=== PATIENT | female | born 1975 | race African-American/Black ===

== ENCOUNTER 2016-04-14 07:28 | Emergency (ER) | payer MEDICARE, MEDICAID ==
--- NOTE | 2016-04-14 08:04 | ER Document Report ---
ED General - General Time seen by provider: 07:58 Mode of Arrival: Ambulatory Information source: Patient TRAVEL OUTSIDE OF THE [place] IN LAST 30 DAYS: No - HPI Onset: Yesterday Onset/Duration: Gradual Quality of pain: Pressure - Left leg due to the lymphedema Severity: Severe Pain Level: 5 Associated symptoms: Leg swelling - Bilateral lower leg swelling left greater than right. Patient has a history of lymphedema side, Other - Right facial droop unable to completely close her right eye Exacerbated by: Denies Relieved by: Denies Similar symptoms previously: Yes - to the leg edema not to the facial droop Recently seen / treated by doctor: Yes - General Chief Complaint: Numbness of Face Stated Complaint: FACE SWELLING AND LEG PAIN Notes: 40-year-old female presents to ED for right sided facial droop and swelling left side was normal. 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 Bilateral lower extremity edema left greater than right patient states this is normal for her. Patient states that she was eating doughnuts yesterday when her face on the right side started to swell. Patient denies any difficulty swallowing. Asymmetrical smile and face unable to completely close her right eye. 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 Patient states the left lower leg has been swollen for 4 days and she does take Lasix for this. Patient states she has a history of left lymphedema to the left leg. (LAM HOYOS) - Related Data Allergies/Adverse Reactions: No Known Allergies Allergy (Verified 04/14/16 07:30) Past Medical History - Social History Smoking Status: Never Smoker Cigarette use (# per day): No Chew tobacco use (# tins/day): No Smoking Education Provided: No Frequency of alcohol use: None Drug Abuse: None Occupation: none Lives with: Spouse/Significant other Family History: Arthritis, CAD, CVA, DM, Hyperlipidemia, Hypertension, Malignancy, Thyroid Disfunction Patient has suicidal ideation: No Patient has homicidal ideation: No - Past Medical History Cardiac Medical History: Reports: Hx Hypertension Pulmonary Medical History: Reports: None EENT Medical History: Reports: None Neurological Medical History: Reports: None Endocrine Medical History: Reports: Hx Diabetes Mellitus Type 2 Renal/ Medical History: Reports: None Malignancy Medical History: Reports: None GI Medical History: Reports: None Musculoskeltal Medical History: Reports Hx Arthritis, Reports Hx Musculoskeletal Deformity, Reports Hx Musculoskeletal Trauma, Reports Other - Left lymphedema Skin Medical History: Reports None Psychiatric Medical History: Reports: None Traumatic Medical History: Reports: None Infectious Medical History: Reports: None Past Surgical History: Reports: Hx Section, Hx Tubal Ligation - Immunizations Immunizations up to date: Yes Hx Diphtheria, Pertussis, Tetanus Vaccination: Yes Review of Systems - Review of Systems Constitutional: No symptoms reported EENT: Other - Right facial droop Cardiovascular: No symptoms reported Respiratory: No symptoms reported Gastrointestinal: No symptoms reported Genitourinary: No symptoms reported Female Genitourinary: No symptoms reported Musculoskeletal: Leg swelling - Bilateral left greater than right Skin: No symptoms reported Hematologic/Lymphatic: No symptoms reported Neurological/Psychological: Numbness - Right side of face -: Yes All other systems reviewed and negative Physical Exam - Vital signs Interpretation: Normal, Hypertensive - 158/90 manual instructed to follow up with primary md - General General appearance: Appears well, Alert - HEENT Head: Normocephalic, Atraumatic, Other - Facial droop to the right side of her face unable to completely close her right eye Eyes: Normal Pupils: PERRL Ears: Normal External canal: Normal Tympanic membrane: Normal Sinus: Normal Nasal: Normal Mucous membranes: Normal Pharynx: Other - She'll to right side of mouth Neck: Normal - Respiratory Respiratory status: No respiratory distress Chest status: Nontender Breath sounds: Normal Chest palpation: Normal - Cardiovascular Rhythm: Regular Heart sounds: Normal auscultation Murmur: No - Abdominal Inspection: Normal Distension: No distension Bowel sounds: Normal Tenderness: Nontender Organomegaly: No organomegaly - Back Back: Normal, Nontender - Extremities General upper extremity: Normal inspection, Nontender, Normal color, Normal ROM , Normal temperature General lower extremity: Normal inspection, Nontender, Normal color, Normal ROM , Normal temperature, Normal weight bearing. No: Scott's sign Calf: Other - Greater on left Edema Ankle: Edema - Greater on left Foot: Edema - Greater on left - Neurological Neuro grossly intact: Yes Cognition: Normal Orientation: AAOx4 Rand[place] Coma Scale Eye Opening: Spontaneous Randlett Coma Scale Verbal: Oriented Antonia Coma Scale Motor: Obeys Commands Antonia Coma Scale Total: 15 Speech: Normal Motor strength normal: LUE, RUE, LLE, RLE Sensory: Normal - Psychological Associated symptoms: Normal affect, Normal mood - Skin Skin Temperature: Warm Skin Moisture: Dry Skin Color: Normal - Vital signs Vitals: Temp Pulse Resp BP Pulse Ox 98.0 F 95 14 159/117 H 97 04/14/16 07:31 04/14/16 07:31 04/14/16 07:31 04/14/16 07:31 04/14/16 07:31 (SAMEER BLAIR) (LAM HOYOS) Course - Diagnostic Test Radiology reviewed: Image reviewed, Reports reviewed - Re-evaluation Re-evalutation: 04/14/16 08:12 Patient was independently examined by myself. Patient has left-sided facial weakness asymmetrical smile unable to close her left eye unable to raise her left eyebrow with for head sparing. Patient has equal work strength able to move all 4 extremities equal strength off throughout examinations consistent with Florez's palsy Agreed plan of management of the mid-level provider (SAMEER BLAIR) 04/14/16 09:23 (LAM HOYOS) - Vital Signs Vital signs: Temp Pulse Resp BP Pulse Ox 98.0 F 95 14 159/117 H 97 04/14/16 07:31 04/14/16 07:31 04/14/16 07:31 04/14/16 07:31 04/14/16 07:31 (SAMEER BLAIR) (LAM HOYOS) Discharge - Discharge Clinical Impression: Florez's palsy Disposition: HOME, SELF-CARE Additional Instructions: [place]' Palsy You have been diagnosed as having Florez's Palsy -- a paralysis of certain muscles of the face. It's caused by a temporary paralysis of the nerve which controls the muscles. The cause is unknown, but it's thought to be caused by a virus in most cases. The physician's exam shows that this is NOT a stroke. Florez's Palsy usually gets better by itself. There is no cure. Sometimes cortisone-type medication is given to decrease nerve swelling. This problem is usually temporary, lasting about three weeks. During that time, you must protect the eye from injury (because the eyelid muscles often do not cover it). Ointment or a patch may be necessary. Be sure to follow up as instructed, and call the doctor at once if new symptoms arise. Report any eye pain, decreasing vision or double vision, or any numbness or weakness outside the face area. STEROID MEDICATION: You have been given a medicine of the cortisone/steroid class. This medication is used to control inflammation or allergy. It is usually only given for a short period of time, until the acute process subsides. There are usually no side effects from short-term use of cortisone-like medications. Some persons feel an increased sense of well-being and are not sleepy at bedtime. Long-term use of cortisone medications is best avoided, unless required for a severe condition. If your condition does not remit, or relapses after the course of corticosteroid medication, you should consult your physician. Acyclovir Acyclovir (Zovirax) is used to treat infections caused by the Herpes family of viruses. It's available as capsules or ointment. Zovirax is most effective if started at the first sign of the viral outbreak. It can decrease the severity and duration of symptoms. However, it doesn't eliminate the virus from the body completely. If you're prone to repeated outbreaks of herpes, you'll continue to have attacks. Apply ointment with a disposable glove or finger-cot to avoid spreading the virus with your finger. If pills have been prescribed, take them for the full recommended course. Occasionally, mild nausea or headaches may occur. Call the doctor if you develop wheezing, itching, rash, shortness of breath , or lightheadedness. FOLLOW-UP CARE: If you have been referred to a physician for follow-up care, call the physician s office for an appointment as you were instructed or within the next two days. If you experience worsening or a significant change in your symptoms, notify the physician immediately or return to the Emergency Department at any time for re-evaluation. Prescriptions: Acyclovir 800 mg PO TID #7 tablet Prednisone [Deltasone 20 mg Tablet] 3 tab PO DAILY 5 Days Forms: Elevated Blood Pressure, Parent Work Note
[2016-04-14] MEDS ORDERED: ACYCLOVIR 800 MG TABLET PO ONE (08:10)
[2016-04-14] MEDS ORDERED: PREDNISONE 20 MG TABLET PO ONE (08:11)
[2016-04-14 09:35] VITALS: BP 150/90
== END 2016-04-14 09:35 | disposition home or self-care (01) ==
LOC: ER 07:28
DX: G51.0 Bell's palsy (principal); I89.0 Lymphedema, not elsewhere classified; R60.0 Localized edema; I10 Essential (primary) hypertension; E11.9 Type 2 diabetes mellitus without complications; Z79.899 Other long term (current) drug therapy
CPT/HCPCS: 99284; 70450; A9270 ×2; J3490; J7512

== ENCOUNTER 2016-05-23 19:06 | Emergency (ER) | payer MEDICARE, MEDICAID ==
--- NOTE | 2016-05-23 19:16 | ER Document Report ---
ED Medical Screen (RME) - General Stated Complaint: LEG PAIN Mode of Arrival: Ambulatory Information source: Patient - Patient presents with left-sided facial droop history of Florez's palsy. No weakness Notes: Patient presents with left-sided facial droop slurred speech, history of Florez's palsy. No weakness, sister reports she had seizure type activity before facial droop. No hx of seizures. Pt was seen here march for same sx. Pt reports leg pain that has worsened. I have greeted and performed a rapid initial assessment of this patient. A comprehensive ED assessment and evaluation of the patient, analysis of test results and completion of the medical decision making process will be conducted by additional ED providers. TRAVEL OUTSIDE OF THE [place] IN LAST 30 DAYS: No - Related Data Allergies/Adverse Reactions: No Known Allergies Allergy (Verified 04/14/16 07:30) Past Medical History - Past Medical History Cardiac Medical History: Reports: Hx Hypertension Endocrine Medical History: Reports: Hx Diabetes Mellitus Type 2 Renal/ Medical History: Denies: Hx Peritoneal Dialysis Musculoskeltal Medical History: Reports Hx Arthritis, Reports Hx Musculoskeletal Deformity, Reports Hx Musculoskeletal Trauma Past Surgical History: Reports: Hx Section, Hx Tubal Ligation - Immunizations Immunizations up to date: Yes Hx Diphtheria, Pertussis, Tetanus Vaccination: Yes
[2016-05-23 20:10] LABS: ABSOLUTE BASOPHILS # (AUTO) 0.2 10^3/uL (0.0-0.2); ABSOLUTE EOSINOPHILS # (AUTO) 0.4 10^3/uL (0.0-0.6); ABSOLUTE LYMPHOCYTES (AUTO) 3.5 10^3/uL (0.5-4.7); BASOPHILS % (AUTO) 1.4 % (0-2); EOSINOPHILS % (AUTO) 3.1 % (0-6); HEMATOCRIT 30.2 % (36.0-47.0); HGB HCT DIFFERENCE -3.2; LYMPHOCYTES % (AUTO) 27.1 % (13-45); MEAN CORPUSCULAR HEMOGLOBIN 19.3 pg (27.0-33.4); MEAN CORPUSCULAR HGB CONC 29.7 g/dL (32.0-36.0); MEAN CORPUSCULAR VOLUME 65 fl (80-97); MONOCYTES % (AUTO) 7.5 % (3-13); RED BLOOD COUNT 4.64 10^6/uL (3.72-5.28); RED CELL DISTRIBUTION WIDTH 20.5 % (11.5-14.0); SEGMENTED NEUTROPHILS % (AUTO) 60.9 % (42-78); WHITE BLOOD COUNT 13.1 10^3/uL (4.0-10.5)
[2016-05-23 20:18] LABS: PROTHROMBIN TIME 13.3 SEC (11.4-15.4)
[2016-05-23 20:19] LABS: PARTIAL THROMBOPLASTIN TIME 33.4 SEC (23.5-35.8)
[2016-05-23] MEDS ORDERED: ACYCLOVIR 200 MG CAPSULE PO ONE (20:19)
[2016-05-23] MEDS ORDERED: PREDNISONE 20 MG TABLET PO ONE (20:19)
--- NOTE | 2016-05-23 20:19 | ER Document Report ---
ED General - General Chief Complaint: Facial Droop Stated Complaint: LEG PAIN Mode of Arrival: Ambulatory Information source: Patient Notes: 40-year-old female history of Florez's palsy one month ago that resolved with steroids presents again with exact same complaints. Patient notes sudden left facial droop and inability to move her left forehead answers speech. Patient denies any other neurological deficits. Patient denies any other concerns. Patient does note intermittent swelling of bilateral lower extremities which improved with rest TRAVEL OUTSIDE OF THE [place] IN LAST 30 DAYS: No - HPI Onset: Just prior to arrival Onset/Duration: Sudden Quality of pain: No pain Severity: Mild Pain Level: Denies Associated symptoms: Other Exacerbated by: Denies Relieved by: Denies Similar symptoms previously: Yes Recently seen / treated by doctor: Yes - Related Data Allergies/Adverse Reactions: No Known Allergies Allergy (Verified 04/14/16 07:30) Past Medical History - General Information source: Patient - Patient presents with left-sided facial droop history of Florez's palsy. No weakness - Social History Smoking Status: Never Smoker Cigarette use (# per day): No Chew tobacco use (# tins/day): No Smoking Education Provided: No Frequency of alcohol use: None Drug Abuse: None Family History: Arthritis, CAD, CVA, DM, Hyperlipidemia, Hypertension, Malignancy, Thyroid Disfunction Patient has suicidal ideation: No Patient has homicidal ideation: No - Past Medical History Cardiac Medical History: Reports: Hx Hypertension Endocrine Medical History: Reports: Hx Diabetes Mellitus Type 2 Renal/ Medical History: Denies: Hx Peritoneal Dialysis Musculoskeltal Medical History: Reports Hx Arthritis, Reports Hx Musculoskeletal Deformity, Reports Hx Musculoskeletal Trauma Past Surgical History: Reports: Hx Section, Hx Tubal Ligation - Immunizations Immunizations up to date: Yes Hx Diphtheria, Pertussis, Tetanus Vaccination: Yes Review of Systems - Review of Systems Notes: REVIEW OF SYSTEMS: CONSTITUTIONAL : Denies fever, chills, or sweats. Denies recent illness. EENT: Denies eye, ear, throat, or mouth pain or symptoms. Denies nasal or sinus congestion or discharge. Denies throat, tongue, or mouth swelling or difficulty swallowing. CARDIOVASCULAR: Denies chest pain. Denies palpitations or racing or irregular heart beat. Denies ankle edema. RESPIRATORY: Denies cough, cold, or chest congestion. Denies shortness of breath, difficulty breathing, or wheezing. GASTROINTESTINAL: Denies abdominal pain or distention. Denies nausea, vomiting , or diarrhea. Denies blood in vomitus, stools, or per rectum. Denies black, tarry stools. Denies constipation. GENITOURINARY: Denies difficulty urinating, painful urination, burning, frequency, blood in urine, or discharge. FEMALE GENITOURINARY: Denies vaginal bleeding, heavy or abnormal periods, irregular periods. Denies vaginal discharge or odor. MUSCULOSKELETAL: Bilateral lower extremity edema SKIN: Denies rash, lesions or sores. HEMATOLOGIC : Denies easy bruising or bleeding. LYMPHATIC: Denies swollen, enlarged glands. NEUROLOGICAL: Left facial droop with difficulty with speech PSYCHIATRIC: Denies anxiety or stress. Denies depression, suicidal ideation, or homicidal ideation. ALL OTHER SYSTEMS REVIEWED AND NEGATIVE. Dictation was performed using [employer] voice recognition software PHYSICAL EXAMINATION: GENERAL: Well-appearing, well-nourished and in no acute distress. HEAD: Left facial droop EYES: Patient unable to close her left eye completely ENT: Patient unable to move left forehead NECK: Normal range of motion, supple without lymphadenopathy LUNGS: Breath sounds clear to auscultation bilaterally and equal. No wheezes rales or rhonchi. HEART: Regular rate and rhythm without murmurs ABDOMEN: Soft, nontender, nondistended abdomen. No guarding, no rebound. No masses appreciated. Female : deferred Musculoskeletal: Normal range of motion, no pitting or edema. No cyanosis. NEUROLOGICAL: Slurred speech PSYCH: Normal mood, normal affect. SKIN: Herpetic blister of the right lower lip Physical Exam - Vital signs Vitals: Temp Pulse Resp BP Pulse Ox 97.9 F 99 22 H 155/98 H 95 05/23/16 19:15 05/23/16 19:15 05/23/16 19:15 05/23/16 19:15 05/23/16 19:15 Course - Re-evaluation Re-evalutation: 05/23/16 20:16 CT of the head was performed which was negative. Patient's presentation is consistent with Florez's palsy. Patient did not follow-up with neurologist first time and must follow-up since this is a second episode.. Patient will be treated with steroids and acyclovir Patient instructed to use saline drops for her eyes After performing a Medical Screening Examination, I estimate there is LOW risk for ACUTE GLAUCOMA, TEMPORAL ARTERITIS, MENINGITIS, INCRANIAL HEMORRHAGE, or ISCHEMIC STROKE thus I consider the discharge disposition reasonable. The patient and I have discussed the diagnosis and risks, and we agree with discharging home with close follow-up with the understanding that symptoms and presentations can change. We also discussed returning to the Emergency Department immediately if new or worsening symptoms occur. We have discussed the symptoms which are most concerning (e.g., changing or worsening symptoms, new numbness or weakness, vomiting, fever) that necessitate immediate return. - Vital Signs Vital signs: Temp Pulse Resp BP Pulse Ox 97.9 F 99 22 H 155/98 H 100 05/23/16 19:15 05/23/16 19:15 05/23/16 19:15 05/23/16 19:15 05/23/16 19:50 - Laboratory Result Diagrams: 05/23/16 19:55 05/23/16 19:55 Laboratory results interpreted by me: 05/23/16 19:55 WBC 13.1 H Hgb 9.0 L Hct 30.2 L MCV 65 L MCH 19.3 L MCHC 29.7 L RDW 20.5 H - Diagnostic Test Radiology reviewed: Image reviewed, Reports reviewed Discharge - Discharge Clinical Impression: Florez's palsy, left facial droop Condition: Stable Disposition: HOME, SELF-CARE Instructions: Florez's Palsy ([facility]) Prescriptions: Acyclovir [Acyclovir 400 mg Tablet] 400 mg PO 5XD #50 tablet Prednisone [Deltasone 20 mg Tablet] 3 tab PO DAILY 5 Days Referrals: DUY VINCENT MD [Primary Care Provider] - Follow up as needed DONNA KC MD [EMERITUS] - Follow up tomorrow NICKIE HUANG MD [ACTIVE STAFF] - Follow up tomorrow
[2016-05-23 20:25] LABS: ALANINE AMINOTRANSFERASE 19 U/L (9-52); ALBUMIN 3.8 g/dL (3.5-5.0); ALKALINE PHOSPHATASE 74 U/L (38-126); ANION GAP 8 (5-19); ASPARTATE AMINO TRANSFERASE 14 U/L (14-36); BILIRUBIN,TOTAL 0.8 mg/dL (0.2-1.3); BLOOD UREA NITROGEN 12 mg/dL (7-20); CALCIUM 9.5 mg/dL (8.4-10.2); CARBON DIOXIDE 30 mmol/L (22-30); CHLORIDE 98 mmol/L (98-107); CREATINE KINASE 87 U/L (30-135); CREATININE RESULT 0.69 mg/dL (0.52-1.25); POTASSIUM 4.6 mmol/L (3.6-5.0); TOTAL PROTEIN 8.2 g/dL (6.3-8.2)
[2016-05-23 20:36] LABS: CREATINE KINASE MB 0.64 ng/mL (<4.55)
[2016-05-23 20:37] LABS: GLUCOSE 432 mg/dL (75-110)
[2016-05-23 20:38] LABS: TROPONIN I < 0.012 ng/mL
[2016-05-23] MEDS ORDERED: NORMAL SALINE 1000 ML 1,000 ML IV ONE (20:41)
[2016-05-23] MEDS ORDERED: INSULIN REG, HUMAN 100 UNIT/ML 3 ML VIAL (PYX) SUBCUT ONE ×2 (20:41→21:54)
[2016-05-23] MEDS ORDERED: FLUCONAZOLE 100 MG TABLET PO ONE (21:54)
[2016-05-23 23:20] VITALS: BP 146/99
--- NOTE | 2016-05-24 20:08 | EKG REPORT ---
SEVERITY:- OTHERWISE NORMAL ECG - SINUS RHYTHM LEFT AXIS DEVIATION : Confirmed by: Yaw Sheppard 24-May-2016 20:07:25
== END 2016-05-23 23:24 | disposition home or self-care (01) ==
LOC: ER 19:06
DX: G51.0 Bell's palsy (principal); R29.810 Facial weakness; M79.606 Pain in leg, unspecified
CPT/HCPCS: 93005; 99291; 96360; 36415; 82553; 82962; 82550; 85025; 85610; 85730; 80053; 84484; 71010; 70450; 93010; A9270 ×4; J7030; J1815; J7512

== ENCOUNTER 2016-12-03 00:10 | Observation (INO) | payer MEDICARE, MEDICAID ==
[2016-12-03] MEDS ORDERED: ADENOSINE INJ/PF 6 MG/2 ML SDV IV ONE ×2 (00:30→00:45)
[2016-12-03 01:18] LABS: HEMATOCRIT 32.6 % (36.0-47.0); HEMOGLOBIN 9.7 g/dL (12.0-15.5); HGB HCT DIFFERENCE -3.5; MEAN CORPUSCULAR HEMOGLOBIN 19.3 pg (27.0-33.4); MEAN CORPUSCULAR HGB CONC 29.9 g/dL (32.0-36.0); RED BLOOD COUNT 5.05 10^6/uL (3.72-5.28); RED CELL DISTRIBUTION WIDTH 20.8 % (11.5-14.0); WHITE BLOOD COUNT 14.4 10^3/uL (4.0-10.5)
[2016-12-03 01:19] LABS: ALANINE AMINOTRANSFERASE 14 U/L (9-52); ALBUMIN 3.5 g/dL (3.5-5.0); ALKALINE PHOSPHATASE 81 U/L (38-126); ANION GAP 12 (5-19); ASPARTATE AMINO TRANSFERASE 11 U/L (14-36); BILIRUBIN,DIRECT 0.4 mg/dL (0.0-0.4); BILIRUBIN,TOTAL 0.7 mg/dL (0.2-1.3); BLOOD UREA NITROGEN 13 mg/dL (7-20); CALCIUM 9.1 mg/dL (8.4-10.2); CARBON DIOXIDE 24 mmol/L (22-30); CHLORIDE 100 mmol/L (98-107); CREATINE KINASE 66 U/L (30-135); CREATININE RESULT 0.95 mg/dL (0.52-1.25); MAGNESIUM 1.4 mg/dL (1.6-2.3); POTASSIUM 4.1 mmol/L (3.6-5.0); SODIUM 135.9 mmol/L (137-145); TOTAL PROTEIN 7.5 g/dL (6.3-8.2)
[2016-12-03 01:28] LABS: GLUCOSE 496 mg/dL (75-110)
[2016-12-03 01:31] LABS: CREATINE KINASE MB 0.63 ng/mL (<4.55); TROPONIN I < 0.012 ng/mL
[2016-12-03 01:39] LABS: MEAN CORPUSCULAR VOLUME 65 fl (80-97)
[2016-12-03 01:45] LABS: BAND NEUTROPHILS % (MANUAL) 1 % (3-5); BASOPHILS % (MANUAL) 0 % (0-2); EOSINOPHILS % (MANUAL) 2 % (0-6); LYMPHOCYTES % (MANUAL) 27 % (13-45); TOTAL CELLS COUNTED 100
--- NOTE | 2016-12-03 01:45 | ER Document Report ---
ED General - General Chief Complaint: Chest Pain Stated Complaint: CHEST PAIN Time Seen by Provider: 12/03/16 00:48 TRAVEL OUTSIDE OF THE [place] IN LAST 30 DAYS: No - Related Data Allergies/Adverse Reactions: No Known Allergies Allergy (Verified 04/14/16 07:30) Past Medical History - Social History Smoking Status: Unknown if Ever Smoked Frequency of alcohol use: None Drug Abuse: None Family History: Arthritis, CAD, CVA, DM, Hyperlipidemia, Hypertension, Malignancy, Thyroid Disfunction Patient has suicidal ideation: No Patient has homicidal ideation: No - Past Medical History Cardiac Medical History: Reports: Hx Hypertension Endocrine Medical History: Reports: Hx Diabetes Mellitus Type 2 Renal/ Medical History: Denies: Hx Peritoneal Dialysis Musculoskeltal Medical History: Reports Hx Arthritis, Reports Hx Musculoskeletal Deformity, Reports Hx Musculoskeletal Trauma Psychiatric Medical History: Reports: Hx Depression Past Surgical History: Reports: Hx Section, Hx Tubal Ligation - Immunizations Immunizations up to date: Yes Hx Diphtheria, Pertussis, Tetanus Vaccination: Yes Physical Exam - Vital signs Vitals: Pulse Resp BP Pulse Ox 170 H 26 H 100/41 L 94 12/03/16 00:31 12/03/16 00:31 12/03/16 00:31 12/03/16 00:31 Course - Re-evaluation Re-evalutation: 12/03/16 01:44 On initial evaluation patient was in SVT and was clammy and unwell appearing. Her initial blood pressure was 89 systolic. Fluids were started when I came in the room her blood pressure started to go into the low systolics. Initially was given a cardiovert patient but being that her repeat blood pressure was 104 systolically decided to try adenosine. We pushed adenosine 6 mg. He did not change her rhythm. We pushed 12 mg in the left arm. Still did not change her rhythm. We placed a new larger more proximal IV in the right arm. He then pushed 12 mg and this broke out of SVT. I have just reevaluate the patient again. She is continuing to feel much better and looks much improved. She has no chest pain at this time. 12/03/16 03:55 She continues to look well and continues to be chest pain-free. Still very concerned for the fact that the patient came in looking so unwell and hypotensive with her SVT. She also is having chest pain for the SVT started. It is very typical for someone in her 40s to have benign SVT with a previously having it in the past. It is hard for me to call this benign SVT at this time without further workup. I feel it is appropriate to admit her to further repeat cardiac enzymes and further workup of her episode tonight. I did speak with her primary care doctor, Dr. Camarena, who agrees to admit the patient. Dictation of this chart was performed using voice recognition software; therefore, there may be some unintended grammatical errors. - Vital Signs Vital signs: Temp Pulse Resp BP Pulse Ox 170 H 17 129/85 H 100 12/03/16 00:31 12/03/16 03:20 12/03/16 03:15 12/03/16 03:20 - Laboratory Result Diagrams: 12/03/16 00:55 12/03/16 00:55 Laboratory results interpreted by me: 12/03/16 12/03/16 00:55 00:55 WBC 14.4 H Hgb 9.7 L Hct 32.6 L MCV 65 L MCH 19.3 L MCHC 29.9 L RDW 20.8 H Band Neutrophils % 1 L Abs Neuts (Manual) 9.1 H Sodium 135.9 L Glucose 496 H* Magnesium 1.4 L AST 11 L Critical Care Note - Critical Care Note Total time excluding time spent on procedures (mins): 35 Comments: Critical care time for this patient not including time spent on procedures approximately 35 minutes due to treatment of acute SVT with hypotension, frequent re-evaluations, workup of chest pain with SVT. Discharge - Discharge Clinical Impression: SVT (supraventricular tachycardia) Chest pain Qualifiers: Chest pain type: unspecified Qualified Code(s): R07.9 - Chest pain, unspecified Condition: Stable Disposition: ADMITTED OBSERVATION Admitting Provider: [facility] Admitted: Telemetry
[2016-12-03 01:48] LABS: ANISOCYTOSIS 2+; BURR CELLS SLIGHT; MICROCYTOSIS 3+; OVALOCYTES SLIGHT; POIKILOCYTOSIS SLIGHT; POLYCHROMASIA SLIGHT; TARGET CELLS SLIGHT; TOXIC VACUOLATION PRESENT
--- NOTE | 2016-12-03 01:55 | RADIOLOGY REPORT (SQ) ---
EXAM DESCRIPTION: CHEST SINGLE VIEW COMPLETED DATE/TIME: 12/03/2016 1:02 am REASON FOR STUDY: SVT COMPARISON: 05/23/2016. EXAM PARAMETERS: NUMBER OF VIEWS: One view. TECHNIQUE: Single frontal radiographic view of the chest acquired. RADIATION DOSE: NA LIMITATIONS: None. FINDINGS: LUNGS AND PLEURA: Moderate lung volumes. Clear parenchyma. MEDIASTINUM AND HILAR STRUCTURES: No masses. Contour normal. HEART AND VASCULAR STRUCTURES: Heart normal in size. Normal vasculature. BONES: No acute findings. HARDWARE: None in the chest. OTHER: No other significant finding. IMPRESSION: No acute cardiopulmonary findings. TECHNICAL DOCUMENTATION: JOB ID: [id number]
[2016-12-03] MEDS ORDERED: INSULIN REG, HUMAN 100 UNIT/ML 3 ML VIAL (PYX) SUBCUT ONE (03:00)
[2016-12-03] MEDS: MAGNESIUM SULFATE/D5W 1 GM/100 ML RTUPB IV SCH ×2 (03:23→05:30)
[2016-12-03] MEDS ORDERED: DEXTROSE 40% GEL 15 GM TUBE X 2 PO PRN (06:47)
[2016-12-03] MEDS ORDERED: DEXTROSE 40% GEL 15 GM TUBE PO PRN (06:47)
[2016-12-03] MEDS ORDERED: DEXTROSE 50%-WATER SYRINGE 25 GM/50 ML DOSE IV PRN (06:47)
[2016-12-03] MEDS ORDERED: DEXTROSE 50%-WATER SYRINGE 12.5 GM/25 ML DOSE IV PRN (06:47)
[2016-12-03] MEDS ORDERED: GLUCAGON,HUMAN RECOMB 1 MG INJ IM PRN (06:47)
--- NOTE | 2016-12-03 07:24 | EKG REPORT ---
SEVERITY:- ABNORMAL ECG - SINUS RHYTHM LEFT AXIS DEVIATION CONSIDER ANTERIOR INFARCT NONSPECIFIC ST-T CHANGES LATERAL LEADS : Confirmed by: Preston Carmen MD 03-Dec-2016 07:23:01
--- NOTE | 2016-12-03 07:24 | EKG REPORT ---
SEVERITY:- ABNORMAL ECG - SINUS TACHYCARDIA CONSIDER ANTEROSEPTAL INFARCT ST DEPRESSION, CONSIDER ISCHEMIA, LAT LEADS BORDERLINE PROLONGED QT INTERVAL : Confirmed by: Preston Carmen MD 03-Dec-2016 07:23:40
[2016-12-03 09:30] LABS: CREATINE KINASE MB 0.54 ng/mL (<4.55)
[2016-12-03 09:32] LABS: TROPONIN I < 0.012 ng/mL
[2016-12-03] MEDS: INSULIN LISPRO 100 UNIT/ML 3 ML VIAL SUBCUT PRN ×3 (12:41→21:31)
[2016-12-03 16:36] LABS: CREATINE KINASE MB 0.44 ng/mL (<4.55)
[2016-12-03 16:39] LABS: TROPONIN I < 0.012 ng/mL
[2016-12-03] MEDS ORDERED: TRAMADOL HCL 50 MG TABLET PO PRN (18:12)
--- NOTE | 2016-12-03 18:34 | PDOC H&P ---
History of Present Illness Admission Date/PCP: 12/03/16 07:46 DUY WILSON MD History of Present Illness: LAURENT MOORE is a 41 year old female known to my practice who presented to the ED with chest pain and found to be in SVT with hypotension. She was initially treated with IV Adenosine 6,12,12 mg sequence with eventual success with resolution of her abnormal rhythm and hypotension. She reported improvement in her continence but due to her presenting symptoms and findings, she was advised hospitalization for further evaluation. Her initial cardiac enzymes were within normal range. She denied associated palpitation, diaphoresis, or shortness of breath. She did admit to significant personal stress due to her mother's recently. She admitted to noncompliance with her medications. She denied recreational drug usage, alcohol consumption cigarette smoking. Her morbidities include hypertension, hyperlipidemia, Diabetes mellitus type 2 and severe morbid obesity. Past Medical History Cardiac Medical History: Reports: Hypertension Denies: Congestive Heart Failure, Myocardial Infarction Pulmonary Medical History: Reports: Asthma, Bronchitis Denies: Chronic Obstructive Pulmonary Disease (COPD), Pneumonia, Tuberculosis Neurological Medical History: Denies: Seizures Endocrine Medical History: Reports: Diabetes Mellitus Type 2 Renal/ Medical History: Denies: End Stage Renal Disease GI Medical History: Reports: Gastroesophageal Reflux Disease Denies: Cirrhosis Musculoskeltal Medical History: Reports: Arthritis Psychiatric Medical History: Reports: Depression Denies: Bipolar Disorder Hematology: Reports: Anemia Denies: Bleeding Tendencies Past Surgical History Past Surgical History: Reports: Section, Tubal Ligation Social History Smoking Status: Never Smoker Drugs: None Family History Family History: Arthritis, CAD, CVA, DM, Hyperlipidemia, Hypertension, Malignancy, Thyroid Disfunction Parental Family History Reviewed: Yes Children Family History Reviewed: Yes Sibling(s) Family History Reviewed.: Yes Medication/Allergy Home Medications: Amlodipine Besylate [Norvasc 5 mg Tablet] 5 mg PO DAILY 12/03/16 Clotrimazole 1% Topical [Lotrimin 1% Topical Soln 10 ml] 1 applic TOP Q12 Dulaglutide [Trulicity] 0.75 mg SQ MERRILL@1000 12/03/16 Furosemide [Lasix 40 mg Tablet] 40 mg PO DAILY 12/03/16 Glipizide [Glocotrol 5 Mg Tablet] 5 mg PO DAILY 12/03/16 Pravastatin Sodium [Pravachol] 20 mg PO DAILY 12/03/16 Sitagliptin Phos/Metformin HCl [Janumet 50-1,000 mg Tablet] 1 tab PO Q12 Tramadol HCl [Ultram 50 mg Tablet] 50 mg PO Q6HP PRN 12/03/16 Valsartan [Diovan] 320 mg PO DAILY 12/03/16 Allergies/Adverse Reactions: No Known Allergies Allergy (Verified 12/03/16 05:13) Review of Systems Constitutional: ABSENT: chills, fever(s), headache(s), weight gain, weight loss Eyes: ABSENT: visual disturbances Ears: ABSENT: hearing changes Nose, Mouth, and Throat: ABSENT: headache(s), sore throat, vertigo Cardiovascular: PRESENT: chest pain. ABSENT: as per HPI, dyspnea on exertion, edema, orthropnea, palpitations, other Respiratory: ABSENT: cough, hemoptysis Gastrointestinal: ABSENT: abdominal pain, constipation, diarrhea, hematemesis, hematochezia, nausea, vomiting Genitourinary: ABSENT: dysuria, hematuria Musculoskeletal: ABSENT: joint swelling Integumentary: ABSENT: rash, wounds Neurological: ABSENT: abnormal gait, abnormal speech, confusion, dizziness, focal weakness, syncope Psychiatric: ABSENT: anxiety, depression, homidical ideation, suicidal ideation Endocrine: ABSENT: cold intolerance, heat intolerance, menstrual abnormalities, polydipsia, polyuria Hematologic/Lymphatic: ABSENT: easy bleeding, easy bruising, lymphadenopathy Allergic/Immunologic: ABSENT: seasonal rhinorrhea Physical Exam Vital Signs: Temp Pulse Resp BP Pulse Ox 98.2 F 88 17 129/82 H 97 12/03/16 15:05 12/03/16 15:05 12/03/16 15:05 12/03/16 15:05 12/03/16 15:05 Intake & Output 12/02/16 12/03/16 12/04/16 06:59 06:59 06:59 Intake Total 360 Balance 360 Weight 86.492 kg General appearance: PRESENT: no acute distress, cooperative, morbidly obese Head exam: PRESENT: atraumatic, normocephalic Eye exam: PRESENT: EOMI, PERRLA. ABSENT: conjunctiva pale, scleral icterus Ear exam: PRESENT: normal external ear exam Mouth exam: PRESENT: moist, tongue midline Throat exam: ABSENT: post pharyngeal erythema, tonsillar erythema, tonsillar exudate, tonsillogmegaly, other Neck exam: PRESENT: full ROM. ABSENT: carotid bruit, JVD, lymphadenopathy, thyromegaly Respiratory exam: PRESENT: clear to auscultation trina Cardiovascular exam: PRESENT: RRR. ABSENT: diastolic murmur, rubs, systolic murmur Pulses: PRESENT: normal dorsalis pedis pul, +2 pedal pulses bilateral Vascular exam: PRESENT: normal capillary refill. ABSENT: pallor GI/Abdominal exam: PRESENT: normal bowel sounds, soft. ABSENT: distended, guarding, mass, organolmegaly, rebound, tenderness Rectal exam: PRESENT: deferred Gentrourinary exam: ABSENT: indwelling catheter Extremities exam: ABSENT: calf tenderness, pedal edema Musculoskeletal exam: PRESENT: normal inspection Neurological exam: PRESENT: alert, awake, oriented to person, oriented to place , oriented to time, oriented to situation, CN II-XII grossly intact. ABSENT: motor sensory deficit Psychiatric exam: PRESENT: appropriate affect, normal mood. ABSENT: homicidal ideation, suicidal ideation Skin exam: PRESENT: dry, intact, warm. ABSENT: cyanosis, rash Results Laboratory Results: 12/03/16 12/03/16 12/03/16 08:40 08:40 16:00 Creatine Kinase 49 CK-MB (CK-2) 0.54 0.44 Troponin I < 0.012 < 0.012 12/03/16 16:05 Creatine Kinase 48 CK-MB (CK-2) Troponin I Impressions: Chest X-Ray 12/03/16 00:48 IMPRESSION: No acute cardiopulmonary findings. Assessment & Plan - Diagnosis (1) SVT (supraventricular tachycardia) Is this a current diagnosis for this admission?: Yes Plan: See admitting physician attending orders. (2) Chest pain Qualifiers: Chest pain type: unspecified Qualified Code(s): R07.9 - Chest pain, unspecified Is this a current diagnosis for this admission?: Yes Plan: See admitting physician attending orders. (3) Diabetes mellitus type 2 in obese Is this a current diagnosis for this admission?: Yes Plan: See admitting physician attending orders. (4) HTN (hypertension) Qualifiers: Hypertension type: essential hypertension Qualified Code(s): I10 - Essential (primary) hypertension Is this a current diagnosis for this admission?: Yes Plan: See admitting physician attending orders. (5) HLD (hyperlipidemia) Qualifiers: Hyperlipidemia type: pure hypercholesterolemia Qualified Code(s): E78.00 - Pure hypercholesterolemia, unspecified; E78.0 - Pure hypercholesterolemia Is this a current diagnosis for this admission?: Yes Plan: See admitting physician attending orders. (6) Morbid obesity Is this a current diagnosis for this admission?: Yes Plan: See admitting physician attending orders. - Time Time Spent: 50 to 70 Minutes Medications reviewed and adjusted accordingly: Yes Anticipated discharge: Home Within: within 24 hours - Plan Summary Plan Summary: See admitting physician attending orders.
[2016-12-03] MEDS ORDERED: GLIPIZIDE 5 MG TABLET PO ONE (20:00)
[2016-12-03] MEDS: SITAGLIPTIN PHOSPHATE 50 MG TABLET PO SCH (21:31)
[2016-12-03] MEDS: METFORMIN HCL 500 MG TABLET PO SCH (21:32)
[2016-12-03] MEDS: CLOTRIMAZOLE 1% TOPICAL SOLN 10 ML TOP SCH (21:33)
[2016-12-03] MEDS ORDERED: (PENDING PHARMACY ID) (Metformin Hcl [Metformin Hcl Er] 1,000 MG) PO SCH (22:00)
[2016-12-03] MEDS ORDERED: (PENDING PHARMACY ID) (Sitagliptin Phos/Metformin Hcl [Janumet 50-1,000 Mg Tablet] 1 TAB) PO SCH (22:00)
[2016-12-03 23:44] LABS: CREATINE KINASE MB 0.48 ng/mL (<4.55)
[2016-12-03 23:54] LABS: TROPONIN I < 0.012 ng/mL
[2016-12-04 06:37] LABS: ANION GAP 9 (5-19); BLOOD UREA NITROGEN 14 mg/dL (7-20); CALCIUM 9.1 mg/dL (8.4-10.2); CARBON DIOXIDE 27 mmol/L (22-30); CHLORIDE 102 mmol/L (98-107); CREATININE RESULT 0.75 mg/dL (0.52-1.25); GLUCOSE 183 mg/dL (75-110); MAGNESIUM 1.8 mg/dL (1.6-2.3); POTASSIUM 4.3 mmol/L (3.6-5.0); SODIUM 137.6 mmol/L (137-145)
[2016-12-04 07:03] LABS: ABSOLUTE BASOPHILS # (AUTO) 0.1 10^3/uL (0.0-0.2); ABSOLUTE EOSINOPHILS # (AUTO) 0.4 10^3/uL (0.0-0.6); ABSOLUTE MONOCYTES (AUTO) 0.9 10^3/uL (0.1-1.4); ABSOLUTE NEUT (AUTO) 6.2 10^3/uL (1.7-8.2); BASOPHILS % (AUTO) 0.6 % (0-2); EOSINOPHILS % (AUTO) 3.8 % (0-6); HEMATOCRIT 28.9 % (36.0-47.0); HEMOGLOBIN 9.1 g/dL (12.0-15.5); HGB HCT DIFFERENCE -1.6; LYMPHOCYTES % (AUTO) 28.5 % (13-45); MEAN CORPUSCULAR HGB CONC 31.5 g/dL (32.0-36.0); MEAN CORPUSCULAR VOLUME 64 fl (80-97); MONOCYTES % (AUTO) 8.1 % (3-13); RED BLOOD COUNT 4.54 10^6/uL (3.72-5.28); RED CELL DISTRIBUTION WIDTH 20.2 % (11.5-14.0); WHITE BLOOD COUNT 10.5 10^3/uL (4.0-10.5)
[2016-12-04 07:06] LABS: ANISOCYTOSIS 2+; HYPOCHROMASIA 2+; MICROCYTOSIS 3+; POIKILOCYTOSIS SLIGHT; TOXIC GRANULATION SLIGHT
[2016-12-04 07:07] LABS: BURR CELLS SLIGHT; OVALOCYTES SLIGHT; SCHISTOCYTES SLIGHT; TARGET CELLS SLIGHT
[2016-12-04] MEDS ORDERED: AMLODIPINE BESYLATE 5 MG TABLET PO SCH ×2 (10:00)
[2016-12-04] MEDS ORDERED: VALSARTAN 160 MG TABLET PO SCH (10:00)
[2016-12-04] MEDS ORDERED: PIOGLITAZONE HCL 30 MG TABLET PO SCH (10:00)
[2016-12-04] MEDS ORDERED: (PENDING PHARMACY ID) (Valsartan [Diovan] 320 MG) PO SCH ×2 (10:00)
[2016-12-04] MEDS ORDERED: GLIPIZIDE 5 MG TABLET PO SCH (10:00)
[2016-12-04] MEDS ORDERED: FUROSEMIDE 40 MG TABLET PO SCH ×2 (10:00)
[2016-12-04] MEDS: INSULIN LISPRO 100 UNIT/ML 3 ML VIAL SUBCUT PRN ×2 (10:05→12:43)
[2016-12-04] MEDS: METFORMIN HCL 500 MG TABLET PO SCH (10:06)
[2016-12-04] MEDS: SITAGLIPTIN PHOSPHATE 50 MG TABLET PO SCH (10:08)
[2016-12-04] MEDS: CLOTRIMAZOLE 1% TOPICAL SOLN 10 ML TOP SCH (10:08)
--- NOTE | 2016-12-04 11:49 | XCELERA REPORT ---
[address] [address] Transthoracic Echocardiogram Report Name: LAURENT MOORE Age: 41 yrs Gender: Female : 1975 Patient Status: Inpatient Patient Location: [address] [place] [address] Study Date: 12/04/2016 08:46 AM Height: 67 in Weight: 190 lb BSA: 2.0 m2 Procedure: A limited two-dimensional transthoracic echocardiogram was performed (2D). The study was technically adequate with some images being suboptimal in quality. Reason For Study: SVT with Hypotension; Diabetes mellitus type 2 Ordering Physician: DUY VINCENT Performed By: Susana Wills Interpretation Summary The left ventricular ejection fraction is normal. There is moderate concentric left ventricular hypertrophy. Doppler measurements suggest pseudonormalized left ventricular relaxation, which is associated with grade II/IV or mild to moderate diastolic dysfunction The left ventricle is grossly normal size. Wall motion cannot be accurately commented on, but no definite regional wall motion abnormalities noted. The right ventricle is mildly dilated. The right ventricular systolic function is normal. The left atrium is mildly dilated. The right atrium is mildly dilated. There is a trace amount of mitral regurgitation There is no mitral valve stenosis. No aortic regurgitation is present. There is no aortic valve stenosis There is a trace or physiologic amount of tricuspid regurgitation Tricuspid regurgitation jet envelope not well defined to measure RV systolic pressure accurately. The aortic root is not well visualized but is probably normal size. The inferior vena cava was not visualized MMode/2D Measurements & Calculations RVDd: 3.3 cm LVIDd: 4.4 cm FS: 36.4 % Ao root diam: 2.9 cm IVSd: 1.6 cm LVIDs: 2.8 cm EDV(Teich): 87.9 ml LVPWd: 1.5 cm ESV(Teich): 29.6 ml Ao root area: 6.5 cm2 EF(Teich): 66.3 % LA dimension: 4.0 cm Doppler Measurements & Calculations MV E max bob: MV P1/2t max bob: Ao V2 max: LV V1 max P.0 cm/sec 78.0 cm/sec 165.2 cm/sec 4.7 mmHg MV A max bob: MV P1/2t: 62.7 msec Ao max PG: LV V1 max: 91.8 cm/sec 10.9 mmHg 108.6 cm/sec MV E/A: 0.85 MVA(P1/2t): 3.5 cm2 MV dec slope: 364.5 cm/sec2 PA V2 max: 108.6 cm/sec PA max P.7 mmHg Left Ventricle The left ventricle is grossly normal size. There is moderate concentric left ventricular hypertrophy. The left ventricular ejection fraction is normal. Doppler measurements suggest pseudonormalized left ventricular relaxation, which is associated with grade II/IV or mild to moderate diastolic dysfunction. Wall motion cannot be accurately commented on, but no definite regional wall motion abnormalities noted. Right Ventricle The right ventricle is mildly dilated. The right ventricle appears to be hypertrophied. The right ventricular systolic function is normal. Atria The right atrium is mildly dilated. The left atrium is mildly dilated. Interarterial septum not well visualized and not well dopplered. Cannot comment on ASD/PFO presence. Mitral Valve The mitral valve is grossly normal. There is no mitral valve stenosis. There is a trace amount of mitral regurgitation. Aortic Valve The aortic valve is grossly normal. There is no aortic valve stenosis. No aortic regurgitation is present. Tricuspid Valve The tricuspid valve is not well visualized secondary to technical limitations. There is no tricuspid stenosis. There is a trace or physiologic amount of tricuspid regurgitation. Tricuspid regurgitation jet envelope not well defined to measure RV systolic pressure accurately. Pulmonic Valve The pulmonic valve is not well visualized. Great Vessels The aortic root is not well visualized but is probably normal size. The inferior vena cava was not visualized. Effusions There is no pericardial effusion. : DUY VINCENT > Yaw Sheppard
--- NOTE | 2016-12-04 16:25 | PDOC DISCHARGE SUMMARY ---
General - Admit/Disc Date/PCP Admission Date/Primary Care Provider: 12/03/16 07:46 DUY OSUNKOYA Discharge Date: 12/04/16 - Discharge Diagnosis (1) SVT (supraventricular tachycardia) Is this a current diagnosis for this admission?: Yes (2) Chest pain Is this a current diagnosis for this admission?: Yes (3) Diabetes mellitus type 2 in obese Is this a current diagnosis for this admission?: Yes (4) HTN (hypertension) Is this a current diagnosis for this admission?: Yes (5) HLD (hyperlipidemia) Is this a current diagnosis for this admission?: Yes (6) Morbid obesity Is this a current diagnosis for this admission?: Yes - Additional Information Home Medications: Tramadol HCl [Ultram 50 mg Tablet] 50 mg PO Q6HP PRN 12/03/16 Amlodipine Besylate [Norvasc 5 mg Tablet] 5 mg PO DAILY #30 tablet 12/04/16 Clotrimazole 1% Topical [Lotrimin 1% Topical Soln 10 ml] 1 applic TOP Q12 #1 bottle 12/04/16 Dulaglutide [Trulicity] 0.75 mg SQ MERRILL@1000 #4 pen.injctr 12/04/16 Furosemide [Lasix 40 mg Tablet] 40 mg PO DAILY #30 tablet 12/04/16 Glipizide [Glucotrol 5 mg Tablet] 5 mg PO DAILY #30 tablet 12/04/16 Pravastatin Sodium [Pravachol] 20 mg PO DAILY #30 tablet 12/04/16 Sitagliptin Phos/Metformin HCl [Janumet 50-1,000 mg Tablet] 1 tab PO Q12 #60 tablet 12/04/16 Valsartan [Diovan] 320 mg PO DAILY #30 tablet 12/04/16 History of Present Illness History of Present Illness: LAURENT MOORE is a 41 year old female known to my practice who presented to the ED with chest pain and found to be in SVT with hypotension. She was initially treated with IV Adenosine 6,12,12 mg sequence with eventual success with resolution of her abnormal rhythm and hypotension. She reported improvement in her continence but due to her presenting symptoms and findings, she was advised hospitalization for further evaluation. Her initial cardiac enzymes were within normal range. She denied associated palpitation, diaphoresis, or shortness of breath. She did admit to significant personal stress due to her mother's recently. She admitted to noncompliance with her medications. She denied recreational drug usage, alcohol consumption cigarette smoking. Her morbidities include hypertension, hyperlipidemia, Diabetes mellitus type 2 and severe morbid obesity. Hospital Course Hospital Course: Patient was admitted to observation bed due to presentation symptoms and concern for possible cardiac origin of her chest pain, SVT with hypotension. Her cardiac enzymes and complete echocardiogram were unrevealing. Her cardiac monitoring during this hospitalization did not reveal any significant sustained arrhythmia. Of note, patient demonstrated significant hyperglycemia that was managed with sliding scale insulin and restart of her preadmission medications. Her blood glucose did show some downward readings at bedside accuchek. She will be discharge home today. Follow up in the office as instructed upon discharge. Physical Exam Vital Signs: Temp Pulse Resp BP Pulse Ox 97.8 F 86 18 125/78 96 12/04/16 11:54 12/04/16 14:00 12/04/16 11:54 12/04/16 11:54 12/04/16 11:54 Intake & Output 12/03/16 12/04/16 12/05/16 06:59 06:59 06:59 Intake Total 360 Balance 360 Weight 86.492 kg Results Laboratory Results: 12/04/16 05:01 12/04/16 05:01 12/04/16 12/04/16 05:01 05:01 WBC 10.5 RBC 4.54 Hgb 9.1 L Hct 28.9 L MCV 64 L MCH 20.0 L MCHC 31.5 L RDW 20.2 H Plt Count 270 Seg Neutrophils % 59.0 Lymphocytes % 28.5 Monocytes % 8.1 Eosinophils % 3.8 Basophils % 0.6 Absolute Neutrophils 6.2 Absolute Lymphocytes 3.0 Absolute Monocytes 0.9 Absolute Eosinophils 0.4 Absolute Basophils 0.1 Sodium 137.6 Potassium 4.3 Chloride 102 Carbon Dioxide 27 Anion Gap 9 BUN 14 Creatinine 0.75 Est GFR ( Amer) > 60 Est GFR (Non-Af Amer) > 60 Glucose 183 H Calcium 9.1 Magnesium 1.8 12/03/16 12/03/16 12/03/16 08:40 08:40 16:00 Creatine Kinase 49 CK-MB (CK-2) 0.54 0.44 Troponin I < 0.012 < 0.012 12/03/16 12/03/16 12/03/16 16:05 23:08 23:08 Creatine Kinase 48 50 CK-MB (CK-2) 0.48 Troponin I < 0.012 Impressions: Chest X-Ray 12/03/16 00:48 IMPRESSION: No acute cardiopulmonary findings. Plan Discharge Plan: D/C home today. Follow up in the office as instructed upon discharge. I discussed with her at bedside regarding medication and care plan follow up.
[2016-12-04 16:26] VITALS: BP 133/79
[2016-12-04] MEDS ORDERED: FLUCONAZOLE 100 MG TABLET PO ONE (17:00)
[2016-12-06] MEDS ORDERED: (PENDING PHARMACY ID) (Dulaglutide [Trulicity] 0.75 MG) SQ SCH (10:00)
== END 2016-12-04 17:11 | disposition home or self-care (01) ==
LOC: ER 00:10 → EH 04:19 → UNDOADMOB 04:19 → EH 06:05 → 4S 06:05
PROVIDERS: ADMIT Internal Medicine Geriatric Medicine; ATTEND Internal Medicine Geriatric Medicine
DX: R07.89 Other chest pain (principal); I47.1 Supraventricular tachycardia; R07.9 Chest pain, unspecified; E11.65 Type 2 diabetes mellitus with hyperglycemia; I10 Essential (primary) hypertension; E78.00 Pure hypercholesterolemia, unspecified; E66.01 Morbid (severe) obesity due to excess calories; I95.9 Hypotension, unspecified; Z79.84 Long term (current) use of oral hypoglycemic drugs; Z63.4 Disappearance and death of family member; Z91.14 Patient's other noncompliance with medication regimen; Z82.49 Family history of ischemic heart disease and other diseases of the circulatory system; Z68.29 Body mass index [BMI] 29.0-29.9, adult
CPT/HCPCS: 36415; 71010; 80048; 80053; 82550; 82553; 82962; 83735; 84443; 84484; 85025; 93005; 93010; 93306; 96365; 99291; G0378; J1815; J3475; J3490

== ENCOUNTER 2017-02-11 18:38 | Emergency (ER) | payer MEDICARE, MEDICAID ==
[2017-02-11] MEDS ORDERED: IBUPROFEN 800 MG TABLET PO ONE (19:10)
--- NOTE | 2017-02-11 19:10 | ER Document Report ---
HPI - HPI Patient complains to provider of: Fall Pain Level: 5 Context: Patient is a 41-year-old female presents emergency department stating she lost her balance while walking up her stairs landing on her knees. States that she has pain over the medial aspect of both tibia. Patient able to ambulate. States it is sore to touch but otherwise denies any other pain. Has not taken anything prior to arrival. - REPRODUCTIVE Reproductive: DENIES: : Past Medical History - Social History Smoking Status: Smoker,Current Status Unk Family History: Arthritis, CAD, CVA, DM, Hyperlipidemia, Hypertension, Malignancy, Thyroid Disfunction - Past Medical History Cardiac Medical History: Reports: Hx Hypertension Denies: Hx Congestive Heart Failure, Hx Heart Attack Pulmonary Medical History: Reports: Hx Asthma, Hx Bronchitis Denies: Hx COPD, Hx Pneumonia, Hx Tuberculosis Neurological Medical History: Denies: Hx Seizures Endocrine Medical History: Reports: Hx Diabetes Mellitus Type 2 Renal/ Medical History: Denies: Hx End Stage Renal Disease, Hx Kidney Stones, Hx Peritoneal Dialysis GI Medical History: Reports: Hx Gastroesophageal Reflux Disease. Denies: Hx Cirrhosis, Hx Ulcer Musculoskeltal Medical History: Reports Hx Arthritis, Denies Hx Multiple Sclerosis, Reports Hx Musculoskeletal Deformity, Reports Hx Musculoskeletal Trauma Psychiatric Medical History: Reports: Hx Depression Denies: Hx Bipolar Disorder, Hx Schizophrenia Past Surgical History: Reports: Hx Section, Hx Tubal Ligation - Immunizations Immunizations up to date: Yes Hx Diphtheria, Pertussis, Tetanus Vaccination: Yes Vertical Provider Document - CONSTITUTIONAL Agree With Documented VS: Yes Notes: PHYSICAL EXAM GENERAL: Morbidly obese, Alert, interacts well. HEAD: Normocephalic, atraumatic. EXTREMITIES: Moves all 4 extremities spontaneously. Assistance patient able to ambulate without no evidence of deformity, edema, ecchymosis. Patient nontender to palpation. Negative anterior posterior drawer test bilaterally. No edema, radial and dorsalis pedis pulses 2/4 bilaterally. No cyanosis. Full range of motion and nontender ankle bilaterally. NEUROLOGICAL: Alert and oriented x4. Normal speech. PSYCH: Normal affect, normal mood. SKIN: Warm, dry, normal turgor. No rashes or lesions noted. - INFECTION CONTROL TRAVEL OUTSIDE OF THE [place] IN LAST 30 DAYS: No - RESPIRATORY O2 Sat by Pulse Oximetry: 98 Course - Re-evaluation Re-evalutation: 02/11/17 19:09 Patient is a 41-year-old female who is hemodynamically stable presents after a fall. Patient able to ambulate without any difficulty, physical exam benign. Low clinical suspicion for any underlying fractures given normal gait. Patient is declining an x-ray at this time. Discussed with her NSAIDs, ice, elevation and can follow-up with primary care. Patient agrees with plan - Vital Signs Vital signs: Temp Pulse Resp BP Pulse Ox 99.2 F 91 20 198/106 H 98 02/11/17 18:46 02/11/17 18:46 02/11/17 18:46 02/11/17 18:46 02/11/17 18:46 Discharge - Discharge Clinical Impression: Fall Qualifiers: Encounter type: initial encounter Qualified Code(s): W19.XXXA - Unspecified fall, initial encounter Condition: Good Disposition: HOME, SELF-CARE Instructions: Contusion ([facility]), Use of [id number]-Hxxllux Ibuprofen ([facility]), Ice & Elevation ([facility]) Forms: Elevated Blood Pressure Referrals: DUY VINCENT MD [Primary Care Provider] - Follow up as needed
[2017-02-11 19:51] VITALS: BP 155/99
== END 2017-02-11 19:51 | disposition home or self-care (01) ==
LOC: ER 18:38
DX: M79.604 Pain in right leg (principal); M79.605 Pain in left leg; W10.9XXA Fall (on) (from) unspecified stairs and steps, initial encounter
CPT/HCPCS: 99283; A9270

== ENCOUNTER 2017-08-06 21:37 | Emergency (ER) | payer MEDICARE, MEDICAID ==
[2017-08-06] MEDS ORDERED: CLONIDINE HCL 0.1 MG TABLET PO ONE (23:00)
[2017-08-06] MEDS ORDERED: HYDROCODONE/ACETAMINOPHEN 5-325 MG TABLET PO ONE (23:14)
[2017-08-07] MEDS ORDERED: ACYCLOVIR 200 MG CAPSULE PO ONE (00:14)
--- NOTE | 2017-08-07 00:21 | ER Document Report ---
ED Skin Rash/Insect Bite/Abscs - General Chief Complaint: Skin Problem Stated Complaint: NECK PAIN Time Seen by Provider: 08/06/17 22:55 Mode of Arrival: Ambulatory Information source: Patient TRAVEL OUTSIDE OF THE [place] IN LAST 30 DAYS: No - HPI Patient complains to provider of: Skin rash/lesion Onset: Last week Notes: Patient is here with complaints of rash to the left posterior head and face. States that the rash has been present for the last 2-3 days although she started having pain a few days prior to the rash developing. She denies fevers. She denies injury. She denies any nausea, vomiting, diarrhea. She denies any eye pain. She denies any blurred or loss vision. Patient has a history of hypertension, but did not take all of her blood pressure medications today. She denies any headache other than where her rashes. She denies blurred or loss vision, numbness, tingling, weakness. No chest pain or shortness of breath. Nothing makes her symptoms better or worse, she has no other complaints at this time. - Related Data Allergies/Adverse Reactions: No Known Allergies Allergy (Verified 06/22/17 08:52) Past Medical History - Social History Smoking Status: Never Smoker Chew tobacco use (# tins/day): No Frequency of alcohol use: None Drug Abuse: None Family History: Arthritis, CAD, CVA, DM, Hyperlipidemia, Hypertension, Malignancy, Thyroid Disfunction Patient has suicidal ideation: No Patient has homicidal ideation: No - Past Medical History Cardiac Medical History: Reports: Hx Hypertension Denies: Hx Congestive Heart Failure, Hx Heart Attack Pulmonary Medical History: Reports: Hx Asthma, Hx Bronchitis Denies: Hx COPD, Hx Pneumonia, Hx Tuberculosis Neurological Medical History: Denies: Hx Seizures Endocrine Medical History: Reports: Hx Diabetes Mellitus Type 2 Renal/ Medical History: Denies: Hx End Stage Renal Disease, Hx Kidney Stones, Hx Peritoneal Dialysis GI Medical History: Reports: Hx Gastroesophageal Reflux Disease. Denies: Hx Cirrhosis, Hx Ulcer Musculoskeltal Medical History: Reports Hx Arthritis, Denies Hx Multiple Sclerosis, Reports Hx Musculoskeletal Deformity, Reports Hx Musculoskeletal Trauma Psychiatric Medical History: Reports: Hx Depression Denies: Hx Bipolar Disorder, Hx Schizophrenia Past Surgical History: Reports: Hx Section, Hx Tubal Ligation - Immunizations Immunizations up to date: Yes Hx Diphtheria, Pertussis, Tetanus Vaccination: Yes Review of Systems - Review of Systems -: Yes All other systems reviewed and negative Physical Exam - Vital signs Vitals: Temp Pulse Resp BP Pulse Ox 98.3 F 90 18 216/106 H 96 08/06/17 21:59 08/06/17 21:59 08/06/17 21:59 08/06/17 21:59 08/06/17 21:59 - Notes Notes: GENERAL: alert, cooperative, nontoxic, no distress. HEAD: normocephalic, atraumatic EYES: conjunctiva pink without discharge, no external redness or swelling. Pupils are equal, round, reactive to light. Extraocular muscles are intact bilaterally. No redness. EARS: no external swelling, no external redness NOSE: atraumatic, no external swelling MOUTH/THROAT: mucous membranes moist and pink, posterior pharynx without erythema, swelling, exudate. No trismus or drooling. NECK: soft, supple, full range of motion, no meningismus. CHEST: no distress, lungs clear and equal throughout. No wheezing, rales, rhonchi. CARDIAC: regular rate and rhythm, no murmur, normal capillary refill, normal pulses. No peripheral edema noted. BACK: full range of motion, no CVA tenderness. EXTREMITIES: full range of motion of all extremities. No redness, no swelling. NEURO: alert and oriented x 3, cranial nerves II through XII are grossly intact. Upper and lower extremities are equal throughout. Normal sensation. No focal deficits, full range of motion of all extremities. PYSCH: appropriate mood, affect. Patient is cooperative. SKIN: pink, warm, dry, patches of red-based vesicular lesions to the left posterior scalp, below the ear and left mandibular area consistent with herpes zoster. No petechiae. No cellulitis or surrounding erythema. No drainage. No significant swelling. Course - Re-evaluation Re-evalutation: 08/07/17 00:19 Patient is nontoxic appearing with stable vitals. Patient is here with complaints of pain and rash to the left posterior head and face. Pain started prior to the rash. The rash is been present for the last approximate 3 days. Patient does have a history of diabetes. She does have a rash consistent with herpes zoster. She will be given a dose of acyclovir in the emergency department will be discharged home on acyclovir. Due to her history of diabetes , I will not prescribe prednisone. She will be given a prescription for [place] to take as needed for pain as well. Patient is also noted to have an elevated blood pressure in the emergency department. She has a history of hypertension, and did not take all of her blood pressure medication today. She was given a dose of clonidine in the emergency department and we will recheck her blood pressure to ensure that it is a reasonable level. Patient has no hypertensive symptoms at this time. She is a nonfocal neurological exam. No numbness, tingling, weakness. No chest pain or shortness of breath. The patient will be discharged home with the above-mentioned medications and instructions to take her antihypertensive medications as prescribed. She should follow-up if not improving in the next 7-10 days, sooner for worsening symptoms, high fever, severe headache, blurred or loss vision, numbness, tingling, weakness, left eye pain, or for any further concerns. She has no ocular complaints at this time. The patient's emergency department workup and current diagnosis were explained to the patient and or family. Follow-up instructions were provided. Medications if prescribed were discussed. Instructions for when to return to the emergency department including specific worrisome symptoms were discussed with the patient and/or family. - Vital Signs Vital signs: Temp Pulse Resp BP Pulse Ox 98.3 F 90 18 216/106 H 96 08/06/17 21:59 08/06/17 21:59 08/06/17 21:59 08/06/17 21:59 08/06/17 21:59 Discharge - Discharge Clinical Impression: Shingles Qualifiers: Herpes zoster complications: without complications Qualified Code(s): B02.9 - Zoster without complications Hypertension Qualifiers: Hypertension type: unspecified Qualified Code(s): I10 - Essential (primary) hypertension Condition: Stable Disposition: HOME, SELF-CARE Instructions: Shingles ([facility]), High Blood Pressure ([facility]) Additional Instructions: Take medications as prescribed. Patient to take your blood pressure medication every day. Follow-up if not improving in the next 7-10 days, sooner for worsening symptoms, high fever, severe pain, blurred or loss vision, pain in the left eye, numbness, tingling, weakness, chest pain or shortness of breath, or for any further concerns. Your blood pressure was elevated during today's visit. Have this rechecked with your doctor. The medication you were prescribed today may cause drowsiness. Do not drive or operate heavy machinery while taking this medication. Prescriptions: Acyclovir [Acyclovir 400 mg Tablet] 800 mg PO 5XD #90 tablet Hydrocodone/Acetaminophen [[place] 5-325 mg Tablet] 2 tab PO Q6H PRN #15 tab PRN Reason: Forms: Elevated Blood Pressure, Smoking Cessation Education Referrals: DUY VINCENT MD [Primary Care Provider] - Follow up as needed
[2017-08-07 00:53] VITALS: BP 190/99
== END 2017-08-07 00:51 | disposition home or self-care (01) ==
LOC: ER 21:37
DX: B02.9 Zoster without complications (principal); I10 Essential (primary) hypertension; E11.9 Type 2 diabetes mellitus without complications; K21.9 Gastro-esophageal reflux disease without esophagitis; Z98.51 Tubal ligation status
CPT/HCPCS: 99283; A9270 ×3

== ENCOUNTER 2017-08-23 12:23 | Emergency (ER) | payer MEDICARE, MEDICAID ==
--- NOTE | 2017-08-23 13:02 | ER Document Report ---
HPI - HPI Pain Level: 5 Notes: Patient is a 41-year-old female who presents to the ED complaining of continued skin sensitivity and pain to the area where she had her shingles 2 weeks ago. Patient was treated with an antiviral at that time. Patient states that all of her skin rash has since resolved. Patient continues to have sensitivity to the left side of her scalp into her neck especially with brushing her hair. Patient states that otherwise she needs a note to return back to school. She has otherwise been eating and drinking without any difficulties. She has been urinating normally and having normal bowel movements she has not had any changes in her vision or hearing. No other concerns or complaints at this time. Denies any headache, fever, head injury, neck pain, changes in vision/ speech/mentation/hearing, URI, sore throat, chest pain, palpitations, syncope, cough, shortness of breath, wheeze, dyspnea, abdominal pain, nausea/vomiting/ diarrhea, urinary retention, dysuria, hematuria, numbness/tingling, muscle paralysis/weakness, or rash. - ROS Systems Reviewed and Negative: Yes All other systems reviewed and negative - CONSTITUTIONAL Constitutional: DENIES: Fever, Chills - EENT EENT: DENIES: Sore Throat, Ear Pain, Eye problems - NEURO Neurology: DENIES: Headache, Weakness, Vision blurred, Dizzinesss / Vertigo - CARDIOVASCULAR Cardiovascular: DENIES: Chest pain - RESPIRATORY Respiratory: DENIES: Trouble Breathing, Coughing - GASTROINTESTINAL Gastrointestinal: DENIES: Abdominal Pain, Black / Bloody Stools - URINARY Urinary: DENIES: Dysuria, Urgency, Frequency - REPRODUCTIVE Reproductive: DENIES: : - MUSCULOSKELETAL Musculoskeletal: DENIES: Extremity pain Past Medical History - Social History Smoking Status: Never Smoker Chew tobacco use (# tins/day): No Frequency of alcohol use: None Drug Abuse: None Family History: Arthritis, CAD, CVA, DM, Hyperlipidemia, Hypertension, Malignancy, Thyroid Disfunction Patient has suicidal ideation: No Patient has homicidal ideation: No - Past Medical History Cardiac Medical History: Reports: Hx Hypertension Denies: Hx Congestive Heart Failure, Hx Heart Attack Pulmonary Medical History: Reports: Hx Asthma, Hx Bronchitis Denies: Hx COPD, Hx Pneumonia, Hx Tuberculosis Neurological Medical History: Denies: Hx Seizures Endocrine Medical History: Reports: Hx Diabetes Mellitus Type 2 Renal/ Medical History: Denies: Hx End Stage Renal Disease, Hx Kidney Stones, Hx Peritoneal Dialysis GI Medical History: Reports: Hx Gastroesophageal Reflux Disease. Denies: Hx Cirrhosis, Hx Ulcer Musculoskeltal Medical History: Reports Hx Arthritis, Denies Hx Multiple Sclerosis, Reports Hx Musculoskeletal Deformity, Reports Hx Musculoskeletal Trauma Psychiatric Medical History: Reports: Hx Depression Denies: Hx Bipolar Disorder, Hx Schizophrenia Past Surgical History: Reports: Hx Section, Hx Tubal Ligation - Immunizations Immunizations up to date: Yes Hx Diphtheria, Pertussis, Tetanus Vaccination: Yes Vertical Provider Document - CONSTITUTIONAL Agree With Documented VS: Yes Notes: PHYSICAL EXAMINATION: GENERAL: Well-appearing, well-nourished and in no acute distress. HEAD: Atraumatic, normocephalic. EYES: Pupils equal round and reactive to light, extraocular movements intact, sclera anicteric, conjunctiva are normal. ENT: EAC clear b/l. TM's intact b/l without erythema, fluid, or perforation. No lesions. Nares patent and without discharge. oropharynx clear without exudates. No tonsilar hypertrophy or erythema. Moist mucous membranes. No sinus tenderness. NECK: Normal range of motion, supple without lymphadenopathy. Spurling neg. + sensitivity to light touch in the area of her prev shingles. No rigidity/ meningismus. N/V intact distal and to upper ext b/l. LUNGS: Breath sounds clear to auscultation bilaterally and equal. No wheezes rales or rhonchi. HEART: Regular rate and rhythm without murmurs, rubs, gallops. Musculoskeletal: UE's b/l: FROM to passive/active. Strength 5+/5. Extremities: No cyanosis, clubbing, or edema b/l. Peripheral pulses 2+. Capillary refill less than 3 seconds. NEUROLOGICAL: Cranial nerves grossly intact. Normal speech, normal gait. Normal sensory, motor exams PSYCH: Normal mood, normal affect. SKIN: Warm, Dry, normal turgor, no rashes or lesions noted. - INFECTION CONTROL TRAVEL OUTSIDE OF THE [place] IN LAST 30 DAYS: No Course - Re-evaluation Re-evalutation: 08/23/17 13:00 Patient is an afebrile, well-hydrated, 41-year-old female who presents to the ED with a suspected post herpetic neuralgia. Vitals are acceptable. PE is otherwise unremarkable for any focal neurological deficits. There is no rash remaining. Patient has no significant tachycardia, tachypnea, or hypoxia. She is tolerating p.o. without difficulties and is nontoxic-appearing. No labs or imaging warranted at this time based on H&P. I will send her home with a prescription for gabapentin to start at a very low dose. Advised patient that it will need titrated by her primary care provider. Patient may also use over- the-counter lidocaine. Conservative measures otherwise for symptoms. Recheck with your PCM this week. Return to the ED with any worsening/concerning symptoms otherwise as reviewed discharge. Patient is in agreement. Discharge - Discharge Clinical Impression: Skin sensitivity, Postherpetic neuralgia Condition: Stable Disposition: HOME, SELF-CARE Instructions: Neuralgia ([facility]) Additional Instructions: Rest, Ice, Compression, Elevation Tylenol/ibuprofen as needed Light stretches daily Strength exercises as able Moist heat and massage may help F/u with your PCP in 3-5 days for a recheck Consider consult(s) with Orthopedics/physical therapy for ongoing/worsening symptoms Return to the ED with any worsening symptoms and/or development of fever, headache, chest pain, palpitations, syncope, shortness of breath, trouble breathing, abdominal pain, n/v/d, muscle weakness/paralysis, numbness/tingling, swelling, redness, or other worsening symptoms that are concerning to you. Prescriptions: Gabapentin 100 mg PO TID #30 capsule Forms: Elevated Blood Pressure, Return to Work Referrals: DUY VINCENT MD [Primary Care Provider] - Follow up in 3-5 days
== END 2017-08-23 13:12 | disposition home or self-care (01) ==
LOC: ER 12:23
DX: B02.29 Other postherpetic nervous system involvement (principal); R20.3 Hyperesthesia; I10 Essential (primary) hypertension; J45.909 Unspecified asthma, uncomplicated; E11.9 Type 2 diabetes mellitus without complications
CPT/HCPCS: 99283

== ENCOUNTER 2017-10-04 08:00 | Emergency (ER) | payer MEDICARE, MEDICAID ==
[2017-10-04] MEDS ORDERED: ASPIRIN 81 MG TABLET, CHEWABLE PO ONE (08:20)
[2017-10-04] MEDS ORDERED: NORMAL SALINE 1000 ML 1,000 ML IV ONE (08:22)
[2017-10-04] MEDS ORDERED: NORMAL SALINE 1000 ML 1,000 ML IV PRN (08:22)
[2017-10-04] MEDS ORDERED: ONDANSETRON HCL INJ/PF 4 MG/2 ML SDV IV ONE (08:23)
[2017-10-04] MEDS ORDERED: KETOROLAC TROMETHAMINE INJ/PF 30 MG/1 ML SDV IV ONE (08:23)
[2017-10-04] MEDS ORDERED: FENTANYL CITRATE INJ/PF 100 MCG/2 ML AMPUL IV ONE (08:23)
--- NOTE | 2017-10-04 08:31 | ER Document Report ---
ED General - General Chief Complaint: Chest Pain Stated Complaint: CHEST PAIN/SHORT OF BREATH Time Seen by Provider: 10/04/17 08:20 Mode of Arrival: Ambulatory Information source: Patient Notes: Chief complaint: Chest pain History of complain:( obtained from----patient) 41 years old female presents today with nearly 3 day history of left-sided chest wall pain was gradually increased in intensity. 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 The pain is persistent with on and off exacerbation. 8/10 in intensity now. Nonradiating not associated with any left arm numbness tingling sensation nausea vomiting palpitation or diaphoresis. Denies any fever chills cough or shortness of breath. Except on exertion she feels short of breath. Denies any recent travel or calf swelling or pain. Had similar incidents before about a month ago she was evaluated Onset: As above Duration: 3 days Severity: Severe Quality: Sharp Context: Unknown Exacerbating factor and relieving factors: Change of position and exertion. REVIEW OF SYSTEMS: CONSTITUTIONAL : Denies fever, chills, or sweats. Denies recent illness. EENT: Denies eye, ear, throat, or mouth pain or symptoms. Denies nasal or sinus congestion or discharge. Denies throat, tongue, or mouth swelling or difficulty swallowing. CARDIOVASCULAR: Denies chest pain. Denies palpitations or racing or irregular heart beat. Denies ankle edema. RESPIRATORY: Denies cough, cold, or chest congestion. Denies shortness of breath, difficulty breathing, or wheezing. GASTROINTESTINAL: Denies distention. Denies nausea, vomiting, or diarrhea. Denies blood in vomitus, stools, or per rectum. Denies black, tarry stools. Denies constipation. GENITOURINARY: Denies difficulty urinating, painful urination, burning, frequency, blood in urine, or discharge. FEMALE GENITOURINARY: Denies vaginal bleeding, heavy or abnormal periods, irregular periods. Denies vaginal discharge or odor. MUSCULOSKELETAL: Denies back or neck pain or stiffness. Denies joint pain or swelling. SKIN: Denies rash, lesions or sores. HEMATOLOGIC : Denies easy bruising or bleeding. LYMPHATIC: Denies swollen, enlarged glands. NEUROLOGICAL: Denies confusion or altered mental status. Denies passing out or loss of consciousness. Denies dizziness or lightheadedness. Denies headache. Denies weakness or paralysis or loss of use of either side. Denies problems with gait or speech. Denies sensory loss, numbness, or tingling. Denies seizures. PSYCHIATRIC: Denies anxiety or stress. Denies depression, suicidal ideation, or homicidal ideation. ALL OTHER SYSTEMS REVIEWED AND NEGATIVE. PHYSICAL EXAMINATION: GENERAL: Well-appearing, well-nourished and in acute distress. Morbid obesity, HEAD: Atraumatic, normocephalic. EYES: Pupils equal round and reactive to light, extraocular movements intact, conjunctiva are normal. ENT: Nares patent, oropharynx clear without exudates. Moist mucous membranes. NECK: Normal range of motion, supple without lymphadenopathy LUNGS: Breath sounds clear to auscultation bilaterally and equal. No wheezes rales or rhonchi. HEART: Regular rate and rhythm without murmurs Chest wall-sharp chest wall tenderness noted at the sternal costal region on the left side as well as on the paraspinal muscles of the upper left thoracic muscles particularly subscapular muscles. 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 No guarding, no rebound. No masses appreciated. Examination of genitals-deferred Musculoskeletal: Normal range of motion, no pitting or edema. No cyanosis. NEUROLOGICAL: Cranial nerves grossly intact. Normal speech, normal gait. Normal sensory, motor exams PSYCH: Normal mood, normal affect. SKIN: Warm, Dry, normal turgor, no rashes or lesions noted. Dictation was performed using [employer] voice recognition software TRAVEL OUTSIDE OF THE [place] IN LAST 30 DAYS: No - HPI Onset: Just prior to arrival Severity: Moderate - Related Data Allergies/Adverse Reactions: No Known Allergies Allergy (Verified 08/23/17 12:29) Past Medical History - General Information source: Patient - Social History Smoking Status: Unknown if Ever Smoked Cigarette use (# per day): No Chew tobacco use (# tins/day): No Smoking Education Provided: No Frequency of alcohol use: Rare Drug Abuse: None Lives with: Family Family History: Arthritis, CAD, CVA, DM, Hyperlipidemia, Hypertension, Malignancy, Thyroid Disfunction - Past Medical History Cardiac Medical History: Reports: Hx Hypertension Denies: Hx Congestive Heart Failure, Hx Heart Attack Pulmonary Medical History: Reports: Hx Asthma, Hx Bronchitis Denies: Hx COPD, Hx Pneumonia, Hx Tuberculosis Neurological Medical History: Denies: Hx Seizures Endocrine Medical History: Reports: Hx Diabetes Mellitus Type 2 Renal/ Medical History: Denies: Hx End Stage Renal Disease, Hx Kidney Stones, Hx Peritoneal Dialysis GI Medical History: Reports: Hx Gastroesophageal Reflux Disease. Denies: Hx Cirrhosis, Hx Ulcer Musculoskeletal Medical History: Reports Hx Arthritis, Denies Hx Multiple Sclerosis, Reports Hx Musculoskeletal Deformity, Reports Hx Musculoskeletal Trauma Psychiatric Medical History: Reports: Hx Depression Denies: Hx Bipolar Disorder, Hx Schizophrenia Past Surgical History: Reports: Hx Section, Hx Tubal Ligation - Immunizations Immunizations up to date: Yes Hx Diphtheria, Pertussis, Tetanus Vaccination: Yes Review of Systems - Review of Systems Notes: Dictated Physical Exam - Vital signs Vitals: Resp BP Pulse Ox 26 H 118/82 98 10/04/17 08:17 10/04/17 08:17 10/04/17 08:17 - Notes Notes: Dictated Course - Re-evaluation Re-evalutation: 10/04/17 13:54 She is pain-free after treatment 10/04/17 14:18 She was given IV fluid the sinus tachycardia came down to around sinus rhythm at around 90 bpm. During this time pain also is relieved - Vital Signs Vital signs: Temp Pulse Resp BP Pulse Ox 19 151/97 H 96 10/04/17 14:02 10/04/17 14:02 10/04/17 14:02 - Laboratory Result Diagrams: 10/04/17 08:16 10/04/17 08:16 Laboratory results interpreted by me: 10/04/17 10/04/17 08:16 08:16 WBC 16.8 H Hgb 8.2 L Hct 27.9 L MCV 61 L MCH 18.1 L MCHC 29.6 L RDW 22.7 H Monocytes % (Manual) 1 L Abs Neuts (Manual) 12.3 H Carbon Dioxide 21 L BUN 27 H Est GFR (Non-Af Amer) 50 L Glucose 364 H AST 84 H ALT 68 H - Diagnostic Test Radiology reviewed: Reports reviewed - As normal. - EKG Interpretation by Me Rate: Tachycardia - Sinus tachycardia at 160 bpm, normal axis no acute ST-T wave changes. Discharge - Discharge Clinical Impression: Sinus tachycardia, Dehydration, Chest wall pain Hypertension Qualifiers: Hypertension type: essential hypertension Qualified Code(s): I10 - Essential ( primary) hypertension Disposition: HOME, SELF-CARE Instructions: Chest Wall Pain ([facility]), Sinus Tachycardia ([facility]) Prescriptions: Baclofen [Baclofen 10 mg Tablet] 10 mg PO TID #90 tab Hydrocodone/Acetaminophen [[place] 5-325 Tablet] 1 each PO ASDIR PRN #14 tablet PRN Reason: Referrals: DUY VINCENT MD [Primary Care Provider] - Follow up as needed
[2017-10-04 08:38] LABS: HEMATOCRIT 27.9 % (36.0-47.0); HEMOGLOBIN 8.2 g/dL (12.0-15.5); MEAN CORPUSCULAR HEMOGLOBIN 18.1 pg (27.0-33.4); MEAN CORPUSCULAR HGB CONC 29.6 g/dL (32.0-36.0); MEAN CORPUSCULAR VOLUME 61 fl (80-97); PLATELET COUNT 296 10^3/uL (150-450); RED BLOOD COUNT 4.55 10^6/uL (3.72-5.28); RED CELL DISTRIBUTION WIDTH 22.7 % (11.5-14.0); WHITE BLOOD COUNT 16.8 10^3/uL (4.0-10.5)
--- NOTE | 2017-10-04 08:41 | RADIOLOGY REPORT (SQ) ---
EXAM DESCRIPTION: CHEST SINGLE VIEW COMPLETED DATE/TIME: 10/04/2017 8:32 am REASON FOR STUDY: Chest pain chest pain COMPARISON: None. EXAM PARAMETERS: NUMBER OF VIEWS: One view. TECHNIQUE: Single frontal radiographic view of the chest acquired. RADIATION DOSE: NA LIMITATIONS: None. FINDINGS: LUNGS AND PLEURA: No opacities, masses or pneumothorax. No pleural effusion. MEDIASTINUM AND HILAR STRUCTURES: No masses. Contour normal. HEART AND VASCULAR STRUCTURES: Heart normal in size. Normal vasculature. BONES: No acute findings. HARDWARE: None in the chest. OTHER: No other significant finding. IMPRESSION: NO ACUTE RADIOGRAPHIC FINDING IN THE CHEST. TECHNICAL DOCUMENTATION: JOB ID: [id number] [employer]- All Rights Reserved Reading location - IP/workstation name: [facility]-[email or web address]
[2017-10-04 08:47] LABS: ALANINE AMINOTRANSFERASE 68 U/L (9-52); ALBUMIN 3.7 g/dL (3.5-5.0); ALKALINE PHOSPHATASE 90 U/L (38-126); ANION GAP 14 (5-19); ASPARTATE AMINO TRANSFERASE 84 U/L (14-36); BILIRUBIN,DIRECT 0.4 mg/dL (0.0-0.4); BILIRUBIN,TOTAL 1.3 mg/dL (0.2-1.3); BLOOD UREA NITROGEN 27 mg/dL (7-20); CALCIUM 8.8 mg/dL (8.4-10.2); CARBON DIOXIDE 21 mmol/L (22-30); CHLORIDE 102 mmol/L (98-107); CREATINE KINASE 56 U/L (30-135); GLUCOSE 364 mg/dL (75-110); POTASSIUM 4.8 mmol/L (3.6-5.0); SODIUM 137.3 mmol/L (137-145); TOTAL PROTEIN 8.1 g/dL (6.3-8.2)
[2017-10-04 08:55] LABS: ABSOLUTE LYMPHOCYTES# (MANUAL) 4.4 10^3/uL (0.5-4.7); ABSOLUTE MONOCYTES # (MANUAL) 0.2 10^3/uL (0.1-1.4); ABSOLUTE NEUTROPHILS# (MANUAL) 12.3 10^3/uL (1.7-8.2); BASOPHILS % (MANUAL) 0 % (0-2); EOSINOPHILS % (MANUAL) 0 % (0-6); LYMPHOCYTES % (MANUAL) 26 % (13-45); MONOCYTES % (MANUAL) 1 % (3-13); SEGMENTED NEUTROPHILS % (MAN) 73 % (42-78); TOTAL CELLS COUNTED 100
[2017-10-04 08:57] LABS: ANISOCYTOSIS 2+; HYPOCHROMASIA 1+; OVALOCYTES 1+; PLATELET COMMENT ADEQUATE; POIKILOCYTOSIS 1+; POLYCHROMASIA SLIGHT; ROULEAUX SLIGHT; TOXIC GRANULATION 1+; TOXIC VACUOLATION PRESENT
[2017-10-04 08:59] LABS: CREATINE KINASE MB 0.8 ng/mL (<4.55); TROPONIN I 0.013 ng/mL
--- NOTE | 2017-10-04 10:54 | EKG REPORT ---
SEVERITY:- ABNORMAL ECG - SINUS TACHYCARDIA versus SVT /ATRIAL FLUTTER WITH RVR.CORELATE CLINICALLY LEFT AXIS DEVIATION REPOL ABNRM SUGGESTS ISCHEMIA, ANT-LAT LEADS PROLONGED QT INTERVAL : Confirmed by: Megan Antunez MD 04-Oct-2017 10:53:32
[2017-10-04] MEDS ORDERED: AMLODIPINE BESYLATE 10 MG TABLET PO ONE (12:25)
[2017-10-04 14:37] VITALS: BP 165/90
== END 2017-10-04 14:42 | disposition home or self-care (01) ==
LOC: ER 08:00
DX: R07.89 Other chest pain (principal); E86.0 Dehydration; I10 Essential (primary) hypertension; E11.9 Type 2 diabetes mellitus without complications; R00.0 Tachycardia, unspecified; J45.909 Unspecified asthma, uncomplicated; E66.01 Morbid (severe) obesity due to excess calories; Z82.49 Family history of ischemic heart disease and other diseases of the circulatory system
CPT/HCPCS: 93005; 99285; 96361; 96374; 96375; 36415; 82553; 82550; 85025; 80053; 84484; 71045; 93010; A9270 ×2; J3010; J1885; J2405; J7030

== ENCOUNTER 2017-10-08 15:35 | Emergency (ER) | payer MEDICARE, MEDICAID ==
[2017-10-08] MEDS ORDERED: ASPIRIN 81 MG TABLET, CHEWABLE PO ONE (15:58)
[2017-10-08] MEDS ORDERED: ONDANSETRON 4 MG TAB.RAPDIS PO ONE (15:58)
[2017-10-08] MEDS ORDERED: NORMAL SALINE 1000 ML 500 ML IV PRN (15:59)
[2017-10-08] MEDS ORDERED: FENTANYL CITRATE INJ/PF 100 MCG/2 ML AMPUL IV ONE (15:59)
--- NOTE | 2017-10-08 16:01 | ER Document Report ---
ED Medical Screen (RME) - General Chief Complaint: Shortness Of Breath Stated Complaint: DIFFICULTY BREATHING Time Seen by Provider: 10/08/17 15:51 Notes: 41 years old female presents today again with persistent left-sided chest pain. She was seen by me about 4 days ago, diagnosed as chest wall pain. The next 2 days she did not have any pain or discomfort the pain came back again on Wednesday. Now she feels the pain is more severe than before. Each time she moves around the pain is increased in intensity. Associated with nausea. Denies any left arm numbness tingling sensation. Denies any fever chills cough other constitutional symptoms. TRAVEL OUTSIDE OF THE [place] IN LAST 30 DAYS: No - Related Data Allergies/Adverse Reactions: No Known Allergies Allergy (Verified 08/23/17 12:29) Past Medical History - Past Medical History Cardiac Medical History: Reports: Hx Hypertension Denies: Hx Congestive Heart Failure, Hx Heart Attack Pulmonary Medical History: Reports: Hx Asthma, Hx Bronchitis Denies: Hx COPD, Hx Pneumonia, Hx Tuberculosis Neurological Medical History: Denies: Hx Seizures Endocrine Medical History: Reports: Hx Diabetes Mellitus Type 2 Renal/ Medical History: Denies: Hx End Stage Renal Disease, Hx Kidney Stones, Hx Peritoneal Dialysis GI Medical History: Reports: Hx Gastroesophageal Reflux Disease. Denies: Hx Cirrhosis, Hx Ulcer Musculoskeltal Medical History: Reports Hx Arthritis, Denies Hx Multiple Sclerosis, Reports Hx Musculoskeletal Deformity, Reports Hx Musculoskeletal Trauma Psychiatric Medical History: Reports: Hx Depression Denies: Hx Bipolar Disorder, Hx Schizophrenia Past Surgical History: Reports: Hx Section, Hx Tubal Ligation - Immunizations Immunizations up to date: Yes Hx Diphtheria, Pertussis, Tetanus Vaccination: Yes Physical Exam - Vital signs Vitals: Temp Pulse Resp BP Pulse Ox 97.9 F 82 30 H 166/117 H 100 10/08/17 15:39 10/08/17 15:39 10/08/17 15:39 10/08/17 15:39 10/08/17 15:39 Course - Vital Signs Vital signs: Temp Pulse Resp BP Pulse Ox 97.9 F 82 30 H 166/117 H 100 10/08/17 15:39 10/08/17 15:39 10/08/17 15:39 10/08/17 15:39 10/08/17 15:39 Doctor's Discharge - Discharge Referrals: DUY VINCENT MD [Primary Care Provider] - Follow up as needed
[2017-10-08] MEDS ORDERED: LIDOCAINE 5% (700 MG) TRANSDERMAL ADH..PATCH TP ONE (16:41)
[2017-10-08] MEDS ORDERED: FUROSEMIDE 40 MG TABLET PO ONE (16:43)
[2017-10-08] MEDS ORDERED: VALSARTAN 160 MG TABLET PO ONE (16:43)
--- NOTE | 2017-10-08 16:47 | ER Document Report ---
ED General - General TRAVEL OUTSIDE OF THE [place] IN LAST 30 DAYS: No <ERIK CABRERA - Last Filed: 10/08/17 18:49> <QUYNH AVALOS - Last Filed: 10/08/17 23:17> - General Chief Complaint: Shortness Of Breath Stated Complaint: DIFFICULTY BREATHING Time Seen by Provider: 10/08/17 15:51 - HPI Notes: Patient is a 41-year-old female with a history of hypertension, morbid obesity, hyperlipidemia, type 2 diabetes who presents to the ED complaining of chest wall pain, dry cough 2 days, and intermittent nausea with one episode of vomiting 1 day. Patient states that she was seen here about 4 days ago and was diagnosed with chest wall pain. Patient states that this is the exact same pain that was present at that time. Patient states that upon her initial discharge the pain went away for 2 days, but returned 2 days ago. Patient states that the pain does not radiate. She is still able to eat and drink without any difficulties. She is urinating normally and having normal bowel movements. She denies any vaginal discharge, odor, or bleeding. Denies any drug allergies. Denies any significant cardiopulmonary medical history otherwise. She has not had any recent travel, prolonged immobilization, recent surgery/trauma, smoking, IV drug use, cancer history, hormone use, or previous DVT/PE. Denies any headache, fever, URI, sore throat, palpitations, syncope, cough, shortness of breath, wheeze, dyspnea, abdominal pain, nausea/vomiting/ diarrhea, urinary retention, dysuria, hematuria, back pain, numbness/tingling, muscle paralysis/weakness, or rash. (ERIK CABRERA) - Related Data Allergies/Adverse Reactions: No Known Allergies Allergy (Verified 08/23/17 12:29) Past Medical History - Social History Smoking Status: Never Smoker Chew tobacco use (# tins/day): No Frequency of alcohol use: None Drug Abuse: None Family History: Arthritis, CAD, CVA, DM, Hyperlipidemia, Hypertension, Malignancy, Thyroid Disfunction Patient has suicidal ideation: No Patient has homicidal ideation: No - Past Medical History Cardiac Medical History: Reports: Hx Hypertension Denies: Hx Congestive Heart Failure, Hx Heart Attack Pulmonary Medical History: Reports: Hx Asthma, Hx Bronchitis Denies: Hx COPD, Hx Pneumonia, Hx Tuberculosis Neurological Medical History: Denies: Hx Seizures Endocrine Medical History: Reports: Hx Diabetes Mellitus Type 2 Renal/ Medical History: Denies: Hx End Stage Renal Disease, Hx Kidney Stones, Hx Peritoneal Dialysis GI Medical History: Reports: Hx Gastroesophageal Reflux Disease. Denies: Hx Cirrhosis, Hx Ulcer Musculoskeletal Medical History: Reports Hx Arthritis, Denies Hx Multiple Sclerosis, Reports Hx Musculoskeletal Deformity, Reports Hx Musculoskeletal Trauma Psychiatric Medical History: Reports: Hx Depression Denies: Hx Bipolar Disorder, Hx Schizophrenia Past Surgical History: Reports: Hx Section, Hx Tubal Ligation - Immunizations Immunizations up to date: Yes Hx Diphtheria, Pertussis, Tetanus Vaccination: Yes <ERIK CABRERA - Last Filed: 10/08/17 18:49> Review of Systems - Review of Systems -: Yes All other systems reviewed and negative <ERIK CABRERA - Last Filed: 10/08/17 18:49> Physical Exam <ERIK CABRERA - Last Filed: 10/08/17 18:49> <QUYNH AVALOS - Last Filed: 10/08/17 23:17> - Vital signs Vitals: Temp Pulse Resp BP Pulse Ox 97.9 F 82 30 H 166/117 H 100 10/08/17 15:39 10/08/17 15:39 10/08/17 15:39 10/08/17 15:39 10/08/17 15:39 - Notes Notes: PHYSICAL EXAMINATION: GENERAL: Well-appearing, well-nourished and in no acute distress. Morbid obesity. HEAD: Atraumatic, normocephalic. EYES: Pupils equal round and reactive to light, extraocular movements intact, sclera anicteric, conjunctiva are normal. ENT: Nares patent and without discharge. oropharynx clear without exudates. No tonsilar hypertrophy or erythema. Moist mucous membranes. NECK: Normal range of motion, supple without lymphadenopathy Chest: + tenderness to the left sternal area, correlates with the pain described (reproducible). No flail chest. LUNGS: Breath sounds clear to auscultation bilaterally and equal. No wheezes rales or rhonchi. HEART: Regular rate and rhythm without murmurs, rubs, gallops. ABDOMEN: Soft, nontender, nondistended abdomen. No guarding, no rebound. Normal bowel sounds present. No CVA tenderness bilaterally. Musculoskeletal: FROM to passive/active. Strength 5+/5. Scott neg b/l. No leg asymmetry. Extremities: No cyanosis, clubbing, or edema b/l. Peripheral pulses 2+. Capillary refill less than 3 seconds. NEUROLOGICAL: Normal speech, normal gait. PSYCH: Normal mood, normal affect. SKIN: Warm, Dry, normal turgor, no rashes or lesions noted. (ERIK CABRERA) Course - Laboratory Result Diagrams: 10/08/17 16:55 10/08/17 16:55 <ERIK CABRERA - Last Filed: 10/08/17 18:49> - Laboratory Result Diagrams: 10/08/17 16:55 10/08/17 16:55 <QUYNH AVALOS - Last Filed: 10/08/17 23:17> - Re-evaluation Re-evalutation: 10/08/17 18:59 Patient is currently an afebrile, well-hydrated, 41-year-old female who presents to the ED with chest wall pain that is reproducible on exam. Vitals are acceptable without any significant tachycardia, tachypnea, or hypoxia. Pt does have noted HTN which she was given valsartan and lasix for (which she did not take this morning). CBC, CMP, cardiac enzymes/EKG, hCG were unremarkable for acute pathology. D-dimer was ordered by PIT provider came back positive. CTA of the chest was then ordered. Patient is nontoxic-appearing and is tolerating p.o. without difficulties. Heart score of 2 and Wells 0. Transfer of care to Leroy Avalos SUPPORT TECHNICIAN. (ERIK CABRERA) 10/08/17 20:20 Patient still waiting to go to CT. Patient's blood pressure remains at 212/99. Ordered amlodipine 5 mg as per patient's usual home medications. Visited patient's bedside, patient is resting with no distress, patient understands plan of care. CTA shows no evidence of any pulmonary embolism. There are multifocal groundglass opacities noted. These are nonspecific. Given patient's recent elevated white blood count and persistent chest pain. Will place patient on Levaquin for pneumonia. Patients blood pressure is much improved at 169/98. Discussed plan of care with patient who is agreeable to same. Discussed ED return precautions with patient and family. (QUYNH AVALOS) - Vital Signs Vital signs: Temp Pulse Resp BP Pulse Ox 97.9 F 82 15 186/96 H 93 10/08/17 15:39 10/08/17 15:39 10/08/17 22:21 10/08/17 22:21 10/08/17 22:21 - Laboratory Laboratory results interpreted by me: 10/08/17 10/08/17 10/08/17 16:55 16:55 16:55 Hgb 8.2 L Hct 27.2 L MCV 61 L MCH 18.3 L MCHC 30.0 L RDW 22.2 H D-Dimer 1.30 H BUN 6 L Glucose 273 H AST 13 L Discharge <ERIK CABRERA - Last Filed: 10/08/17 18:49> <QUYNH AVALOS - Last Filed: 10/08/17 23:17> - Discharge Clinical Impression: Pneumonia Qualifiers: Pneumonia type: due to unspecified organism Laterality: unspecified laterality Lung location: unspecified part of lung Qualified Code(s): J18.9 - Pneumonia, unspecified organism Chest pain Qualifiers: Chest pain type: unspecified Qualified Code(s): R07.9 - Chest pain, unspecified Condition: Stable Disposition: HOME, SELF-CARE Additional Instructions: PNEUMONIA: Your examination indicates that you have pneumonia. This is an infection of the lung tissue, usually caused by bacteria or a virus. Symptoms include cough, fever, shaking chills, chest pain, shortness of breath, and coughing up bloody sputum. Treatment for bacterial pneumonia includes rest, antibiotics for 10 to 14 days, increasing your clear liquid intake, a cool mist humidifier at your bedside, and fever medication. Often, a repeat chest X-ray is performed in a few weeks--even if you feel better--to ascertain whether the infection has completely resolved and no underlying lung problem is present. You should call the physician if you develop persistent vomiting, high fever that does not respond to fever medication, increasing shortness of breath , confusion, or lethargy. Also, failure to improve within two to three days is an indication for re-examination. ANTIBIOTIC THERAPY: You have been given an antibiotic prescription. It's important that you take all the medication, unless instructed otherwise by your physician. Failure to complete the entire course can result in relapse of your condition. Common side effects of antibiotics include nausea, intestinal cramping, or diarrhea. Women may develop vaginal yeast infections, and babies can get yeast (thrush) in the mouth following the use of antibiotics. Contact your physician if you develop significant side effects from this medication. Allergy to this antibiotic can result in hives, wheezing, faintness, or itching. If symptoms of allergy occur, stop the medication and call the doctor. LEVOFLOXACIN: You have been given an antibacterial agent, levofloxacin (Levaquin). This medicine is not related to the penicillins, sulfas, cephalosporins, or tetracyclines. It is often given to patients who are allergic to these drugs. It has been chosen for you either because other drugs are not appropriate, or because of the nature of your problem. Levaquin should not be taken with antacids, as these can decrease its effectiveness. It can be taken without regard to meals. LEVAQUIN SHOULD NOT BE TAKEN BY CHILDREN, NURSING WOMEN, OR WOMEN. Although Levaquin is usually well-tolerated, common side effects can include nausea and diarrhea. Contact your doctor if you experience any unusual symptoms while on this medication, such as joint pain or swelling, shortness of breath, wheezing, faintness, or hives. AMOXICILLIN: Amoxicillin is a member of the penicillin family. It covers the germs likely to cause ear, bronchial, and urinary infections better than plain penicillin. Amoxicillin can be taken without regard to meals. Nausea after taking the medication is rare, but can occur. Diarrhea can occur, particularly in small children. Vaginal yeast infections and oral thrush in infants are also common. Contact your physician if these problems occur. Allergy to penicillins is common. If you have had an allergic reaction to any drug of the penicillin family, you should never take any other penicillin. Notify your doctor at once if you develop hives, itching, swelling, faintness, or shortness of breath. Less serious side effects can include nausea or diarrhea. USE OF ACETAMINOPHEN (Tylenol): Acetaminophen may be taken for pain relief or fever control. It's much safer than aspirin, offering a wider range of "safe" dosages. It is safe during . Some brand names are Tylenol, Panadol, Datril, Anacin 3, Tempra, and Liquiprin. Acetaminophen can be repeated every four hours. The following are maximum recommended dosages: WEIGHT Dose Drops Elixir Chewable( 80mg) (LBS.) [place]=droppers tsp=teaspoon >89 pounds or adults 650 mg to 900 mg Acetaminophen can be repeated every four hours. Maximum dose not to exceed 4000 mg a day. These maximum recommended dosages are slightly higher than the dosages written on the product container, but these dosages are very safe and below the toxic dosage for acetaminophen. FOLLOW-UP CARE: If you have been referred to a physician for follow-up care, call the physician s office for an appointment as you were instructed or within the next two days. If you experience worsening or a significant change in your symptoms, notify the physician immediately or return to the Emergency Department at any time for re-evaluation. Please take the antibiotics as prescribed. Please finish them all even if your symptoms improve. Please follow-up with your primary care provider in the next 2-3 days for a reevaluation. Return to the emergency department if you experience worsening symptoms such as worsening chest pain, shortness of breath , fever or any other symptoms that is concerning to you. Prescriptions: Levofloxacin [Levaquin 750 mg Tablet] 750 mg PO DAILY #5 tablet Forms: Treatment of Relative/Child Referrals: DUY VINCENT MD [Primary Care Provider] - Follow up as needed
--- NOTE | 2017-10-08 17:18 | RADIOLOGY REPORT (SQ) ---
EXAM DESCRIPTION: CHEST SINGLE VIEW COMPLETED DATE/TIME: 10/08/2017 5:06 pm REASON FOR STUDY: chest pain COMPARISON: None. EXAM PARAMETERS: NUMBER OF VIEWS: One view. TECHNIQUE: Single frontal radiographic view of the chest acquired. RADIATION DOSE: NA LIMITATIONS: Patient motion artifact. FINDINGS: LUNGS AND PLEURA: No opacities, masses or pneumothorax. No pleural effusion. MEDIASTINUM AND HILAR STRUCTURES: No masses. Contour normal. HEART AND VASCULAR STRUCTURES: Mild cardiomegaly. Normal central vasculature. BONES: No acute findings. HARDWARE: None in the chest. OTHER: No other significant finding. IMPRESSION: NO ACUTE RADIOGRAPHIC FINDING IN THE CHEST. TECHNICAL DOCUMENTATION: JOB ID: [id number] [employer]- All Rights Reserved Reading location - IP/workstation name: [email or web address]
[2017-10-08] MEDS ORDERED: NORMAL SALINE 1000 ML 1,000 ML IV ONE (17:19)
[2017-10-08 18:00] LABS: ABSOLUTE BASOPHILS # (AUTO) 0.1 10^3/uL (0.0-0.2); ABSOLUTE EOSINOPHILS # (AUTO) 0.4 10^3/uL (0.0-0.6); ABSOLUTE LYMPHOCYTES (AUTO) 2.7 10^3/uL (0.5-4.7); ABSOLUTE MONOCYTES (AUTO) 0.6 10^3/uL (0.1-1.4); ABSOLUTE NEUT (AUTO) 6.2 10^3/uL (1.7-8.2); BASOPHILS % (AUTO) 0.8 % (0-2); EOSINOPHILS % (AUTO) 3.5 % (0-6); HEMATOCRIT 27.2 % (36.0-47.0); HEMOGLOBIN 8.2 g/dL (12.0-15.5); LYMPHOCYTES % (AUTO) 26.8 % (13-45); MEAN CORPUSCULAR HEMOGLOBIN 18.3 pg (27.0-33.4); MEAN CORPUSCULAR VOLUME 61 fl (80-97); MONOCYTES % (AUTO) 6.3 % (3-13); PLATELET COUNT 383 10^3/uL (150-450); RED BLOOD COUNT 4.48 10^6/uL (3.72-5.28); RED CELL DISTRIBUTION WIDTH 22.2 % (11.5-14.0); SEGMENTED NEUTROPHILS % (AUTO) 62.6 % (42-78); TOTAL CELLS COUNTED % (AUTO) 100 %
[2017-10-08 18:18] LABS: ALANINE AMINOTRANSFERASE 35 U/L (9-52); ALBUMIN 3.7 g/dL (3.5-5.0); ALKALINE PHOSPHATASE 70 U/L (38-126); ANION GAP 13 (5-19); ASPARTATE AMINO TRANSFERASE 13 U/L (14-36); BILIRUBIN,DIRECT 0.2 mg/dL (0.0-0.4); BILIRUBIN,TOTAL 0.7 mg/dL (0.2-1.3); BLOOD UREA NITROGEN 6 mg/dL (7-20); CALCIUM 9.1 mg/dL (8.4-10.2); CARBON DIOXIDE 28 mmol/L (22-30); CHLORIDE 101 mmol/L (98-107); CREATINE KINASE 50 U/L (30-135); GLUCOSE 273 mg/dL (75-110); POTASSIUM 4.4 mmol/L (3.6-5.0); SODIUM 141.8 mmol/L (137-145); TOTAL PROTEIN 8.2 g/dL (6.3-8.2)
[2017-10-08 18:29] LABS: CREATINE KINASE MB 0.51 ng/mL (<4.55); TOXIC GRANULATION SLIGHT
[2017-10-08 18:30] LABS: ANISOCYTOSIS 2+; HYPOCHROMASIA 1+; OVALOCYTES SLIGHT; PLATELET COMMENT ADEQUATE; POIKILOCYTOSIS 1+; ROULEAUX SLIGHT
[2017-10-08 18:39] LABS: TROPONIN I < 0.012 ng/mL
[2017-10-08] MEDS ORDERED: AMLODIPINE BESYLATE 5 MG TABLET PO ONE (20:18)
--- NOTE | 2017-10-08 21:32 | RADIOLOGY REPORT (SQ) ---
EXAM DESCRIPTION: CTA CHEST COMPLETED DATE/TIME: 10/08/2017 9:14 pm REASON FOR STUDY: chest pain, elevated dimer COMPARISON: Chest radiograph 10/08/2017 TECHNIQUE: CT scan of the chest performed using helical scanning technique with dynamic intravenous contrast injection. Images reviewed with lung, soft tissue and bone windows. Reconstructed coronal and sagittal MPR images reviewed. Additional 3 dimensional post-processing performed to develop Maximal Intensity Projection images (IN P). All images stored on PACS. All CT scanners at this facility use dose modulation, iterative reconstruction, and/or weight based d osing when appropriate to reduce radiation dose to as low as reasonably achievable (ALARA). [facility]: Dose Right [facility]: CareDose [facility]: Dose Right [facility]: Teradose 4D [facility]: Datameer CONTRAST TYPE AND DOSE: contrast/concentration: Isovue 370.00 mg/ml; Total Contrast Delivered: 86.0 ml; Total Saline Delivered: 90.0 ml Contrast bolus optimized for the pulmonary arteries. Not diagnostic for the aorta. RENAL FUNCTION: BUN 6; creatinine 0.73; D-dimer 1.3 RADIATION DOSE: CT Rad equipment meets quality standard of care and radiation dose reduction techniq ues were employed. CTDIvol: 11.7 - 93.7 mGy. DLP: 1956 mGy-cm. . LIMITATIONS: None. FINDINGS: LUNGS AND PLEURA: Multifocal ground-glass opacities involving all lobes. Tiny right-sided pleural effusion. No pneumothorax. AORTA AND GREAT VESSELS: No aneurysm. Contrast bolus not optimized for the aorta. HEART: No pericardial effusion. No significant coronary artery calcifications. PULMONARY ARTERIES: No emboli visualized in the main pulmonary arteries or the segmental branches. HILAR AND MEDIASTINAL STRUCTURES: No identified masses or abnormal nodes. HARDWARE: None in the chest. UPPER ABDOMEN: No significant findings. Limited exam. THYROID AND OTHER SOFT TISSUES: No masses. No adenopathy. BONES: No acute or significant finding. 3D MIPS: Confirm above findings. OTHER: No other significant finding. IMPRESSION: 1. No Pulmonary emboli. 2. Multifocal ground-glass opacities are a nonspecific finding. Differential considerations include atypical pneumonia, chronic infiltrative pulmonary disease, pulmonary edema, diffuse alveolar hemorr brenda, hypersensitivity pneumonitis, or other. COMMENT: Quality ID # [id number]: Final reports with documentation of one or more dose reduction techniques (e.g., Automated exposure control, adjustment of the mA and/or kV according to patient size, use of iterative reconstruction technique) TECHNICAL DOCUMENTATION: JOB ID: [id number] [employer]- All Rights Reserved Reading location - IP/workstation name: [email or web address]
[2017-10-08] MEDS ORDERED: LEVOFLOXACIN 750 MG TABLET PO ONE (21:49)
--- NOTE | 2017-10-08 22:29 | EKG REPORT ---
SEVERITY:- BORDERLINE ECG - SINUS RHYTHM PROBABLE LEFT ATRIAL ABNORMALITY : Confirmed by: Megan Antunez MD 08-Oct-2017 22:29:03
[2017-10-08 22:40] VITALS: BP 186/96
== END 2017-10-08 22:55 | disposition home or self-care (01) ==
LOC: ER 15:35
DX: J18.9 Pneumonia, unspecified organism (principal); R07.89 Other chest pain; R79.1 Abnormal coagulation profile; R05 Cough; R11.2 Nausea with vomiting, unspecified; I10 Essential (primary) hypertension; E11.9 Type 2 diabetes mellitus without complications; E66.01 Morbid (severe) obesity due to excess calories; Z68.44 Body mass index [BMI] 60.0-69.9, adult; J45.909 Unspecified asthma, uncomplicated; Z87.19 Personal history of other diseases of the digestive system
CPT/HCPCS: 93005; 99285; 36415; 82553; 82550; 84703; 85025; 80053; 84484; 85379; 71045; 71275; 93010; A9270 ×6; J3010; J7030; S0119

== ENCOUNTER 2018-01-21 10:08 | Emergency (ER) | payer MEDICARE, MEDICAID ==
[2018-01-21] MEDS ORDERED: KETOROLAC TROMETHAMINE 10 MG TABLET PO ONE (10:58)
--- NOTE | 2018-01-21 11:07 | ER Document Report ---
HPI - HPI Patient complains to provider of: knee pain Pain Level: 3 Context: Patient is a 42-year-old female presenting to the emergency department complaining of right knee pain. Patient states yesterday she fell while getting out of her shower onto her right knee. Patient denies any injuries other parts of her body to include her head, neck, back. Patient states she was able to ambulate without difficulty into the emergency room. Patient is also complaining of tooth pain. Patient states tooth pain also started yesterday. Patient states last time she was to the dentist was a year ago. States that that time she was told that she should look into getting dentures. Patient denies any fever. Past medical history: Diabetes, hyperlipidemia Medications: Unknown to patient Allergies: None - REPRODUCTIVE Reproductive: DENIES: : - MUSCULOSKELETAL Musculoskeletal: REPORTS: Extremity pain - right knee Past Medical History - General Information source: Patient - Social History Smoking Status: Never Smoker Frequency of alcohol use: None Drug Abuse: None Family History: Arthritis, CAD, CVA, DM, Hyperlipidemia, Hypertension, Malignancy, Thyroid Disfunction Patient has suicidal ideation: No Patient has homicidal ideation: No - Past Medical History Cardiac Medical History: Reports: Hx Hypertension Denies: Hx Congestive Heart Failure, Hx Heart Attack Pulmonary Medical History: Reports: Hx Asthma, Hx Bronchitis Denies: Hx COPD, Hx Pneumonia, Hx Tuberculosis Neurological Medical History: Denies: Hx Seizures Endocrine Medical History: Reports: Hx Diabetes Mellitus Type 2 Renal/ Medical History: Denies: Hx End Stage Renal Disease, Hx Kidney Stones, Hx Peritoneal Dialysis GI Medical History: Reports: Hx Gastroesophageal Reflux Disease. Denies: Hx Cirrhosis, Hx Ulcer Musculoskeletal Medical History: Reports Hx Arthritis, Denies Hx Multiple Sclerosis, Reports Hx Musculoskeletal Deformity, Reports Hx Musculoskeletal Trauma Psychiatric Medical History: Reports: Hx Depression Denies: Hx Bipolar Disorder, Hx Schizophrenia Past Surgical History: Reports: Hx Section - X2, Hx Tubal Ligation - Immunizations Immunizations up to date: Yes Hx Diphtheria, Pertussis, Tetanus Vaccination: Yes Vertical Provider Document - CONSTITUTIONAL Agree With Documented VS: Yes Notes: GENERAL: Morbidly obese alert, interacts well. No acute distress. HEAD: Normocephalic, atraumatic. EYES: Extraocular movements intact. ENT: Oral mucosa moist, tongue midline. Patient has very poor dentition, multiple teeth missing, multiple dental caries tooth #14 is the one the patient complains about, obvious decay and loose upon palpation. No erythema or fluctuance noted to gum area. No ludwigs angina. NECK: Full range of motion. Supple. Trachea midline. LUNGS: Clear to auscultation bilaterally, no wheezes, rales, or rhonchi. No respiratory distress. HEART: Regular rate and rhythm. No murmur EXTREMITIES: Moves all 4 extremities spontaneously. No edema, normal radial and dorsalis pedis pulses bilaterally. No cyanosis. No bruising or erythema noted to right knee. Due to patient's obesity and her lack of wanting a physical exam anterior draw was the only test able to be performed. This elicited no pain. BACK: no cervical, thoracic, lumbar midline tenderness. No saddle anesthesia, normal distal neurovascular exam. NEUROLOGICAL: Alert and oriented x3. Normal speech. cranial nerves II through XII grossly intact PSYCH: Normal affect, normal mood. SKIN: Warm, dry, normal turgor. No rashes or lesions noted. - INFECTION CONTROL TRAVEL OUTSIDE OF THE [place] IN LAST 30 DAYS: No Course - Re-evaluation Re-evalutation: 01/21/18 12:07 Right knee x-ray negative in the emergency department patient has been walking on it without difficulty, no need for knee immobilizer or crutches at this time. Discussed oral antibiotics for tooth pain and follow-up with dentist. Return precautions discussed Discharge - Discharge Clinical Impression: Toothache, Dental caries, Morbid obesity Knee injury Qualifiers: Encounter type: initial encounter Laterality: right Qualified Code(s): S89.91XA - Unspecified injury of right lower leg, initial encounter Condition: Stable Disposition: HOME, SELF-CARE Instructions: [facility], Penicillin V K ([facility]), Sprained Knee ([facility] ), Toothache ([facility]) Additional Instructions: As we discussed your knee x-ray was negative. Rest it, ice it, and elevated to help with the pain. You should also take oral antibiotics as prescribed for toothache. There are phone numbers for a dental clinic within this paperwork. Please follow-up at your earliest convenience. Please return to the emergency room for any other concerning symptoms. Prescriptions: Ketorolac Tromethamine [Toradol 10 mg Tablet] 10 mg PO Q8HP PRN #24 tablet PRN Reason: Penicillin V Potassium [Penicillin Vk 500 mg Tablet] 500 mg PO BID #20 tablet Forms: Elevated Blood Pressure Referrals: DUY VINCENT MD [Primary Care Provider] - Follow up as needed
--- NOTE | 2018-01-21 12:05 | RADIOLOGY REPORT (SQ) ---
EXAM DESCRIPTION: KNEE RIGHT 4 VIEWS COMPLETED DATE/TIME: 01/21/2018 11:34 am REASON FOR STUDY: pain COMPARISON: None. NUMBER OF VIEWS: Four views. TECHNIQUE: AP, lateral, and both oblique radiographic images acquired of the right knee. LIMITATIONS: Body habitus. FINDINGS: Joint space narrowing and osteophyte formation medial and patellofemoral compartments. Os teophyte formation lateral compartment. No chondrocalcinosis or joint effusion. IMPRESSION: Osteoarthritis. TECHNICAL DOCUMENTATION: JOB ID: [id number] [employer]- All Rights Reserved Reading location - IP/workstation name: [email or web address]
[2018-01-21 12:23] VITALS: BP 157/122
== END 2018-01-21 12:28 | disposition home or self-care (01) ==
LOC: ER 10:08
DX: S89.91XA Unspecified injury of right lower leg, initial encounter (principal); M25.561 Pain in right knee; W01.0XXA Fall on same level from slipping, tripping and stumbling without subsequent striking against object, initial encounter; Y93.89 Activity, other specified; K02.9 Dental caries, unspecified; K08.89 Other specified disorders of teeth and supporting structures; E66.01 Morbid (severe) obesity due to excess calories; E11.9 Type 2 diabetes mellitus without complications; I10 Essential (primary) hypertension; J45.909 Unspecified asthma, uncomplicated
CPT/HCPCS: 99283; 73564; A9270; J3490

== ENCOUNTER 2018-05-04 19:31 | Emergency (ER) | payer MEDICARE, MEDICAID ==
--- NOTE | 2018-05-04 20:16 | RADIOLOGY REPORT (SQ) ---
EXAM DESCRIPTION: XR CHEST 1 VIEW COMPLETED DATE/TME: 05/04/2018 19:47 CLINICAL HISTORY: 42 years, Female, difficulty breathing COMPARISON: 10/08/2017 chest NUMBER OF VIEWS: 1 TECHNIQUE: Portable chest LIMITATIONS: None. FINDINGS: Cardiomegaly. Mild atheromatous change thoracic aorta. Mild elevation right hemidiaphragm. No pneumothorax. Lungs are clear IMPRESSION: Cardiomegaly. Lungs are clear copyright 2010 [employer]- All Rights Reserved
[2018-05-04] MEDS ORDERED: ALBUTEROL SULFATE 0.083% NEB 2.5 MG/3 ML AMPUL NEB ONE (20:26)
--- NOTE | 2018-05-04 20:30 | ER Document Report ---
ED Respiratory Problem - General Chief Complaint: Shortness Of Breath Stated Complaint: SHORTNESS OF BREATH/CHEST PAIN Time Seen by Provider: 05/04/18 20:29 Primary Care Provider: DUY VINCENT MD [Primary Care Provider] - Follow up as needed Mode of Arrival: Ambulatory Information source: Patient Notes: HISTORY OF PRESENT ILLNESS: Patient is a 42-year-old female with a past medical history of diabetes, hypertension, and "bronchitis" who presents with difficulty breathing that began 2 days ago but worsened today. Location: Chest Onset: Gradual Alleviation: None Provocation: None Quality: "My chest feels tight" Radiation: None Severity: Moderate to severe Timing: Constant History of CAD: No Associated symptoms: Intermittent fevers, nonproductive cough, had a "the same thing last week" REVIEW OF SYSTEMS: CONSTITUTIONAL : Denies fever or chills, no sweats. Denies recent illness. EENT: Denies eye, ear, throat, or mouth pain or symptoms. Denies nasal or sinus congestion. CARDIOVASCULAR: Denies chest pain. Denies swelling of the legs. RESPIRATORY: Positive for nonproductive cough and chest congestion. Positive for shortness of breath with chest tightness and wheezing. GASTROINTESTINAL: Denies abdominal pain. Denies nausea, vomiting, or diarrhea. Denies constipation. GENITOURINARY: Denies difficulty urinating, painful urination, burning, frequency, or blood in urine. FEMALE GENITOURINARY: Denies vaginal bleeding, abnormal or irregular periods. Last menstrual period was "I cannot remember." MUSCULOSKELETAL: Denies neck or back pain or joint pain or swelling. SKIN: Denies rash or skin lesions. HEMATOLOGIC : Denies easy bruising or bleeding. LYMPHATIC: Denies swollen, enlarged glands. NEUROLOGICAL: Denies altered mental status or loss of consciousness. Denies headache. Denies weakness or paralysis or loss of use of either side. Denies problems with gait or speech. Denies sensory or motor loss. PSYCHIATRIC: Denies anxiety or stress or depression. All other systems reviewed and negative. PHYSICAL EXAMINATION: GENERAL: Obese, tired-appearing, well-nourished and in mild distress acute distress. HEAD: Atraumatic, normocephalic. No scalp deformity, depression, or crepitance. EYES: Pupils are 3 mm and equal/round/reactive to light, extraocular movements intact, sclera anicteric, conjunctiva are normal. ENT: Nares patent bilaterally, oropharynx. Moist mucous membranes. No tonsil hypertrophy. NECK: Normal range of motion, supple without lymphadenopathy. LUNGS: Breath sounds are present but diminished bilaterally with moderate expiratory wheezes. No rales or rhonchi. HEART: Regular rate and rhythm without murmurs, rubs, or gallops. 2+ peripheral pulses. Normal capillary refill. ABDOMEN: Soft, nontender, nondistended. Normoactive bowel sounds. No guarding, no rebound. No masses appreciated. BACK: Normal contour, no midline tenderness. Rectal exam deferred. GENITAL/PELVIC: Deferred. EXTREMITIES: Normal range of motion, no pitting or edema. No cyanosis. NEUROLOGICAL: No focal neurological deficits. Moves all extremities spontaneously and on command. PSYCH: Normal mood, normal affect. No suicidal thoughts/ideations. No homicidal thoughts/ideations. No hallucinations. SKIN: Warm, dry, normal turgor, no rashes or lesions noted. ASSESSMENT AND PLAN: This patient is a 42-year-old female who presents with chest tightness in the setting of recent cough with congestion which could be viral in origin, however could also be acute bronchitis versus pneumonia versus influenza. 1. Will obtain labs, cardiac enzymes, chest x-ray, and influenza swab. 2. Will give Solu-Medrol with DuoNeb treatments and reassess. TRAVEL OUTSIDE OF THE [place] IN LAST 30 DAYS: No - Related Data Allergies/Adverse Reactions: No Known Allergies Allergy (Verified 01/21/18 10:13) Past Medical History - General Information source: Patient, Relative - Social History Smoking Status: Never Smoker Chew tobacco use (# tins/day): No Frequency of alcohol use: None Drug Abuse: None Lives with: Family Family History: Arthritis, CAD, CVA, DM, Hyperlipidemia, Hypertension, Malignancy, Thyroid Disfunction - Past Medical History Cardiac Medical History: Reports: Hx Hypertension Denies: Hx Congestive Heart Failure, Hx Heart Attack Pulmonary Medical History: Reports: Hx Asthma, Hx Bronchitis Denies: Hx COPD, Hx Pneumonia, Hx Tuberculosis EENT Medical History: Reports: None Neurological Medical History: Reports: None. Denies: Hx Seizures Endocrine Medical History: Reports: Hx Diabetes Mellitus Type 2 Renal/ Medical History: Reports: None. Denies: Hx End Stage Renal Disease, Hx Kidney Stones, Hx Peritoneal Dialysis Malignancy Medical History: Reports: None GI Medical History: Reports: Hx Gastroesophageal Reflux Disease. Denies: Hx Cirrhosis, Hx Ulcer Musculoskeletal Medical History: Reports Hx Arthritis, Denies Hx Multiple Sclerosis, Reports Hx Musculoskeletal Deformity, Reports Hx Musculoskeletal Trauma Skin Medical History: Reports None Psychiatric Medical History: Reports: Hx Depression Denies: Hx Bipolar Disorder, Hx Schizophrenia Traumatic Medical History: Reports: None Infectious Medical History: Reports: None Past Surgical History: Reports: Hx Section - X2, Hx Tubal Ligation - Immunizations Immunizations up to date: Yes Hx Diphtheria, Pertussis, Tetanus Vaccination: Yes Physical Exam - Vital signs Vitals: Temp Pulse Resp BP Pulse Ox 98.6 F 87 28 H 209/102 H 96 05/04/18 19:48 05/04/18 19:48 05/04/18 19:48 05/04/18 19:48 05/04/18 19:48 Course - Re-evaluation Re-evalutation: 05/05/18 00:37 Chest x-ray is negative. Blood work shows chronic anemia otherwise normal including cardiac enzymes. Patient feels much better. She will be discharged home with return precautions and follow-up. Both the patient and her at bedside voiced understanding and agreeing with the plan. - Vital Signs Vital signs: Temp Pulse Resp BP Pulse Ox 98.6 F 87 20 209/102 H 91 L 05/04/18 19:48 05/04/18 19:48 05/04/18 20:23 05/04/18 19:48 05/04/18 20:23 - Laboratory Result Diagrams: 05/04/18 20:22 05/04/18 20:22 Laboratory results interpreted by me: 05/04/18 05/04/18 05/04/18 20:22 20:22 20:22 Hgb 8.4 L Hct 27.7 L MCV 63 L MCH 18.9 L MCHC 30.3 L RDW 21.9 H Carbon Dioxide 31 H Glucose 318 H NT-Pro-B Natriuret Pep 540 H Total Protein 8.3 H Urine Protein Urine Glucose (UA) Urine Urobilinogen 05/04/18 21:19 Hgb Hct MCV MCH MCHC RDW Carbon Dioxide Glucose NT-Pro-B Natriuret Pep Total Protein Urine Protein 100 H Urine Glucose (UA) >=500 H Urine Urobilinogen 2.0 H - Diagnostic Test Radiology reviewed: Image reviewed, Reports reviewed - EKG Interpretation by Me EKG shows normal: Sinus rhythm Rate: Normal Rhythm: NSR [place]/QRS: No: Right axis deviation, Left axis deviation, RBBB, LBBB, IVCD, LAHB/LAFB, LPHB/LPFB, Bifasicular block Voltage: No: Increased voltage, Consistant with LVH, Decreased voltage, Throughout, Limb leads P Waves: No: NICOLLE, LAE, Absent, AV Dissociation, Other Heart block present: No: 1st Degree, Mobitz 1, Mobitz 2, CHB (3rd degree block) When compared to previous EKG there are: No significant change Discharge - Discharge Clinical Impression: Viral syndrome Acute bronchitis Qualifiers: Bronchitis organism: unspecified organism Qualified Code(s): J20.9 - Acute bronchitis, unspecified Condition: Good Disposition: HOME, SELF-CARE Instructions: Bronchitis ([facility]) Additional Instructions: You have been evaluated in the Emergency Department for coughing and difficulty breathing that is likely related to acute bronchitis. While here, you had blood work that was normal and a chest x-ray that did not show evidence of a pneumonia and it is now safe to be discharged home. Please follow-up with your primary physician as instructed in 1 week to be rechecked. Return to the Emergency Department if you experience difficulty breathing, chest pain, or any other concerning symptoms. 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
[2018-05-04 20:39] LABS: HEMATOCRIT 27.7 % (36.0-47.0); HEMOGLOBIN 8.4 g/dL (12.0-15.5); MEAN CORPUSCULAR HEMOGLOBIN 18.9 pg (27.0-33.4); MEAN CORPUSCULAR HGB CONC 30.3 g/dL (32.0-36.0); PLATELET COUNT 224 10^3/uL (150-450); RED BLOOD COUNT 4.43 10^6/uL (3.72-5.28); RED CELL DISTRIBUTION WIDTH 21.9 % (11.5-14.0)
[2018-05-04 20:43] LABS: MEAN CORPUSCULAR VOLUME 63 fl (80-97)
[2018-05-04 20:45] LABS: ALANINE AMINOTRANSFERASE 20 U/L (9-52); ALBUMIN 3.9 g/dL (3.5-5.0); ALKALINE PHOSPHATASE 63 U/L (38-126); ANION GAP 8 (5-19); ASPARTATE AMINO TRANSFERASE 21 U/L (14-36); BILIRUBIN,DIRECT 0.3 mg/dL (0.0-0.4); BILIRUBIN,TOTAL 0.7 mg/dL (0.2-1.3); BLOOD UREA NITROGEN 16 mg/dL (7-20); CALCIUM 8.6 mg/dL (8.4-10.2); CARBON DIOXIDE 31 mmol/L (22-30); CHLORIDE 100 mmol/L (98-107); CREATINE KINASE 77 U/L (30-135); GLUCOSE 318 mg/dL (75-110); POTASSIUM 4.8 mmol/L (3.6-5.0); SODIUM 138.7 mmol/L (137-145); TOTAL PROTEIN 8.3 g/dL (6.3-8.2)
[2018-05-04 20:57] LABS: ABSOLUTE LYMPHOCYTES# (MANUAL) 2.6 10^3/uL (0.5-4.7); ABSOLUTE MONOCYTES # (MANUAL) 0.4 10^3/uL (0.1-1.4); ABSOLUTE NEUTROPHILS# (MANUAL) 2.9 10^3/uL (1.7-8.2); BASOPHILS % (MANUAL) 0 % (0-2); CREATINE KINASE MB 0.71 ng/mL (<4.55); EOSINOPHILS % (MANUAL) 3 % (0-6); LYMPHOCYTES % (MANUAL) 43 % (13-45); MONOCYTES % (MANUAL) 6 % (3-13); NT PRO BNP 540 pg/mL (<125); SEGMENTED NEUTROPHILS % (MAN) 48 % (42-78); TOTAL CELLS COUNTED 100
[2018-05-04 21:00] LABS: ANISOCYTOSIS 3+; HYPOCHROMASIA 1+; POLYCHROMASIA SLIGHT
[2018-05-04 21:01] LABS: OVALOCYTES SLIGHT; PLATELET COMMENT ADEQUATE; POIKILOCYTOSIS SLIGHT
[2018-05-04 21:23] LABS: TROPONIN I < 0.012 ng/mL
[2018-05-04] MEDS ORDERED: METHYLPREDNISOLONE INJ 125 MG/2 ML SDV IV ONE (21:34)
[2018-05-04] MEDS ORDERED: IPRATROPIUM/ALBUTEROL 0.5-2.5 MG/3 ML AMPUL NEB ONE (21:35)
[2018-05-04 22:01] LABS: APPEARANCE,URINE CLOUDY; BILIRUBIN,URINE NEGATIVE (NEGATIVE); COLOR,URINE YELLOW; GLUCOSE, URINE >=500 mg/dL (NEGATIVE); KETONES,URINE NEGATIVE (NEGATIVE); LEUKOCYTE ESTERASE,URINE NEGATIVE (NEGATIVE); NITRITE,URINE NEGATIVE (NEGATIVE); PROTEIN,URINE 100 mg/dL (NEGATIVE); URINE SPECIFIC GRAVITY 1.026
[2018-05-05] MEDS ORDERED: ALBUTEROL SULFATE HFA (90 MCG/PUFF) 8 GM MDI (1 MDI/ER DISP) IH PRN (00:42)
[2018-05-05 02:10] VITALS: BP 195/94
--- NOTE | 2018-05-05 07:38 | EKG REPORT ---
SEVERITY:- OTHERWISE NORMAL ECG - SINUS RHYTHM LEFT AXIS DEVIATION : Confirmed by: Preston Carmen MD 05-May-2018 07:38:19
== END 2018-05-05 01:05 | disposition home or self-care (01) ==
LOC: ER 19:31
DX: J20.9 Acute bronchitis, unspecified (principal); B34.9 Viral infection, unspecified; J45.909 Unspecified asthma, uncomplicated; D64.9 Anemia, unspecified; R05 Cough; R09.89 Other specified symptoms and signs involving the circulatory and respiratory systems; R06.02 Shortness of breath; R07.89 Other chest pain; I10 Essential (primary) hypertension; E11.9 Type 2 diabetes mellitus without complications
CPT/HCPCS: 93005; 94640 ×2; 99285; 96374; 36415; 82553; 82550; 85025; 80053; 81001; 84484; 83880; 71045; 93010; J2930; A9270 ×2; J3490; J7620

== ENCOUNTER 2018-05-29 14:12 | Inpatient (IN) | payer MEDICARE, MEDICAID ==
[2018-05-29] MEDS ORDERED: PROMETHAZINE HCL 25 MG TABLET PO ONE (14:47)
[2018-05-29] MEDS ORDERED: OXYCODONE-ACETAMINOPHEN 5-325 MG TABLET PO ONE (14:47)
--- NOTE | 2018-05-29 14:51 | ER Document Report ---
ED Medical Screen (RME) - General Chief Complaint: Leg Pain Stated Complaint: LEFT LEG PAIN Time Seen by Provider: 05/29/18 14:45 Primary Care Provider: DUY VINCENT MD [Primary Care Provider] - Follow up as needed Notes: Patient is complaining of pain and swelling of her left lower leg. It began on Wednesday and worsened that night and then has been extremely painful and swollen since then. Says it is difficult for her to walk because it is so painful. She is also noticed the skin in the anterior aspect of the left lower leg is red in appearance. Patient says she had the similar problem once before about 10 years ago. Has not had a fever. No difficulty breathing or shortness of breath. Patient is a iml-maegxyb-mmryqnazc diabetic. Non-smoker. Patient also has a black round spot on the lower left sole of the left foot. She says she trims the skin on her feet and did so about 3 weeks ago and apparently left her with a raw lesion there. It looks like a black eschar at this time. TRAVEL OUTSIDE OF THE [place] IN LAST 30 DAYS: No - Related Data Allergies/Adverse Reactions: No Known Allergies Allergy (Verified 05/29/18 14:22) Past Medical History - Past Medical History Cardiac Medical History: Reports: Hx Hypercholesterolemia, Hx Hypertension Denies: Hx Congestive Heart Failure, Hx Heart Attack Pulmonary Medical History: Reports: Hx Asthma, Hx Bronchitis Denies: Hx COPD, Hx Pneumonia, Hx Tuberculosis Neurological Medical History: Denies: Hx Seizures Endocrine Medical History: Reports: Hx Diabetes Mellitus Type 2 Renal/ Medical History: Denies: Hx End Stage Renal Disease, Hx Kidney Stones, Hx Peritoneal Dialysis GI Medical History: Reports: Hx Gastroesophageal Reflux Disease. Denies: Hx Cirrhosis, Hx Ulcer Musculoskeltal Medical History: Reports Hx Arthritis, Denies Hx Multiple Sclerosis, Reports Hx Musculoskeletal Deformity, Reports Hx Musculoskeletal Trauma Psychiatric Medical History: Reports: Hx Depression Denies: Hx Bipolar Disorder, Hx Schizophrenia Past Surgical History: Reports: Hx Section - X2, Hx Tubal Ligation - Immunizations Immunizations up to date: Yes Hx Diphtheria, Pertussis, Tetanus Vaccination: Yes Physical Exam - Vital signs Vitals: Temp Pulse Resp BP Pulse Ox 98.3 F 105 H 18 157/95 H 98 05/29/18 14:14 05/29/18 14:14 05/29/18 14:14 05/29/18 14:14 05/29/18 14:14 Course - Vital Signs Vital signs: Temp Pulse Resp BP Pulse Ox 98.3 F 105 H 18 157/95 H 98 05/29/18 14:14 05/29/18 14:14 05/29/18 14:14 05/29/18 14:14 05/29/18 14:14 Doctor's Discharge - Discharge Referrals: DUY VINCENT MD [Primary Care Provider] - Follow up as needed
[2018-05-29 15:39] LABS: HEMATOCRIT 27.9 % (36.0-47.0); HEMOGLOBIN 8.4 g/dL (12.0-15.5); MEAN CORPUSCULAR HEMOGLOBIN 18.6 pg (27.0-33.4); MEAN CORPUSCULAR VOLUME 62 fl (80-97); PLATELET COUNT 186 10^3/uL (150-450); RED BLOOD COUNT 4.51 10^6/uL (3.72-5.28); RED CELL DISTRIBUTION WIDTH 21.8 % (11.5-14.0); WHITE BLOOD COUNT 15.2 10^3/uL (4.0-10.5)
[2018-05-29 15:46] LABS: ALANINE AMINOTRANSFERASE 16 U/L (9-52); ALKALINE PHOSPHATASE 85 U/L (38-126); ANION GAP 10 (5-19); ASPARTATE AMINO TRANSFERASE 27 U/L (14-36); BILIRUBIN,DIRECT 0.3 mg/dL (0.0-0.4); BILIRUBIN,TOTAL 1.2 mg/dL (0.2-1.3); BLOOD UREA NITROGEN 14 mg/dL (7-20); CARBON DIOXIDE 27 mmol/L (22-30); CHLORIDE 97 mmol/L (98-107); GLUCOSE 287 mg/dL (75-110); POTASSIUM 5.1 mmol/L (3.6-5.0); SODIUM 134.1 mmol/L (137-145); TOTAL PROTEIN 8.9 g/dL (6.3-8.2)
[2018-05-29 16:01] LABS: ABSOLUTE LYMPHOCYTES# (MANUAL) 1.8 10^3/uL (0.5-4.7); ABSOLUTE MONOCYTES # (MANUAL) 0.8 10^3/uL (0.1-1.4); ABSOLUTE NEUTROPHILS# (MANUAL) 12.6 10^3/uL (1.7-8.2); BASOPHILS % (MANUAL) 0 % (0-2); EOSINOPHILS % (MANUAL) 0 % (0-6); LYMPHOCYTES % (MANUAL) 12 % (13-45); MONOCYTES % (MANUAL) 5 % (3-13); SEGMENTED NEUTROPHILS % (MAN) 83 % (42-78); TOTAL CELLS COUNTED 100
[2018-05-29 16:03] LABS: ANISOCYTOSIS 3+; HYPOCHROMASIA 3+; OVALOCYTES 1+; PLATELET COMMENT ADEQUATE; PLATELET GIANT PRESENT; POIKILOCYTOSIS 1+; TARGET CELLS SLIGHT
[2018-05-29] MEDS ORDERED: NORMAL SALINE 1000 ML 1,000 ML IV ONE (16:08)
[2018-05-29 16:09] LABS: INTERNATIONAL RATION (INR) 0.85; PROTHROMBIN TIME 12.1 SEC (11.4-15.4)
[2018-05-29] MEDS ORDERED: VANCOMYCIN HCL INJ 1000 MG VIAL IV ONE (16:09)
[2018-05-29] MEDS ORDERED: NORMAL SALINE 1000 ML 1,000 ML IV PRN (16:20)
--- NOTE | 2018-05-29 16:22 | ER Document Report ---
ED Extremity Problem, Lower - General Chief Complaint: Leg Pain Stated Complaint: LEFT LEG PAIN Time Seen by Provider: 05/29/18 14:45 TRAVEL OUTSIDE OF THE [place] IN LAST 30 DAYS: No - HPI Notes: Patient is a 42-year-old female that presents to the emergency department for chief complaint of left lower extremity pain and swelling. Patient states her symptoms started 2 days ago. She reports a hot sensation in her left foot and increased swelling. She denies any fevers or chills. She denies any injury to the foot but states that 3 weeks ago she was a file on the bottom of her foot to get rid of skin and believes she may have caused a wound on the bottom of her foot. She did not know it was there until the triage physician asked her about it. She denies any pain on the bottom of her foot or bleeding. She denies any known history of DVT or PE. Past Medical History: Diabetes, hypertension Past Surgical History: Social History: Denies drugs alcohol and tobacco Family History: Reviewed and noncontributory for presenting illness Allergies: Reviewed, see documented allergy list. REVIEW OF SYSTEMS: CONSTITUTIONAL : No fever No chills No diaphoresis No recent illness EENT: No vision changes No congestion No sore throat CARDIOVASCULAR: No chest pain No palpitations RESPIRATORY: No shortness of breath No cough No difficulty breathing GASTROINTESTINAL: No abdominal pain No nausea No vomiting No diarrhea GENITOURINARY: No dysuria No hematuria No difficulty urinating MUSCULOSKELETAL: No back pain leg pain No arm pain SKIN: No rashes No lesions LYMPHATIC: No swollen, enlarged glands. NEUROLOGICAL: No lightheadedness No headache No weakness No paresthesias PSYCHIATRIC: No anxiety No depression PHYSICAL EXAMINATION: Vital signs reviewed, nursing noted reviewed. GENERAL: Well-appearing, obese and in no acute distress. HEAD: Atraumatic, normocephalic. EYES: Eyes appear normal, extraocular movements intact, sclera anicteric, conjunctiva are normal. ENT: nares patent, oropharynx clear without exudates. Moist mucous membranes. NECK: Normal range of motion, supple without lymphadenopathy LUNGS: Breath sounds clear to auscultation bilaterally and equal. No wheezes rales or rhonchi. HEART: Tachycardic rate and regular rhythm without murmurs ABDOMEN: Soft, nontender, normoactive bowel sounds. No rebound, guarding, or rigidity. No masses appreciated. EXTREMITIES: good range of motion, erythema with pitting edema to left lower extremity circumferentially from mid tibial through foot. 1.0 cm x 1.0 cm plantar left foot black eschar at the base of the fifth phalanx, no tenderness or drainage. NEUROLOGICAL: No focal neurological deficits. Moves all extremities spontaneously Motor and sensory grossly intact on exam. PSYCH: Normal mood, normal affect. SKIN: Warm, Dry, normal turgor, no rashes or lesions noted on exposed skin - Related Data Allergies/Adverse Reactions: No Known Allergies Allergy (Verified 05/29/18 14:22) Past Medical History - Social History Smoking Status: Never Smoker Family History: Arthritis, CAD, CVA, DM, Hyperlipidemia, Hypertension, Malignancy, Thyroid Disfunction Patient has suicidal ideation: No Patient has homicidal ideation: No - Past Medical History Cardiac Medical History: Reports: Hx Hypercholesterolemia, Hx Hypertension Denies: Hx Congestive Heart Failure, Hx Heart Attack Pulmonary Medical History: Reports: Hx Asthma, Hx Bronchitis Denies: Hx COPD, Hx Pneumonia, Hx Tuberculosis Neurological Medical History: Denies: Hx Seizures Endocrine Medical History: Reports: Hx Diabetes Mellitus Type 2 Renal/ Medical History: Denies: Hx End Stage Renal Disease, Hx Kidney Stones, Hx Peritoneal Dialysis GI Medical History: Reports: Hx Gastroesophageal Reflux Disease. Denies: Hx Cirrhosis, Hx Ulcer Musculoskeletal Medical History: Reports Hx Arthritis, Denies Hx Multiple Sc lerosis, Reports Hx Musculoskeletal Deformity, Reports Hx Musculoskeletal Trauma Psychiatric Medical History: Reports: Hx Depression Denies: Hx Bipolar Disorder, Hx Schizophrenia Past Surgical History: Reports: Hx Section - X2, Hx Tubal Ligation - Immunizations Immunizations up to date: Yes Hx Diphtheria, Pertussis, Tetanus Vaccination: Yes Physical Exam - Vital signs Vitals: Temp Pulse Resp BP Pulse Ox 98.3 F 105 H 18 157/95 H 98 05/29/18 14:14 05/29/18 14:14 05/29/18 14:14 05/29/18 14:14 05/29/18 14:14 Course - Re-evaluation Re-evalutation: 05/29/18 16:22 Vitals reviewed. Nursing notes reviewed. Patient has a leukocytosis of 15 and is tachycardic. She is meeting sepsis criteria. Patient started on IV fluids and vancomycin for her left lower extremity cellulitis. Venous Doppler is negative for acute DVT. Patient's lab work also shows hyperglycemia. Lactic acid was not obtained in triage and will be added on at this time. X-ray of the left foot shows no signs of osteomyelitis. Blood cultures have been ordered. Patient will be admitted to the hospital for further management. Care discussed with Dr. Simon who accepts admission. Laboratory 05/29/18 05/29/18 05/29/18 15:12 15:12 15:12 WBC 15.2 H RBC 4.51 Hgb 8.4 L Hct 27.9 L MCV 62 L MCH 18.6 L MCHC 30.0 L RDW 21.8 H Plt Count 186 Total Counted 100 Seg Neutrophils % Not Reportable Seg Neuts % (Manual) 83 H Lymphocytes % Not Reportable Lymphocytes % (Manual) 12 L Monocytes % Not Reportable Monocytes % (Manual) 5 Eosinophils % Not Reportable Eosinophils % (Manual) 0 Basophils % Not Reportable Basophils % (Manual) 0 Absolute Neutrophils Not Reportable Abs Neuts (Manual) 12.6 H Absolute Lymphocytes Not Reportable Abs Lymphs (Manual) 1.8 Absolute Monocytes Not Reportable Abs Monocytes (Manual) 0.8 Absolute Eosinophils Not Reportable Absolute Eos (Manual) 0.0 Absolute Basophils Not Reportable Abs Basophils (Manual) 0.0 Giant Platelets PRESENT Platelet Comment ADEQUATE Hypochromasia 3+ Poikilocytosis 1+ Anisocytosis 3+ Microcytosis 3+ Target Cells SLIGHT Ovalocytes 1+ PT Cancelled INR Cancelled Sodium 134.1 L Potassium 5.1 H Chloride 97 L Carbon Dioxide 27 Anion Gap 10 BUN 14 Creatinine 0.71 Est GFR ( Amer) > 60 Est GFR (Non-Af Amer) > 60 Glucose 287 H Calcium 9.0 Total Bilirubin 1.2 Direct Bilirubin 0.3 Neonat Total Bilirubin Not Reportable Neonat Direct Bilirubin Not Reportable Neonat Indirect Bili Not Reportable AST 27 ALT 16 Alkaline Phosphatase 85 Total Protein 8.9 H Albumin 4.0 05/29/18 15:51 WBC RBC Hgb Hct MCV MCH MCHC RDW Plt Count Total Counted Seg Neutrophils % Seg Neuts % (Manual) Lymphocytes % Lymphocytes % (Manual) Monocytes % Monocytes % (Manual) Eosinophils % Eosinophils % (Manual) Basophils % Basophils % (Manual) Absolute Neutrophils Abs Neuts (Manual) Absolute Lymphocytes Abs Lymphs (Manual) Absolute Monocytes Abs Monocytes (Manual) Absolute Eosinophils Absolute Eos (Manual) Absolute Basophils Abs Basophils (Manual) Giant Platelets Platelet Comment Hypochromasia Poikilocytosis Anisocytosis Microcytosis Target Cells Ovalocytes PT 12.1 INR 0.85 Sodium Potassium Chloride Carbon Dioxide Anion Gap BUN Creatinine Est GFR ( Amer) Est GFR (Non-Af Amer) Glucose Calcium Total Bilirubin Direct Bilirubin Neonat Total Bilirubin Neonat Direct Bilirubin Neonat Indirect Bili AST ALT Alkaline Phosphatase Total Protein Albumin 05/29/18 17:17 - Vital Signs Vital signs: Temp Pulse Resp BP Pulse Ox 98.3 F 105 H 18 157/95 H 98 05/29/18 14:14 05/29/18 14:14 05/29/18 14:14 05/29/18 14:14 05/29/18 14:14 - Laboratory Result Diagrams: 05/29/18 15:12 05/29/18 15:12 Laboratory results interpreted by me: 05/29/18 05/29/18 15:12 15:12 WBC 15.2 H Hgb 8.4 L Hct 27.9 L MCV 62 L MCH 18.6 L MCHC 30.0 L RDW 21.8 H Seg Neuts % (Manual) 83 H Lymphocytes % (Manual) 12 L Abs Neuts (Manual) 12.6 H Sodium 134.1 L Potassium 5.1 H Chloride 97 L Glucose 287 H Total Protein 8.9 H Discharge - Discharge Clinical Impression: Left leg cellulitis Sepsis Qualifiers: Sepsis type: sepsis due to unspecified organism Qualified Code(s): A41.9 - Sepsis, unspecified organism Condition: Stable Disposition: ADMITTED INPATIENT Admitting Provider: Simon Unit Admitted: Telemetry
[2018-05-29] MEDS ORDERED: DEXTROSE 50%-WATER 25 GM/50 ML DISP.SYRIN IV PRN ×4 (16:26→18:40)
[2018-05-29] MEDS ORDERED: GLUCAGON,HUMAN RECOMB 1 MG INJ IM PRN ×2 (16:26→18:40)
[2018-05-29] MEDS ORDERED: DEXTROSE 40% GEL 15 GM TUBE PO PRN ×4 (16:26→18:40)
--- NOTE | 2018-05-29 17:00 | RADIOLOGY REPORT (SQ) ---
EXAM DESCRIPTION: FOOT LEFT COMPLETE COMPLETED DATE/TIME: 05/29/2018 4:41 pm REASON FOR STUDY: plantar wound COMPARISON: None. NUMBER OF VIEWS: Three views. TECHNIQUE: AP, lateral and oblique radiographic images acquired of the left foot. LIMITATIONS: None. FINDINGS: MINERALIZATION: Normal. BONES: No acute fracture or dislocation. No worrisome bone lesions. No erosions. JOINTS: Scattered [id number]-[id number] degenerative changes. SOFT TISSUES: Mild soft tissue edema about the dorsum of the foot. The soft tissues along the planta r aspect of foot appear to be mildly thickened no retained radiopaque foreign bodies are identified. No subcutaneous gas is appreciated. OTHER: No other significant finding. IMPRESSION: Soft tissue swelling about foot which may represent cellulitis in the appropriate clinic al setting. No radiographic findings to suggest osteomyelitis at this time. TECHNICAL DOCUMENTATION: JOB ID: [id number] [employer]- All Rights Reserved Reading location - IP/workstation name: [email or web address]
--- NOTE | 2018-05-29 18:36 | PDOC H&P ---
History of Present Illness Admission Date/PCP: 05/29/18 16:39 DUY VINCENT Patient complains of: Left leg pain History of Present Illness: LAURENT MOORE is a 42 year old female This is a 42-year-old female with a patient of Dr. Migue godinez complaining of left lower extremity pain and swelling for the last several days Patient is denied any fever no chills Patient's denied any injury to the foot but stated that 3 weeks ago she was a file on the bottom of the foot to get rid of her get that skin and believe she may have caused the wound on the bottom of the foot Patient initial workup in the ER was all stable Patient is denied any chest pain to than any shortness of the breath Patient have a history of the SVT history of the type 2 diabetes mellitus h ypertension hyperlipidemia and morbid obesity When I saw the patient in the ER denied any symptoms Past Medical History Cardiac Medical History: Reports: Hyperlipidema, Hypertension Denies: Congestive Heart Failure, Myocardial Infarction Pulmonary Medical History: Reports: Asthma, Bronchitis Denies: Chronic Obstructive Pulmonary Disease (COPD), Pneumonia, Tuberculosis Neurological Medical History: Denies: Seizures Endocrine Medical History: Reports: Diabetes Mellitus Type 2 Renal/ Medical History: Denies: End Stage Renal Disease GI Medical History: Reports: Gastroesophageal Reflux Disease Denies: Cirrhosis Musculoskeltal Medical History: Reports: Arthritis Psychiatric Medical History: Reports: Depression Denies: Bipolar Disorder Hematology: Reports: Anemia Denies: Bleeding Tendencies Past Surgical History Past Surgical History: Reports: Section - X2, Tubal Ligation Social History Smoking Status: Never Smoker Frequency of Alcohol Use: None Drugs: None Hx Prescription Drug Abuse: No Family History Family History: Arthritis, CAD, CVA, DM, Hyperlipidemia, Hypertension, Malignancy, Thyroid Disfunction Parental Family History Reviewed: Yes Children Family History Reviewed: Yes Sibling(s) Family History Reviewed.: Yes Medication/Allergy Home Medications: Tramadol HCl [Ultram 50 mg Tablet] 50 mg PO Q6HP PRN 12/03/16 Dulaglutide [Trulicity] 0.75 mg SQ MERRILL@1000 #4 pen.injctr 12/04/16 Furosemide [Lasix 40 mg Tablet] 40 mg PO DAILY #30 tablet 12/04/16 Glipizide [Glucotrol 5 mg Tablet] 5 mg PO DAILY #30 tablet 12/04/16 Pravastatin Sodium [Pravachol] 20 mg PO DAILY #30 tablet 12/04/16 Sitagliptin Phos/Metformin HCl [Janumet 50-1,000 mg Tablet] 1 tab PO Q12 #60 tablet 12/04/16 Valsartan [Diovan] 320 mg PO DAILY #30 tablet 12/04/16 Tramadol HCl [Ultram 50 mg Tablet] 50 mg PO ASDIR PRN #15 tablet 06/22/17 Hydrocodone/Acetaminophen [Richford 5-325 mg Tablet] 2 tab PO Q6H PRN #15 tab 08/07/17 Gabapentin 100 mg PO TID #30 capsule 08/23/17 Hydrocodone/Acetaminophen [Richford 5-325 Tablet] 1 each PO ASDIR PRN #14 tablet 10/04/17 Ketorolac Tromethamine [Toradol 10 mg Tablet] 10 mg PO Q8HP PRN #24 tablet 01/21 Penicillin V Potassium [Penicillin Vk 500 mg Tablet] 500 mg PO BID #20 tablet 01/21/18 Azithromycin [Zithromax 250 mg Tablet] 250 mg PO ASDIR PRN #6 tablet 05/05/18 Hydrocodone/Chlorphen P-Stirex [Tussionex Pennkinetic Susp] 5 ml PO BID #120 bossman.er.[email or web address] 05/05/18 Methylprednisolone [Medrol Dosepack (4 mg/Tab) 21 Tab/Dosepak] 4 mg PO ASDIR PRN #21 tab.ds.pk 05/05/18 Allergies/Adverse Reactions: No Known Allergies Allergy (Verified 05/29/18 14:22) Review of Systems Constitutional: ABSENT: chills, fever(s), headache(s), weight gain, weight loss Eyes: ABSENT: visual disturbances Ears: ABSENT: hearing changes Cardiovascular: ABSENT: chest pain, dyspnea on exertion, edema, orthropnea, palpitations Respiratory: ABSENT: cough, hemoptysis Gastrointestinal: ABSENT: abdominal pain, constipation, diarrhea, hematemesis, hematochezia, nausea, vomiting Genitourinary: ABSENT: dysuria, hematuria Musculoskeletal: ABSENT: joint swelling Integumentary: ABSENT: rash, wounds Neurological: ABSENT: abnormal gait, abnormal speech, confusion, dizziness, focal weakness, syncope Psychiatric: ABSENT: anxiety, depression, homidical ideation, suicidal ideation Endocrine: ABSENT: cold intolerance, heat intolerance, menstrual abnormalities, polydipsia, polyuria Hematologic/Lymphatic: ABSENT: easy bleeding, easy bruising, lymphadenopathy Physical Exam Vital Signs: Temp Pulse Resp BP Pulse Ox 98.3 F 105 H 18 157/95 H 98 05/29/18 14:14 05/29/18 14:14 05/29/18 14:14 05/29/18 14:14 05/29/18 14:14 Intake & Output 05/28/18 05/29/18 05/30/18 06:59 06:59 06:59 Intake Total 1000 Balance 1000 Weight 192 kg General appearance: PRESENT: no acute distress, well-developed, well-nourished Head exam: PRESENT: atraumatic, normocephalic Eye exam: PRESENT: conjunctiva pink, EOMI, PERRLA. ABSENT: scleral icterus Ear exam: PRESENT: normal external ear exam Mouth exam: PRESENT: moist, tongue midline Neck exam: PRESENT: full ROM. ABSENT: carotid bruit, JVD, lymphadenopathy, th yromegaly Respiratory exam: PRESENT: clear to auscultation trina Cardiovascular exam: PRESENT: RRR. ABSENT: diastolic murmur, rubs, systolic murmur Vascular exam: PRESENT: normal capillary refill GI/Abdominal exam: PRESENT: normal bowel sounds, soft. ABSENT: distended, guarding, mass, organolmegaly, rebound, tenderness Rectal exam: PRESENT: deferred Extremities exam: PRESENT: pedal edema Additional comments: The left lower extremity redness is present 2+ pitting edema 1 x 1 cm plantar left foot black eschar at the base of the fifth phalanx no tenderness no drainage Neurological exam: PRESENT: alert, awake, oriented to person, oriented to place, oriented to time, oriented to situation, CN II-XII grossly intact. ABSENT: motor sensory deficit Psychiatric exam: PRESENT: appropriate affect, normal mood. ABSENT: homicidal ideation, suicidal ideation Skin exam: PRESENT: dry, intact, warm. ABSENT: cyanosis, rash Results Laboratory Results: 05/29/18 15:12 05/29/18 15:12 05/29/18 05/29/18 15:12 15:12 WBC 15.2 H RBC 4.51 Hgb 8.4 L Hct 27.9 L MCV 62 L MCH 18.6 L MCHC 30.0 L RDW 21.8 H Plt Count 186 Seg Neutrophils % Not Reportable Lymphocytes % Not Reportable Monocytes % Not Reportable Eosinophils % Not Reportable Basophils % Not Reportable Absolute Neutrophils Not Reportable Absolute Lymphocytes Not Reportable Absolute Monocytes Not Reportable Absolute Eosinophils Not Reportable Absolute Basophils Not Reportable Sodium 134.1 L Potassium 5.1 H Chloride 97 L Carbon Dioxide 27 Anion Gap 10 BUN 14 Creatinine 0.71 Est GFR ( Amer) > 60 Est GFR (Non-Af Amer) > 60 Glucose 287 H Calcium 9.0 Total Bilirubin 1.2 AST 27 ALT 16 Alkaline Phosphatase 85 Total Protein 8.9 H Albumin 4.0 Impressions: Foot X-Ray 05/29/18 16:09 IMPRESSION: Soft tissue swelling about foot which may represent cellulitis in the appropriate clinical setting. No radiographic findings to suggest osteomyelitis at this time. Assessment & Plan - Diagnosis (1) Left leg cellulitis Is this a current diagnosis for this admission?: Yes Plan: Patient's 1 dose of the vancomycin in the ER We will start the clindamycin 600 mg IV every 8 elevate the leg Ultrasound was done pending report (2) Diabetes mellitus type 2 in obese Is this a current diagnosis for this admission?: Yes Plan: Continues a sliding scale (3) HLD (hyperlipidemia) Qualifiers: Is this a current diagnosis for this admission?: Yes - Time Time Spent: 30 to 50 Minutes Medications reviewed and adjusted accordingly: Yes Anticipated discharge: Home Within: Other - Inpatient Certification Based on my medical assessment, after consideration of the patient's comorbidities, presenting symptoms, or acuity I expect that the services needed warrant INPATIENT care.: Yes I certify that my determination is in accordance with my understanding of Medicare's requirements for reasonable and necessary INPATIENT services [42 CFR 412.3e].: Yes Medical Necessity: Need Close Monitoring Due to Risk of Patient Decompensation, Need for IV Antibiotics Post Hospital Care: D/C Director Of Ancillary Services Documentation - Plan Summary Plan Summary: Admit the patient in a telemetry bed Start the IV antibiotic
[2018-05-29 20:18] LABS: APPEARANCE,URINE CLOUDY; BILIRUBIN,URINE NEGATIVE (NEGATIVE); GLUCOSE, URINE 50 mg/dL (NEGATIVE); KETONES,URINE NEGATIVE (NEGATIVE); LEUKOCYTE ESTERASE,URINE TRACE (NEGATIVE); NITRITE,URINE NEGATIVE (NEGATIVE); PROTEIN,URINE 100 mg/dL (NEGATIVE); URINE SPECIFIC GRAVITY 1.024
[2018-05-29 20:19] LABS: COLOR,URINE YELLOW
[2018-05-29] MEDS: CLINDAMYCIN 600 MG/D5W RTU 600 MG/50 ML RTUPB IV SCH (22:47)
[2018-05-29] MEDS: INSULIN LISPRO 100 UNIT/ML 3 ML VIAL SUBCUT SCH (22:48)
[2018-05-30 05:59] LABS: HEMATOCRIT 25.1 % (36.0-47.0); MEAN CORPUSCULAR HEMOGLOBIN 18.5 pg (27.0-33.4); MEAN CORPUSCULAR HGB CONC 30.2 g/dL (32.0-36.0); MEAN CORPUSCULAR VOLUME 61 fl (80-97); PLATELET COUNT 180 10^3/uL (150-450); RED BLOOD COUNT 4.11 10^6/uL (3.72-5.28); RED CELL DISTRIBUTION WIDTH 20.9 % (11.5-14.0); WHITE BLOOD COUNT 14.7 10^3/uL (4.0-10.5)
[2018-05-30] MEDS: CLINDAMYCIN 600 MG/D5W RTU 600 MG/50 ML RTUPB IV SCH ×3 (06:00→17:46)
[2018-05-30 06:16] LABS: ANION GAP 11 (5-19); BLOOD UREA NITROGEN 17 mg/dL (7-20); CALCIUM 8.4 mg/dL (8.4-10.2); CARBON DIOXIDE 26 mmol/L (22-30); CHLORIDE 98 mmol/L (98-107); GLUCOSE 222 mg/dL (75-110); POTASSIUM 4.4 mmol/L (3.6-5.0); SODIUM 134.8 mmol/L (137-145)
[2018-05-30 06:58] LABS: HEMOGLOBIN 7.6 g/dL (12.0-15.5)
[2018-05-30 07:05] LABS: ABSOLUTE LYMPHOCYTES# (MANUAL) 0.9 10^3/uL (0.5-4.7); ABSOLUTE MONOCYTES # (MANUAL) 0.7 10^3/uL (0.1-1.4); ABSOLUTE NEUTROPHILS# (MANUAL) 12.6 10^3/uL (1.7-8.2); BASOPHILS % (MANUAL) 0 % (0-2); EOSINOPHILS % (MANUAL) 3 % (0-6); LYMPHOCYTES % (MANUAL) 6 % (13-45); MONOCYTES % (MANUAL) 5 % (3-13); NUCLEATED RED BLOOD CELLS 1 /100 WBC (0); SEGMENTED NEUTROPHILS % (MAN) 86 % (42-78); TOTAL CELLS COUNTED 100
[2018-05-30 07:06] LABS: ANISOCYTOSIS 2+; HYPOCHROMASIA 2+; PLATELET COMMENT ADEQUATE; TOXIC GRANULATION 1+; TOXIC VACUOLATION PRESENT
[2018-05-30] MEDS: INSULIN LISPRO 100 UNIT/ML 3 ML VIAL SUBCUT SCH ×4 (09:01→21:33)
[2018-05-30] MEDS: ENOXAPARIN SODIUM INJ 40 MG/0.4 ML DISP.SYRIN SUBCUT SCH (09:13)
--- NOTE | 2018-05-30 09:33 | XCELERA REPORT ---
[address] [place] [facility] [place] [id number] Lower Extremity Venous Evaluation Procedure: Color flow and duplex imaging of the veins of the left lower extremity as well as the right Common Femoral vein. Right Sided Venous Evaluation The right common femoral vein is fully compressible. Spontaneous and phasic flow is present in the right common femoral vein. Left Sided Venous Evaluation Normal vessel filling wall to wall, compression and augmentation as well as Colour flow down to the infrageniculate veins. Interpretation Summary No duplex evidence of DVT or obstruction in the left lower extremity nor in the right Common Femoral vein. Name: LAURENT MOORE Age: 42 yrs Gender: Female : 1975 Patient Status: Inpatient Patient Location: [place] [id number]^A Study Date: 05/29/2018 03:58 PM Reason For Study: Painful swelling left leg. Ordering Physician: JANET GAYLE Performed By: Otto Shea : JANET GAYLE > Bert Mayen
--- NOTE | 2018-05-30 18:40 | PDOC PROGRESS REPORT ---
Subjective Progress Note for:: 05/30/18 Subjective:: Patient denied any fever or chills. There is persistence of left lef swelling, warmth and redness. No nausea, vomiting or abdominal pain. No chest pain or difficulty with breathing. Reason For Visit: CELLULITIS Physical Exam Vital Signs: Temp Pulse Resp BP Pulse Ox 99.1 F 93 16 145/87 H 97 05/30/18 18:03 05/30/18 18:03 05/30/18 18:03 05/30/18 18:03 05/30/18 18:03 Intake & Output 05/29/18 05/30/18 05/31/18 06:59 06:59 06:59 Intake Total 1272 2150 Balance 1272 2150 Weight 193.2 kg General appearance: PRESENT: no acute distress, morbidly obese Head exam: PRESENT: atraumatic, normocephalic Ear exam: PRESENT: normal external ear exam Mouth exam: PRESENT: moist Respiratory exam: PRESENT: clear to auscultation trina Cardiovascular exam: PRESENT: RRR. ABSENT: diastolic murmur, rubs, systolic murmur Vascular exam: PRESENT: pallor. ABSENT: normal capillary refill GI/Abdominal exam: PRESENT: normal bowel sounds, soft. ABSENT: distended, guarding, mass, organolmegaly, rebound, tenderness Extremities exam: PRESENT: pedal edema - left leg, tenderness - left leg, other - multiple fatty tissue loculation Musculoskeletal exam: PRESENT: tenderness - left leg Neurological exam: PRESENT: alert, awake, oriented to person, oriented to place, oriented to time, oriented to situation, CN II-XII grossly intact. ABSENT: motor sensory deficit Psychiatric exam: PRESENT: appropriate affect, normal mood. ABSENT: homicidal ideation, suicidal ideation Skin exam: PRESENT: dry, warm Results Laboratory Results: 05/30/18 05:02 05/30/18 05:02 05/29/18 05/29/18 05/30/18 18:06 20:03 05:02 WBC 14.7 H RBC 4.11 Hgb 7.6 L Hct 25.1 L MCV 61 L MCH 18.5 L MCHC 30.2 L RDW 20.9 H Plt Count 180 Seg Neutrophils % Not Reportable Lymphocytes % Not Reportable Monocytes % Not Reportable Eosinophils % Not Reportable Basophils % Not Reportable Absolute Neutrophils Not Reportable Absolute Lymphocytes Not Reportable Absolute Monocytes Not Reportable Absolute Eosinophils Not Reportable Absolute Basophils Not Reportable Sodium Potassium Chloride Carbon Dioxide Anion Gap BUN Creatinine Est GFR ( Amer) Est GFR (Non-Af Amer) Glucose Lactic Acid 0.7 Calcium Urine Color YELLOW Urine Appearance CLOUDY Urine pH 5.0 Ur Specific Era 1.024 Urine Protein 100 H Urine Glucose (UA) 50 H Urine Ketones NEGATIVE Urine Blood LARGE H Urine Nitrite NEGATIVE Ur Leukocyte Esterase TRACE H Urine WBC (Auto) 22 Urine RBC (Auto) >182 Blood Type Antibody Screen 05/30/18 05/30/18 05:02 07:55 WBC RBC Hgb Hct MCV MCH MCHC RDW Plt Count Seg Neutrophils % Lymphocytes % Monocytes % Eosinophils % Basophils % Absolute Neutrophils Absolute Lymphocytes Absolute Monocytes Absolute Eosinophils Absolute Basophils Sodium 134.8 L Potassium 4.4 Chloride 98 Carbon Dioxide 26 Anion Gap 11 BUN 17 Creatinine 0.98 Est GFR ( Amer) > 60 Est GFR (Non-Af Amer) > 60 Glucose 222 H Lactic Acid Calcium 8.4 Urine Color Urine Appearance Urine pH Ur Specific Era Urine Protein Urine Glucose (UA) Urine Ketones Urine Blood Urine Nitrite Ur Leukocyte Esterase Urine WBC (Auto) Urine RBC (Auto) Blood Type A POSITIVE Antibody Screen POSITIVE Impressions: Foot X-Ray 05/29/18 16:09 IMPRESSION: Soft tissue swelling about foot which may represent cellulitis in the appropriate clinical setting. No radiographic findings to suggest oste omyelitis at this time. Assessment & Plan - Diagnosis (1) Left leg cellulitis Is this a current diagnosis for this admission?: Yes Plan: Continue IV Clindamycin coverage. Follow up on blood culture findings. (2) Diabetes mellitus type 2 in obese Is this a current diagnosis for this admission?: Yes Plan: Continue Humalog insulin sliding scale coverage. Maintain on all anti diabetic medication and dietary restrictions. (3) HTN (hypertension) Qualifiers: Hypertension type: essential hypertension Qualified Code(s): I10 - Essential (primary) hypertension Is this a current diagnosis for this admission?: Yes Plan: Maintain on pre-admission medication management. (4) HLD (hyperlipidemia) Qualifiers: Is this a current diagnosis for this admission?: Yes Plan: Maintain on pre-admission medication management. (5) BMI 60.0-69.9, adult Is this a current diagnosis for this admission?: Yes Plan: Maintain on pre-admission medication management. (6) Iron deficiency anemia, unspecified Qualifiers: Iron deficiency anemia type: unspecified iron deficiency Qualified Code(s): D50.9 - Iron deficiency anemia, unspecified Is this a current diagnosis for this admission?: Yes Plan: Follow up on post transfusion CBC and anemia workup. - Time Time Spent with patient: 25-34 minutes Medications reviewed and adjusted accordingly: Yes Anticipated discharge: Home Within: Other - Inpatient Certification Based on my medical assessment, after consideration of the patient's comorbidities, presenting symptoms, or acuity I expect that the services needed warrant INPATIENT care.: Yes I certify that my determination is in accordance with my understanding of Medicare's requirements for reasonable and necessary INPATIENT services [42 CFR 412.3e].: Yes Medical Necessity: Significant Comorbidiites Make Outpatient Treatment Too Risk y, Need Close Monitoring Due to Risk of Patient Decompensation, Need For IV Fluids, Need For Continuous Telemetry Monitoring, Need for Nebulizer Therapy and Monitoring of Response, Need for IV Antibiotics, Risk of Complication if Not Cared For in Hospital, Risk of Diagnosis Which Will Require Inpatient Eval/Care/Monitoring Post Hospital Care: D/C Fiscal Technician Documentation - Plan Summary Plan Summary: Patient was transfused 2 units PRBC earlier today due to significant anemia. Follow up on post transfusion CBC.
[2018-05-30 18:55] LABS: ABSOLUTE RETICS # 0.074 10^6/uL (0.028-0.122); RETICULOCYTE COUNT (AUTO) 1.78 % (0.66-2.85)
[2018-05-30 19:46] LABS: HEMATOCRIT 27.6 % (36.0-47.0); HEMOGLOBIN 8.5 g/dL (12.0-15.5); MEAN CORPUSCULAR HEMOGLOBIN 19.4 pg (27.0-33.4); MEAN CORPUSCULAR HGB CONC 30.9 g/dL (32.0-36.0); MEAN CORPUSCULAR VOLUME 63 fl (80-97); PLATELET COUNT 176 10^3/uL (150-450); RED CELL DISTRIBUTION WIDTH 23.6 % (11.5-14.0); WHITE BLOOD COUNT 16.1 10^3/uL (4.0-10.5)
[2018-05-30 19:53] LABS: IRON(TIBC) 16.1 ug/dL (37-170)
[2018-05-30 20:03] LABS: ABSOLUTE LYMPHOCYTES# (MANUAL) 1.4 10^3/uL (0.5-4.7); ABSOLUTE MONOCYTES # (MANUAL) 0.3 10^3/uL (0.1-1.4); BAND NEUTROPHILS % (MANUAL) 1 % (3-5); BASOPHILS % (MANUAL) 0 % (0-2); EOSINOPHILS % (MANUAL) 2 % (0-6); LYMPHOCYTES % (MANUAL) 9 % (13-45); METAMYELOCYTES % (MANUAL) 1 % (0); MONOCYTES % (MANUAL) 2 % (3-13); SEGMENTED NEUTROPHILS % (MAN) 85 % (42-78); TOTAL CELLS COUNTED 100
[2018-05-30 20:05] LABS: ANISOCYTOSIS 3+; POIKILOCYTOSIS SLIGHT
[2018-05-30 20:06] LABS: OVALOCYTES SLIGHT; PLATELET COMMENT ADEQUATE; PLATELET LARGE PRESENT; TARGET CELLS SLIGHT; TEAR DROP CELLS SLIGHT
[2018-05-30 20:08] LABS: HYPOCHROMASIA 1+
[2018-05-30 20:10] LABS: POLYCHROMASIA SLIGHT
[2018-05-30 20:11] LABS: TOXIC VACUOLATION PRESENT
[2018-05-30] MEDS: ACETAMINOPHEN 325 MG TABLET PO PRN (21:34)
[2018-05-31] MEDS: CLINDAMYCIN 600 MG/D5W RTU 600 MG/50 ML RTUPB IV SCH ×3 (03:57→19:06)
[2018-05-31 06:59] LABS: HEMATOCRIT 27.5 % (36.0-47.0); HEMOGLOBIN 8.3 g/dL (12.0-15.5); MEAN CORPUSCULAR HEMOGLOBIN 19.1 pg (27.0-33.4); MEAN CORPUSCULAR HGB CONC 30.3 g/dL (32.0-36.0); MEAN CORPUSCULAR VOLUME 63 fl (80-97); PLATELET COUNT 180 10^3/uL (150-450); RED BLOOD COUNT 4.36 10^6/uL (3.72-5.28); RED CELL DISTRIBUTION WIDTH 22.9 % (11.5-14.0); WHITE BLOOD COUNT 14.9 10^3/uL (4.0-10.5)
[2018-05-31 07:18] LABS: ANION GAP 10 (5-19); BLOOD UREA NITROGEN 20 mg/dL (7-20); CALCIUM 8.3 mg/dL (8.4-10.2); CARBON DIOXIDE 25 mmol/L (22-30); CHLORIDE 100 mmol/L (98-107); GLUCOSE 234 mg/dL (75-110); POTASSIUM 4.2 mmol/L (3.6-5.0); SODIUM 135.1 mmol/L (137-145)
[2018-05-31 08:09] LABS: ABSOLUTE LYMPHOCYTES# (MANUAL) 2.2 10^3/uL (0.5-4.7); ABSOLUTE MONOCYTES # (MANUAL) 0.1 10^3/uL (0.1-1.4); ABSOLUTE NEUTROPHILS# (MANUAL) 11.8 10^3/uL (1.7-8.2); BASOPHILS % (MANUAL) 1 % (0-2); EOSINOPHILS % (MANUAL) 4 % (0-6); LYMPHOCYTES % (MANUAL) 15 % (13-45); MONOCYTES % (MANUAL) 1 % (3-13); SEGMENTED NEUTROPHILS % (MAN) 79 % (42-78); TOTAL CELLS COUNTED 100
[2018-05-31 08:12] LABS: ANISOCYTOSIS 3+; HYPOCHROMASIA 2+; OVALOCYTES SLIGHT; PLATELET LARGE PRESENT; POIKILOCYTOSIS 1+; POLYCHROMASIA SLIGHT; SCHISTOCYTES SLIGHT; TARGET CELLS SLIGHT; TEAR DROP CELLS SLIGHT; TOXIC GRANULATION 1+; TOXIC VACUOLATION PRESENT
[2018-05-31 08:13] LABS: PLATELET COMMENT ADEQUATE
--- NOTE | 2018-05-31 08:34 | PDOC PROGRESS REPORT ---
Subjective Progress Note for:: 05/31/18 Subjective:: Patient reported continue swelling to left leg but not compliant with leg elevation. No fever or chills. No chest pain or difficulty with breathing. Remain on IV Clindamycin coverage. Reason For Visit: CELLULITIS Physical Exam Vital Signs: Temp Pulse Resp BP Pulse Ox 98.0 F 89 18 150/87 H 91 L 05/31/18 07:50 05/31/18 07:50 05/31/18 07:50 05/31/18 07:50 05/31/18 07:50 Intake & Output 05/30/18 05/31/18 06/01/18 06:59 06:59 06:59 Intake Total 1272 2850 Balance 1272 2850 Weight 193.2 kg 193.8 kg Physical Exam: General appearance: PRESENT: no acute distress, morbidly obese Head exam: PRESENT: atraumatic, normocephalic Ear exam: PRESENT: normal external ear exam EYES: ABSENT: pallor. Mouth exam: PRESENT: moist Respiratory exam: PRESENT: clear to auscultation trina Cardiovascular exam: PRESENT: RRR. ABSENT: diastolic murmur, rubs, systolic murmur GI/Abdominal exam: PRESENT: normal bowel sounds, soft. ABSENT: distended, guarding, mass, organomegaly, rebound, tenderness Extremities exam: PRESENT: pedal edema - left leg, tenderness - left leg, other - multiple fatty tissue loculation Musculoskeletal exam: PRESENT: tenderness - left leg Neurological exam: PRESENT: alert, awake, oriented to person, oriented to place, oriented to time, oriented to situation, CN II-XII grossly intact. ABSENT: kristin r sensory deficit Psychiatric exam: PRESENT: appropriate affect, normal mood. ABSENT: homicidal ideation, suicidal ideation Skin exam: PRESENT: dry, warm Results Laboratory Results: 05/31/18 06:10 05/31/18 06:10 05/30/18 05/30/18 05/30/18 05:02 05:02 07:55 WBC RBC Hgb Hct MCV MCH MCHC RDW Plt Count Seg Neutrophils % Lymphocytes % Monocytes % Eosinophils % Basophils % Absolute Neutrophils Absolute Lymphocytes Absolute Monocytes Absolute Eosinophils Absolute Basophils Retic Count (auto) 1.78 Absolute Retic 0.074 Sodium Potassium Chloride Carbon Dioxide Anion Gap BUN Creatinine Est GFR ( Amer) Est GFR (Non-Af Amer) Glucose Calcium Iron 16.1 L TIBC 298 % Saturation 5 Ferritin 15.60 Vitamin B12 352.0 Folate 7.60 Blood Type A POSITIVE Antibody Screen POSITIVE 05/30/18 05/31/18 05/31/18 19:35 06:10 06:10 WBC 16.1 H 14.9 H RBC 4.40 4.36 Hgb 8.5 L 8.3 L Hct 27.6 L 27.5 L MCV 63 L 63 L MCH 19.4 L 19.1 L MCHC 30.9 L 30.3 L RDW 23.6 H 22.9 H Plt Count 176 180 Seg Neutrophils % Not Reportable Not Reportable Lymphocytes % Not Reportable Not Reportable Monocytes % Not Reportable Not Reportable Eosinophils % Not Reportable Not Reportable Basophils % Not Reportable Not Reportable Absolute Neutrophils Not Reportable Not Reportable Absolute Lymphocytes Not Reportable Not Reportable Absolute Monocytes Not Reportable Not Reportable Absolute Eosinophils Not Reportable Not Reportable Absolute Basophils Not Reportable Not Reportable Retic Count (auto) Absolute Retic Sodium 135.1 L Potassium 4.2 Chloride 100 Carbon Dioxide 25 Anion Gap 10 BUN 20 Creatinine 1.02 Est GFR ( Amer) > 60 Est GFR (Non-Af Amer) 59 L Glucose 234 H Calcium 8.3 L Iron TIBC % Saturation Ferritin Vitamin B12 Folate Blood Type Antibody Screen Impressions: Foot X-Ray 05/29/18 16:09 IMPRESSION: Soft tissue swelling about foot which may represent cellulitis in the appropriate clinical setting. No radiographic findings to suggest osteomyelitis at this time. Assessment & Plan - Diagnosis (1) Left leg cellulitis Is this a current diagnosis for this admission?: Yes (2) Diabetes mellitus type 2 in obese Is this a current diagnosis for this admission?: Yes (3) HTN (hypertension) Qualifiers: Hypertension type: essential hypertension Qualified Code(s): I10 - Essential (primary) hypertension Is this a current diagnosis for this admission?: Yes (4) HLD (hyperlipidemia) Qualifiers: Is this a current diagnosis for this admission?: Yes (5) BMI 60.0-69.9, adult Is this a current diagnosis for this admission?: Yes (6) Iron deficiency anemia, unspecified Qualifiers: Iron deficiency anemia type: unspecified iron deficiency Qualified Code(s): D50.9 - Iron deficiency anemia, unspecified Is this a current diagnosis for this admission?: Yes - Time Time Spent with patient: 25-34 minutes Medications reviewed and adjusted accordingly: Yes Anticipated discharge: Home Within: Other - Inpatient Certification Based on my medical assessment, after consideration of the patient's comorbidities, presenting symptoms, or acuity I expect that the services needed warrant INPATIENT care.: Yes I certify that my determination is in accordance with my understanding of Medicare's requirements for reasonable and necessary INPATIENT services [42 CFR 412.3e].: Yes Medical Necessity: Significant Comorbidiites Make Outpatient Treatment Too Risky, Need Close Monitoring Due to Risk of Patient Decompensation, Need For IV Fluids, Need For Continuous Telemetry Monitoring, Need for IV Antibiotics, Risk of Complication if Not Cared For in Hospital, Risk of Diagnosis Which Will Require Inpatient Eval/Care/Monitoring Post Hospital Care: D/C Rope Tow Operator Documentation - Plan Summary Plan Summary: Continue IV Clindamycin coverage. Follow up on blood culture findings. Emphasized leg elevation.
[2018-05-31] MEDS: INSULIN LISPRO 100 UNIT/ML 3 ML VIAL SUBCUT SCH ×4 (09:45→22:29)
[2018-05-31] MEDS: ENOXAPARIN SODIUM INJ 40 MG/0.4 ML DISP.SYRIN SUBCUT SCH (09:45)
[2018-05-31] MEDS: ACETAMINOPHEN 325 MG TABLET PO PRN (09:46)
[2018-05-31] MEDS: VALSARTAN 160 MG TABLET PO SCH (09:46)
[2018-05-31] MEDS: FUROSEMIDE 40 MG TABLET PO SCH (09:46)
[2018-05-31] MEDS: FERROUS SULFATE 325 MG TABLET PO SCH (09:47)
[2018-05-31] MEDS: AMLODIPINE BESYLATE 10 MG TABLET PO SCH (09:47)
[2018-05-31] MEDS: METFORMIN HCL 500 MG TABLET PO SCH ×2 (09:47→19:06)
[2018-05-31] MEDS ORDERED: (PENDING PHARMACY ID) (Valsartan [Diovan] 320 MG) PO SCH (10:00)
[2018-05-31] MEDS: GLIPIZIDE 5 MG TABLET PO SCH (10:06)
[2018-06-01] MEDS: CLINDAMYCIN 600 MG/D5W RTU 600 MG/50 ML RTUPB IV SCH ×4 (02:15→19:51)
[2018-06-01 04:47] LABS: HEMATOCRIT 25.6 % (36.0-47.0); MEAN CORPUSCULAR HEMOGLOBIN 19.1 pg (27.0-33.4); MEAN CORPUSCULAR HGB CONC 30.3 g/dL (32.0-36.0); MEAN CORPUSCULAR VOLUME 63 fl (80-97); PLATELET COUNT 186 10^3/uL (150-450); RED BLOOD COUNT 4.07 10^6/uL (3.72-5.28); RED CELL DISTRIBUTION WIDTH 22.8 % (11.5-14.0); WHITE BLOOD COUNT 16.1 10^3/uL (4.0-10.5)
[2018-06-01 05:02] LABS: ANION GAP 8 (5-19); BLOOD UREA NITROGEN 21 mg/dL (7-20); CALCIUM 8.1 mg/dL (8.4-10.2); CARBON DIOXIDE 27 mmol/L (22-30); CHLORIDE 102 mmol/L (98-107); GLUCOSE 100 mg/dL (75-110); POTASSIUM 4.3 mmol/L (3.6-5.0); SODIUM 137.2 mmol/L (137-145)
[2018-06-01 05:52] LABS: ABSOLUTE LYMPHOCYTES# (MANUAL) 2.6 10^3/uL (0.5-4.7); ABSOLUTE MONOCYTES # (MANUAL) 1.1 10^3/uL (0.1-1.4); ABSOLUTE NEUTROPHILS# (MANUAL) 12.1 10^3/uL (1.7-8.2); BASOPHILS % (MANUAL) 0 % (0-2); EOSINOPHILS % (MANUAL) 2 % (0-6); LYMPHOCYTES % (MANUAL) 16 % (13-45); MONOCYTES % (MANUAL) 7 % (3-13); SEGMENTED NEUTROPHILS % (MAN) 75 % (42-78); TOTAL CELLS COUNTED 100
[2018-06-01 05:53] LABS: HYPOCHROMASIA 2+; POLYCHROMASIA SLIGHT
[2018-06-01 05:54] LABS: ANISOCYTOSIS 3+; PLATELET COMMENT ADEQUATE; ROULEAUX 1+; STOMATOCYTES 1+
[2018-06-01 05:59] LABS: HEMOGLOBIN 7.8 g/dL (12.0-15.5)
[2018-06-01] MEDS ORDERED: NORMAL SALINE 250 ML IV PRN ×2 (08:37)
--- NOTE | 2018-06-01 08:44 | PDOC PROGRESS REPORT ---
Subjective Progress Note for:: 06/01/18 Subjective:: Patient denied fever or chills. No chest pain or difficulty with breathing. Remain on IV Clindamycin coverage. Not cooperative with supply of stool specimen for testing. She denied any tarry or blood stool. No nausea, vomiting or abdominal pain. No excessive menstrual bleeding. Reason For Visit: CELLULITIS Physical Exam Vital Signs: Temp Pulse Resp BP Pulse Ox 98.3 F 89 17 139/68 H 95 06/01/18 08:00 06/01/18 08:00 06/01/18 08:00 06/01/18 08:00 06/01/18 08:00 Intake & Output 05/31/18 06/01/18 06/02/18 06:59 06:59 06:59 Intake Total 2850 1442 Balance 2850 1442 Weight 193.8 kg 194.2 kg Physical Exam: General appearance: PRESENT: no acute distress, morbidly obese Head exam: PRESENT: atraumatic, normocephalic Ear exam: PRESENT: normal external ear exam EYES: ABSENT: pallor. Mouth exam: PRESENT: moist Respiratory exam: PRESENT: clear to auscultation trina Cardiovascular exam: PRESENT: RRR. ABSENT: diastolic murmur, rubs, systolic murmur GI/Abdominal exam: PRESENT: normal bowel sounds, soft. ABSENT: distended, guarding, mass, organomegaly, rebound, tenderness Extremities exam: PRESENT: pedal edema - left leg, tenderness - left leg, other - multiple fatty tissue loculation Musculoskeletal exam: PRESENT: tenderness - left leg Neurological exam: PRESENT: alert, awake, oriented to person, oriented to place, oriented to time, oriented to situation, CN II-XII grossly intact. ABSENT: motor sensory deficit Psychiatric exam: PRESENT: appropriate affect, normal mood. ABSENT: homicidal ideation, suicidal ideation Skin exam: PRESENT: dry, warm Results Laboratory Results: 06/01/18 04:09 06/01/18 04:09 06/01/18 06/01/18 04:09 04:09 WBC 16.1 H RBC 4.07 Hgb 7.8 L Hct 25.6 L MCV 63 L MCH 19.1 L MCHC 30.3 L RDW 22.8 H Plt Count 186 Seg Neutrophils % Not Reportable Lymphocytes % Not Reportable Monocytes % Not Reportable Eosinophils % Not Reportable Basophils % Not Reportable Absolute Neutrophils Not Reportable Absolute Lymphocytes Not Reportable Absolute Monocytes Not Reportable Absolute Eosinophils Not Reportable Absolute Basophils Not Reportable Sodium 137.2 Potassium 4.3 Chloride 102 Carbon Dioxide 27 Anion Gap 8 BUN 21 H Creatinine 0.95 Est GFR ( Amer) > 60 Est GFR (Non-Af Amer) > 60 Glucose 100 Calcium 8.1 L 05/29/18 20:03 Clean Catch Midstream Urine Culture - Final Mixed Urogenital Lizzy Impressions: Foot X-Ray 05/29/18 16:09 IMPRESSION: Soft tissue swelling about foot which may represent cellulitis in the appropriate clinical setting. No radiographic findings to suggest osteomyelitis at this time. Assessment & Plan - Diagnosis (1) Left leg cellulitis Is this a current diagnosis for this admission?: Yes (2) Diabetes mellitus type 2 in obese Is this a current diagnosis for this admission?: Yes (3) HTN (hypertension) Qualifiers: Hypertension type: essential hypertension Qualified Code(s): I10 - Essential (primary) hypertension Is this a current diagnosis for this admission?: Yes (4) HLD (hyperlipidemia) Qualifiers: Is this a current diagnosis for this admission?: Yes (5) BMI 60.0-69.9, adult Is this a current diagnosis for this admission?: Yes (6) Iron deficiency anemia, unspecified Qualifiers: Iron deficiency anemia type: unspecified iron deficiency Qualified Code(s): D50.9 - Iron deficiency anemia, unspecified Is this a current diagnosis for this admission?: Yes - Time Time Spent with patient: 25-34 minutes Medications reviewed and adjusted accordingly: Yes Anticipated discharge: Home Within: Other - Inpatient Certification Based on my medical assessment, after consideration of the patient's comorbidities, presenting symptoms, or acuity I expect that the services needed warrant INPATIENT care.: Yes I certify that my determination is in accordance with my understanding of Medicare's requirements for reasonable and necessary INPATIENT services [42 CFR 412.3e].: Yes Medical Necessity: Significant Comorbidiites Make Outpatient Treatment Too Risky, Need Close Monitoring Due to Risk of Patient Decompensation, Need For IV Fluids, Need For Continuous Telemetry Monitoring, Need for IV Antibiotics, Risk of Complication if Not Cared For in Hospital, Risk of Diagnosis Which Will Require Inpatient Eval/Care/Monitoring 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 Transfuse 2 units PRBC. Follow up on blood culture findings. emphasized need for stool occult blood testing. Consider starting on iron supplementation with Ascorbic acid intake.
[2018-06-01] MEDS: INSULIN LISPRO 100 UNIT/ML 3 ML VIAL SUBCUT SCH ×3 (11:35→18:45)
[2018-06-01] MEDS: ENOXAPARIN SODIUM INJ 40 MG/0.4 ML DISP.SYRIN SUBCUT SCH (11:39)
[2018-06-01] MEDS: METFORMIN HCL 500 MG TABLET PO SCH ×2 (11:49→19:15)
[2018-06-01] MEDS: FUROSEMIDE 40 MG TABLET PO SCH (11:49)
[2018-06-01] MEDS: AMLODIPINE BESYLATE 10 MG TABLET PO SCH (11:49)
[2018-06-01] MEDS: VALSARTAN 160 MG TABLET PO SCH (11:49)
[2018-06-01] MEDS: FERROUS SULFATE 325 MG TABLET PO SCH (11:50)
[2018-06-01] MEDS: GLIPIZIDE 5 MG TABLET PO SCH (11:56)
[2018-06-02] MEDS: INSULIN LISPRO 100 UNIT/ML 3 ML VIAL SUBCUT SCH ×5 (01:22→21:26)
[2018-06-02] MEDS: CLINDAMYCIN 600 MG/D5W RTU 600 MG/50 ML RTUPB IV SCH ×3 (01:29→17:16)
[2018-06-02 03:53] LABS: HEMATOCRIT 27.8 % (36.0-47.0); HEMOGLOBIN 8.6 g/dL (12.0-15.5); MEAN CORPUSCULAR HEMOGLOBIN 20.3 pg (27.0-33.4); MEAN CORPUSCULAR HGB CONC 31.1 g/dL (32.0-36.0); MEAN CORPUSCULAR VOLUME 65 fl (80-97); PLATELET COUNT 207 10^3/uL (150-450); RED BLOOD COUNT 4.26 10^6/uL (3.72-5.28); RED CELL DISTRIBUTION WIDTH 25.2 % (11.5-14.0); WHITE BLOOD COUNT 15.9 10^3/uL (4.0-10.5)
[2018-06-02 04:27] LABS: ABSOLUTE LYMPHOCYTES# (MANUAL) 3.3 10^3/uL (0.5-4.7); ABSOLUTE MONOCYTES # (MANUAL) 1.3 10^3/uL (0.1-1.4); ABSOLUTE NEUTROPHILS# (MANUAL) 11.1 10^3/uL (1.7-8.2); BASOPHILS % (MANUAL) 0 % (0-2); EOSINOPHILS % (MANUAL) 1 % (0-6); LYMPHOCYTES % (MANUAL) 21 % (13-45); MONOCYTES % (MANUAL) 8 % (3-13); SEGMENTED NEUTROPHILS % (MAN) 70 % (42-78); TOTAL CELLS COUNTED 100
[2018-06-02 04:28] LABS: ANISOCYTOSIS 3+; HYPOCHROMASIA 2+; PLATELET COMMENT ADEQUATE; POIKILOCYTOSIS 1+; TARGET CELLS 1+
--- NOTE | 2018-06-02 08:23 | PDOC PROGRESS REPORT ---
Subjective Progress Note for:: 06/02/18 Subjective:: Patient denied any fever or chills. Remain on IV Clindamycin coverage. s/p transfusion of 2 units PRBC with slight improvement in her hgb level. She denied any history of hemorrhoid or excessive menstrual bleeding. She admitted to history anemia and have been on iron therapy. No chest pain or difficulty with breathing. Reason For Visit: CELLULITIS Physical Exam Vital Signs: Temp Pulse Resp BP Pulse Ox 98.4 F 82 18 140/79 H 96 06/02/18 00:48 06/02/18 07:00 06/02/18 00:48 06/02/18 00:48 06/02/18 00:48 Intake & Output 06/01/18 06/02/18 06/03/18 06:59 06:59 06:59 Intake Total 1442 1175 Balance 1442 1175 Weight 194.2 kg 193.5 kg Physical Exam: General appearance: PRESENT: no acute distress, morbidly obese Head exam: PRESENT: atraumatic, normocephalic Ear exam: PRESENT: normal external ear exam EYES: ABSENT: pallor. Mouth exam: PRESENT: moist Respiratory exam: PRESENT: clear to auscultation trina Cardiovascular exam: PRESENT: RRR. ABSENT: diastolic murmur, rubs, systolic murmur GI/Abdominal exam: PRESENT: normal bowel sounds, soft. ABSENT: distended, guarding, mass, organomegaly, rebound, tenderness Extremities exam: PRESENT: pedal edema - left leg, decrease tenderness - left leg, other - multiple fatty tissue loculation Musculoskeletal exam: PRESENT: tenderness - left leg, improving localized edema at site of cellulitis Neurological exam: PRESENT: alert, awake, oriented to person, oriented to place, oriented to time, oriented to situation, CN II-XII grossly intact. ABSENT: motor sensory deficit Psychiatric exam: PRESENT: appropriate affect, normal mood. ABSENT: homicidal ideation, suicidal ideation Skin exam: PRESENT: dry, warm Results Laboratory Results: 06/02/18 03:27 06/01/18 04:09 05/30/18 06/01/18 06/02/18 07:55 17:30 03:27 WBC 15.9 H RBC 4.26 Hgb 8.6 L Hct 27.8 L MCV 65 L MCH 20.3 L MCHC 31.1 L RDW 25.2 H Plt Count 207 Seg Neutrophils % Not Reportable Lymphocytes % Not Reportable Monocytes % Not Reportable Eosinophils % Not Reportable Basophils % Not Reportable Absolute Neutrophils Not Reportable Absolute Lymphocytes Not Reportable Absolute Monocytes Not Reportable Absolute Eosinophils Not Reportable Absolute Basophils Not Reportable Stool Occult Blood NEGATIVE Blood Type A POSITIVE Antibody Screen POSITIVE Impressions: Foot X-Ray 05/29/18 16:09 IMPRESSION: Soft tissue swelling about foot which may represent cellulitis in the appropriate clinical setting. No radiographic findings to suggest osteomyelitis at this time. Assessment & Plan - Diagnosis (1) Left leg cellulitis Is this a current diagnosis for this admission?: Yes (2) Diabetes mellitus type 2 in obese Is this a current diagnosis for this admission?: Yes (3) HTN (hypertension) Qualifiers: Hypertension type: essential hypertension Qualified Code(s): I10 - Essential (primary) hypertension Is this a current diagnosis for this admission?: Yes (4) HLD (hyperlipidemia) Qualifiers: Is this a current diagnosis for this admission?: Yes (5) BMI 60.0-69.9, adult Is this a current diagnosis for this admission?: Yes (6) Iron deficiency anemia, unspecified Qualifiers: Iron deficiency anemia type: unspecified iron deficiency Qualified Code(s): D50.9 - Iron deficiency anemia, unspecified Is this a current diagnosis for this admission?: Yes - Time Time Spent with patient: 25-34 minutes Medications reviewed and adjusted accordingly: Yes Anticipated discharge: Home Within: Other - Inpatient Certification Based on my medical assessment, after consideration of the patient's comorbidities, presenting symptoms, or acuity I expect that the services needed warrant INPATIENT care.: Yes I certify that my determination is in accordance with my understanding of Medicare's requirements for reasonable and necessary INPATIENT services [42 CFR 412.3e].: Yes Medical Necessity: Significant Comorbidiites Make Outpatient Treatment Too Risky, Need Close Monitoring Due to Risk of Patient Decompensation, Need For Continuous Telemetry Monitoring, Need for IV Antibiotics, Risk of Complication if Not Cared For in Hospital, Risk of Diagnosis Which Will Require Inpatient Eval/Care/Monitoring 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 Follow up on blood culture findings. Increase Ferrous sulfate to bid and start on Vitamin C 500 mg po bid with iron administration to aide absorption.
[2018-06-02] MEDS: ENOXAPARIN SODIUM INJ 40 MG/0.4 ML DISP.SYRIN SUBCUT SCH (09:45)
[2018-06-02] MEDS: VALSARTAN 160 MG TABLET PO SCH (09:48)
[2018-06-02] MEDS: AMLODIPINE BESYLATE 10 MG TABLET PO SCH (09:48)
[2018-06-02] MEDS: FERROUS SULFATE 325 MG TABLET PO SCH ×2 (09:48→17:16)
[2018-06-02] MEDS: METFORMIN HCL 500 MG TABLET PO SCH ×2 (09:48→17:16)
[2018-06-02] MEDS: ASCORBIC ACID 500 MG TABLET PO SCH ×2 (09:48→17:16)
[2018-06-02] MEDS: FUROSEMIDE 40 MG TABLET PO SCH (09:48)
[2018-06-02] MEDS: GLIPIZIDE 5 MG TABLET PO SCH (09:53)
[2018-06-03] MEDS: CLINDAMYCIN 600 MG/D5W RTU 600 MG/50 ML RTUPB IV SCH ×2 (02:30→09:19)
[2018-06-03] MEDS: INSULIN LISPRO 100 UNIT/ML 3 ML VIAL SUBCUT SCH ×3 (09:01→17:31)
[2018-06-03] MEDS: FERROUS SULFATE 325 MG TABLET PO SCH (09:20)
[2018-06-03] MEDS: GLIPIZIDE 5 MG TABLET PO SCH (09:20)
[2018-06-03] MEDS: AMLODIPINE BESYLATE 10 MG TABLET PO SCH (09:20)
[2018-06-03] MEDS: VALSARTAN 160 MG TABLET PO SCH (09:20)
[2018-06-03] MEDS: ASCORBIC ACID 500 MG TABLET PO SCH (09:20)
[2018-06-03] MEDS: ENOXAPARIN SODIUM INJ 40 MG/0.4 ML DISP.SYRIN SUBCUT SCH (09:20)
[2018-06-03] MEDS: METFORMIN HCL 500 MG TABLET PO SCH (09:20)
[2018-06-03] MEDS: FUROSEMIDE 40 MG TABLET PO SCH (09:20)
--- NOTE | 2018-06-03 17:35 | PDOC DISCHARGE SUMMARY ---
General - Admit/Disc Date/PCP Admission Date/Primary Care Provider: 05/29/18 16:39 DUY VINCENT Discharge Date: 06/03/18 - Discharge Diagnosis (1) Left leg cellulitis Is this a current diagnosis for this admission?: Yes (2) Diabetes mellitus type 2 in obese Is this a current diagnosis for this admission?: Yes (3) HTN (hypertension) Is this a current diagnosis for this admission?: Yes (4) HLD (hyperlipidemia) Is this a current diagnosis for this admission?: Yes (5) BMI 60.0-69.9, adult Is this a current diagnosis for this admission?: Yes (6) Iron deficiency anemia, unspecified Is this a current diagnosis for this admission?: Yes - Additional Information Prescriptions: Ascorbic Acid [Vitamin C 500 mg Tablet] 500 mg PO BID #60 tablet Clindamycin HCl 300 mg PO Q6 #7 capsule Ferrous Sulfate [Feosol 325 mg Tablet] 325 mg PO BID #60 tablet Home Medications: Amlodipine Besylate [Norvasc 10 mg Tablet] 10 mg PO DAILY 05/30/18 Furosemide [Lasix 40 mg Tablet] 40 mg PO DAILY 05/30/18 Glipizide [Glucotrol 5 mg Tablet] 5 mg PO DAILY 05/30/18 Metformin HCl [Glucophage] 1,000 mg PO BID 05/30/18 Valsartan [Diovan] 320 mg PO DAILY 05/30/18 Ascorbic Acid [Vitamin C 500 mg Tablet] 500 mg PO BID #60 tablet 06/03/18 Clindamycin HCl 300 mg PO Q6 #7 capsule 06/03/18 Ferrous Sulfate [Feosol 325 mg Tablet] 325 mg PO BID #60 tablet 06/03/18 History of Present Illness Patient complains of: left lower extremity pain and swelling History of Present Illness: LAURENT MOORE is a 42 year old female This is a 42-year-old female with a patient of Dr. Migue godinez complaining of left lower extremity pain and swelling for the last several days Patient is denied any fever no chills Patient's denied any injury to the foot but stated that 3 weeks ago she was a fi le on the bottom of the foot to get rid of her get that skin and believe she may have caused the wound on the bottom of the foot Patient initial workup in the ER was all stable Patient is denied any chest pain to than any shortness of the breath Patient have a history of the SVT history of the type 2 diabetes mellitus hypertension hyperlipidemia and morbid obesity When I saw the patient in the ER denied any symptoms Hospital Course Hospital Course: She was managed with IV Vancomycin as initial empiric antibiotic that was eventually changed to IV Clindamycin. Her blood culture was no growth x 5 days. She will be transition to oral Clindamycin therapy for 7 days. She was transfused total 4 units of PRBC due to severe anemia. Patient has log standing history of anemia and she has been on oral ferrous sulfate therapy that was increased to 352 mg p.o bid and stated on Ascorbic Acid 500 mg po bid therapy to improve iron absorption during this hospitalization. She will be discharged home today and follow up in the office as instructed upon discharge. Physical Exam Vital Signs: Temp Pulse Resp BP Pulse Ox 98.5 F 94 18 143/79 H 96 06/02/18 23:41 06/02/18 23:41 06/02/18 23:41 06/02/18 23:41 06/02/18 23:41 Intake & Output 06/02/18 06/03/18 06/04/18 06:59 06:59 06:59 Intake Total 1175 707 Balance 1175 707 Weight 193.5 kg 194.5 kg Physical Exam: General appearance: PRESENT: no acute distress, morbidly obese Head exam: PRESENT: atraumatic, normocephalic Ear exam: PRESENT: normal external ear exam EYES: ABSENT: pallor. Mouth exam: PRESENT: moist Respiratory exam: PRESENT: clear to auscultation trina Cardiovascular exam: PRESENT: RRR. ABSENT: diastolic murmur, rubs, systolic murmur GI/Abdominal exam: PRESENT: normal bowel sounds, soft. ABSENT: distended, guarding, mass, organomegaly, rebound, tenderness Extremities exam: PRESENT: pedal edema - left leg, decrease tenderness - left leg, other - multiple fatty tissue loculation Musculoskeletal exam: PRESENT: resolved tenderness - left leg Neurological exam: PRESENT: alert, awake, oriented to person, oriented to place, oriented to time, oriented to situation, CN II-XII grossly intact. ABSENT: motor sensory deficit Psychiatric exam: PRESENT: appropriate affect, normal mood. ABSENT: homicidal ideation, suicidal ideation Skin exam: PRESENT: dry, warm, callus lesion lateral aspect of right foot and ulcerated lesion on lateral aspect of left foot. Results Laboratory Results: 06/02/18 03:27 06/01/18 04:09 05/29/18 15:51 Blood Blood Culture - Final NO GROWTH IN 5 DAYS 05/29/18 15:12 Blood Blood Culture - Final NO GROWTH IN 5 DAYS Impressions: Foot X-Ray 05/29/18 16:09 IMPRESSION: Soft tissue swelling about foot which may represent cellulitis in the appropriate clinical setting. No radiographic findings to suggest o steomyelitis at this time. Qualifiers - * PATIENT BEING DISCHARGED WITH ANY OF THE FOLLOWING DIAGNOSIS: No Plan Discharge Plan: Discharge home today. Follow up in the office as instructed upon discharge.
[2018-06-03 17:58] VITALS: BP 148/85
== END 2018-06-03 18:50 | disposition home or self-care (01) | DRG 603 ==
LOC: ER 14:12 → EH 16:39 → 5 21:30
PROVIDERS: ADMIT Family Medicine; ATTEND Internal Medicine Geriatric Medicine
PROC: 30233N1 Transfusion of Nonautologous Red Blood Cells into Peripheral Vein, Percutaneous Approach (ICD-10-PCS; principal; 2018-05-30)
DX: L03.116 Cellulitis of left lower limb (principal); Z68.44 Body mass index [BMI] 60.0-69.9, adult; E11.9 Type 2 diabetes mellitus without complications; I10 Essential (primary) hypertension; E78.5 Hyperlipidemia, unspecified; D50.9 Iron deficiency anemia, unspecified; E66.01 Morbid (severe) obesity due to excess calories; K21.9 Gastro-esophageal reflux disease without esophagitis; M19.90 Unspecified osteoarthritis, unspecified site; F32.9 Major depressive disorder, single episode, unspecified; Z79.899 Other long term (current) drug therapy; Z79.84 Long term (current) use of oral hypoglycemic drugs; Z82.61 Family history of arthritis; Z82.49 Family history of ischemic heart disease and other diseases of the circulatory system; Z82.3 Family history of stroke; Z83.3 Family history of diabetes mellitus; Z80.9 Family history of malignant neoplasm, unspecified; Z83.49 Family history of other endocrine, nutritional and metabolic diseases
CPT/HCPCS: 36415; 36430; 80048; 80053; 81001; 82272; 82607; 82728; 82746; 82962; 83540; 83550; 83605; 85025; 85045; 85610; 86850; 86870; 86900; 86901; 86902; 86920; 86922; 87040; 87086; 93971; 96365; 99285; J1650; J1815; J3370; J7030; P9016

== ENCOUNTER 2018-06-20 13:00 | Inpatient (IN) | payer MEDICARE, MEDICAID ==
[2018-06-20] MEDS ORDERED: DEXTROSE 50%-WATER SYRINGE 25 GM/50 ML DOSE IV PRN (14:30)
[2018-06-20] MEDS ORDERED: GLUCAGON,HUMAN RECOMB 1 MG INJ IM PRN (14:30)
[2018-06-20] MEDS ORDERED: DEXTROSE 50%-WATER SYRINGE 12.5 GM/25 ML DOSE IV PRN (14:30)
[2018-06-20] MEDS ORDERED: DEXTROSE 40% GEL 15 GM TUBE PO PRN (14:30)
[2018-06-20] MEDS ORDERED: DEXTROSE 40% GEL 15 GM TUBE X 2 PO PRN (14:30)
[2018-06-20 15:11] LABS: HEMATOCRIT 26.7 % (36.0-47.0); HEMOGLOBIN 8.3 g/dL (12.0-15.5); MEAN CORPUSCULAR HEMOGLOBIN 20.7 pg (27.0-33.4); MEAN CORPUSCULAR HGB CONC 31.1 g/dL (32.0-36.0); MEAN CORPUSCULAR VOLUME 67 fl (80-97); PLATELET COUNT 489 10^3/uL (150-450); RED BLOOD COUNT 4.02 10^6/uL (3.72-5.28); RED CELL DISTRIBUTION WIDTH 26.6 % (11.5-14.0); WHITE BLOOD COUNT 9.2 10^3/uL (4.0-10.5)
[2018-06-20 15:26] LABS: ALANINE AMINOTRANSFERASE 8 U/L (9-52); ALBUMIN 3.2 g/dL (3.5-5.0); ALKALINE PHOSPHATASE 119 U/L (38-126); ANION GAP 5 (5-19); ASPARTATE AMINO TRANSFERASE 13 U/L (14-36); BILIRUBIN,DIRECT 0.3 mg/dL (0.0-0.4); BILIRUBIN,TOTAL 0.5 mg/dL (0.2-1.3); BLOOD UREA NITROGEN 16 mg/dL (7-20); CARBON DIOXIDE 30 mmol/L (22-30); CHLORIDE 102 mmol/L (98-107); GLUCOSE 154 mg/dL (75-110); POTASSIUM 4.7 mmol/L (3.6-5.0); SODIUM 136.5 mmol/L (137-145)
[2018-06-20 15:29] LABS: ABSOLUTE LYMPHOCYTES# (MANUAL) 2.8 10^3/uL (0.5-4.7); ABSOLUTE MONOCYTES # (MANUAL) 1.2 10^3/uL (0.1-1.4); ABSOLUTE NEUTROPHILS# (MANUAL) 4.7 10^3/uL (1.7-8.2); BASOPHILS % (MANUAL) 0 % (0-2); EOSINOPHILS % (MANUAL) 6 % (0-6); LYMPHOCYTES % (MANUAL) 30 % (13-45); MONOCYTES % (MANUAL) 13 % (3-13); SEGMENTED NEUTROPHILS % (MAN) 51 % (42-78); TOTAL CELLS COUNTED 100
[2018-06-20 15:30] LABS: ANISOCYTOSIS 3+; HYPOCHROMASIA 2+; OVALOCYTES SLIGHT; PLATELET COMMENT INCREASED; POIKILOCYTOSIS SLIGHT; ROULEAUX 1+
--- NOTE | 2018-06-20 15:42 | PDOC CONSULTATION ---
Consultation Consult Date: 06/20/18 Attending physician:: TIA CRUZ Consult reason:: Diabetic foot infection left foot. History of Present Illness Admission Date/PCP: 06/20/18 13:00 DUY VINCENT Patient complains of: Pain order in left foot. History of Present Illness: LAURENT MOORE is a 42 year old female Patient presents with pain and increased smell from the left foot for about 1 week. She says it started out with a small toe drifted over to the others. No prior such episodes. Past Medical History Cardiac Medical History: Reports: Hyperlipidema, Hypertension Denies: Congestive Heart Failure, Myocardial Infarction Pulmonary Medical History: Reports: Asthma, Bronchitis Denies: Chronic Obstructive Pulmonary Disease (COPD), Pneumonia, Tuberculosis Neurological Medical History: Denies: Seizures Endocrine Medical History: Reports: Diabetes Mellitus Type 2 Renal/ Medical History: Denies: End Stage Renal Disease GI Medical History: Reports: Gastroesophageal Reflux Disease Denies: Cirrhosis Musculoskeltal Medical History: Reports: Arthritis Psychiatric Medical History: Reports: Depression Denies: Bipolar Disorder Hematology: Reports: Anemia Denies: Bleeding Tendencies Past Surgical History Past Surgical History: Reports: Section - X2, Tubal Ligation Social History Smoking Status: Never Smoker Frequency of Alcohol Use: None Hx Recreational Drug Use: No Drugs: None Hx Prescription Drug Abuse: No Family History Family History: Arthritis, CAD, CVA, DM, Hyperlipidemia, Hypertension, Malignancy, Thyroid Disfunction Parental Family History Reviewed: No Children Family History Reviewed: No Sibling(s) Family History Reviewed.: No Medication/Allergy Home Medications: Amlodipine Besylate [Norvasc 10 mg Tablet] 10 mg PO DAILY 06/20/18 Ascorbic Acid [Vitamin C 500 mg Tablet] 500 mg PO BID 06/20/18 Ferrous Sulfate [Feosol 325 mg Tablet] 325 mg PO BID 06/20/18 Furosemide [Lasix 40 mg Tablet] 40 mg PO DAILY 06/20/18 Glipizide [Glucotrol 5 mg Tablet] 5 mg PO DAILY 06/20/18 Metformin HCl [Glucophage] 1,000 mg PO BID 06/20/18 Valsartan [Diovan] 320 mg PO DAILY 06/20/18 Allergies/Adverse Reactions: No Known Allergies Allergy (Verified 05/29/18 14:22) Physical Exam Vital Signs: Temp Pulse Resp BP Pulse Ox 97.8 F 79 16 154/81 H 98 06/20/18 14:55 06/20/18 14:55 06/20/18 14:55 06/20/18 14:55 06/20/18 14:55 Intake & Output 06/19/18 06/20/18 06/21/18 06:59 06:59 06:59 Weight 200.1 kg Additional comments: Constitutional: Well-developed well-nourished -[place] lady, morbidly obese body habitus. Mild emotional acute distress. Eyes: Mucous membranes pink and moist, pupils equal and reactive to light. Conjunctiva normal. Cornea normal. Respiratory: Normal respiratory effort. Skin: Black discoloration, ulceration in the distal left foot including toes. Psychiatric: Judgment, memory, insight seem normal. Mood is pleasant and appropriate. Extremities: Upper extremities show normal range of movement. Pulses present noted to the radial arteries. Capillary refill normal. No cyanosis noted. No muscle wasting noted. Lower extremities show normal range of movement, on the right. Pulses present noted to the dorsalis pedis artery, bilaterally. Capillary refill normal. No cyanosis noted. No muscle wasting noted. Yosvany necrosis noted in toes 5-2 on the left. Exposure of fifth metatarsal head. Fall odor, no erythema, mild edema noted. Results Laboratory Results: 06/20/18 14:35 06/20/18 14:35 06/20/18 06/20/18 14:35 14:35 WBC 9.2 RBC 4.02 Hgb 8.3 L Hct 26.7 L MCV 67 L MCH 20.7 L MCHC 31.1 L RDW 26.6 H Plt Count 489 H Seg Neutrophils % Not Reportable Lymphocytes % Not Reportable Monocytes % Not Reportable Eosinophils % Not Reportable Basophils % Not Reportable Absolute Neutrophils Not Reportable Absolute Lymphocytes Not Reportable Absolute Monocytes Not Reportable Absolute Eosinophils Not Reportable Absolute Basophils Not Reportable Sodium 136.5 L Potassium 4.7 Chloride 102 Carbon Dioxide 30 Anion Gap 5 BUN 16 Creatinine 1.00 Est GFR ( Amer) > 60 Est GFR (Non-Af Amer) > 60 Glucose 154 H Calcium 9.0 Total Bilirubin 0.5 AST 13 L ALT 8 L Alkaline Phosphatase 119 Total Protein 9.0 H Albumin 3.2 L Assessment & Plan - Diagnosis (1) Diabetic infection of left foot Is this a current diagnosis for this admission?: Yes (2) Diabetes mellitus type 2 in obese Is this a current diagnosis for this admission?: Yes (3) Morbid obesity Is this a current diagnosis for this admission?: Yes (4) HTN (hypertension) Qualifiers: Is this a current diagnosis for this admission?: Yes - Plan Summary Plan Summary: In this patient with dry gangrene, necrosis and infection in the distal left foot, debridement is well indicated. Several toes will need to be removed possibly toes to through 5, the great toe seems relatively unaffected. The risks of the procedure include infection, bleeding, heart, lung comp lications, injury to other structures. The patient is aware that the reason for the procedure is reducing the risk of advancing she understands that major amputation is a possibility. The hope and expectation is getting rid of data infected materials and allowing for healing. Ideally the healing would be done as an patient possibly in the wound clinic. Critical to success will be general control of the comorbid problems particularly diabetic control.
--- NOTE | 2018-06-20 16:28 | XCELERA REPORT ---
[address] [address] Lower Extremity Arterial Evaluation Name: LAURENT MOORE Age: 42 yrs Gender: Female : 1975 Patient Status: Inpatient Patient Location: [address] [place], [place] [id number] Study Date: 06/20/2018 03:30 PM Procedure: A color flow and duplex scan of the lower extremity arteries was performed bilaterally with velocity and waveform anaylsis. Reason For Study: pressure ulcer on left foot. Ordering Physician: DUY VINCENT Performed By: Stewart Bella Measurements and Calculations Right Left [employer]ING PSV 137.1 cm/sec Prox PFA PSV -103.1cm/sec Prox SFA PSV 123.6 cm/sec Mid SFA PSV -151.9cm/sec Prox Pop A PSV 57.0 cm/sec Dist KADY PSV 152.8 cm/sec Dist BRANCH COORDINATOR PSV 78.6 cm/sec Raman Pedis PSV 117.3 132.7 cm/sec Right Side Arterial Evaluation Limited study showing normal waveform on the right. Left Side Arterial Evaluation Normal velocity and triphasic waveforms noted from the Common Femoral artery to the Posterior Tibial artery . Biphasic with normal velocity in the Anterior Tibial and Dorsalis Pedis arteries. Ankle Brachial index not obtained. Interpretation Summary Mild hemodynamically significant lesions in the left lower extremity only, on duplex imaging, at rest. : DUY VINCENT > Bert Mayen
[2018-06-20] MEDS: INSULIN LISPRO 100 UNIT/ML 3 ML VIAL SUBCUT SCH ×2 (17:16→21:58)
[2018-06-20] MEDS: FERROUS SULFATE 325 MG TABLET PO SCH (17:27)
[2018-06-20] MEDS: METFORMIN HCL 500 MG TABLET PO SCH (17:27)
[2018-06-20] MEDS: ASCORBIC ACID 500 MG TABLET PO SCH (17:27)
[2018-06-20] MEDS: ENOXAPARIN SODIUM INJ 40 MG/0.4 ML DISP.SYRIN SUBCUT SCH (17:27)
--- NOTE | 2018-06-20 19:13 | PDOC H&P ---
History of Present Illness Admission Date/PCP: 06/20/18 13:00 DUY CARLTON Patient complains of: Left foot wound with swelling and malodor; Hypertensive urgency History of Present Illness: LAURENT MOORE is a 42 year old female patient known to my practice who presented to office earlier today due to reported increase swelling, pain and malodor to left foot diabetic pressure ulcer. She was treated in the office couple of days ago with scissors sharp debridement of the left foot ulcer and started on oral antibiotic with referral to wound care center. Patient admitted to noncompliance with wound management and follow up on referral as instructed. She claimed compliance with prescribed antibiotic therapy. There is worsening malodor to wound with drainage. She has been walking bear footed on the wound at home. She denied associated fever or chills. She admitted to elevated home blood glucose level and dietary indiscretion. Her wound evaluation in the office revealed extensive deterioration with multiple toes involvement since her last office visit. She demonstrate severely elevated blood pressure while in the office necessitating treatment with oral Clonidine 0.2mg prior to transfer to the hospital for admission. She was advised hospitalization for further evaluation and management. Her morbidities include diabetes mellitus type 2, hypertension, hyperlipidemia, GERD, Asthmatic bronchitis, Anemia, Osteoarthritis, Depression, and morbid obesity. Past Medical History Cardiac Medical History: Reports: Hyperlipidema, Hypertension Denies: Congestive Heart Failure, Myocardial Infarction Pulmonary Medical History: Reports: Asthma, Bronchitis Denies: Chronic Obstructive Pulmonary Disease (COPD), Pneumonia, Tuberculosis Neurological Medical History: Denies: Seizures Endocrine Medical History: Reports: Diabetes Mellitus Type 2 Renal/ Medical History: Denies: End Stage Renal Disease GI Medical History: Reports: Gastroesophageal Reflux Disease Denies: Cirrhosis Musculoskeltal Medical History: Reports: Arthritis Psychiatric Medical History: Reports: Depression Denies: Bipolar Disorder Hematology: Reports: Anemia Denies: Bleeding Tendencies Past Surgical History Past Surgical History: Reports: Section - X2, Tubal Ligation Social History Smoking Status: Never Smoker Frequency of Alcohol Use: None Hx Recreational Drug Use: No Drugs: None Hx Prescription Drug Abuse: No Family History Family History: Arthritis, CAD, CVA, DM, Hyperlipidemia, Hypertension, Malign valetne, Thyroid Disfunction Parental Family History Reviewed: Yes Children Family History Reviewed: Yes Sibling(s) Family History Reviewed.: Yes Medication/Allergy Home Medications: Amlodipine Besylate [Norvasc 10 mg Tablet] 10 mg PO DAILY 06/20/18 Ascorbic Acid [Vitamin C 500 mg Tablet] 500 mg PO BID 06/20/18 Ferrous Sulfate [Feosol 325 mg Tablet] 325 mg PO BID 06/20/18 Furosemide [Lasix 40 mg Tablet] 40 mg PO DAILY 06/20/18 Glipizide [Glucotrol 5 mg Tablet] 5 mg PO DAILY 06/20/18 Metformin HCl [Glucophage] 1,000 mg PO BID 06/20/18 Valsartan [Diovan] 320 mg PO DAILY 06/20/18 Allergies/Adverse Reactions: No Known Allergies Allergy (Verified 05/29/18 14:22) Review of Systems Constitutional: ABSENT: chills, fever(s), headache(s), weight gain, weight loss Eyes: ABSENT: visual disturbances Ears: ABSENT: hearing changes Nose, Mouth, and Throat: ABSENT: as per HPI, headache(s), mouth pain, sore throat, vertigo, other Cardiovascular: PRESENT: edema - left lower extremity including left foot Respiratory: ABSENT: cough, hemoptysis Gastrointestinal: ABSENT: abdominal pain, constipation, diarrhea, hematemesis, hematochezia, nausea, vomiting Musculoskeletal: PRESENT: deformity, joint swelling Integumentary: PRESENT: erythema - left foot, lesions - extensive left foot infected diabetic pressure ulcer with malodor, wounds - left foot involving toes except the left hallus. Neurological: ABSENT: abnormal gait, abnormal speech, confusion, dizziness, focal weakness, syncope Psychiatric: ABSENT: anxiety, depression, homidical ideation, suicidal ideation Endocrine: ABSENT: cold intolerance, heat intolerance, polydipsia, polyuria Hematologic/Lymphatic: ABSENT: easy bleeding, easy bruising, lymphadenopathy Allergic/Immunologic: ABSENT: seasonal rhinorrhea Physical Exam Vital Signs: Temp Pulse Resp BP Pulse Ox 97.8 F 79 16 154/81 H 98 06/20/18 14:55 06/20/18 14:55 06/20/18 14:55 06/20/18 14:55 06/20/18 14:55 Intake & Output 06/19/18 06/20/18 06/21/18 06:59 06:59 06:59 Intake Total 458 Balance 458 Weight 200.1 kg General appearance: PRESENT: morbidly obese Head exam: PRESENT: atraumatic, normocephalic Eye exam: PRESENT: conjunctiva pink. ABSENT: scleral icterus Ear exam: PRESENT: normal external ear exam Mouth exam: PRESENT: moist Teeth exam: PRESENT: poor dentation Neck exam: PRESENT: full ROM. ABSENT: carotid bruit, JVD, lymphadenopathy, thyromegaly Respiratory exam: PRESENT: clear to auscultation trina Cardiovascular exam: PRESENT: RRR. ABSENT: diastolic murmur, rubs, systolic murmur Vascular exam: ABSENT: normal capillary refill - left 2nd to 5th toes with dry gangrene features and stage 4 infected pressure ulcer, pallor GI/Abdominal exam: PRESENT: normal bowel sounds, soft. ABSENT: distended, guarding, mass, organolmegaly, rebound, tenderness Rectal exam: PRESENT: deferred Extremities exam: PRESENT: pedal edema - left foot, tenderness - left foot wound region Musculoskeletal exam: PRESENT: deformity - involving left foot wound region Neurological exam: PRESENT: alert, awake, oriented to person, oriented to place, oriented to time, oriented to situation, CN II-XII grossly intact. ABSENT: motor sensory deficit Psychiatric exam: PRESENT: appropriate affect, normal mood. ABSENT: homicidal ideation, suicidal ideation Skin exam: PRESENT: dry, erythema - left foot, warm, other - stage 4 diabetic pressure ulcer involving left foot distal region with 2nd to 5th toes involvement Results Laboratory Results: 06/20/18 14:35 06/20/18 14:35 06/20/18 06/20/18 14:35 14:35 WBC 9.2 RBC 4.02 Hgb 8.3 L Hct 26.7 L MCV 67 L MCH 20.7 L MCHC 31.1 L RDW 26.6 H Plt Count 489 H Seg Neutrophils % Not Reportable Lymphocytes % Not Reportable Monocytes % Not Reportable Eosinophils % Not Reportable Basophils % Not Reportable Absolute Neutrophils Not Reportable Absolute Lymphocytes Not Reportable Absolute Monocytes Not Reportable Absolute Eosinophils Not Reportable Absolute Basophils Not Reportable Sodium 136.5 L Potassium 4.7 Chloride 102 Carbon Dioxide 30 Anion Gap 5 BUN 16 Creatinine 1.00 Est GFR ( Amer) > 60 Est GFR (Non-Af Amer) > 60 Glucose 154 H Calcium 9.0 Total Bilirubin 0.5 AST 13 L ALT 8 L Alkaline Phosphatase 119 Total Protein 9.0 H Albumin 3.2 L Assessment & Plan - Diagnosis (1) Diabetic infection of left foot Is this a current diagnosis for this admission?: Yes Plan: See admitting attending physician orders. I will request surgical consultation with Dr Bert Mayen. Obtain vascular status evaluation with arterial duplex and bone involvement with 3-phase NM bone scan. Obtain blood and wound culture. (2) Left leg cellulitis Is this a current diagnosis for this admission?: Yes Plan: Continue to monitor her infectious indices. Her WBC presently in normal range without shift. She completed outpatient antibiotic therapy since last hospitalization. (3) Hypertensive urgency Is this a current diagnosis for this admission?: Yes Plan: Maintain on IV Hydralazine 20 mg q 6 hours prn for sbp > 160mmHg (4) Diabetes mellitus type 2 in obese Is this a current diagnosis for this admission?: Yes (5) HTN (hypertension) Qualifiers: Hypertension type: essential hypertension Is this a current diagnosis for this admission?: Yes Plan: Continue current medication management. She was treated in the office with oral Clonidine and she will remain on IV Hydralazine 20 mg q 6hours on prn bases for sbp > 160mmHg. Maintain on pre-admission medication management. (6) HLD (hyperlipidemia) Qualifiers: Hyperlipidemia type: pure hypercholesterolemia Is this a current diagnosis for this admission?: Yes Plan: Maintain on pre-admission medication management. (7) Iron deficiency anemia, unspecified Qualifiers: Iron deficiency anemia type: unspecified iron deficiency Qualified Code(s): D50.9 - Iron deficiency anemia, unspecified Is this a current diagnosis for this admission?: Yes Plan: Maintain on pre-admission medication management. (8) BMI 60.0-69.9, adult Is this a current diagnosis for this admission?: Yes Plan: Maintain on diabetic diet level 3. - Time Time Spent: 50 to 70 Minutes Medications reviewed and adjusted accordingly: Yes Anticipated discharge: Home with Homehealth, SNF Within: Other - Inpatient Certification Based on my medical assessment, after consideration of the patient's comorbidities, presenting symptoms, or acuity I expect that the services needed warrant INPATIENT care.: Yes I certify that my determination is in accordance with my understanding of Medicare's requirements for reasonable and necessary INPATIENT services [42 CFR 412.3e].: Yes Medical Necessity: Significant Comorbidiites Make Outpatient Treatment Too Risky, Need Close Monitoring Due to Risk of Patient Decompensation, Need For Continuous Telemetry Monitoring, Need for Surgery, Risk of Complication if Not Cared For in Hospital, Risk of Diagnosis Which Will Require Inpatient Eval/Care/Monitoring Post Hospital Care: D/C Show Host/Hostess Documentation, D/C or Transfer Summary - Plan Summary Plan Summary: See admitting attending physician orders as per above care plan.
[2018-06-21] MEDS ORDERED: BUPIVACAINE HCL 0.25 % INJ/PF (2.5 MG/1 ML) 30 ML VIAL ONE (07:21)
[2018-06-21] MEDS ORDERED: LIDOCAINE 0.5% INJ-PF (5 MG/ML) 50 ML SDV ONE (07:21)
[2018-06-21] MEDS ORDERED: BACITRACIN INJ 50,000 UNIT VIAL ONE (07:21)
[2018-06-21] MEDS ORDERED: ALBUTEROL SULFATE 0.083% NEB 2.5 MG/3 ML AMPUL NEB ONE (07:41)
[2018-06-21] MEDS ORDERED: METOCLOPRAMIDE HCL INJ/PF 10 MG/2 ML SDV ONE (07:42)
[2018-06-21] MEDS ORDERED: FAMOTIDINE INJ/PF 20 MG/2 ML SDV IV ONE (07:42)
[2018-06-21] MEDS ORDERED: KETAMINE HCL INJ 500 MG/10 ML VIAL ONE (07:52)
[2018-06-21] MEDS ORDERED: FENTANYL CITRATE INJ/PF 100 MCG/2 ML AMPUL ONE (07:53)
[2018-06-21] MEDS ORDERED: PROPOFOL INJ 200 MG/20 ML VIAL IV ONE (07:53)
[2018-06-21] MEDS ORDERED: MIDAZOLAM 2 MG/2 ML INJ ONE (07:53)
--- NOTE | 2018-06-21 08:01 | PDOC PROGRESS REPORT ---
Subjective Progress Note for:: 06/21/18 Reason For Visit: FAILURE OUTPATIENT MANAGEMENT LEFT FOOT DIABETI Physical Exam Vital Signs: Temp Pulse Resp BP Pulse Ox 97.7 F 88 24 H 147/79 H 95 06/21/18 03:19 06/21/18 03:19 06/21/18 03:19 06/21/18 03:19 06/21/18 03:19 Intake & Output 06/20/18 06/21/18 06/22/18 06:59 06:59 06:59 Intake Total 458 Balance 458 Weight 203.3 kg General appearance: PRESENT: morbidly obese Head exam: PRESENT: atraumatic, normocephalic Eye exam: PRESENT: conjunctiva pink. ABSENT: scleral icterus Ear exam: PRESENT: normal external ear exam Mouth exam: PRESENT: moist Respiratory exam: PRESENT: clear to auscultation trina Cardiovascular exam: PRESENT: RRR. ABSENT: diastolic murmur, rubs, systolic murmur Vascular exam: ABSENT: pallor GI/Abdominal exam: PRESENT: normal bowel sounds, soft. ABSENT: distended, guarding, mass, organolmegaly, rebound, tenderness Extremities exam: PRESENT: pedal edema, other - left foot infected diabetic ulcer stage 4 with malodor and dry gangrene involvememnt of multiple toes (2nd to 5th) Musculoskeletal exam: PRESENT: other - left foot infected diabetic ulcer stage 4 with malodor and dry gangrene involvememnt of multiple toes (2nd to 5th) Neurological exam: PRESENT: alert, awake, oriented to person, oriented to place, oriented to time, oriented to situation, CN II-XII grossly intact. ABSENT: motor sensory deficit Skin exam: PRESENT: dry, warm, other - left foot infected diabetic ulcer stage 4 with malodor and dry gangrene involvememnt of multiple toes (2nd to 5th) Results Laboratory Results: 06/20/18 14:35 06/20/18 14:35 06/20/18 06/20/18 14:35 14:35 WBC 9.2 RBC 4.02 Hgb 8.3 L Hct 26.7 L MCV 67 L MCH 20.7 L MCHC 31.1 L RDW 26.6 H Plt Count 489 H Seg Neutrophils % Not Reportable Lymphocytes % Not Reportable Monocytes % Not Reportable Eosinophils % Not Reportable Basophils % Not Reportable Absolute Neutrophils Not Reportable Absolute Lymphocytes Not Reportable Absolute Monocytes Not Reportable Absolute Eosinophils Not Reportable Absolute Basophils Not Reportable Sodium 136.5 L Potassium 4.7 Chloride 102 Carbon Dioxide 30 Anion Gap 5 BUN 16 Creatinine 1.00 Est GFR ( Amer) > 60 Est GFR (Non-Af Amer) > 60 Glucose 154 H Calcium 9.0 Total Bilirubin 0.5 AST 13 L ALT 8 L Alkaline Phosphatase 119 Total Protein 9.0 H Albumin 3.2 L Assessment & Plan - Diagnosis (1) Diabetic infection of left foot Is this a current diagnosis for this admission?: Yes (2) Left leg cellulitis Is this a current diagnosis for this admission?: Yes (3) Hypertensive urgency Is this a current diagnosis for this admission?: Yes (4) Diabetes mellitus type 2 in obese Is this a current diagnosis for this admission?: Yes (5) HTN (hypertension) Qualifiers: Hypertension type: essential hypertension Is this a current diagnosis for this admission?: Yes (6) HLD (hyperlipidemia) Qualifiers: Hyperlipidemia type: pure hypercholesterolemia Is this a current diagnosis for this admission?: Yes (7) Iron deficiency anemia, unspecified Qualifiers: Iron deficiency anemia type: unspecified iron deficiency Qualified Code(s): D50.9 - Iron deficiency anemia, unspecified Is this a current diagnosis for this admission?: Yes (8) BMI 60.0-69.9, adult Is this a current diagnosis for this admission?: Yes - Time Time Spent with patient: 25-34 minutes Medications reviewed and adjusted accordingly: Yes Anticipated discharge: Home with Homehealth Within: Other - Inpatient Certification Based on my medical assessment, after consideration of the patient's comorbidities, presenting symptoms, or acuity I expect that the services needed warrant INPATIENT care.: Yes I certify that my determination is in accordance with my understanding of Medicare's requirements for reasonable and necessary INPATIENT services [42 CFR 412.3e].: Yes Medical Necessity: Significant Comorbidiites Make Outpatient Treatment Too Risky, Need Close Monitoring Due to Risk of Patient Decompensation, Need For IV Fluids, Need For Continuous Telemetry Monitoring, Need for IV Antibiotics, Need for Surgery, Risk of Complication if Not Cared For in Hospital, Risk of Diagnosis Which Will Require Inpatient Eval/Care/Monitoring 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 she is schedule for surgical wound debridement. Continue all other current medication management . Obtain repeat CBC with diff and BMP.
[2018-06-21] MEDS ORDERED: PROMETHAZINE HCL INJ 25 MG/1 ML VIAL IV PRN ×4 (08:43→10:45)
[2018-06-21] MEDS ORDERED: MEPERIDINE HCL/PF INJ 25 MG/1 ML DISP.SYRIN IV PRN ×2 (08:43→10:45)
[2018-06-21] MEDS ORDERED: FENTANYL CITRATE INJ/PF 100 MCG/2 ML AMPUL IV PRN ×6 (08:43→10:45)
[2018-06-21] MEDS ORDERED: DIPHENHYDRAMINE HCL 50 MG/ML VIAL IV PRN ×2 (08:43→10:45)
[2018-06-21] MEDS ORDERED: MORPHINE SULFATE 10 MG/ML INJ IV PRN ×3 (08:43→10:45)
--- NOTE | 2018-06-21 10:38 | Operative Report ---
Operative Report DATE OF SURGERY: 06/21/18 PREOPERATIVE DIAGNOSIS: 1. Necrosis and infection in several toes of the left foot and forefoot. 2. Diabetes mellitus type 2. 3. Morbid obesity. 5. Hypertensive urgency. 6. Anemia. 7. Multiple comorbidities. POSTOPERATIVE DIAGNOSIS: 1. Necrosis and infection in several toes of the left foot and forefoot. 2. Diabetes mellitus type 2. 3. Morbid obesity. 5. Hypertensive urgency. 6. Anemia. 7. Multiple comorbidities. OPERATION: Debridement of left foot and amputation of multiple toes of the left foot. Toes 2 through 5 inclusive. SURGEON: TIA LUONG LANDSCAPE ARTIST: None. ANESTHESIA: LMAC TISSUE REMOVED OR ALTERED: Removal of lateral 4 toes of the left foot as well as adjacent nonviable tissue. COMPLICATIONS: None. ESTIMATED BLOOD LOSS: 100 mL. INTRAOPERATIVE FINDINGS: Black, frankly nonviable toes 2 through 5, foul odor, exposed bone and tendon laterally. The great toe appears quite viable. The soft tissues appear viable at the level of amputation. PROCEDURE: PROCEDURE: Pre-and postoperative pictures were taken for documentation in the record. The [left foot ]was prepared with [Betadine] and draped out with sterile linen. After the"universal time-out", in which it was confirmed that the patient [did receive antibiotic], the procedure commenced. The patient was appropriately anesthetized. Digital block anesthesia was secured well back from the nonviable portion. A 15 blade scalpel was used to incise just within the viable border starting on the plantar surface and moving to the dorsal surface of the foot. The incision was now carried down through the tendons to the bone anteriorly. Bone cutters were now utilized to transect the bones of each toe. The remaining soft tissue was then severed. The removed, nonviable tissue including 4 digits were submitted for pathology. Hemostasis was approached using cautery. The periosteum of the bone was taken individually using elevators and elevating to the level of the metatarsal head. The metatarsals were, in sequence, transected just above the heads. Rongeurs assisted in this. All the nonviable tissue including tendon was put on tension and divided sharply. A mal perforans ulcer related to the fifth digit was opened and debrided and connected with the main wound. A further search for hemostasis was done and bleeding digital vessels were controlled with 3-0 PDS suture. The bone of the fourth digit tended to bleed and therefore this was controlled with bone wax. Wound was irrigated with peroxide, final check made for nonviable tissue. Once we were assured that the remaining tissues were viable in appearance, the wound was once again irrigated with peroxide and then saline and then dressed with Surgicel and Kerlix.
[2018-06-21] MEDS: METFORMIN HCL 500 MG TABLET PO SCH ×2 (11:06→17:28)
[2018-06-21] MEDS: MEROPENEM 1 GM in NORMAL SALINE 50 ML IV SCH ×2 (11:06→17:30)
[2018-06-21] MEDS: VALSARTAN 160 MG TABLET PO SCH (11:06)
[2018-06-21] MEDS: FUROSEMIDE 40 MG TABLET PO SCH (11:07)
[2018-06-21] MEDS: ASCORBIC ACID 500 MG TABLET PO SCH ×2 (11:07→17:28)
[2018-06-21] MEDS: GLIPIZIDE 5 MG TABLET PO SCH (11:07)
[2018-06-21] MEDS: PANTOPRAZOLE SODIUM 40 MG TABLET.DR PO SCH (11:07)
[2018-06-21] MEDS: AMLODIPINE BESYLATE 10 MG TABLET PO SCH (11:07)
[2018-06-21] MEDS: FERROUS SULFATE 325 MG TABLET PO SCH ×2 (11:07→17:30)
[2018-06-21] MEDS: ENOXAPARIN SODIUM INJ 40 MG/0.4 ML DISP.SYRIN SUBCUT SCH (11:08)
[2018-06-21] MEDS: INSULIN LISPRO 100 UNIT/ML 3 ML VIAL SUBCUT SCH ×3 (11:08→22:01)
[2018-06-21 13:47] LABS: ABSOLUTE BASOPHILS # (AUTO) 0.1 10^3/uL (0.0-0.2); ABSOLUTE EOSINOPHILS # (AUTO) 0.2 10^3/uL (0.0-0.6); ABSOLUTE LYMPHOCYTES (AUTO) 1.5 10^3/uL (0.5-4.7); ABSOLUTE MONOCYTES (AUTO) 0.7 10^3/uL (0.1-1.4); ABSOLUTE NEUT (AUTO) 5.6 10^3/uL (1.7-8.2); BASOPHILS % (AUTO) 1.4 % (0-2); EOSINOPHILS % (AUTO) 2.9 % (0-6); HEMATOCRIT 27.5 % (36.0-47.0); HEMOGLOBIN 8.4 g/dL (12.0-15.5); INTERNATIONAL RATION (INR) 1.09; LYMPHOCYTES % (AUTO) 18.7 % (13-45); MEAN CORPUSCULAR HEMOGLOBIN 20.1 pg (27.0-33.4); MEAN CORPUSCULAR HGB CONC 30.6 g/dL (32.0-36.0); MEAN CORPUSCULAR VOLUME 66 fl (80-97); MONOCYTES % (AUTO) 8.5 % (3-13); PLATELET COUNT 474 10^3/uL (150-450); PROTHROMBIN TIME 14.7 SEC (11.4-15.4); RED BLOOD COUNT 4.19 10^6/uL (3.72-5.28); RED CELL DISTRIBUTION WIDTH 26.9 % (11.5-14.0); SEGMENTED NEUTROPHILS % (AUTO) 68.5 % (42-78); TOTAL CELLS COUNTED % (AUTO) 100 %; WHITE BLOOD COUNT 8.1 10^3/uL (4.0-10.5)
[2018-06-21 13:48] LABS: PARTIAL THROMBOPLASTIN TIME 34.7 SEC (23.5-35.8)
[2018-06-21] MEDS ORDERED: GLYCOPYRROLATE 1 MG/5 ML SYRINGE ONE (13:50)
[2018-06-21 14:03] LABS: BLOOD UREA NITROGEN 17 mg/dL (7-20); CALCIUM 8.7 mg/dL (8.4-10.2); GLUCOSE 148 mg/dL (75-110); POTASSIUM 5.1 mmol/L (3.6-5.0)
[2018-06-21 14:09] LABS: CARBON DIOXIDE 30 mmol/L (22-30); CHLORIDE 103 mmol/L (98-107); SODIUM 136.1 mmol/L (137-145)
[2018-06-21 14:17] LABS: ANION GAP 3 (5-19)
[2018-06-21 14:19] LABS: ANISOCYTOSIS 3+; HYPOCHROMASIA 3+; OVALOCYTES SLIGHT; PLATELET COMMENT INCREASED; POIKILOCYTOSIS SLIGHT; ROULEAUX 1+; SCHISTOCYTES SLIGHT
[2018-06-22] MEDS: MEROPENEM 1 GM in NORMAL SALINE 50 ML IV SCH ×3 (01:12→17:09)
--- NOTE | 2018-06-22 08:01 | PDOC PROGRESS REPORT ---
Subjective Progress Note for:: 06/22/18 Subjective:: Patient denied any fever or chills. Her accu-chek remain fairly satisfactory. She denied any pain. No chest pain or difficulty with breathing. Reason For Visit: FAILURE OUTPATIENT MANAGEMENT LEFT FOOT DIABETI Physical Exam Vital Signs: Temp Pulse Resp BP Pulse Ox 98.1 F 89 18 143/80 H 96 06/22/18 03:02 06/22/18 07:00 06/22/18 03:02 06/22/18 03:02 06/22/18 03:02 Intake & Output 06/21/18 06/22/18 06/23/18 06:59 06:59 06:59 Intake Total 458 2715 Output Total 1100 Balance 458 1615 Weight 203.3 kg 194.5 kg Physical Exam: General appearance: PRESENT: morbidly obese Head exam: PRESENT: atraumatic, normocephalic Eye exam: PRESENT: conjunctiva pink. ABSENT: pallor, scleral icterus Ear exam: PRESENT: normal external ear exam Mouth exam: PRESENT: moist Respiratory exam: PRESENT: clear to auscultation trina Cardiovascular exam: PRESENT: RRR. ABSENT: diastolic murmur, rubs, systolic murmur GI/Abdominal exam: PRESENT: normal bowel sounds, soft. 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 Wound dressing soiled with drainage. 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 Wound dressing soiled with drainage. Neurological exam: PRESENT: alert, awake, oriented to person, oriented to place, oriented to time, oriented to situation, CN II-XII grossly intact. ABSENT: motor sensory deficit Skin exam: PRESENT: dry, warm Results Laboratory Results: 06/21/18 13:30 06/21/18 13:30 06/21/18 06/21/18 13:30 13:30 WBC 8.1 RBC 4.19 Hgb 8.4 L Hct 27.5 L MCV 66 L MCH 20.1 L MCHC 30.6 L RDW 26.9 H Plt Count 474 H Seg Neutrophils % 68.5 Lymphocytes % 18.7 Monocytes % 8.5 Eosinophils % 2.9 Basophils % 1.4 Absolute Neutrophils 5.6 Absolute Lymphocytes 1.5 Absolute Monocytes 0.7 Absolute Eosinophils 0.2 Absolute Basophils 0.1 Sodium 136.1 L Potassium 5.1 H Chloride 103 Carbon Dioxide 30 Anion Gap 3 L BUN 17 Creatinine 0.99 Est GFR ( Amer) > 60 Est GFR (Non-Af Amer) > 60 Glucose 148 H Calcium 8.7 Assessment & Plan - Diagnosis (1) Diabetic infection of left foot Is this a current diagnosis for this admission?: Yes (2) Left leg cellulitis Is this a current diagnosis for this admission?: Yes (3) Hypertensive urgency Is this a current diagnosis for this admission?: Yes (4) Diabetes mellitus type 2 in obese Is this a current diagnosis for this admission?: Yes (5) HTN (hypertension) Qualifiers: Hypertension type: essential hypertension Is this a current diagnosis for this admission?: Yes (6) HLD (hyperlipidemia) Qualifiers: Hyperlipidemia type: pure hypercholesterolemia Is this a current diagnosis for this admission?: Yes (7) Iron deficiency anemia, unspecified Qualifiers: Iron deficiency anemia type: unspecified iron deficiency Qualified Code(s): D50.9 - Iron deficiency anemia, unspecified Is this a current diagnosis for this admission?: Yes (8) BMI 60.0-69.9, adult Is this a current diagnosis for this admission?: Yes - Time Time Spent with patient: 25-34 minutes Medications reviewed and adjusted accordingly: Yes Anticipated discharge: Home with Homehealth Within: Other - Inpatient Certification Based on my medical assessment, after consideration of the patient's comorbidities, presenting symptoms, or acuity I expect that the services needed warrant INPATIENT care.: Yes I certify that my determination is in accordance with my understanding of Medicare's requirements for reasonable and necessary INPATIENT services [42 CFR 412.3e].: Yes Medical Necessity: Significant Comorbidiites Make Outpatient Treatment Too Risky, Need Close Monitoring Due to Risk of Patient Decompensation, Need For IV Fluids, Need For Continuous Telemetry Monitoring, Need for IV Antibiotics, Risk of Complication if Not Cared For in Hospital, Risk of Diagnosis Which Will Require Inpatient Eval/Care/Monitoring Post Hospital Care: D/C Gas Well Drilling Manager Documentation - Plan Summary Plan Summary: Follow up on culture findings. Maintain on IV Meropenem coverage. Continue all other current medication management. Disposition with wound vac and SWIMMING COACH OR INSTRUCTOR services 8upon discharge.
[2018-06-22] MEDS: METFORMIN HCL 500 MG TABLET PO SCH ×2 (08:32→15:10)
[2018-06-22] MEDS: INSULIN LISPRO 100 UNIT/ML 3 ML VIAL SUBCUT SCH ×4 (08:33→22:21)
[2018-06-22] MEDS: FERROUS SULFATE 325 MG TABLET PO SCH ×2 (10:38→17:09)
[2018-06-22] MEDS: PANTOPRAZOLE SODIUM 40 MG TABLET.DR PO SCH (10:38)
[2018-06-22] MEDS: AMLODIPINE BESYLATE 10 MG TABLET PO SCH (10:38)
[2018-06-22] MEDS: ENOXAPARIN SODIUM INJ 40 MG/0.4 ML DISP.SYRIN SUBCUT SCH (10:38)
[2018-06-22] MEDS: ASCORBIC ACID 500 MG TABLET PO SCH ×2 (10:38→17:09)
[2018-06-22] MEDS: VALSARTAN 160 MG TABLET PO SCH (10:38)
[2018-06-22] MEDS: GLIPIZIDE 5 MG TABLET PO SCH (10:39)
[2018-06-22] MEDS: FUROSEMIDE 40 MG TABLET PO SCH (10:39)
[2018-06-22] MEDS: HYDRALAZINE HCL INJ/PF 20 MG/1 ML SDV IV PRN (15:10)
[2018-06-23] MEDS: MEROPENEM 1 GM in NORMAL SALINE 50 ML IV SCH ×3 (02:51→17:27)
[2018-06-23 05:36] LABS: ABSOLUTE BASOPHILS # (AUTO) 0.1 10^3/uL (0.0-0.2); ABSOLUTE EOSINOPHILS # (AUTO) 0.3 10^3/uL (0.0-0.6); ABSOLUTE LYMPHOCYTES (AUTO) 1.9 10^3/uL (0.5-4.7); ABSOLUTE MONOCYTES (AUTO) 0.6 10^3/uL (0.1-1.4); ABSOLUTE NEUT (AUTO) 4.3 10^3/uL (1.7-8.2); ABSOLUTE RETICS # 0.067 10^6/uL (0.028-0.122); BASOPHILS % (AUTO) 0.8 % (0-2); EOSINOPHILS % (AUTO) 3.7 % (0-6); HEMATOCRIT 26.6 % (36.0-47.0); HEMOGLOBIN 8.4 g/dL (12.0-15.5); LYMPHOCYTES % (AUTO) 26.8 % (13-45); MEAN CORPUSCULAR HEMOGLOBIN 20.8 pg (27.0-33.4); MEAN CORPUSCULAR HGB CONC 31.5 g/dL (32.0-36.0); MEAN CORPUSCULAR VOLUME 66 fl (80-97); MONOCYTES % (AUTO) 8.5 % (3-13); PLATELET COUNT 429 10^3/uL (150-450); RED BLOOD COUNT 4.04 10^6/uL (3.72-5.28); RED CELL DISTRIBUTION WIDTH 26.8 % (11.5-14.0); RETICULOCYTE COUNT (AUTO) 1.67 % (0.66-2.85); SEGMENTED NEUTROPHILS % (AUTO) 60.2 % (42-78); TOTAL CELLS COUNTED % (AUTO) 100 %; WHITE BLOOD COUNT 7.1 10^3/uL (4.0-10.5)
[2018-06-23 05:54] LABS: ALANINE AMINOTRANSFERASE 9 U/L (9-52); ALBUMIN 3.1 g/dL (3.5-5.0); ALKALINE PHOSPHATASE 90 U/L (38-126); ANION GAP 6 (5-19); ASPARTATE AMINO TRANSFERASE 9 U/L (14-36); BILIRUBIN,DIRECT 0.3 mg/dL (0.0-0.4); BILIRUBIN,TOTAL 0.4 mg/dL (0.2-1.3); BLOOD UREA NITROGEN 15 mg/dL (7-20); CALCIUM 8.8 mg/dL (8.4-10.2); CARBON DIOXIDE 30 mmol/L (22-30); CHLORIDE 101 mmol/L (98-107); GLUCOSE 86 mg/dL (75-110); IRON(TIBC) 35.5 ug/dL (37-170); POTASSIUM 4.9 mmol/L (3.6-5.0); SODIUM 137.1 mmol/L (137-145); TOTAL PROTEIN 8.9 g/dL (6.3-8.2)
[2018-06-23 06:10] LABS: HYPOCHROMASIA 3+
[2018-06-23 06:11] LABS: ANISOCYTOSIS 3+; PLATELET COMMENT ADEQUATE; POIKILOCYTOSIS SLIGHT
[2018-06-23 07:00] LABS: FOLATE 6.54 ng/mL (>2.76)
[2018-06-23] MEDS: METFORMIN HCL 500 MG TABLET PO SCH ×2 (07:56→16:55)
[2018-06-23] MEDS: AMLODIPINE BESYLATE 10 MG TABLET PO SCH (09:24)
[2018-06-23] MEDS: GLIPIZIDE 5 MG TABLET PO SCH (09:24)
[2018-06-23] MEDS: FUROSEMIDE 40 MG TABLET PO SCH (09:24)
[2018-06-23] MEDS: PANTOPRAZOLE SODIUM 40 MG TABLET.DR PO SCH (09:24)
[2018-06-23] MEDS: VALSARTAN 160 MG TABLET PO SCH (09:24)
[2018-06-23] MEDS: ASCORBIC ACID 500 MG TABLET PO SCH ×2 (09:25→17:27)
[2018-06-23] MEDS: ENOXAPARIN SODIUM INJ 40 MG/0.4 ML DISP.SYRIN SUBCUT SCH (09:25)
[2018-06-23] MEDS: INSULIN LISPRO 100 UNIT/ML 3 ML VIAL SUBCUT SCH ×4 (09:25→21:13)
[2018-06-23] MEDS: FERROUS SULFATE 325 MG TABLET PO SCH ×2 (09:25→17:27)
--- NOTE | 2018-06-23 16:40 | PDOC PROGRESS REPORT ---
Subjective Progress Note for:: 06/23/18 Subjective:: No complaints offered, the patient seems comfortable. Reason For Visit: FAILURE OUTPATIENT MANAGEMENT LEFT FOOT DIABETI Follow-up for debridement in the left foot. Physical Exam Vital Signs: Temp Pulse Resp BP Pulse Ox 97.9 F 86 16 148/79 H 95 06/23/18 15:42 06/23/18 15:42 06/23/18 15:42 06/23/18 15:42 06/23/18 15:42 Intake & Output 06/22/18 06/23/18 06/24/18 06:59 06:59 06:59 Intake Total 2715 2364 50 Output Total 1100 Balance 1615 2364 50 Weight 194.5 kg 191.7 kg Additional comments: Constitutional: Well-developed well-nourished -[place] lady, morbidly obese. No apparent acute distress. Eyes: Mucous membranes pink and moist, pupils equal and reactive to light. Conjunctiva normal. Cornea normal. Respiratory: Normal respiratory effort. Psychiatric: Judgment, memory, insight seem normal. Mood is pleasant and appropriate. Lower extremities show normal vascularity, left forefoot amputation site fairly clean, no sign of gross infection or significant necrosis. There is some edema in the leg but it is soft, nontender. Results Laboratory Results: 06/23/18 04:27 06/23/18 04:27 06/23/18 06/23/18 04:27 04:27 WBC 7.1 RBC 4.04 Hgb 8.4 L Hct 26.6 L MCV 66 L MCH 20.8 L MCHC 31.5 L RDW 26.8 H Plt Count 429 Seg Neutrophils % 60.2 Lymphocytes % 26.8 Monocytes % 8.5 Eosinophils % 3.7 Basophils % 0.8 Absolute Neutrophils 4.3 Absolute Lymphocytes 1.9 Absolute Monocytes 0.6 Absolute Eosinophils 0.3 Absolute Basophils 0.1 Retic Count (auto) 1.67 Absolute Retic 0.067 Sodium 137.1 Potassium 4.9 Chloride 101 Carbon Dioxide 30 Anion Gap 6 BUN 15 Creatinine 1.01 Est GFR ( Amer) > 60 Est GFR (Non-Af Amer) > 60 Glucose 86 Calcium 8.8 Iron 35.5 L TIBC 235 L % Saturation 15 Ferritin 18.60 Total Bilirubin 0.4 AST 9 L ALT 9 Alkaline Phosphatase 90 Total Protein 8.9 H Albumin 3.1 L Vitamin B12 347.0 Folate 6.54 Assessment & Plan - Diagnosis (1) Diabetic infection of left foot Is this a current diagnosis for this admission?: Yes (2) Diabetes mellitus type 2 in obese Is this a current diagnosis for this admission?: Yes (3) Morbid obesity Is this a current diagnosis for this admission?: Yes (4) HTN (hypertension) Qualifiers: Hypertension type: essential hypertension Is this a current diagnosis for this admission?: Yes - Plan Summary Plan Summary: Continue IV antibiotic. This patient with a severe left foot infection is not quite out of the [place]all[place]. Daily dressings are to continue. Consideration for application of wound VAC in a day or 2. Anticipate discharge in about 3 or so days. The possibility of revisiting the wound in the operating room remains on the table. Discussed with the patient.
--- NOTE | 2018-06-23 18:19 | PDOC PROGRESS REPORT ---
Subjective Progress Note for:: 06/23/18 Subjective:: Patient denied any fever or chills. No chest pain or difficulty with breathing. No abdominal pain, nausea or vomiting. Reason For Visit: FAILURE OUTPATIENT MANAGEMENT LEFT FOOT DIABETI Physical Exam Vital Signs: Temp Pulse Resp BP Pulse Ox 98.0 F 86 20 156/91 H 97 06/23/18 03:05 06/23/18 07:00 06/23/18 03:05 06/23/18 03:05 06/23/18 03:05 Intake & Output 06/22/18 06/23/18 06/24/18 06:59 06:59 06:59 Intake Total 2715 2364 Output Total 1100 Balance 1615 2364 Weight 194.5 kg 191.7 kg Physical Exam: General appearance: PRESENT: morbidly obese Head exam: PRESENT: atraumatic, normocephalic Eye exam: PRESENT: conjunctiva pink. ABSENT: pallor, scleral icterus Ear exam: PRESENT: normal external ear exam Mouth exam: PRESENT: moist Respiratory exam: PRESENT: clear to auscultation trina Cardiovascular exam: PRESENT: RRR. ABSENT: diastolic murmur, rubs, systolic murmur GI/Abdominal exam: PRESENT: normal bowel sounds, soft. 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 Satisfactory wound dressing. 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 Neurological exam: PRESENT: alert, awake, oriented to person, oriented to place, oriented to time, oriented to situation, CN II-XII grossly intact. ABSENT: motor sensory deficit Skin exam: PRESENT: dry, warm Results Laboratory Results: 06/23/18 04:27 06/23/18 04:27 06/23/18 06/23/18 04:27 04:27 WBC 7.1 RBC 4.04 Hgb 8.4 L Hct 26.6 L MCV 66 L MCH 20.8 L MCHC 31.5 L RDW 26.8 H Plt Count 429 Seg Neutrophils % 60.2 Lymphocytes % 26.8 Monocytes % 8.5 Eosinophils % 3.7 Basophils % 0.8 Absolute Neutrophils 4.3 Absolute Lymphocytes 1.9 Absolute Monocytes 0.6 Absolute Eosinophils 0.3 Absolute Basophils 0.1 Retic Count (auto) 1.67 Absolute Retic 0.067 Sodium 137.1 Potassium 4.9 Chloride 101 Carbon Dioxide 30 Anion Gap 6 BUN 15 Creatinine 1.01 Est GFR ( Amer) > 60 Est GFR (Non-Af Amer) > 60 Glucose 86 Calcium 8.8 Iron 35.5 L TIBC 235 L % Saturation 15 Ferritin 18.60 Total Bilirubin 0.4 AST 9 L ALT 9 Alkaline Phosphatase 90 Total Protein 8.9 H Albumin 3.1 L Vitamin B12 347.0 Folate 6.54 Assessment & Plan - Diagnosis (1) Diabetic infection of left foot Is this a current diagnosis for this admission?: Yes (2) Left leg cellulitis Is this a current diagnosis for this admission?: Yes (3) Hypertensive urgency Is this a current diagnosis for this admission?: Yes (4) Diabetes mellitus type 2 in obese Is this a current diagnosis for this admission?: Yes (5) HTN (hypertension) Qualifiers: Hypertension type: essential hypertension Qualified Code(s): I10 - Essential (primary) hypertension Is this a current diagnosis for this admission?: Yes (6) HLD (hyperlipidemia) Qualifiers: Hyperlipidemia type: pure hypercholesterolemia Qualified Code(s): E78.00 - Pure hypercholesterolemia, unspecified; E78.0 - Pure hypercholesterolemia Is this a current diagnosis for this admission?: Yes (7) Iron deficiency anemia, unspecified Qualifiers: Iron deficiency anemia type: unspecified iron deficiency Qualified Code(s): D50.9 - Iron deficiency anemia, unspecified Is this a current diagnosis for this admission?: Yes (8) BMI 60.0-69.9, adult Is this a current diagnosis for this admission?: Yes - Time Time Spent with patient: 25-34 minutes Medications reviewed and adjusted accordingly: Yes Anticipated discharge: Home with Homehealth Within: Other - Inpatient Certification Based on my medical assessment, after consideration of the patient's comorbidities, presenting symptoms, or acuity I expect that the services needed warrant INPATIENT care.: Yes I certify that my determination is in accordance with my understanding of Medicare's requirements for reasonable and necessary INPATIENT services [42 CFR 412.3e].: Yes Medical Necessity: Significant Comorbidiites Make Outpatient Treatment Too Risky, Need Close Monitoring Due to Risk of Patient Decompensation, Need for IV Antibiotics, Risk of Complication if Not Cared For in Hospital, Risk of Diagnosis Which Will Require Inpatient Eval/Care/Monitoring Post Hospital Care: D/C Party Plan Salesperson Documentation - Plan Summary Plan Summary: Continue current medication management. Follow up on her blood culture findings. If sensitive across culture to Levofloxacin, I will consider transition to oral Levofloxacin and discharge patient home in the next couple of days.
[2018-06-24] MEDS: MEROPENEM 1 GM in NORMAL SALINE 50 ML IV SCH ×3 (01:25→17:13)
[2018-06-24] MEDS: INSULIN LISPRO 100 UNIT/ML 3 ML VIAL SUBCUT SCH ×4 (07:28→21:05)
[2018-06-24] MEDS: METFORMIN HCL 500 MG TABLET PO SCH ×2 (07:55→17:12)
[2018-06-24] MEDS: FUROSEMIDE 40 MG TABLET PO SCH (10:52)
[2018-06-24] MEDS: PANTOPRAZOLE SODIUM 40 MG TABLET.DR PO SCH (10:52)
[2018-06-24] MEDS: ASCORBIC ACID 500 MG TABLET PO SCH ×2 (10:52→17:13)
[2018-06-24] MEDS: AMLODIPINE BESYLATE 10 MG TABLET PO SCH (10:52)
[2018-06-24] MEDS: GLIPIZIDE 5 MG TABLET PO SCH (10:53)
[2018-06-24] MEDS: ENOXAPARIN SODIUM INJ 40 MG/0.4 ML DISP.SYRIN SUBCUT SCH (10:53)
[2018-06-24] MEDS: VALSARTAN 160 MG TABLET PO SCH (10:53)
[2018-06-24] MEDS: FERROUS SULFATE 325 MG TABLET PO SCH ×2 (10:53→17:12)
--- NOTE | 2018-06-24 14:37 | PDOC PROGRESS REPORT ---
Subjective Progress Note for:: 06/24/18 Subjective:: Patient denied any pain, fever or chills. No chest pain or difficulty with breathing. No abdominal pain, nausea or vomiting. Reason For Visit: FAILURE OUTPATIENT MANAGEMENT LEFT FOOT DIABETI Physical Exam Vital Signs: Temp Pulse Resp BP Pulse Ox 97.8 F 92 18 187/83 H 95 06/24/18 11:04 06/24/18 11:04 06/24/18 11:04 06/24/18 11:04 06/24/18 11:04 Intake & Output 06/23/18 06/24/18 06/25/18 06:59 06:59 06:59 Intake Total 2364 903 760 Balance 2364 903 760 Weight 191.7 kg 195.3 kg Physical Exam: General appearance: PRESENT: morbidly obese Head exam: PRESENT: atraumatic, normocephalic Eye exam: PRESENT: conjunctiva pink. ABSENT: pallor, scleral icterus Ear exam: PRESENT: normal external ear exam Mouth exam: PRESENT: moist Respiratory exam: PRESENT: clear to auscultation trina Cardiovascular exam: PRESENT: RRR. ABSENT: diastolic murmur, rubs, systolic murmur GI/Abdominal exam: PRESENT: normal bowel sounds, soft. 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 Satisfactory wound dressing. 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 Neurological exam: PRESENT: alert, awake, oriented to person, oriented to place, oriented to time, oriented to situation, CN II-XII grossly intact. ABSENT: motor sensory deficit Skin exam: PRESENT: dry, warm Results Laboratory Results: 06/23/18 04:27 06/23/18 04:27 06/20/18 14:42 Foot - Left Gram Stain - Final 06/20/18 14:42 Foot - Left Wound Culture - Final Group B Beta Streptococcus Staphylococcus Aureus Prevotella Species Assessment & Plan - Diagnosis (1) Diabetic infection of left foot Is this a current diagnosis for this admission?: Yes Plan: Continue current antibiotic therapy. Her pathology report revealed no acute osteomyelitis in submitted material. Her blood culture is no growth to date. (2) Left leg cellulitis Is this a current diagnosis for this admission?: Yes (3) Hypertensive urgency Is this a current diagnosis for this admission?: Yes (4) Diabetes mellitus type 2 in obese Is this a current diagnosis for this admission?: Yes (5) HTN (hypertension) Qualifiers: Hypertension type: essential hypertension Qualified Code(s): I10 - Essential (primary) hypertension Is this a current diagnosis for this admission?: Yes (6) HLD (hyperlipidemia) Qualifiers: Hyperlipidemia type: pure hypercholesterolemia Qualified Code(s): E78.00 - Pure hypercholesterolemia, unspecified; E78.0 - Pure hypercholesterolemia Is this a current diagnosis for this admission?: Yes (7) Iron deficiency anemia, unspecified Qualifiers: Iron deficiency anemia type: unspecified iron deficiency Qualified Code(s): D50.9 - Iron deficiency anemia, unspecified Is this a current diagnosis for this admission?: Yes (8) BMI 60.0-69.9, adult Is this a current diagnosis for this admission?: Yes - Time Time Spent with patient: 25-34 minutes Medications reviewed and adjusted accordingly: Yes Anticipated discharge: Home with Homehealth - with wound vac therapy. I discussd needs with estate planner today. Within: Other - Inpatient Certification Based on my medical assessment, after consideration of the patient's comorbidities, presenting symptoms, or acuity I expect that the services needed warrant INPATIENT care.: Yes I certify that my determination is in accordance with my understanding of Medicare's requirements for reasonable and necessary INPATIENT services [42 CFR 412.3e].: Yes Medical Necessity: Significant Comorbidiites Make Outpatient Treatment Too Risky, Need Close Monitoring Due to Risk of Patient Decompensation, Need For IV Fluids, Need For Continuous Telemetry Monitoring, Need for IV Antibiotics, Risk of Complication if Not Cared For in Hospital, Risk of Diagnosis Which Will Require Inpatient Eval/Care/Monitoring Post Hospital Care: D/C Ladle Builder Documentation - Plan Summary Plan Summary: Continue current medication management. Follow up on blood culture findings.
[2018-06-25] MEDS: MEROPENEM 1 GM in NORMAL SALINE 50 ML IV SCH ×3 (01:15→17:47)
[2018-06-25] MEDS: INSULIN LISPRO 100 UNIT/ML 3 ML VIAL SUBCUT SCH ×4 (07:44→22:44)
[2018-06-25] MEDS: GLIPIZIDE 5 MG TABLET PO SCH (09:15)
[2018-06-25] MEDS: VALSARTAN 160 MG TABLET PO SCH (09:15)
[2018-06-25] MEDS: AMLODIPINE BESYLATE 10 MG TABLET PO SCH (09:15)
[2018-06-25] MEDS: METFORMIN HCL 500 MG TABLET PO SCH ×2 (09:15→17:47)
[2018-06-25] MEDS: PANTOPRAZOLE SODIUM 40 MG TABLET.DR PO SCH (09:15)
[2018-06-25] MEDS: FERROUS SULFATE 325 MG TABLET PO SCH ×2 (09:15→17:47)
[2018-06-25] MEDS: FUROSEMIDE 40 MG TABLET PO SCH (09:15)
[2018-06-25] MEDS: ASCORBIC ACID 500 MG TABLET PO SCH ×2 (09:16→17:47)
[2018-06-25] MEDS: ENOXAPARIN SODIUM INJ 40 MG/0.4 ML DISP.SYRIN SUBCUT SCH (09:16)
--- NOTE | 2018-06-25 10:35 | PDOC PROGRESS REPORT ---
Subjective Progress Note for:: 06/25/18 Subjective:: Patient is currently doing well Denied any fever no chills No chest pain no short of breath No abdominal pain Reason For Visit: FAILURE OUTPATIENT MANAGEMENT LEFT FOOT DIABETI Physical Exam Vital Signs: Temp Pulse Resp BP Pulse Ox 97.9 F 83 22 H 169/80 H 94 06/25/18 06:59 06/25/18 07:00 06/25/18 06:59 06/25/18 06:59 06/25/18 06:59 Intake & Output 06/24/18 06/25/18 06/26/18 06:59 06:59 06:59 Intake Total 903 1318 Balance 903 1318 Weight 195.3 kg 193.6 kg General appearance: PRESENT: no acute distress, well-developed, well-nourished Head exam: PRESENT: atraumatic, normocephalic Eye exam: PRESENT: conjunctiva pink, EOMI, PERRLA. ABSENT: scleral icterus Ear exam: PRESENT: normal external ear exam Mouth exam: PRESENT: moist, tongue midline Neck exam: PRESENT: full ROM. ABSENT: carotid bruit, JVD, lymphadenopathy, thyromegaly Cardiovascular exam: PRESENT: RRR. ABSENT: diastolic murmur, rubs, systolic murmur Vascular exam: PRESENT: normal capillary refill GI/Abdominal exam: PRESENT: normal bowel sounds, soft. ABSENT: distended, guarding, mass, organolmegaly, rebound, tenderness Rectal exam: PRESENT: deferred Additional comments: Left lower extremities the dressing is intact Neurological exam: PRESENT: alert, awake, oriented to person, oriented to place, oriented to time, oriented to situation, CN II-XII grossly intact. ABSENT: motor sensory deficit Psychiatric exam: PRESENT: appropriate affect, normal mood. ABSENT: homicidal ideation, suicidal ideation Skin exam: PRESENT: dry, intact, warm. ABSENT: cyanosis, rash Results Laboratory Results: 06/23/18 04:27 06/23/18 04:27 06/20/18 14:42 Foot - Left Gram Stain - Final 06/20/18 14:42 Foot - Left Wound Culture - Final Group B Beta Streptococcus Staphylococcus Aureus Prevotella Species Assessment & Plan - Diagnosis (1) Diabetic infection of left foot Is this a current diagnosis for this admission?: Yes (2) Morbid obesity Is this a current diagnosis for this admission?: Yes (3) Diabetes mellitus type 2 in obese Is this a current diagnosis for this admission?: Yes (4) HTN (hypertension) Qualifiers: Hypertension type: essential hypertension Qualified Code(s): I10 - Essential (primary) hypertension Is this a current diagnosis for this admission?: Yes (5) Iron deficiency anemia, unspecified Qualifiers: Iron deficiency anemia type: unspecified iron deficiency Qualified Code(s): D50.9 - Iron deficiency anemia, unspecified Is this a current diagnosis for this admission?: Yes (6) Left leg cellulitis Is this a current diagnosis for this admission?: Yes - Time Time Spent with patient: 15-24 minutes Medications reviewed and adjusted accordingly: Yes Anticipated discharge: Other Within: Other - Plan Summary Plan Summary: Continues to IV antibiotic follow with the surgery
[2018-06-25] MEDS: HYDRALAZINE HCL INJ/PF 20 MG/1 ML SDV IV PRN (11:28)
[2018-06-26] MEDS: MEROPENEM 1 GM in NORMAL SALINE 50 ML IV SCH ×3 (03:12→17:08)
[2018-06-26] MEDS: INSULIN LISPRO 100 UNIT/ML 3 ML VIAL SUBCUT SCH ×4 (07:59→22:23)
[2018-06-26] MEDS: METFORMIN HCL 500 MG TABLET PO SCH ×2 (08:15→16:24)
[2018-06-26] MEDS: AMLODIPINE BESYLATE 10 MG TABLET PO SCH (09:21)
[2018-06-26] MEDS: GLIPIZIDE 5 MG TABLET PO SCH (09:21)
[2018-06-26] MEDS: ASCORBIC ACID 500 MG TABLET PO SCH ×2 (09:21→17:09)
[2018-06-26] MEDS: PANTOPRAZOLE SODIUM 40 MG TABLET.DR PO SCH (09:21)
[2018-06-26] MEDS: ENOXAPARIN SODIUM INJ 40 MG/0.4 ML DISP.SYRIN SUBCUT SCH (09:21)
[2018-06-26] MEDS: FERROUS SULFATE 325 MG TABLET PO SCH ×2 (09:21→17:09)
[2018-06-26] MEDS: VALSARTAN 160 MG TABLET PO SCH (09:21)
[2018-06-26] MEDS: FUROSEMIDE 40 MG TABLET PO SCH (09:21)
--- NOTE | 2018-06-26 10:16 | PDOC PROGRESS REPORT ---
Subjective Progress Note for:: 06/26/18 Subjective:: Patient is currently doing well Denied any fever no chills No chest pain no short of breath No abdominal pain Reason For Visit: FAILURE OUTPATIENT MANAGEMENT LEFT FOOT DIABETI Physical Exam Vital Signs: Temp Pulse Resp BP Pulse Ox 97.9 F 88 20 175/87 H 97 06/26/18 07:23 06/26/18 07:23 06/26/18 07:23 06/26/18 07:23 06/26/18 07:23 Intake & Output 06/25/18 06/26/18 06/27/18 06:59 06:59 06:59 Intake Total 1318 740 Balance 1318 740 Weight 193.6 kg 194.6 kg General appearance: PRESENT: no acute distress, well-developed, well-nourished Head exam: PRESENT: atraumatic, normocephalic Eye exam: PRESENT: conjunctiva pink, EOMI, PERRLA. ABSENT: scleral icterus Ear exam: PRESENT: normal external ear exam Mouth exam: PRESENT: moist, tongue midline Neck exam: PRESENT: full ROM. ABSENT: carotid bruit, JVD, lymphadenopathy, thyromegaly Respiratory exam: PRESENT: clear to auscultation trina Cardiovascular exam: PRESENT: RRR. ABSENT: diastolic murmur, rubs, systolic murmur Vascular exam: PRESENT: normal capillary refill GI/Abdominal exam: PRESENT: normal bowel sounds, soft. ABSENT: distended, guarding, mass, organolmegaly, rebound, tenderness Rectal exam: PRESENT: deferred Neurological exam: PRESENT: alert, awake, oriented to person, oriented to place, oriented to time, oriented to situation, CN II-XII grossly intact. ABSENT: motor sensory deficit Psychiatric exam: PRESENT: appropriate affect, normal mood. ABSENT: homicidal ideation, suicidal ideation Skin exam: PRESENT: dry, intact, warm. ABSENT: cyanosis, rash Results Laboratory Results: 06/23/18 04:27 06/23/18 04:27 06/20/18 14:35 Blood Blood Culture - Final NO GROWTH IN 5 DAYS 06/20/18 14:15 Blood Blood Culture - Final NO GROWTH IN 5 DAYS Assessment & Plan - Diagnosis (1) Diabetic infection of left foot Is this a current diagnosis for this admission?: Yes (2) Morbid obesity Is this a current diagnosis for this admission?: Yes (3) Diabetes mellitus type 2 in obese Is this a current diagnosis for this admission?: Yes (4) HTN (hypertension) Qualifiers: Hypertension type: essential hypertension Qualified Code(s): I10 - Essential (primary) hypertension Is this a current diagnosis for this admission?: Yes (5) Iron deficiency anemia, unspecified Qualifiers: Iron deficiency anemia type: unspecified iron deficiency Qualified Code(s): D50.9 - Iron deficiency anemia, unspecified Is this a current diagnosis for this admission?: Yes (6) Left leg cellulitis Is this a current diagnosis for this admission?: Yes - Time Time Spent with patient: 15-24 minutes Medications reviewed and adjusted accordingly: Yes Anticipated discharge: Other Within: Other - Plan Summary Plan Summary: Continues to IV antibiotic
[2018-06-26] MEDS: COLLAGENASE CLOSTRIDIUM HIST. OINT 30 GM TOP SCH (17:09)
[2018-06-27] MEDS: MEROPENEM 1 GM in NORMAL SALINE 50 ML IV SCH ×3 (01:56→17:45)
--- NOTE | 2018-06-27 08:21 | PDOC PROGRESS REPORT ---
Subjective Progress Note for:: 06/27/18 Subjective:: Patient denied any fever or chills. No chest pain or difficulty with breathing. No nausea, vomiting, or abdominal pain. Her accu-chek remain fair. Reason For Visit: FAILURE OUTPATIENT MANAGEMENT LEFT FOOT DIABETI Physical Exam Vital Signs: Temp Pulse Resp BP Pulse Ox 97.9 F 93 14 157/94 H 91 L 06/27/18 03:13 06/27/18 07:00 06/27/18 03:13 06/27/18 03:13 06/27/18 03:13 Intake & Output 06/26/18 06/27/18 06/28/18 06:59 06:59 06:59 Intake Total 740 722 Balance 740 722 Weight 194.6 kg 192.8 kg Physical Exam: General appearance: PRESENT: morbidly obese Head exam: PRESENT: atraumatic, normocephalic Eye exam: PRESENT: conjunctiva pink. ABSENT: pallor, scleral icterus Ear exam: PRESENT: normal external ear exam Mouth exam: PRESENT: moist Respiratory exam: PRESENT: clear to auscultation trina Cardiovascular exam: PRESENT: RRR. ABSENT: diastolic murmur, rubs, systolic murmur GI/Abdominal exam: PRESENT: normal bowel sounds, soft. 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 Satisfactory wound dressing with some areas of devitalized tissue on santyl dressing. 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 Neurological exam: PRESENT: alert, awake, oriented to person, oriented to place, oriented to time, oriented to situation, CN II-XII grossly intact. ABSENT: motor sensory deficit Skin exam: PRESENT: dry, warm Results Laboratory Results: 06/23/18 04:27 06/23/18 04:27 Assessment & Plan - Diagnosis (1) Diabetic infection of left foot Is this a current diagnosis for this admission?: Yes (2) Left leg cellulitis Is this a current diagnosis for this admission?: Yes (3) Hypertensive urgency Is this a current diagnosis for this admission?: Yes (4) Diabetes mellitus type 2 in obese Is this a current diagnosis for this admission?: Yes (5) HTN (hypertension) Qualifiers: Hypertension type: essential hypertension Qualified Code(s): I10 - Essential (primary) hypertension Is this a current diagnosis for this admission?: Yes (6) HLD (hyperlipidemia) Qualifiers: Hyperlipidemia type: pure hypercholesterolemia Qualified Code(s): E78.00 - Pure hypercholesterolemia, unspecified; E78.0 - Pure hypercholesterolemia Is this a current diagnosis for this admission?: Yes (7) Iron deficiency anemia, unspecified Qualifiers: Iron deficiency anemia type: unspecified iron deficiency Qualified Code(s): D50.9 - Iron deficiency anemia, unspecified Is this a current diagnosis for this admission?: Yes (8) BMI 60.0-69.9, adult Is this a current diagnosis for this admission?: Yes - Time Time Spent with patient: 25-34 minutes Medications reviewed and adjusted accordingly: Yes Anticipated discharge: Home with Homehealth Within: Other - Inpatient Certification Based on my medical assessment, after consideration of the patient's comorbidities, presenting symptoms, or acuity I expect that the services needed warrant INPATIENT care.: Yes I certify that my determination is in accordance with my understanding of Medicare's requirements for reasonable and necessary INPATIENT services [42 CFR 412.3e].: Yes Medical Necessity: Significant Comorbidiites Make Outpatient Treatment Too Risky, Need Close Monitoring Due to Risk of Patient Decompensation, Need For IV Fluids, Need For Continuous Telemetry Monitoring, Need for IV Antibiotics, Need for Surgery, Risk of Complication if Not Cared For in Hospital, Risk of Diagnosis Which Will Require Inpatient Eval/Care/Monitoring Post Hospital Care: D/C Cleaner And Dyer Documentation - Plan Summary Plan Summary: Continue current medication and wound dressing management. Review with surgical team need for any further sharp debridement versus application of wound vac device at this time. Obtain CBC with diff, BMP in am.
[2018-06-27] MEDS: INSULIN LISPRO 100 UNIT/ML 3 ML VIAL SUBCUT SCH ×4 (08:54→21:32)
[2018-06-27] MEDS: VALSARTAN 160 MG TABLET PO SCH (09:37)
[2018-06-27] MEDS: ENOXAPARIN SODIUM INJ 40 MG/0.4 ML DISP.SYRIN SUBCUT SCH (09:38)
[2018-06-27] MEDS: METFORMIN HCL 500 MG TABLET PO SCH ×2 (09:38→17:45)
[2018-06-27] MEDS: FUROSEMIDE 40 MG TABLET PO SCH (09:38)
[2018-06-27] MEDS: FERROUS SULFATE 325 MG TABLET PO SCH ×2 (09:38→17:45)
[2018-06-27] MEDS: AMLODIPINE BESYLATE 10 MG TABLET PO SCH (09:38)
[2018-06-27] MEDS: PANTOPRAZOLE SODIUM 40 MG TABLET.DR PO SCH (09:38)
[2018-06-27] MEDS: GLIPIZIDE 5 MG TABLET PO SCH (09:38)
[2018-06-27] MEDS: ASCORBIC ACID 500 MG TABLET PO SCH ×2 (09:38→17:45)
[2018-06-27] MEDS: COLLAGENASE CLOSTRIDIUM HIST. OINT 30 GM TOP SCH ×2 (11:00→17:47)
--- NOTE | 2018-06-27 15:10 | PDOC PROGRESS REPORT ---
Subjective Progress Note for:: 06/27/18 Subjective:: Follow-up after for foot debridement and multiple toe amputation. The patient offers no specific complaints. She wants to go home. Reason For Visit: FAILURE OUTPATIENT MANAGEMENT LEFT FOOT DIABETI Continue follow-up. Physical Exam Vital Signs: Temp Pulse Resp BP Pulse Ox 98.0 F 90 18 166/82 H 97 06/27/18 07:21 06/27/18 07:21 06/27/18 07:21 06/27/18 07:21 06/27/18 07:21 Intake & Output 06/26/18 06/27/18 06/28/18 06:59 06:59 06:59 Intake Total 740 722 50 Balance 740 722 50 Weight 194.6 kg 192.8 kg Additional comments: Constitutional: Well-developed well-nourished -[place] lady, morbidly o bese. No apparent acute distress. Respiratory: Normal respiratory effort. Skin: Open wound of the left foot and erythema edema in the left leg. Much better than previously. Psychiatric: Judgment, memory, insight seem normal. Mood is pleasant and appropriate. Extremities: Upper extremities show normal range of movement. Pulses present noted to the radial arteries. Capillary refill normal. No cyanosis noted. No muscle wasting noted. Lower extremities show normal range of movement, except related to the left forefoot amputation. Pulses present noted to the dorsalis pedis artery. Capillary refill normal. No cyanosis noted. No muscle wasting noted. There is swelling in the left leg as compared to the right also erythema. This is much improved to previously. Indicative of resolving cellulitis. The open wound of the left forefoot exhibits granulation. Minimal areas of necrosis which can probably be resolved by Santyl. Results Laboratory Results: 06/23/18 04:27 06/23/18 04:27 Assessment & Plan - Diagnosis (1) Diabetic infection of left foot Is this a current diagnosis for this admission?: Yes (2) Diabetes mellitus type 2 in obese Is this a current diagnosis for this admission?: Yes (3) Morbid obesity Is this a current diagnosis for this admission?: Yes (4) HTN (hypertension) Qualifiers: Hypertension type: essential hypertension Qualified Code(s): I10 - Essential (primary) hypertension Is this a current diagnosis for this admission?: Yes - Plan Summary Plan Summary: This patient is responding very nicely to radical debridement of the left forefoot as well as IV antibiotic. With her presentation and comorbidities I believe that aggressive antibiotic therapy is needed. I feel that she can probably do this, be discharged in about 2 days, aiming for Wednesday. I would like to continue twice daily Santyl applications to the wound and then switch over to a KCI type VAC for discharge. Close follow-up will be needed starting with the wound clinic on Wednesday at 9:30 AM. I would recommend keeping her on oral antibiotic for at least a week after discharge and possibly 2 weeks. The reason for this is a very troubling findings of cellulitis in the leg. Thankfully this is resolving so that I feel the risk of major infection is receding rapidly. Repeat operative debridement may be needed but given today's visit the progress is such that I do not think it will become necessary.
--- NOTE | 2018-06-27 15:29 | PDOC PROGRESS REPORT ---
Subjective Progress Note for:: 06/26/18 Reason For Visit: FAILURE OUTPATIENT MANAGEMENT LEFT FOOT DIABETI Physical Exam Vital Signs: Temp Pulse Resp BP Pulse Ox 97.9 F 90 20 148/83 H 96 06/26/18 15:04 06/26/18 15:04 06/26/18 15:04 06/26/18 15:04 06/26/18 15:04 Intake & Output 06/25/18 06/26/18 06/27/18 06:59 06:59 06:59 Intake Total 1318 740 286 Balance 1318 740 286 Weight 193.6 kg 194.6 kg Additional comments: Constitutional: Well-developed well-nourished -[place] lady, morbidly obese body habitus. No apparent acute distress. Eyes: Mucous membranes pink and moist, pupils equal and reactive to light. Conjunctiva normal. Cornea normal. Respiratory: Normal respiratory effort. Skin: Pertinent for erythema and edema in the left leg, open left foot amputation site. Psychiatric: Judgment, memory, insight seem normal. Mood is pleasant and appropriate. Extremities: Upper extremities show normal range of movement. Pulses present noted to the radial arteries. Capillary refill normal. No cyanosis noted. No muscle wasting noted. Lower extremities show normal range of movement. Pulses present noted to the dorsalis pedis artery. Capillary refill normal. No cyanosis noted. No muscle wasting noted. Pertinent for erythema and edema in the left leg, open left foot amputation site. Results Laboratory Results: 06/23/18 04:27 06/23/18 04:27 06/20/18 14:35 Blood Blood Culture - Final NO GROWTH IN 5 DAYS 06/20/18 14:15 Blood Blood Culture - Final NO GROWTH IN 5 DAYS Assessment & Plan - Diagnosis (1) Diabetic infection of left foot Is this a current diagnosis for this admission?: Yes (2) Diabetes mellitus type 2 in obese Is this a current diagnosis for this admission?: Yes (3) Morbid obesity Is this a current diagnosis for this admission?: Yes (4) HTN (hypertension) Qualifiers: Hypertension type: essential hypertension Qualified Code(s): I10 - Essential (primary) hypertension Is this a current diagnosis for this admission?: Yes - Plan Summary Plan Summary: Piecemeal debridement done at bedside using scissor and forceps. The patient's foot is insensate, consistent with neuropathy and the proximate cause of her foot injury and necrosis/infection. Dressings with Santyl continue. The patient encouraged to use EMILI hose over the dressings. The hope is to reduce edema and thus enhance the cure of cellulitis.
[2018-06-28] MEDS: MEROPENEM 1 GM in NORMAL SALINE 50 ML IV SCH (02:00)
[2018-06-28 07:35] LABS: ABSOLUTE BASOPHILS # (AUTO) 0.1 10^3/uL (0.0-0.2); ABSOLUTE EOSINOPHILS # (AUTO) 0.3 10^3/uL (0.0-0.6); ABSOLUTE LYMPHOCYTES (AUTO) 1.8 10^3/uL (0.5-4.7); ABSOLUTE MONOCYTES (AUTO) 0.6 10^3/uL (0.1-1.4); ABSOLUTE NEUT (AUTO) 3.2 10^3/uL (1.7-8.2); EOSINOPHILS % (AUTO) 4.8 % (0-6); HEMATOCRIT 28.4 % (36.0-47.0); HEMOGLOBIN 8.8 g/dL (12.0-15.5); LYMPHOCYTES % (AUTO) 31.2 % (13-45); MEAN CORPUSCULAR HEMOGLOBIN 20.9 pg (27.0-33.4); MEAN CORPUSCULAR HGB CONC 31.2 g/dL (32.0-36.0); MEAN CORPUSCULAR VOLUME 67 fl (80-97); MONOCYTES % (AUTO) 9.3 % (3-13); PLATELET COUNT 254 10^3/uL (150-450); RED BLOOD COUNT 4.24 10^6/uL (3.72-5.28); RED CELL DISTRIBUTION WIDTH 27.6 % (11.5-14.0); SEGMENTED NEUTROPHILS % (AUTO) 53.7 % (42-78); TOTAL CELLS COUNTED % (AUTO) 100 %; WHITE BLOOD COUNT 5.9 10^3/uL (4.0-10.5)
[2018-06-28] MEDS: INSULIN LISPRO 100 UNIT/ML 3 ML VIAL SUBCUT SCH ×4 (07:47→21:13)
--- NOTE | 2018-06-28 07:53 | PDOC PROGRESS REPORT ---
Subjective Progress Note for:: 06/28/18 Subjective:: No fever or chills. No chest pain or difficulty with breathing. No nausea, vomiting, or abdominal pain. Reason For Visit: FAILURE OUTPATIENT MANAGEMENT LEFT FOOT DIABETI Physical Exam Vital Signs: Temp Pulse Resp BP Pulse Ox 97.8 F 81 18 131/73 H 95 06/28/18 04:24 06/28/18 07:00 06/28/18 04:24 06/28/18 04:24 06/28/18 04:24 Intake & Output 06/27/18 06/28/18 06/29/18 06:59 06:59 06:59 Intake Total 722 1601 Balance 722 1601 Weight 192.8 kg 185.7 kg Physical Exam: General appearance: PRESENT: morbidly obese Head exam: PRESENT: atraumatic, normocephalic Eye exam: PRESENT: conjunctiva pink. ABSENT: pallor, scleral icterus Respiratory exam: PRESENT: clear to auscultation trina Cardiovascular exam: PRESENT: RRR. ABSENT: diastolic murmur, rubs, systolic murmur GI/Abdominal exam: PRESENT: normal bowel sounds, soft. ABSENT: distended, guarding, mass, organomegaly, rebound, tenderness Extremities exam: PRESENT: improving pedal edema, other - s/p left foot infected diabetic ulcer with 2nd to 5th toes amputation. Satisfactory wound dressing. Musculoskeletal exam: PRESENT: other - s/p left foot infected diabetic ulcer with 2nd to 5th toes amputation. Neurological exam: PRESENT: alert, awake, oriented to person, oriented to place, oriented to time, oriented to situation, CN II-XII grossly intact. ABSENT: motor sensory deficit Skin exam: PRESENT: dry, warm Results Laboratory Results: 06/28/18 06:52 06/28/18 06:52 WBC 5.9 RBC 4.24 Hgb 8.8 L Hct 28.4 L MCV 67 L MCH 20.9 L MCHC 31.2 L RDW 27.6 H Plt Count 254 Seg Neutrophils % 53.7 Lymphocytes % 31.2 Monocytes % 9.3 Eosinophils % 4.8 Basophils % 1.0 Absolute Neutrophils 3.2 Absolute Lymphocytes 1.8 Absolute Monocytes 0.6 Absolute Eosinophils 0.3 Absolute Basophils 0.1 Assessment & Plan - Diagnosis (1) Diabetic infection of left foot Is this a current diagnosis for this admission?: Yes (2) Left leg cellulitis Is this a current diagnosis for this admission?: Yes (3) Hypertensive urgency Is this a current diagnosis for this admission?: Yes (4) Diabetes mellitus type 2 in obese Is this a current diagnosis for this admission?: Yes (5) HTN (hypertension) Qualifiers: Hypertension type: essential hypertension Qualified Code(s): I10 - Essential (primary) hypertension Is this a current diagnosis for this admission?: Yes (6) HLD (hyperlipidemia) Qualifiers: Hyperlipidemia type: pure hypercholesterolemia Qualified Code(s): E78.00 - Pure hypercholesterolemia, unspecified; E78.0 - Pure hypercholesterolemia Is this a current diagnosis for this admission?: Yes (7) Iron deficiency anemia, unspecified Qualifiers: Iron deficiency anemia type: unspecified iron deficiency Qualified Code(s): D50.9 - Iron deficiency anemia, unspecified Is this a current diagnosis for this admission?: Yes (8) BMI 60.0-69.9, adult Is this a current diagnosis for this admission?: Yes - Time Time Spent with patient: 25-34 minutes Medications reviewed and adjusted accordingly: Yes Anticipated discharge: Home with Homehealth Within: Other - Inpatient Certification Based on my medical assessment, after consideration of the patient's comorbidities, presenting symptoms, or acuity I expect that the services needed warrant INPATIENT care.: Yes I certify that my determination is in accordance with my understanding of Medicare's requirements for reasonable and necessary INPATIENT services [42 CFR 412.3e].: Yes Medical Necessity: Significant Comorbidiites Make Outpatient Treatment Too Risky, Need Close Monitoring Due to Risk of Patient Decompensation, Need for IV Antibiotics, Risk of Complication if Not Cared For in Hospital, Risk of Diagnosis Which Will Require Inpatient Eval/Care/Monitoring Post 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 Upon completion of IV Meropenem, she will start 10 days course of oral Levofloxacin therapy. Awaiting wound vac device before discharge home.
[2018-06-28 08:03] LABS: ALANINE AMINOTRANSFERASE 14 U/L (9-52); ALBUMIN 3.1 g/dL (3.5-5.0); ALKALINE PHOSPHATASE 55 U/L (38-126); ASPARTATE AMINO TRANSFERASE 12 U/L (14-36); BILIRUBIN,DIRECT 0.3 mg/dL (0.0-0.4); BILIRUBIN,TOTAL 0.4 mg/dL (0.2-1.3); BLOOD UREA NITROGEN 14 mg/dL (7-20); CALCIUM 8.6 mg/dL (8.4-10.2); CHLORIDE 103 mmol/L (98-107); GLUCOSE 100 mg/dL (75-110); POTASSIUM 4.5 mmol/L (3.6-5.0); TOTAL PROTEIN 8.5 g/dL (6.3-8.2)
[2018-06-28] MEDS: METFORMIN HCL 500 MG TABLET PO SCH ×2 (08:07→17:05)
[2018-06-28 08:08] LABS: CARBON DIOXIDE 30 mmol/L (22-30); SODIUM 133.5 mmol/L (137-145)
[2018-06-28 08:23] LABS: ANION GAP 1 (5-19)
[2018-06-28 08:38] LABS: ANISOCYTOSIS 3+; HYPOCHROMASIA 2+; OVALOCYTES SLIGHT; PLATELET COMMENT ADEQUATE; POIKILOCYTOSIS SLIGHT; TEAR DROP CELLS SLIGHT
[2018-06-28] MEDS: FUROSEMIDE 40 MG TABLET PO SCH (10:20)
[2018-06-28] MEDS: AMLODIPINE BESYLATE 10 MG TABLET PO SCH (10:20)
[2018-06-28] MEDS: GLIPIZIDE 5 MG TABLET PO SCH (10:20)
[2018-06-28] MEDS: VALSARTAN 160 MG TABLET PO SCH (10:20)
[2018-06-28] MEDS: PANTOPRAZOLE SODIUM 40 MG TABLET.DR PO SCH (10:20)
[2018-06-28] MEDS: ASCORBIC ACID 500 MG TABLET PO SCH ×2 (10:22→17:05)
[2018-06-28] MEDS: FERROUS SULFATE 325 MG TABLET PO SCH ×2 (10:22→17:06)
[2018-06-28] MEDS: ENOXAPARIN SODIUM INJ 40 MG/0.4 ML DISP.SYRIN SUBCUT SCH (10:22)
[2018-06-28] MEDS: COLLAGENASE CLOSTRIDIUM HIST. OINT 30 GM TOP SCH ×2 (10:23→17:06)
[2018-06-29] MEDS: INSULIN LISPRO 100 UNIT/ML 3 ML VIAL SUBCUT SCH (07:52)
[2018-06-29 08:32] VITALS: BP 156/97
--- NOTE | 2018-06-30 20:05 | PDOC DISCHARGE SUMMARY ---
General - Admit/Disc Date/PCP Admission Date/Primary Care Provider: 06/20/18 13:00 DUY VINCENT Discharge Date: 06/29/18 - Discharge Diagnosis (1) Diabetic infection of left foot Is this a current diagnosis for this admission?: Yes (2) Left leg cellulitis Is this a current diagnosis for this admission?: Yes (3) Hypertensive urgency Is this a current diagnosis for this admission?: Yes (4) Diabetes mellitus type 2 in obese Is this a current diagnosis for this admission?: Yes (5) HTN (hypertension) Is this a current diagnosis for this admission?: Yes (6) HLD (hyperlipidemia) Is this a current diagnosis for this admission?: Yes (7) Iron deficiency anemia, unspecified Is this a current diagnosis for this admission?: Yes (8) BMI 60.0-69.9, adult Is this a current diagnosis for this admission?: Yes - Additional Information Resuscitation Status: Full Code Prescriptions: Collagenase Clostridium Hist. [Santyl Ointment 30 gm] 1 applic TOP BID #2 tube Levofloxacin [Levaquin 500 mg Tablet] 500 mg PO DAILY #10 tablet Home Medications: Amlodipine Besylate [Norvasc 10 mg Tablet] 10 mg PO DAILY 06/20/18 Ascorbic Acid [Vitamin C 500 mg Tablet] 500 mg PO BID 06/20/18 Ferrous Sulfate [Feosol 325 mg Tablet] 325 mg PO BID 06/20/18 Furosemide [Lasix 40 mg Tablet] 40 mg PO DAILY 06/20/18 Glipizide [Glucotrol 5 mg Tablet] 5 mg PO DAILY 06/20/18 Metformin HCl [Glucophage] 1,000 mg PO BID 06/20/18 Valsartan [Diovan] 320 mg PO DAILY 06/20/18 Collagenase Clostridium Hist. [Santyl Ointment 30 gm] 1 applic TOP BID #2 tube 06/29/18 Levofloxacin [Levaquin 500 mg Tablet] 500 mg PO DAILY #10 tablet 06/29/18 History of Present Illness Patient complains of: Infected left foot diabetic pressure ulcer History of Present Illness: LAURENT MOORE is a 42 year old female patient known to my practice who presented to office earlier today due to reported increase swelling, pain and malodor to left foot diabetic pressure ulcer. She was treated in the office couple of days ago with scissors sharp debridement of the left foot ulcer and started on oral antibiotic with referral to wound care center. Patient admitted to noncompliance with wound management and follow up on referral as instructed. She claimed compliance with prescribed antibiotic therapy. There is worsening malodor to wound with drainage. She has been walking bear footed on the wound at home. She denied associated fever or chills. She admitted to elevated home blood glucose level and dietary indiscretion. Her wound evaluation in the office revealed extensive deterioration with multiple toes involvement since her last office visit. She demonstrate severely elevated blood pressure while in the office necessitating treatment with oral Clonidine 0.2mg prior to transfer to the hospital for admission. She was advised hospitalization for further evaluation and management. Her morbidities include diabetes mellitus type 2, Hypertension, Hyperlipidemia, Gastroesophageal Reflux Disease, Asthmatic bronchitis, Anemia, Osteoarthritis, Depression, and morbid obesity. Hospital Course Hospital Course: Patient was admitted for failure outpatient management of diabetic foot ulcer on her left foot with worsening malodor and drainage. She was seen in consultation by Dr Bert Mayen, general surgeon, and taken to surgery on 06/21/2018 with resultant left 2nd to 5th toes amputation. Her wound culture grew MSSA which was adequately covered with IV Meropenem. She had a total 7 days coverage and she will transition to oral Levofloxacin therapy for 10 days while on further treatment for the post amputation wound on home wound vac. She will be discharged home today with home health agency services. She will follow up with Dr. Bert Mayen and myself as instructed upon discharge. Physical Exam Vital Signs: Temp Pulse Resp BP Pulse Ox 98.0 F 79 18 151/95 H 96 06/29/18 03:02 06/29/18 07:00 06/29/18 03:02 06/29/18 03:02 06/29/18 03:02 Intake & Output 06/28/18 06/29/18 06/30/18 06:59 06:59 06:59 Intake Total 1601 950 Balance 1601 950 Weight 185.7 kg 191.2 kg Physical Exam: General appearance: PRESENT: morbidly obese Head exam: PRESENT: atraumatic, normocephalic Eye exam: PRESENT: conjunctiva pink. ABSENT: pallor, scleral icterus Ear exam: PRESENT: normal external ear exam Mouth exam: PRESENT: moist Respiratory exam: PRESENT: clear to auscultation trina Cardiovascular exam: PRESENT: RRR. ABSENT: diastolic murmur, rubs, systolic murmur GI/Abdominal exam: PRESENT: normal bowel sounds, soft. ABSENT: distended, guarding, mass, organomegaly, rebound, tenderness Extremities exam: PRESENT: improving pedal edema, other - s/p left foot infected diabetic ulcer with 2nd to 5th toes amputation. Satisfactory wound dressing. Musculoskeletal exam: PRESENT: Resolving left leg 1 + edema with cellulitis, other - s/p left foot infected diabetic ulcer with 2nd to 5th toes amputation. Neurological exam: PRESENT: alert, awake, oriented to person, oriented to place, oriented to time, oriented to situation, CN II-XII grossly intact. ABSENT: motor sensory deficit Skin exam: PRESENT: dry, warm Results Laboratory Results: 06/28/18 06:52 06/28/18 06:52 06/28/18 06/28/18 06:52 06:52 WBC 5.9 RBC 4.24 Hgb 8.8 L Hct 28.4 L MCV 67 L MCH 20.9 L MCHC 31.2 L RDW 27.6 H Plt Count 254 Seg Neutrophils % 53.7 Lymphocytes % 31.2 Monocytes % 9.3 Eosinophils % 4.8 Basophils % 1.0 Absolute Neutrophils 3.2 Absolute Lymphocytes 1.8 Absolute Monocytes 0.6 Absolute Eosinophils 0.3 Absolute Basophils 0.1 Sodium 133.5 L Potassium 4.5 Chloride 103 Carbon Dioxide 30 Anion Gap 1 L BUN 14 Creatinine 0.78 Est GFR ( Amer) > 60 Est GFR (Non-Af Amer) > 60 Glucose 100 Calcium 8.6 Total Bilirubin 0.4 AST 12 L ALT 14 Alkaline Phosphatase 55 Total Protein 8.5 H Albumin 3.1 L Qualifiers - * PATIENT BEING DISCHARGED WITH ANY OF THE FOLLOWING DIAGNOSIS: No Plan Discharge Plan: D/C home on wound vac with [facility] service and follow up with Dr. Bert Mayen and myself as instructed upon discharge.
== END 2018-06-29 09:38 | disposition home health service (06) | DRG 255 ==
LOC: 3W 13:00
PROVIDERS: ADMIT Internal Medicine Geriatric Medicine; ATTEND Internal Medicine Geriatric Medicine
PROC: 0Y6Y0Z1 Detachment at Left 5th Toe, High, Open Approach (ICD-10-PCS; 2018-06-21)
PROC: 0Y6W0Z1 Detachment at Left 4th Toe, High, Open Approach (ICD-10-PCS; 2018-06-21)
PROC: 0Y6U0Z1 Detachment at Left 3rd Toe, High, Open Approach (ICD-10-PCS; 2018-06-21)
PROC: 0JBR0ZZ Excision of Left Foot Subcutaneous Tissue and Fascia, Open Approach (ICD-10-PCS; 2018-06-21)
PROC: 0Y6S0Z1 Detachment at Left 2nd Toe, High, Open Approach (ICD-10-PCS; principal; 2018-06-21 09:00)
DX: E11.52 Type 2 diabetes mellitus with diabetic peripheral angiopathy with gangrene (principal); L89.894 Pressure ulcer of other site, stage 4; I96 Gangrene, not elsewhere classified; L97.528 Non-pressure chronic ulcer of other part of left foot with other specified severity; Z68.44 Body mass index [BMI] 60.0-69.9, adult; E11.621 Type 2 diabetes mellitus with foot ulcer; I16.0 Hypertensive urgency; D50.9 Iron deficiency anemia, unspecified; I10 Essential (primary) hypertension; E78.5 Hyperlipidemia, unspecified; K21.9 Gastro-esophageal reflux disease without esophagitis; B95.61 Methicillin susceptible Staphylococcus aureus infection as the cause of diseases classified elsewhere; B95.1 Streptococcus, group B, as the cause of diseases classified elsewhere; B96.89 Other specified bacterial agents as the cause of diseases classified elsewhere; M19.90 Unspecified osteoarthritis, unspecified site; F32.9 Major depressive disorder, single episode, unspecified; E66.01 Morbid (severe) obesity due to excess calories; Z91.19 Patient's noncompliance with other medical treatment and regimen
CPT/HCPCS: 1480; 36415; 80048; 80053; 82607; 82728; 82746; 82962; 83540; 83550; 85025; 85045; 85610; 85730; 87040; 87070; 87077; 87186; 87205; 88305; 88311; 93926; J0360; J1650; J1815; J2185; J2250; J2704; J2765; J3010; J3490; S0028

== ENCOUNTER → 2018-07-28 | Outpatient (CLI) | payer MEDICARE, MEDICAID ==
--- NOTE | 2018-07-28 14:01 | RADIOLOGY REPORT (SQ) ---
EXAM DESCRIPTION: FOOT LEFT COMPLETE COMPLETED DATE/TIME: 07/28/2018 1:16 pm REASON FOR STUDY: NON-PRS CHRONIC ULCER OTH PRT LEFT FOOT W FAT LAYER EXPOSED L97.522 NON-PRS CHRON IC ULCER OTH PRT LEFT FOOT W FAT LAYER E11.621 TYPE 2 DIABETES MELLITUS WITH FOOT ULCER COMPARISON: None. NUMBER OF VIEWS: Three views. TECHNIQUE: AP, lateral and oblique radiographic images acquired of the left foot. LIMITATIONS: None. FINDINGS: MINERALIZATION: Normal. BONES: Are amputations of the 2nd through 5th digits. No evidence of osteomyelitis. JOINTS: No effusions. SOFT TISSUES: Soft tissue swelling. OTHER: No other significant finding. IMPRESSION: No evidence of osteomyelitis. TECHNICAL DOCUMENTATION: JOB ID: [id number] [employer]- All Rights Reserved Reading location - IP/workstation name: [email or web address]
[2018-07-28 14:20] LABS: ABSOLUTE BASOPHILS # (AUTO) 0.1 10^3/uL (0.0-0.2); ABSOLUTE EOSINOPHILS # (AUTO) 0.3 10^3/uL (0.0-0.6); ABSOLUTE LYMPHOCYTES (AUTO) 2.1 10^3/uL (0.5-4.7); ABSOLUTE MONOCYTES (AUTO) 0.7 10^3/uL (0.1-1.4); ABSOLUTE NEUT (AUTO) 4.7 10^3/uL (1.7-8.2); BASOPHILS % (AUTO) 0.8 % (0-2); EOSINOPHILS % (AUTO) 4.2 % (0-6); HEMATOCRIT 29.3 % (36.0-47.0); HEMOGLOBIN 9.1 g/dL (12.0-15.5); LYMPHOCYTES % (AUTO) 26.7 % (13-45); MEAN CORPUSCULAR HEMOGLOBIN 22.4 pg (27.0-33.4); MEAN CORPUSCULAR HGB CONC 31.3 g/dL (32.0-36.0); MEAN CORPUSCULAR VOLUME 72 fl (80-97); MONOCYTES % (AUTO) 8.5 % (3-13); RED BLOOD COUNT 4.09 10^6/uL (3.72-5.28); SEGMENTED NEUTROPHILS % (AUTO) 59.8 % (42-78); TOTAL CELLS COUNTED % (AUTO) 100 %; WHITE BLOOD COUNT 7.8 10^3/uL (4.0-10.5)
[2018-07-28 14:39] LABS: ALANINE AMINOTRANSFERASE 14 U/L (9-52); ALBUMIN 3.8 g/dL (3.5-5.0); ALKALINE PHOSPHATASE 61 U/L (38-126); ANION GAP 10 (5-19); ASPARTATE AMINO TRANSFERASE 13 U/L (14-36); BILIRUBIN,DIRECT 0.3 mg/dL (0.0-0.4); BILIRUBIN,TOTAL 0.6 mg/dL (0.2-1.3); BLOOD UREA NITROGEN 16 mg/dL (7-20); C-REACTIVE PROTEIN 15.3 mg/L (<10.0); CALCIUM 9.2 mg/dL (8.4-10.2); CARBON DIOXIDE 32 mmol/L (22-30); CHLORIDE 99 mmol/L (98-107); GLUCOSE 80 mg/dL (75-110); POTASSIUM 4.6 mmol/L (3.6-5.0); SODIUM 141.3 mmol/L (137-145); TOTAL PROTEIN 8.9 g/dL (6.3-8.2)
[2018-07-28 14:57] LABS: ERYTHROCYTE SEDIMENTATION RATE 56 mm/hr (0-20)
[2018-07-28 15:00] LABS: HYPOCHROMASIA 1+; OVALOCYTES SLIGHT; PLATELET CLUMPS PRESENT; PLATELET COMMENT ADEQUATE; PLATELET COUNT 274 10^3/uL (150-450); PLATELET LARGE PRESENT; POIKILOCYTOSIS SLIGHT; POLYCHROMASIA SLIGHT; TARGET CELLS SLIGHT; TEAR DROP CELLS SLIGHT
== END ==
LOC: WC 12:52
PROVIDERS: ATTEND Surgery
DX: E11.621 Type 2 diabetes mellitus with foot ulcer (principal); L97.522 Non-pressure chronic ulcer of other part of left foot with fat layer exposed
CPT/HCPCS: 36415; 80053; 83036; 85025; 85652; 86140

== ENCOUNTER 2018-11-23 08:11 | Inpatient (IN) | payer MEDICARE, MEDICAID ==
[2018-11-23 09:03] LABS: ABSOLUTE BASOPHILS # (AUTO) 0.1 10^3/uL (0.0-0.2); ABSOLUTE EOSINOPHILS # (AUTO) 0.3 10^3/uL (0.0-0.6); ABSOLUTE LYMPHOCYTES (AUTO) 1.1 10^3/uL (0.5-4.7); ABSOLUTE MONOCYTES (AUTO) 0.7 10^3/uL (0.1-1.4); ABSOLUTE NEUT (AUTO) 4.5 10^3/uL (1.7-8.2); BASOPHILS % (AUTO) 0.8 % (0-2); EOSINOPHILS % (AUTO) 3.8 % (0-6); HEMATOCRIT 32.7 % (36.0-47.0); HEMOGLOBIN 10.1 g/dL (12.0-15.5); LYMPHOCYTES % (AUTO) 16.7 % (13-45); MEAN CORPUSCULAR HEMOGLOBIN 23.2 pg (27.0-33.4); MEAN CORPUSCULAR HGB CONC 30.9 g/dL (32.0-36.0); MEAN CORPUSCULAR VOLUME 75 fl (80-97); PLATELET COUNT 193 10^3/uL (150-450); RED BLOOD COUNT 4.35 10^6/uL (3.72-5.28); RED CELL DISTRIBUTION WIDTH 19.3 % (11.5-14.0); SEGMENTED NEUTROPHILS % (AUTO) 67.7 % (42-78); TOTAL CELLS COUNTED % (AUTO) 100 %; WHITE BLOOD COUNT 6.6 10^3/uL (4.0-10.5)
[2018-11-23 09:09] LABS: ALBUMIN 3.6 g/dL (3.5-5.0); ALKALINE PHOSPHATASE 80 U/L (38-126); ANION GAP 5 (5-19); ASPARTATE AMINO TRANSFERASE 35 U/L (14-36); BILIRUBIN,DIRECT 0.2 mg/dL (0.0-0.4); BILIRUBIN,TOTAL 0.9 mg/dL (0.2-1.3); BLOOD UREA NITROGEN 24 mg/dL (7-20); CALCIUM 8.5 mg/dL (8.4-10.2); CARBON DIOXIDE 34 mmol/L (22-30); CHLORIDE 98 mmol/L (98-107); CREATINE KINASE 65 U/L (30-135); GLUCOSE 282 mg/dL (75-110); POTASSIUM 5.4 mmol/L (3.6-5.0); TOTAL PROTEIN 8.5 g/dL (6.3-8.2)
[2018-11-23 09:22] LABS: CREATINE KINASE MB 1.08 ng/mL (<4.55); NT PRO BNP 2620 pg/mL (<125)
--- NOTE | 2018-11-23 09:25 | EKG REPORT ---
SEVERITY:- ABNORMAL ECG - SINUS RHYTHM PROBABLE LEFT ATRIAL ABNORMALITY LEFT ANTERIOR FASCICULAR BLOCK CONSIDER ANTERIOR INFARCT : Confirmed by: Megan Antunez MD 23-Nov-2018 09:24:41
[2018-11-23 09:30] LABS: TROPONIN I < 0.012 ng/mL
--- NOTE | 2018-11-23 09:52 | RADIOLOGY REPORT (SQ) ---
EXAM DESCRIPTION: CHEST SINGLE VIEW COMPLETED DATE/TIME: 11/23/2018 9:41 am REASON FOR STUDY: bed 16 db COMPARISON: 05/04/2018. FINDINGS: Single-view chest AP portable upright. Relatively low lung volumes. Cardiomegaly. No congestive failure or pneumonia evident. No acute fi ndings suggested otherwise. TECHNICAL DOCUMENTATION: JOB ID: [id number] Reading location - IP/workstation name: [email or web address]
[2018-11-23] MEDS ORDERED: FUROSEMIDE INJ/PF 40 MG/4 ML SDV IV ONE (12:23)
[2018-11-23 15:01] LABS: APPEARANCE,URINE CLEAR; BILIRUBIN,URINE NEGATIVE (NEGATIVE); COLOR,URINE YELLOW; GLUCOSE, URINE 50 mg/dL (NEGATIVE); KETONES,URINE NEGATIVE (NEGATIVE); LEUKOCYTE ESTERASE,URINE NEGATIVE (NEGATIVE); NITRITE,URINE NEGATIVE (NEGATIVE); PROTEIN,URINE 100 mg/dL (NEGATIVE); URINE SPECIFIC GRAVITY 1.014; UROBILINOGEN,URINE NEGATIVE mg/dL (<2.0)
--- NOTE | 2018-11-23 15:30 | ER Document Report ---
Entered by TETO HUGHES SCRIBE 11/23/18 0933 Acting as scribe for:GEORGIA ESCOBAR DO ED Respiratory Problem - General Chief Complaint: Edema Stated Complaint: SWELLING Time Seen by Provider: 11/23/18 08:44 Primary Care Provider: TIA CRUZ MD [ACTIVE STAFF] - Follow up as needed Mode of Arrival: Ambulatory Information source: Patient Notes: Patient is a 43-year-old female who presents to the emergency department today with complaints of "Lasix not working". Patient states she is supposed to take 2 Lasix in the morning and two Lasix at night but she stopped taking it because her swelling is worse, she has developed shortness of breath, wheezing, and a cough. Patient is not on any home oxygen. Patient has not taken her morning medications. TRAVEL OUTSIDE OF THE [place] IN LAST 30 DAYS: No - Related Data Allergies/Adverse Reactions: No Known Allergies Allergy (Verified 11/23/18 08:12) Past Medical History - General Information source: Patient, [facility] Records - Social History Smoking Status: Never Smoker Cigarette use (# per day): No Frequency of alcohol use: None Drug Abuse: None Lives with: Family Family History: Arthritis, CAD, CVA, DM, Hyperlipidemia, Hypertension, Malignancy, Thyroid Disfunction - Past Medical History Cardiac Medical History: Reports: Hx Hypercholesterolemia, Hx Hypertension Pulmonary Medical History: Reports: Hx Asthma, Hx Bronchitis Endocrine Medical History: Reports: Hx Diabetes Mellitus Type 2 GI Medical History: Reports: Hx Gastroesophageal Reflux Disease Musculoskeletal Medical History: Reports Hx Arthritis, Reports Hx Musculoskeletal Deformity, Reports Hx Musculoskeletal Trauma Psychiatric Medical History: Reports: Hx Depression Past Surgical History: Reports: Hx Section - X2, Hx Tubal Ligation - Immunizations Immunizations up to date: Yes Hx Diphtheria, Pertussis, Tetanus Vaccination: Yes Review of Systems - Review of Systems Constitutional: No symptoms reported EENT: No symptoms reported Cardiovascular: No symptoms reported Respiratory: See HPI, Cough, Short of breath, Wheezing Gastrointestinal: No symptoms reported Genitourinary: No symptoms reported Female Genitourinary: No symptoms reported Musculoskeletal: See HPI, Leg swelling Skin: No symptoms reported Hematologic/Lymphatic: No symptoms reported Neurological/Psychological: No symptoms reported -: Yes All other systems reviewed and negative Physical Exam - Vital signs Vitals: Resp BP Pulse Ox 18 191/106 H 97 11/23/18 08:56 11/23/18 08:56 11/23/18 08:56 Interpretation: Hypertensive, Hypoxic, Tachypneic - General General appearance: Appears well, Alert - HEENT Head: Normocephalic, Atraumatic Eyes: Normal Pupils: PERRL - Respiratory Respiratory status: Respiratory distress, Tachypnea Chest status: Nontender Breath sounds: Rhonchi Chest palpation: Normal - Cardiovascular Rhythm: Regular Heart sounds: Normal auscultation Murmur: No - Abdominal Inspection: Normal, Morbidly Obese Distension: No distension Bowel sounds: Normal Tenderness: Nontender Organomegaly: No organomegaly - Back Back: Normal, Nontender - Extremities General upper extremity: Normal inspection, Nontender, Normal color, Normal ROM, Normal temperature General lower extremity: Nontender, Edema, Normal color, Normal ROM, Normal temperature, Normal weight bearing. No: Scott's sign - Neurological Neuro grossly intact: Yes Cognition: Normal Orientation: AAOx4 Antonia Coma Scale Eye Opening: Spontaneous [place] Coma Scale Verbal: Oriented [place] Coma Scale Motor: Obeys Commands Antonia Coma Scale Total: 15 Speech: Normal Motor strength normal: LUE, RUE, LLE, RLE Sensory: Normal - Psychological Associated symptoms: Normal affect, Normal mood - Skin Skin Temperature: Warm Skin Moisture: Dry Skin Color: Normal Course - Re-evaluation Re-evalutation: 11/23/18 15:28 Patient is a 43-year-old female who is morbidly obese and comes in with increasing dyspnea on exertion. BNP is elevated. Chest x-ray not particularly helpful. Attempted CTA of chest for patient was not able to be scanned due to her weight. Symptoms are more consistent with fluid overload given orthopnea a nd dyspnea on exertion. She has may be not been taking her Lasix lately and appears fluid overloaded on exam. No echocardiogram and records were for patient. Discussed with Dr. Camarena and patient will be admitted for further evaluation of dyspnea including evaluation for possible new onset heart failure. - Vital Signs Vital signs: Temp Pulse Resp BP Pulse Ox 12 151/85 H 96 11/23/18 13:31 11/23/18 13:31 11/23/18 13:31 - Laboratory Result Diagrams: 11/23/18 08:43 11/23/18 08:43 Laboratory results interpreted by me: 11/23/18 11/23/18 11/23/18 08:43 08:43 08:43 Hgb 10.1 L Hct 32.7 L MCV 75 L MCH 23.2 L MCHC 30.9 L RDW 19.3 H Sodium 136.7 L Potassium 5.4 H Carbon Dioxide 34 H BUN 24 H Glucose 282 H NT-Pro-B Natriuret Pep 2620 H Total Protein 8.5 H Urine Protein Urine Glucose (UA) 11/23/18 14:30 Hgb Hct MCV MCH MCHC RDW Sodium Potassium Carbon Dioxide BUN Glucose NT-Pro-B Natriuret Pep Total Protein Urine Protein 100 H Urine Glucose (UA) 50 H - Diagnostic Test Radiology reviewed: Reports reviewed Discharge - Discharge Clinical Impression: Morbid obesity CHF exacerbation Qualifiers: Heart failure type: unspecified Qualified Code(s): I50.9 - Heart failure, unspecified Condition: Stable Disposition: ADMITTED INPATIENT Admitting Provider: [facility] Admitted: Telemetry Referrals: TIA CRUZ MD [ACTIVE STAFF] - Follow up as needed I personally performed the services described in the documentation, reviewed and edited the documentation which was dictated to the scribe in my presence, and it accurately records my words and actions.
[2018-11-23] MEDS ORDERED: DEXTROSE 40% GEL 15 GM TUBE PO PRN ×2 (19:22)
[2018-11-23] MEDS ORDERED: GLUCAGON,HUMAN RECOMB 1 MG INJ IM PRN (19:22)
[2018-11-23] MEDS ORDERED: DEXTROSE 50%-WATER 25 GM/50 ML DISP.SYRIN IV PRN ×2 (19:22)
[2018-11-23] MEDS: ENOXAPARIN SODIUM INJ 40 MG/0.4 ML DISP.SYRIN SUBCUT SCH (20:28)
[2018-11-23] MEDS: FUROSEMIDE INJ/PF 40 MG/4 ML SDV IV SCH (20:28)
[2018-11-23] MEDS: INSULIN LISPRO 100 UNIT/ML 3 ML VIAL SUBCUT SCH (23:46)
[2018-11-24] MEDS: FUROSEMIDE INJ/PF 40 MG/4 ML SDV IV SCH ×2 (05:38→17:37)
[2018-11-24] MEDS: PANTOPRAZOLE SODIUM 40 MG TABLET.DR PO SCH (05:39)
[2018-11-24 06:35] LABS: ABSOLUTE BASOPHILS # (AUTO) 0.1 10^3/uL (0.0-0.2); ABSOLUTE EOSINOPHILS # (AUTO) 0.3 10^3/uL (0.0-0.6); ABSOLUTE LYMPHOCYTES (AUTO) 1.2 10^3/uL (0.5-4.7); ABSOLUTE MONOCYTES (AUTO) 0.8 10^3/uL (0.1-1.4); ABSOLUTE NEUT (AUTO) 3.9 10^3/uL (1.7-8.2); HEMATOCRIT 33.2 % (36.0-47.0); HEMOGLOBIN 10.1 g/dL (12.0-15.5); LYMPHOCYTES % (AUTO) 19.7 % (13-45); MEAN CORPUSCULAR HEMOGLOBIN 22.9 pg (27.0-33.4); MEAN CORPUSCULAR HGB CONC 30.3 g/dL (32.0-36.0); MEAN CORPUSCULAR VOLUME 76 fl (80-97); MONOCYTES % (AUTO) 12.7 % (3-13); PLATELET COUNT 185 10^3/uL (150-450); RED BLOOD COUNT 4.39 10^6/uL (3.72-5.28); RED CELL DISTRIBUTION WIDTH 19.1 % (11.5-14.0); SEGMENTED NEUTROPHILS % (AUTO) 62.6 % (42-78); TOTAL CELLS COUNTED % (AUTO) 100 %; WHITE BLOOD COUNT 6.3 10^3/uL (4.0-10.5)
[2018-11-24 07:03] LABS: ALBUMIN 3.6 g/dL (3.5-5.0); ALKALINE PHOSPHATASE 82 U/L (38-126); ANION GAP 6 (5-19); ASPARTATE AMINO TRANSFERASE 17 U/L (14-36); BILIRUBIN,DIRECT 0.2 mg/dL (0.0-0.4); BILIRUBIN,TOTAL 0.9 mg/dL (0.2-1.3); BLOOD UREA NITROGEN 24 mg/dL (7-20); CALCIUM 8.5 mg/dL (8.4-10.2); CARBON DIOXIDE 35 mmol/L (22-30); CHLORIDE 96 mmol/L (98-107); CHOLESTEROL 99.68 mg/dL (0-200); GLUCOSE 178 mg/dL (75-110); POTASSIUM 5.1 mmol/L (3.6-5.0); TOTAL PROTEIN 8.5 g/dL (6.3-8.2); TRIGLYCERIDES 43 mg/dL (<150)
[2018-11-24 07:15] LABS: DIRECT LDL 41 mg/dL (<100)
[2018-11-24] MEDS ORDERED: ACETAMINOPHEN 325 MG TABLET PO PRN (09:08)
[2018-11-24] MEDS: GLIPIZIDE 5 MG TABLET PO SCH (09:29)
[2018-11-24] MEDS: ENOXAPARIN SODIUM INJ 40 MG/0.4 ML DISP.SYRIN SUBCUT SCH (09:30)
[2018-11-24] MEDS: METFORMIN HCL 500 MG TABLET PO SCH ×2 (09:30→17:06)
[2018-11-24] MEDS: AMLODIPINE BESYLATE 10 MG TABLET PO SCH (09:30)
[2018-11-24] MEDS: NEBIVOLOL HCL 10 MG TABLET PO SCH (09:30)
[2018-11-24] MEDS: FERROUS SULFATE 325 MG TABLET PO SCH (09:30)
[2018-11-24] MEDS: VALSARTAN 160 MG TABLET PO SCH (09:30)
[2018-11-24] MEDS: COLLAGENASE CLOSTRIDIUM HIST. OINT 30 GM TOP SCH ×2 (09:31→17:37)
[2018-11-24] MEDS: INSULIN LISPRO 100 UNIT/ML 3 ML VIAL SUBCUT SCH ×4 (09:31→21:56)
[2018-11-24] MEDS ORDERED: (PENDING PHARMACY ID) (Valsartan [Diovan] 320 MG) PO SCH (10:00)
--- NOTE | 2018-11-24 23:19 | PDOC H&P ---
History of Present Illness Admission Date/PCP: 11/23/18 15:46 DUY CARLTON History of Present Illness: LAURENT MOORE is a 43 year old female patient known to my practice, noncompliant with follow up care, who presented to the ED earlier today with complain of worsening leg swelling, shortness of breath, wheezing and nonproductive coughing. Patient admitted to not taking her prescribed oral Lasix due to her perception of not working effectively. She admitted to consuming ice chips all day. She reported worsening bilateral lower extremities swelling. Her initial evaluation in the ED was remarkable dyspnea, lower extremities swelling, and elevated NT-Pro BNP level. Her morbidities include Diabetes Mellitus type 2, Hypertension, Hyperlipidemia, GERD, Depression and osteoarthritis as well as morbid obesity. She was advised hospitalization for further evaluation and management. Past Medical History Cardiac Medical History: Reports: Hyperlipidema, Hypertension Denies: Congestive Heart Failure, Myocardial Infarction Pulmonary Medical History: Reports: Asthma, Bronchitis Denies: Chronic Obstructive Pulmonary Disease (COPD), Pneumonia, Tuberculosis Neurological Medical History: Denies: Seizures Endocrine Medical History: Reports: Diabetes Mellitus Type 2 Renal/ Medical History: Denies: End Stage Renal Disease GI Medical History: Reports: Gastroesophageal Reflux Disease Denies: Cirrhosis Musculoskeltal Medical History: Reports: Arthritis Psychiatric Medical History: Reports: Depression Denies: Bipolar Disorder Hematology: Reports: Anemia Denies: Bleeding Tendencies Past Surgical History Past Surgical History: Reports: Section - X2, Tubal Ligation Social History Lives with: Family Smoking Status: Never Smoker Frequency of Alcohol Use: None Hx Recreational Drug Use: No Drugs: None Hx Prescription Drug Abuse: No - Advance Directive Resuscitation Status: Full Code Family History Family History: Arthritis, CAD, CVA, DM, Hyperlipidemia, Hypertension, Malignancy, Thyroid Disfunction Parental Family History Reviewed: Yes Children Family History Reviewed: Yes Sibling(s) Family History Reviewed.: Yes Medication/Allergy Home Medications: Amlodipine Besylate [Norvasc 10 mg Tablet] 10 mg PO DAILY 11/23/18 Collagenase Clostridium Hist. [Santyl Ointment 30 gm] 1 applic TOP BID 11/23/18 Ferrous Sulfate [Feosol 325 mg Tablet] 325 mg PO DAILY 11/23/18 Furosemide [Lasix 40 mg Tablet] 40 mg PO DAILY 11/23/18 Glipizide [Glucotrol 5 mg Tablet] 5 mg PO DAILY 11/23/18 Metformin HCl [Glucophage] 1,000 mg PO BID 11/23/18 Nebivolol HCl [Bystolic 10 mg Tablet] 10 mg PO DAILY 11/23/18 Valsartan [Diovan] 320 mg PO DAILY 11/23/18 Allergies/Adverse Reactions: No Known Allergies Allergy (Verified 11/23/18 08:12) Review of Systems Constitutional: ABSENT: chills, fever(s), headache(s), weight gain, weight loss Eyes: ABSENT: visual disturbances Ears: ABSENT: hearing changes Nose, Mouth, and Throat: ABSENT: as per HPI, headache(s), mouth pain, sore throat, vertigo, other Cardiovascular: PRESENT: dyspnea on exertion, edema Respiratory: PRESENT: dyspnea Gastrointestinal: ABSENT: abdominal pain, constipation, diarrhea, hematemesis, hematochezia, nausea, vomiting Genitourinary: ABSENT: dysuria, hematuria Musculoskeletal: ABSENT: joint swelling Integumentary: ABSENT: rash, wounds Neurological: ABSENT: abnormal gait, abnormal speech, confusion, dizziness, focal weakness, syncope Psychiatric: ABSENT: anxiety, depression, homidical ideation, suicidal ideation Endocrine: ABSENT: cold intolerance, heat intolerance, menstrual abnormalities, polydipsia, polyuria Hematologic/Lymphatic: ABSENT: easy bleeding, easy bruising, lymphadenopathy Allergic/Immunologic: ABSENT: seasonal rhinorrhea Physical Exam Vital Signs: Temp Pulse Resp BP Pulse Ox 97.6 F 11 L 174/97 H 94 11/23/18 17:45 11/23/18 17:45 11/23/18 17:45 11/23/18 17:45 Intake & Output 11/22/18 11/23/18 11/24/18 06:59 06:59 06:59 Weight 225.6 kg General appearance: PRESENT: no acute distress, morbidly obese Head exam: PRESENT: atraumatic, normocephalic Eye exam: PRESENT: conjunctiva pink, EOMI, PERRLA. ABSENT: scleral icterus Ear exam: PRESENT: normal external ear exam Mouth exam: PRESENT: moist Neck exam: PRESENT: full ROM. ABSENT: carotid bruit, JVD, lymphadenopathy, thyromegaly Respiratory exam: PRESENT: clear to auscultation trina, decreased breath sounds - at lung bases Cardiovascular exam: PRESENT: RRR. ABSENT: diastolic murmur, rubs, systolic murmur Vascular exam: ABSENT: pallor GI/Abdominal exam: PRESENT: normal bowel sounds, soft. ABSENT: distended, guarding, mass, organolmegaly, rebound, tenderness Rectal exam: PRESENT: deferred Extremities exam: PRESENT: pedal edema Musculoskeletal exam: ABSENT: ambulatory, deformity, dislocation, full ROM, normal inspection, tenderness, other Neurological exam: PRESENT: alert, awake, oriented to person, oriented to place, oriented to time, oriented to situation, CN II-XII grossly intact. ABSENT: motor sensory deficit Psychiatric exam: PRESENT: appropriate affect, normal mood. ABSENT: homicidal ideation, suicidal ideation Skin exam: PRESENT: dry, warm Results Laboratory Results: 11/23/18 08:43 11/23/18 08:43 11/23/18 11/23/18 11/23/18 08:43 08:43 14:30 WBC 6.6 RBC 4.35 Hgb 10.1 L Hct 32.7 L MCV 75 L MCH 23.2 L MCHC 30.9 L RDW 19.3 H Plt Count 193 Seg Neutrophils % 67.7 Sodium 136.7 L Potassium 5.4 H Chloride 98 Carbon Dioxide 34 H Anion Gap 5 BUN 24 H Creatinine 0.65 Est GFR ( Amer) > 60 Glucose 282 H Calcium 8.5 Total Bilirubin 0.9 AST 35 Alkaline Phosphatase 80 Total Protein 8.5 H Albumin 3.6 Urine Color YELLOW Urine Appearance CLEAR Urine pH 5.0 Ur Specific [place] 1.014 Urine Protein 100 H Urine Glucose (UA) 50 H Urine Ketones NEGATIVE Urine Blood NEGATIVE Urine Nitrite NEGATIVE Ur Leukocyte Esterase NEGATIVE Urine WBC (Auto) 1 Urine RBC (Auto) 2 11/23/18 11/23/18 08:43 08:43 Creatine Kinase 65 CK-MB (CK-2) 1.08 Troponin I < 0.012 NT-Pro-B Natriuret Pep 2620 H Assessment & Plan - Diagnosis (1) Acute on chronic diastolic (congestive) heart failure Is this a current diagnosis for this admission?: Yes Plan: See admitting physician orders for details about care plan. (2) HTN (hypertension) Qualifiers: Hypertension type: essential hypertension Qualified Code(s): I10 - Essential (primary) hypertension Is this a current diagnosis for this admission?: Yes Plan: See admitting physician orders for details about care plan. (3) Diabetes mellitus type 2 in obese Is this a current diagnosis for this admission?: Yes Plan: See admitting physician orders for details about care plan. (4) HLD (hyperlipidemia) Qualifiers: Hyperlipidemia type: unspecified Qualified Code(s): E78.5 - Hyperlipidemia, unspecified Is this a current diagnosis for this admission?: Yes Plan: See admitting physician orders for details about care plan. (5) BMI 60.0-69.9, adult Is this a current diagnosis for this admission?: Yes Plan: See admitting physician orders for details about care plan. - Time Time Spent: 50 to 70 Minutes Anticipated discharge: Home with Homehealth Within: Other - Inpatient Certification Based on my medical assessment, after consideration of the patient's comorbidities, presenting symptoms, or acuity I expect that the services needed warrant INPATIENT care.: Yes I certify that my determination is in accordance with my understanding of Medicare's requirements for reasonable and necessary INPATIENT services [42 CFR 412.3e].: Yes Medical Necessity: Significant Comorbidiites Make Outpatient Treatment Too Risky, Need Close Monitoring Due to Risk of Patient Decompensation, Need For Continuous Telemetry Monitoring, Risk of Complication if Not Cared For in Hospital, Risk of Diagnosis Which Will Require Inpatient Eval/Care/Monitoring Post Hospital Care: D/C Crm Business Analyst Documentation - Plan Summary Plan Summary: See admitting physician orders for details about care plan.
--- NOTE | 2018-11-24 23:26 | PDOC PROGRESS REPORT ---
Subjective Progress Note for:: 11/24/18 Subjective:: Patient reported some improvement in her breathing. No chest pain. Refused prescribed Metformin dose at 1000 mg p.o bid. Her HgbA1c was reported elevated at 9.9%. No fever or chills. She remain non-adherent with fluid restrictions so far today. Reason For Visit: ACUTE ON CHRONIC DIASTOLIC CHF Physical Exam Vital Signs: Temp Pulse Resp BP Pulse Ox 98.4 F 74 16 150/84 H 90 L 11/24/18 19:29 11/24/18 19:29 11/24/18 19:29 11/24/18 19:29 11/24/18 19:29 Intake & Output 11/23/18 11/24/18 11/25/18 06:59 06:59 06:59 Intake Total 1930 840 Balance 1930 840 Weight 225.6 kg General appearance: PRESENT: no acute distress, morbidly obese Head exam: PRESENT: atraumatic, normocephalic Eye exam: PRESENT: conjunctiva pink. ABSENT: scleral icterus Ear exam: PRESENT: normal external ear exam Mouth exam: PRESENT: moist Respiratory exam: PRESENT: clear to auscultation trina, decreased breath sounds - at lung bases Cardiovascular exam: PRESENT: RRR. ABSENT: diastolic murmur, rubs, systolic murmur Vascular exam: ABSENT: pallor GI/Abdominal exam: PRESENT: normal bowel sounds, soft. ABSENT: distended, guarding, mass, organolmegaly, rebound, tenderness Rectal exam: PRESENT: deferred Extremities exam: PRESENT: pedal edema - bilateral 2+ Neurological exam: PRESENT: alert, awake, oriented to person, oriented to place, oriented to time, oriented to situation, CN II-XII grossly intact. ABSENT: motor sensory deficit Psychiatric exam: PRESENT: appropriate affect, normal mood. ABSENT: homicidal ideation, suicidal ideation Skin exam: PRESENT: dry, warm Results Laboratory Results: 11/24/18 05:53 11/24/18 05:53 11/24/18 11/24/18 05:53 05:53 WBC 6.3 RBC 4.39 Hgb 10.1 L Hct 33.2 L MCV 76 L MCH 22.9 L MCHC 30.3 L RDW 19.1 H Plt Count 185 Seg Neutrophils % 62.6 Sodium 136.8 L Potassium 5.1 H Chloride 96 L Carbon Dioxide 35 H Anion Gap 6 BUN 24 H Creatinine 0.89 Est GFR ( Amer) > 60 Glucose 178 H Calcium 8.5 Total Bilirubin 0.9 AST 17 Alkaline Phosphatase 82 Total Protein 8.5 H Albumin 3.6 Triglycerides 43 Cholesterol 99.68 LDL Cholesterol Direct 41 VLDL Cholesterol 9.0 L HDL Cholesterol 40 11/23/18 11/23/18 08:43 08:43 Creatine Kinase 65 CK-MB (CK-2) 1.08 Troponin I < 0.012 NT-Pro-B Natriuret Pep 2620 H Assessment & Plan - Diagnosis (1) Acute on chronic diastolic (congestive) heart failure Is this a current diagnosis for this admission?: Yes (2) HTN (hypertension) Qualifiers: Hypertension type: essential hypertension Qualified Code(s): I10 - Essential (primary) hypertension Is this a current diagnosis for this admission?: Yes (3) Diabetes mellitus type 2 in obese Is this a current diagnosis for this admission?: Yes (4) HLD (hyperlipidemia) Qualifiers: Hyperlipidemia type: unspecified Qualified Code(s): E78.5 - Hyperlipidemia, unspecified Is this a current diagnosis for this admission?: Yes (5) BMI 60.0-69.9, adult Is this a current diagnosis for this admission?: Yes - Time Time Spent with patient: 25-34 minutes Medications reviewed and adjusted accordingly: Yes Anticipated discharge: Home with Homehealth Within: Other - Inpatient Certification Based on my medical assessment, after consideration of the patient's comorbidities, presenting symptoms, or acuity I expect that the services needed warrant INPATIENT care.: Yes I certify that my determination is in accordance with my understanding of Medicare's requirements for reasonable and necessary INPATIENT services [42 CFR 412.3e].: Yes Medical Necessity: Significant Comorbidiites Make Outpatient Treatment Too Risky, Need Close Monitoring Due to Risk of Patient Decompensation, Need For Continuous Telemetry Monitoring, Risk of Complication if Not Cared For in Hospital, Risk of Diagnosis Which Will Require Inpatient Eval/Care/Monitoring Post Hospital Care: D/C Professor Of Communication Arts Documentation - Plan Summary Plan Summary: Emphasized need for medication and fluid restriction compliance with patient during my bedside visit today. Continue current medication management. Obtain CBC with diff and BMP in am.
[2018-11-25] MEDS: PANTOPRAZOLE SODIUM 40 MG TABLET.DR PO SCH (06:31)
[2018-11-25] MEDS: FUROSEMIDE INJ/PF 40 MG/4 ML SDV IV SCH ×2 (06:33→17:18)
[2018-11-25 07:47] LABS: ABSOLUTE EOSINOPHILS # (AUTO) 0.1 10^3/uL (0.0-0.6); ABSOLUTE LYMPHOCYTES (AUTO) 1.1 10^3/uL (0.5-4.7); ABSOLUTE MONOCYTES (AUTO) 0.8 10^3/uL (0.1-1.4); ABSOLUTE NEUT (AUTO) 4.5 10^3/uL (1.7-8.2); BASOPHILS % (AUTO) 0.6 % (0-2); HEMATOCRIT 31.7 % (36.0-47.0); HEMOGLOBIN 9.8 g/dL (12.0-15.5); LYMPHOCYTES % (AUTO) 17.4 % (13-45); MEAN CORPUSCULAR HGB CONC 30.8 g/dL (32.0-36.0); MEAN CORPUSCULAR VOLUME 75 fl (80-97); MONOCYTES % (AUTO) 11.7 % (3-13); PLATELET COUNT 187 10^3/uL (150-450); RED BLOOD COUNT 4.25 10^6/uL (3.72-5.28); RED CELL DISTRIBUTION WIDTH 18.7 % (11.5-14.0); SEGMENTED NEUTROPHILS % (AUTO) 68.3 % (42-78); TOTAL CELLS COUNTED % (AUTO) 100 %; WHITE BLOOD COUNT 6.5 10^3/uL (4.0-10.5)
[2018-11-25 08:09] LABS: ANION GAP 6 (5-19); BLOOD UREA NITROGEN 30 mg/dL (7-20); CALCIUM 8.2 mg/dL (8.4-10.2); CARBON DIOXIDE 34 mmol/L (22-30); CHLORIDE 95 mmol/L (98-107); GLUCOSE 106 mg/dL (75-110); POTASSIUM 5.4 mmol/L (3.6-5.0)
[2018-11-25] MEDS: INSULIN LISPRO 100 UNIT/ML 3 ML VIAL SUBCUT SCH ×4 (09:19→22:23)
[2018-11-25] MEDS: VALSARTAN 160 MG TABLET PO SCH (09:43)
[2018-11-25] MEDS: NEBIVOLOL HCL 10 MG TABLET PO SCH (09:44)
[2018-11-25] MEDS: METFORMIN HCL 500 MG TABLET PO SCH ×2 (09:44→17:18)
[2018-11-25] MEDS: AMLODIPINE BESYLATE 10 MG TABLET PO SCH (09:44)
[2018-11-25] MEDS: ENOXAPARIN SODIUM INJ 40 MG/0.4 ML DISP.SYRIN SUBCUT SCH (09:44)
[2018-11-25] MEDS: FERROUS SULFATE 325 MG TABLET PO SCH (09:44)
[2018-11-25] MEDS: GLIPIZIDE 5 MG TABLET PO SCH (09:49)
[2018-11-25] MEDS: COLLAGENASE CLOSTRIDIUM HIST. OINT 30 GM TOP SCH ×2 (09:53→17:18)
--- NOTE | 2018-11-25 16:19 | PDOC PROGRESS REPORT ---
Subjective Progress Note for:: 11/25/18 Subjective:: Patient denied chest pain or difficulty with breathing. No fever or chills. No nausea, vomiting, or abdominal pain. Urine output reported as excellent. Reason For Visit: ACUTE ON CHRONIC DIASTOLIC CHF Physical Exam Vital Signs: Temp Pulse Resp BP Pulse Ox 98.3 F 71 21 H 145/79 H 97 11/25/18 11:54 11/25/18 14:00 11/25/18 11:54 11/25/18 11:54 11/25/18 11:54 Intake & Output 11/24/18 11/25/18 11/26/18 06:59 06:59 06:59 Intake Total 1930 1040 120 Balance 1930 1040 120 Weight 225.6 kg 224.9 kg Physical Exam: General appearance: PRESENT: no acute distress, morbidly obese Head exam: PRESENT: atraumatic, normocephalic Eye exam: PRESENT: conjunctiva pink. ABSENT: pallor, scleral icterus Ear exam: PRESENT: normal external ear exam Mouth exam: PRESENT: moist Respiratory exam: PRESENT: clear to auscultation trina, decreased breath sounds - at lung bases Cardiovascular exam: PRESENT: RRR. ABSENT: diastolic murmur, rubs, systolic murmur GI/Abdominal exam: PRESENT: normal bowel sounds, soft. ABSENT: distended, guarding, mass, organomegaly, rebound, tenderness Extremities exam: PRESENT: pedal edema - bilateral 2+ Neurological exam: PRESENT: alert, awake, oriented to person, oriented to place, oriented to time, oriented to situation, CN II-XII grossly intact. ABSENT: motor sensory deficit Psychiatric exam: PRESENT: appropriate affect, normal mood. ABSENT: homicidal ideation, suicidal ideation Skin exam: PRESENT: dry, warm Results Laboratory Results: 11/25/18 06:50 11/25/18 06:50 11/25/18 11/25/18 06:50 06:50 WBC 6.5 RBC 4.25 Hgb 9.8 L Hct 31.7 L MCV 75 L MCH 23.0 L MCHC 30.8 L RDW 18.7 H Plt Count 187 Seg Neutrophils % 68.3 Sodium 135.4 L Potassium 5.4 H Chloride 95 L Carbon Dioxide 34 H Anion Gap 6 BUN 30 H Creatinine 1.13 Est GFR ( Amer) > 60 Glucose 106 Calcium 8.2 L 11/23/18 11/23/18 08:43 08:43 Creatine Kinase 65 CK-MB (CK-2) 1.08 Troponin I < 0.012 NT-Pro-B Natriuret Pep 2620 H Assessment & Plan - Diagnosis (1) Acute on chronic diastolic (congestive) heart failure Is this a current diagnosis for this admission?: Yes (2) HTN (hypertension) Qualifiers: Hypertension type: essential hypertension Qualified Code(s): I10 - Essential (primary) hypertension Is this a current diagnosis for this admission?: Yes (3) Diabetes mellitus type 2 in obese Is this a current diagnosis for this admission?: Yes (4) HLD (hyperlipidemia) Qualifiers: Hyperlipidemia type: unspecified Qualified Code(s): E78.5 - Hyperlipidemia, unspecified Is this a current diagnosis for this admission?: Yes (5) BMI 60.0-69.9, adult Is this a current diagnosis for this admission?: Yes - Time Time Spent with patient: 25-34 minutes Medications reviewed and adjusted accordingly: Yes Anticipated discharge: Home with Homehealth Within: Other - Inpatient Certification Based on my medical assessment, after consideration of the patient's comorbiditi es, presenting symptoms, or acuity I expect that the services needed warrant INPATIENT care.: Yes I certify that my determination is in accordance with my understanding of [facility]'s requirements for reasonable and necessary INPATIENT services [42 CFR 412.3e].: Yes Medical Necessity: Significant Comorbidiites Make Outpatient Treatment Too Risky, Need Close Monitoring Due to Risk of Patient Decompensation, Need For Continuous Telemetry Monitoring, Risk of Complication if Not Cared For in Hospital, Risk of Diagnosis Which Will Require Inpatient Eval/Care/Monitoring Post Hospital Care: D/C Cross Roller Documentation - Plan Summary Plan Summary: Continue current medication management. Maintain on strict fluid restrictions and urine output measurement. Encourage ambulation on the floor.
[2018-11-26] MEDS: FUROSEMIDE INJ/PF 40 MG/4 ML SDV IV SCH ×2 (06:04→17:11)
[2018-11-26] MEDS: PANTOPRAZOLE SODIUM 40 MG TABLET.DR PO SCH (06:04)
[2018-11-26] MEDS: INSULIN LISPRO 100 UNIT/ML 3 ML VIAL SUBCUT SCH ×4 (07:43→21:42)
[2018-11-26] MEDS: METFORMIN HCL 500 MG TABLET PO SCH ×2 (09:17→17:11)
[2018-11-26] MEDS: NEBIVOLOL HCL 10 MG TABLET PO SCH (09:17)
[2018-11-26] MEDS: AMLODIPINE BESYLATE 10 MG TABLET PO SCH (09:18)
[2018-11-26] MEDS: GLIPIZIDE 5 MG TABLET PO SCH (09:18)
[2018-11-26] MEDS: VALSARTAN 160 MG TABLET PO SCH (09:18)
[2018-11-26] MEDS: FERROUS SULFATE 325 MG TABLET PO SCH (09:18)
[2018-11-26] MEDS: ENOXAPARIN SODIUM INJ 40 MG/0.4 ML DISP.SYRIN SUBCUT SCH (09:23)
[2018-11-26] MEDS: COLLAGENASE CLOSTRIDIUM HIST. OINT 30 GM TOP SCH ×2 (09:24→17:14)
--- NOTE | 2018-11-26 18:23 | PDOC PROGRESS REPORT ---
Subjective Progress Note for:: 11/26/18 Subjective:: Patient seen by the bedside admitted for acute diastolic heart failure Reason For Visit: ACUTE ON CHRONIC DIASTOLIC CHF Physical Exam Vital Signs: Temp Pulse Resp BP Pulse Ox 98.0 F 68 17 134/77 H 94 11/26/18 16:34 11/26/18 16:34 11/26/18 16:34 11/26/18 16:34 11/26/18 16:34 Intake & Output 11/25/18 11/26/18 11/27/18 06:59 06:59 06:59 Intake Total 1040 1020 Balance 1040 1020 Weight 224.9 kg 225.1 kg General appearance: PRESENT: no acute distress Eye exam: PRESENT: PERRLA Respiratory exam: PRESENT: clear to auscultation trina Cardiovascular exam: PRESENT: +S1, +S2 GI/Abdominal exam: PRESENT: soft Neurological exam: PRESENT: alert Results Laboratory Results: 11/25/18 06:50 11/25/18 06:50 11/23/18 11/23/18 08:43 08:43 Creatine Kinase 65 CK-MB (CK-2) 1.08 Troponin I < 0.012 NT-Pro-B Natriuret Pep 2620 H Assessment & Plan - Diagnosis (1) Acute on chronic diastolic (congestive) heart failure Is this a current diagnosis for this admission?: Yes Plan: Continue treatment (2) HTN (hypertension) Qualifiers: Hypertension type: essential hypertension Qualified Code(s): I10 - Essential (primary) hypertension Is this a current diagnosis for this admission?: Yes (3) Morbid obesity Is this a current diagnosis for this admission?: Yes
[2018-11-27] MEDS: PANTOPRAZOLE SODIUM 40 MG TABLET.DR PO SCH (06:15)
[2018-11-27] MEDS: FUROSEMIDE INJ/PF 40 MG/4 ML SDV IV SCH (06:15)
[2018-11-27] MEDS: INSULIN LISPRO 100 UNIT/ML 3 ML VIAL SUBCUT SCH ×4 (08:35→22:17)
[2018-11-27] MEDS: GLIPIZIDE 5 MG TABLET PO SCH (09:06)
[2018-11-27] MEDS: VALSARTAN 160 MG TABLET PO SCH (09:06)
[2018-11-27] MEDS: METFORMIN HCL 500 MG TABLET PO SCH ×2 (09:07→18:04)
[2018-11-27] MEDS: AMLODIPINE BESYLATE 10 MG TABLET PO SCH (09:07)
[2018-11-27] MEDS: FERROUS SULFATE 325 MG TABLET PO SCH (09:07)
[2018-11-27] MEDS: NEBIVOLOL HCL 10 MG TABLET PO SCH (09:07)
[2018-11-27] MEDS: ENOXAPARIN SODIUM INJ 40 MG/0.4 ML DISP.SYRIN SUBCUT SCH (09:07)
[2018-11-27] MEDS: COLLAGENASE CLOSTRIDIUM HIST. OINT 30 GM TOP SCH ×2 (09:08→18:05)
--- NOTE | 2018-11-27 17:46 | PDOC PROGRESS REPORT ---
Subjective Progress Note for:: 11/27/18 Subjective:: Patient seen by the bedside, she is extremely obese, body mass index 71 she is frustrated because she is not mobilizing fluid from the lower extremities, she is presently on intravenous furosemide she wants the medication transitioned to p.o. because she said the p.o. furosemide is more effective she loses more fluids. I had a long discussion with her today I explained to her that she would need to get bariatric surgery she would not be able to mobilize enough fluid from the lower extremities as long as she is this obese, she does not seem to have any interest in weight loss surgical technique Reason For Visit: ACUTE ON CHRONIC DIASTOLIC CHF Physical Exam Vital Signs: Temp Pulse Resp BP Pulse Ox 97.7 F 69 18 153/78 H 89 L 11/26/18 23:22 11/27/18 07:00 11/26/18 23:22 11/26/18 23:22 11/26/18 23:22 Intake & Output 11/26/18 11/27/18 11/28/18 06:59 06:59 06:59 Intake Total 1020 300 Balance 1020 300 Weight 225.1 kg 214.1 kg General appearance: PRESENT: no acute distress Eye exam: PRESENT: PERRLA Respiratory exam: PRESENT: clear to auscultation trina Cardiovascular exam: PRESENT: +S1, +S2 GI/Abdominal exam: PRESENT: soft Neurological exam: PRESENT: alert Results Laboratory Results: 11/25/18 06:50 11/25/18 06:50 11/23/18 11/23/18 08:43 08:43 Creatine Kinase 65 CK-MB (CK-2) 1.08 Troponin I < 0.012 NT-Pro-B Natriuret Pep 2620 H Assessment & Plan - Diagnosis (1) Acute on chronic diastolic (congestive) heart failure Is this a current diagnosis for this admission?: Yes Plan: Change to p.o. furosemide (2) HTN (hypertension) Qualifiers: Hypertension type: essential hypertension Qualified Code(s): I10 - Essential (primary) hypertension Is this a current diagnosis for this admission?: Yes (3) Morbid obesity Is this a current diagnosis for this admission?: Yes
[2018-11-27] MEDS: FUROSEMIDE 40 MG TABLET PO SCH (22:17)
[2018-11-28] MEDS: PANTOPRAZOLE SODIUM 40 MG TABLET.DR PO SCH (06:15)
[2018-11-28] MEDS: INSULIN LISPRO 100 UNIT/ML 3 ML VIAL SUBCUT SCH ×4 (08:10→21:38)
[2018-11-28] MEDS: FERROUS SULFATE 325 MG TABLET PO SCH (10:31)
[2018-11-28] MEDS: METFORMIN HCL 500 MG TABLET PO SCH ×2 (10:31→17:39)
[2018-11-28] MEDS: AMLODIPINE BESYLATE 10 MG TABLET PO SCH (10:31)
[2018-11-28] MEDS: NEBIVOLOL HCL 10 MG TABLET PO SCH (10:31)
[2018-11-28] MEDS: FUROSEMIDE 40 MG TABLET PO SCH ×2 (10:32→21:41)
[2018-11-28] MEDS: VALSARTAN 160 MG TABLET PO SCH (10:32)
[2018-11-28] MEDS: ENOXAPARIN SODIUM INJ 40 MG/0.4 ML DISP.SYRIN SUBCUT SCH (10:33)
[2018-11-28] MEDS: GLIPIZIDE 5 MG TABLET PO SCH (10:33)
[2018-11-28] MEDS: COLLAGENASE CLOSTRIDIUM HIST. OINT 30 GM TOP SCH ×2 (10:34→17:41)
[2018-11-28 18:06] LABS: ABSOLUTE BASOPHILS # (AUTO) 0.1 10^3/uL (0.0-0.2); ABSOLUTE EOSINOPHILS # (AUTO) 0.3 10^3/uL (0.0-0.6); ABSOLUTE LYMPHOCYTES (AUTO) 1.9 10^3/uL (0.5-4.7); ABSOLUTE MONOCYTES (AUTO) 0.7 10^3/uL (0.1-1.4); ABSOLUTE NEUT (AUTO) 3.5 10^3/uL (1.7-8.2); BASOPHILS % (AUTO) 1.3 % (0-2); EOSINOPHILS % (AUTO) 5.2 % (0-6); HEMATOCRIT 34.3 % (36.0-47.0); HEMOGLOBIN 10.7 g/dL (12.0-15.5); LYMPHOCYTES % (AUTO) 29.3 % (13-45); MEAN CORPUSCULAR VOLUME 74 fl (80-97); MONOCYTES % (AUTO) 10.4 % (3-13); PLATELET COUNT 209 10^3/uL (150-450); RED BLOOD COUNT 4.63 10^6/uL (3.72-5.28); RED CELL DISTRIBUTION WIDTH 19.5 % (11.5-14.0); SEGMENTED NEUTROPHILS % (AUTO) 53.8 % (42-78); TOTAL CELLS COUNTED % (AUTO) 100 %; WHITE BLOOD COUNT 6.5 10^3/uL (4.0-10.5)
[2018-11-28 18:28] LABS: ANION GAP 6 (5-19); BLOOD UREA NITROGEN 22 mg/dL (7-20); CALCIUM 8.9 mg/dL (8.4-10.2); CARBON DIOXIDE 37 mmol/L (22-30); CHLORIDE 95 mmol/L (98-107); GLUCOSE 85 mg/dL (75-110); POTASSIUM 4.5 mmol/L (3.6-5.0)
--- NOTE | 2018-11-28 18:39 | PDOC PROGRESS REPORT ---
Subjective Progress Note for:: 11/28/18 Subjective:: Patient denied chest pain or difficulty with breathing. No fever or chills. No nausea, vomiting, or abdominal pain. Reason For Visit: ACUTE ON CHRONIC DIASTOLIC CHF Physical Exam Vital Signs: Temp Pulse Resp BP Pulse Ox 98.6 F 71 20 129/60 H 92 11/28/18 16:30 11/28/18 16:30 11/28/18 16:30 11/28/18 16:30 11/28/18 16:30 Intake & Output 11/27/18 11/28/18 11/29/18 06:59 06:59 06:59 Intake Total 900 120 Balance 900 120 Weight 214.1 kg 217.3 kg Physical Exam: General appearance: PRESENT: no acute distress, morbidly obese Head exam: PRESENT: atraumatic, normocephalic Eye exam: PRESENT: conjunctiva pink. ABSENT: pallor, scleral icterus Ear exam: PRESENT: normal external ear exam Mouth exam: PRESENT: moist Respiratory exam: PRESENT: clear to auscultation trina, decreased breath sounds - at lung bases Cardiovascular exam: PRESENT: RRR. ABSENT: diastolic murmur, rubs, systolic murmur GI/Abdominal exam: PRESENT: normal bowel sounds, soft. ABSENT: distended, guarding, mass, organomegaly, rebound, tenderness Extremities exam: PRESENT: improving pedal edema - bilateral 2+ Neurological exam: PRESENT: alert, awake, oriented to person, oriented to place, oriented to time, oriented to situation, CN II-XII grossly intact. ABSENT: motor sensory deficit Psychiatric exam: PRESENT: appropriate affect, normal mood. ABSENT: homicidal ideation, suicidal ideation Skin exam: PRESENT: dry, warm Results Laboratory Results: 11/28/18 17:36 11/28/18 17:36 11/28/18 11/28/18 17:36 17:36 WBC 6.5 RBC 4.63 Hgb 10.7 L Hct 34.3 L MCV 74 L MCH 23.0 L MCHC 31.0 L RDW 19.5 H Plt Count 209 Seg Neutrophils % 53.8 Sodium 137.7 Potassium 4.5 Chloride 95 L Carbon Dioxide 37 H Anion Gap 6 BUN 22 H Creatinine 1.07 Est GFR ( Amer) > 60 Glucose 85 Calcium 8.9 11/23/18 11/23/18 08:43 08:43 Creatine Kinase 65 CK-MB (CK-2) 1.08 Troponin I < 0.012 NT-Pro-B Natriuret Pep 2620 H Assessment & Plan - Diagnosis (1) Acute on chronic diastolic (congestive) heart failure Is this a current diagnosis for this admission?: Yes (2) HTN (hypertension) Qualifiers: Hypertension type: essential hypertension Qualified Code(s): I10 - Essential (primary) hypertension Is this a current diagnosis for this admission?: Yes (3) Diabetes mellitus type 2 in obese Is this a current diagnosis for this admission?: Yes (4) HLD (hyperlipidemia) Qualifiers: Hyperlipidemia type: unspecified Qualified Code(s): E78.5 - Hyperlipidemia, unspecified Is this a current diagnosis for this admission?: Yes (5) BMI 60.0-69.9, adult Is this a current diagnosis for this admission?: Yes - Time Time Spent with patient: 25-34 minutes Medications reviewed and adjusted accordingly: Yes Anticipated discharge: Home with Homehealth Within: Other - Inpatient Certification Based on my medical assessment, after consideration of the patient's comorbidities, presenting symptoms, or acuity I expect that the services needed warrant INPATIENT care.: Yes I certify that my determination is in accordance with my understanding of Medicare's requirements for reasonable and necessary INPATIENT services [42 CFR 412.3e].: Yes Medical Necessity: Significant Comorbidiites Make Outpatient Treatment Too Risky, Need Close Monitoring Due to Risk of Patient Decompensation, Need For Continuous Telemetry Monitoring, Risk of Complication if Not Cared For in Hospital, Risk of Diagnosis Which Will Require Inpatient Eval/Care/Monitoring Post Hospital Care: D/C Biofuels Research Scientist Documentation - Plan Summary Plan Summary: Obtain CBC with diff, BMP. Continue on current medication management.
[2018-11-29] MEDS: PANTOPRAZOLE SODIUM 40 MG TABLET.DR PO SCH (05:59)
[2018-11-29] MEDS: INSULIN LISPRO 100 UNIT/ML 3 ML VIAL SUBCUT SCH (08:29)
[2018-11-29 08:36] VITALS: BP 154/80
--- NOTE | 2018-11-29 09:00 | PDOC DISCHARGE SUMMARY ---
General - Admit/Disc Date/PCP Admission Date/Primary Care Provider: 11/23/18 15:46 DUY CARLTON Discharge Date: 11/29/18 - Discharge Diagnosis (1) Acute on chronic diastolic (congestive) heart failure Is this a current diagnosis for this admission?: Yes (2) HTN (hypertension) Is this a current diagnosis for this admission?: Yes (3) Diabetes mellitus type 2 in obese Is this a current diagnosis for this admission?: Yes (4) HLD (hyperlipidemia) Is this a current diagnosis for this admission?: Yes (5) BMI 60.0-69.9, adult Is this a current diagnosis for this admission?: Yes - Additional Information Resuscitation Status: Full Code Discharge Diet: Cardiac, Diabetic Discharge Activity: Activity As Tolerated, Balance Activity w/Rest, Weigh Daily Prescriptions: Furosemide [Lasix 40 mg Tablet] 40 mg PO Q12 #60 tablet Home Medications: Amlodipine Besylate [Norvasc 10 mg Tablet] 10 mg PO DAILY 11/23/18 Collagenase Clostridium Hist. [Santyl Ointment 30 gm] 1 applic TOP BID 11/23/18 Ferrous Sulfate [Feosol 325 mg Tablet] 325 mg PO DAILY 11/23/18 Glipizide [Glucotrol 5 mg Tablet] 5 mg PO DAILY 11/23/18 Metformin HCl [Glucophage] 1,000 mg PO BID 11/23/18 Nebivolol HCl [Bystolic 10 mg Tablet] 10 mg PO DAILY 11/23/18 Valsartan [Diovan] 320 mg PO DAILY 11/23/18 Furosemide [Lasix 40 mg Tablet] 40 mg PO Q12 #60 tablet 11/29/18 History of Present Illness Patient complains of: Worsening leg swelling and shortness of breath History of Present Illness: LAURENT MOORE is a 43 year old female patient known to my practice, noncompliant with follow up care, who presented to the ED earlier today with complain of worsening leg swelling, shortness of breath, wheezing and nonproductive coughing. Patient admitted to not taking her prescribed oral Lasix due to her perception of not working effectively. She admitted to consuming ice chips all day. She reported worsening bilateral lower extremities swelling. Her initial evaluation in the ED was remarkable dyspnea, lower extremities swelling, and elevated NT-Pro BNP level. Her morbidities include Type 2 Diabetes Mellitus, Hypertension, Hyperlipidemia, GERD, Depression and osteoarthritis as well as morbid obesity. She was advised hospitalization for further evaluation and management. Hospital Course Hospital Course: Patient was admitted as case of acute on chronic diastolic congestive heart failure. She responded well to diuretic therapy along with other anti failure medication and fluid restriction management with weight difference of about 10 lbs at the time of her discharge. Her Furosemide will be maintained at 40 mg p.o bid until her office follow up visit and re-evaluation of her hydration status. I emphasized medication, dietary, and fluid restrictions compliance with patient at bedside visit during her discharge process today. She will follow up in the office as instructed upon discharge. Physical Exam Vital Signs: Temp Pulse Resp BP Pulse Ox 97.6 F 76 17 162/89 H 90 L 11/28/18 23:39 11/29/18 02:00 11/28/18 23:39 11/28/18 23:39 11/28/18 23:39 Intake & Output 11/28/18 11/29/18 11/30/18 06:59 06:59 06:59 Intake Total 900 900 Balance 900 900 Weight 217.3 kg 215.4 kg Physical Exam: General appearance: PRESENT: no acute distress, morbidly obese Head exam: PRESENT: atraumatic, normocephalic Eye exam: PRESENT: conjunctiva pink. ABSENT: pallor, scleral icterus Ear exam: PRESENT: normal external ear exam Mouth exam: PRESENT: moist Respiratory exam: PRESENT: clear to auscultation trina, decreased breath sounds - at lung bases Cardiovascular exam: PRESENT: RRR. ABSENT: diastolic murmur, rubs, systolic murmur GI/Abdominal exam: PRESENT: normal bowel sounds, soft. ABSENT: distended, guarding, mass, organomegaly, rebound, tenderness Extremities exam: PRESENT: improving pedal edema - bilateral 2+ Neurological exam: PRESENT: alert, awake, oriented to person, oriented to place, oriented to time, oriented to situation, CN II-XII grossly intact. ABSENT: motor sensory deficit Psychiatric exam: PRESENT: appropriate affect, normal mood. ABSENT: homicidal ideation, suicidal ideation Skin exam: PRESENT: dry, warm Results Laboratory Results: 11/28/18 17:36 11/28/18 17:36 11/28/18 11/28/18 17:36 17:36 WBC 6.5 RBC 4.63 Hgb 10.7 L Hct 34.3 L MCV 74 L MCH 23.0 L MCHC 31.0 L RDW 19.5 H Plt Count 209 Seg Neutrophils % 53.8 Sodium 137.7 Potassium 4.5 Chloride 95 L Carbon Dioxide 37 H Anion Gap 6 BUN 22 H Creatinine 1.07 Est GFR ( Amer) > 60 Glucose 85 Calcium 8.9 11/23/18 11/23/18 08:43 08:43 Creatine Kinase 65 CK-MB (CK-2) 1.08 Troponin I < 0.012 NT-Pro-B Natriuret Pep 2620 H Qualifiers - * PATIENT BEING DISCHARGED WITH ANY OF THE FOLLOWING DIAGNOSIS: No Acute Heart Failure - Is this a Heart Failure Patient?: Yes Documentation of LVEF assessment?: Planned for after discharge LVEF < 40%?: No- if no continue to question #3 3. Anticoagulant therapy for permanect/persistent/paraoxysmal Afib or Aflutter: N/A Follow-up Appointment scheduled within 7 days?: Yes Plan Discharge Plan: D/C home today with office follow up visit as instructed upon discharge.
[2018-11-29] MEDS: NEBIVOLOL HCL 10 MG TABLET PO SCH (09:51)
[2018-11-29] MEDS: ENOXAPARIN SODIUM INJ 40 MG/0.4 ML DISP.SYRIN SUBCUT SCH (09:51)
[2018-11-29] MEDS: VALSARTAN 160 MG TABLET PO SCH (09:51)
[2018-11-29] MEDS: METFORMIN HCL 500 MG TABLET PO SCH (09:52)
[2018-11-29] MEDS: FERROUS SULFATE 325 MG TABLET PO SCH (09:52)
[2018-11-29] MEDS: FUROSEMIDE 40 MG TABLET PO SCH (09:52)
[2018-11-29] MEDS: AMLODIPINE BESYLATE 10 MG TABLET PO SCH (09:52)
[2018-11-29] MEDS: GLIPIZIDE 5 MG TABLET PO SCH (09:55)
[2018-11-29] MEDS: COLLAGENASE CLOSTRIDIUM HIST. OINT 30 GM TOP SCH (09:58)
== END 2018-11-29 10:17 | disposition home or self-care (01) | DRG 292 ==
LOC: ER 08:11 → EH 15:46 → 5 19:12
PROVIDERS: ADMIT Internal Medicine Geriatric Medicine; ATTEND Internal Medicine Geriatric Medicine
DX: I11.0 Hypertensive heart disease with heart failure (principal); Z68.45 Body mass index [BMI] 70 or greater, adult; I50.43 Acute on chronic combined systolic (congestive) and diastolic (congestive) heart failure; E78.5 Hyperlipidemia, unspecified; K21.9 Gastro-esophageal reflux disease without esophagitis; F32.9 Major depressive disorder, single episode, unspecified; E11.9 Type 2 diabetes mellitus without complications; M19.90 Unspecified osteoarthritis, unspecified site; E66.01 Morbid (severe) obesity due to excess calories; Z79.84 Long term (current) use of oral hypoglycemic drugs; Z91.19 Patient's noncompliance with other medical treatment and regimen; Z82.3 Family history of stroke; Z83.3 Family history of diabetes mellitus; Z82.49 Family history of ischemic heart disease and other diseases of the circulatory system; Z71.3 Dietary counseling and surveillance
CPT/HCPCS: 36415; 71045; 80048; 80053; 80061; 81001; 82550; 82553; 82962; 83036; 83880; 84484; 85025; 93005; 93010; 96374; 99285; J1650; J1815; J1940; J3490

== ENCOUNTER 2019-03-23 08:05 | Inpatient (IN) | payer MEDICARE, MEDICAID ==
--- NOTE | 2019-03-23 09:08 | RADIOLOGY REPORT (SQ) ---
EXAM DESCRIPTION: CHEST SINGLE VIEW COMPLETED DATE/TIME: 03/23/2019 8:47 am REASON FOR STUDY: SOB COMPARISON: 11/23/2018 NUMBER OF VIEWS: One view. TECHNIQUE: Single frontal radiographic view of the chest acquired. LIMITATIONS: Body habitus. Low lung volumes. FINDINGS: LUNGS AND PLEURA: No opacities, masses or pneumothorax. No pleural effusion. MEDIASTINUM AND HILAR STRUCTURES: No masses or contour abnormality. HEART AND VASCULATURE: Cardiac enlargement. Vascular congestion. BONES: No acute findings. HARDWARE: None in the chest. OTHER: No other significant finding. IMPRESSION: CARDIAC ENLARGEMENT. VASCULAR CONGESTION. TECHNICAL DOCUMENTATION: JOB ID: [id number] [employer]- All Rights Reserved Reading location - IP/workstation name: [email or web address]
--- NOTE | 2019-03-23 09:31 | EKG REPORT ---
SEVERITY:- BORDERLINE ECG - SINUS RHYTHM RIGHT AXIS DEVIATION BORDERLINE R WAVE PROGRESSION, ANTERIOR LEADS : Confirmed by: Yaw Sheppard 23-Mar-2019 09:30:27
[2019-03-23 09:49] LABS: ABSOLUTE BASOPHILS # (AUTO) 0.1 10^3/uL (0.0-0.2); ABSOLUTE EOSINOPHILS # (AUTO) 0.2 10^3/uL (0.0-0.6); ABSOLUTE LYMPHOCYTES (AUTO) 1.2 10^3/uL (0.5-4.7); ABSOLUTE MONOCYTES (AUTO) 0.7 10^3/uL (0.1-1.4); ABSOLUTE NEUT (AUTO) 5.5 10^3/uL (1.7-8.2); BASOPHILS % (AUTO) 0.8 % (0-2); EOSINOPHILS % (AUTO) 2.1 % (0-6); HEMATOCRIT 38.7 % (36.0-47.0); LYMPHOCYTES % (AUTO) 15.8 % (13-45); MEAN CORPUSCULAR HEMOGLOBIN 24.4 pg (27.0-33.4); MEAN CORPUSCULAR VOLUME 79 fl (80-97); MONOCYTES % (AUTO) 9.3 % (3-13); PLATELET COUNT 218 10^3/uL (150-450); RED BLOOD COUNT 4.92 10^6/uL (3.72-5.28); RED CELL DISTRIBUTION WIDTH 20.5 % (11.5-14.0); TOTAL CELLS COUNTED % (AUTO) 100 %; WHITE BLOOD COUNT 7.6 10^3/uL (4.0-10.5)
--- NOTE | 2019-03-23 09:51 | ER Document Report ---
ED Respiratory Problem - General TRAVEL OUTSIDE OF THE [place] IN LAST 30 DAYS: No <ERICKA FERRIS Rivas - Last Filed: 03/23/19 12:12> <DEVON CRUZ - Last Filed: 03/23/19 16:08> - General Chief Complaint: Shortness Of Breath Stated Complaint: DIFFICULTY BREATHING Time Seen by Provider: 03/23/19 09:50 Notes: CHIEF COMPLAINT: Respiratory distress HPI: 43-year-old female who is morbidly obese with history of CHF presenting to the emergency department in respiratory distress. Patient states that she was supposed to have a cardiac Doppler today ordered by her PCP because of continued significant edema in the extremities and shortness of breath. Patient felt like her breathing became more difficult this morning so came to the emergency department. No chest pain. No fever. ROS: See HPI - all other systems were reviewed and are otherwise negative Constitutional: no fever Eyes: no drainage, no blurred vision ENT: no runny nose, no sore throat Cardiovascular: no chest pain Resp: + SOB, no cough GI: no vomiting, no diarrhea, no abdominal pain : no dysuria Integumentary: no rash Allergy: no hives Musculoskeletal: + extremity swelling Neurological: no numbness/tingling MEDICATIONS: I agree with the patient medications as charted by the RN. ALLERGIES: I agree with the allergies as charted by the RN. PAST MEDICAL HISTORY/PAST SURGICAL HISTORY: Reviewed and agree as charted by RN. SOCIAL HISTORY: Reviewed and agree as charted by RN. FAMILY HISTORY: No significant familial comorbid conditions directly related to patient complaint EXAM: Reviewed vital signs as charted by RN. CONSTITUTIONAL: Alert and oriented and responds appropriately to questions. Well -appearing; well-nourished, moderate distress secondary to respiratory distress. Patient very tired. HEAD: Normocephalic; atraumatic EYES: PERRL; Conjunctivae clear, sclerae non-icteric ENT: normal nose; no rhinorrhea; moist mucous membranes; pharynx without lesions noted NECK: Supple without meningismus; non-tender; no cervical lymphadenopathy, no masses CARD: RRR; no murmurs, no clicks, no rubs, no gallops RESP: Patient in moderate respiratory distress. Decreased breath sounds in all lung [place]ano. Limited air movement. Patient with O2 saturation in the mid 70s as she is falling asleep likely from hypoxia. On oxygen nasal cannula 4 L pulse oximetry increased to 91%. ABD/GI: Morbidly obese, normal bowel sounds; non-distended; soft, non-tender, no rebound, no guarding; no palpable organomegaly or masses. BACK: The back appears normal and is non-tender to palpation, there is no CVA tenderness EXT: Normal ROM in all joints; non-tender to palpation; no cyanosis, anasarca noted, 3+ pitting edema bilateral lower extremities to mid thigh SKIN: Normal color for age and race; warm; dry; good turgor; no acute lesions noted NEURO: Moves all extremities equally; Motor and sensory function intact PSYCH: The patient's mood and manner are drowsy. Grooming and personal hygiene are appropriate. MDM: 43-year-old female with CHF history likely in pulmonary edema or acute CHF. Hypoxic in the room with significant edema to the extremities. Discussed with attending Dr. Cruz who evaluated patient. Patient will be started on nitroglycerin drip to decrease her significant hypertension and also dilate capillary bed. Patient will be placed on BiPAP given the respiratory distress. Intubation was discussed as an option with the patient. Will place Oreilly catheter given the patient's limited mobility of respiratory distress on BiPAP. Patient will be given Lasix 80 mg, she did not take any of her blood pressure medications this morning. Will need admission. Cardiac labs have been added (ERICKA FERRIS) - Related Data Allergies/Adverse Reactions: No Known Allergies Allergy (Verified 11/23/18 08:12) Past Medical History - Social History Smoking Status: Unknown if Ever Smoked Family History: Arthritis, CAD, CVA, DM, Hyperlipidemia, Hypertension, Malignancy, Thyroid Disfunction Patient has suicidal ideation: No Patient has homicidal ideation: No - Past Medical History Cardiac Medical History: Reports: Hx Hypercholesterolemia, Hx Hypertension Denies: Hx Congestive Heart Failure, Hx Heart Attack Pulmonary Medical History: Reports: Hx Asthma, Hx Bronchitis Denies: Hx COPD, Hx Pneumonia, Hx Tuberculosis Neurological Medical History: Denies: Hx Seizures, Hx Parkinson's Disease Endocrine Medical History: Reports: Hx Diabetes Mellitus Type 2 Renal/ Medical History: Denies: Hx End Stage Renal Disease, Hx Kidney Stones, Hx Peritoneal Dialysis GI Medical History: Reports: Hx Gastroesophageal Reflux Disease. Denies: Hx Cirrhosis, Hx Ulcer Musculoskeletal Medical History: Reports Hx Arthritis, Denies Hx Multiple Sclerosis, Reports Hx Musculoskeletal Deformity, Reports Hx Musculoskeletal Trauma Psychiatric Medical History: Reports: Hx Depression Denies: Hx Bipolar Disorder, Hx Schizophrenia Past Surgical History: Reports: Hx Section - X2, Hx Tubal Ligation - Immunizations Immunizations up to date: Yes Hx Diphtheria, Pertussis, Tetanus Vaccination: Yes <ERICKA FERRIS - Last Filed: 03/23/19 12:12> Physical Exam - Vital signs Vitals: Temp Pulse Resp BP Pulse Ox 97.6 F 90 26 H 181/95 H 85 L 03/23/19 08:11 03/23/19 08:11 03/23/19 08:11 03/23/19 08:11 03/23/19 08:11 Course - Laboratory Result Diagrams: 03/23/19 09:33 03/23/19 09:33 <ERICKA FERRIS - Last Filed: 03/23/19 12:12> - Laboratory Result Diagrams: 03/23/19 13:44 03/23/19 09:33 <DEVON CRUZ - Last Filed: 03/23/19 16:08> - Re-evaluation Re-evalutation: 03/23/19 11:[address] Simon, Medicine. Case discussed, labs reviewed. Requests I speak with Dr. Guillermo, Cardiology about patient to determine if they can keep/manage the patient here at [facility]. If so he will admit. 03/23/19 11:[address] Guillermo, Cardiology. We can admit patient here, treat for CHF, start on Lovenox 03/23/19 12:[address] Simon, patient on NTG drip at 160mcg/min. Blood pressure 138 at this time, requests that I speak with operational intelligence officer regarding ICU admission given the nitroglycerin drip level I spoke with Dr. Patino, operational intelligence officer. Case was br iefly discussed, he is coming down to the emergency department will evaluate the patient (ERICKA FERRIS) 03/23/19 16:05 I did personally see and examine this patient in conjunction with nurse practitioner Ericka Ferris. Patient complains of increasing swelling in her le gs, steadily worsening shortness of breath and orthopnea. Complains of significant shortness of breath right now. States she does not feel like her Lasix is working and admits a history of CHF. On examination patient appears quite short of breath, is somewhat sleepy but awakens easily, improves rapidly on nitroglycerin drip and BiPAP. Inspiratory crackles, no wheezes. Is not using any accessory muscles of respiration. Patient is hypoxic until I readjust her nasal cannula and then her oxygen saturation normalizes. With the nasal cannula out of her nose and sitting in her mouth she was at 77%, and her nose she is at 92% on 2 L. Patient was started on BiPAP, started on nitroglycerin drip to aid with diuresis, given Lasix,. Please see nurse practitioner's note for further details. (DEVON CRUZ) - Vital Signs Vital signs: Temp Pulse Resp BP Pulse Ox 98.4 F 90 9 L 120/76 96 03/23/19 10:01 03/23/19 08:11 03/23/19 15:45 03/23/19 15:45 03/23/19 15:45 - Laboratory Laboratory results interpreted by me: 03/23/19 03/23/19 03/23/19 09:33 09:33 09:33 MCV 79 L MCH 24.4 L MCHC 31.0 L RDW 20.5 H Potassium 5.1 H Chloride 95 L Carbon Dioxide 40 H* Anion Gap 4 L BUN 48 H Creatinine 1.52 H Est GFR ( Amer) 45 L Est GFR (MDRD) Non-Af 37 L Glucose 201 H Total Bilirubin 1.6 H NT-Pro-B Natriuret Pep 41571 H Total Protein 9.4 H Urine Protein Urine Urobilinogen 03/23/19 11:03 MCV MCH MCHC RDW Potassium Chloride Carbon Dioxide Anion Gap BUN Creatinine Est GFR ( Amer) Est GFR (MDRD) Non-Af Glucose Total Bilirubin NT-Pro-B Natriuret Pep Total Protein Urine Protein 30 H Urine Urobilinogen 4.0 H - Diagnostic Test Radiology results interpreted by me: 03/23/19 11:08 Chest X-Ray 03/23/19 08:15 IMPRESSION: CARDIAC ENLARGEMENT. VASCULAR CONGESTION. (ERICKA FERRIS) Critical Care Note - Critical Care Note Total time excluding time spent on procedures (mins): 45 <DEVON CRUZ - Last Filed: 03/23/19 16:08> Discharge - Discharge Admitting Provider: Geovany (Manager Distribution) <ERICKA FERRIS - Last Filed: 03/23/19 12:12> <DEVON CRUZ - Last Filed: 03/23/19 16:08> - Discharge Clinical Impression: Acute cardiac pulmonary edema, Acute on chronic diastolic (congestive) heart failure, Acute respiratory failure with hypoxia Condition: Critical Disposition: ADMITTED INPATIENT
[2019-03-23] MEDS ORDERED: FUROSEMIDE INJ/PF 20 MG/2 ML SDV IV ONE (09:58)
[2019-03-23 10:13] LABS: ALBUMIN 3.7 g/dL (3.5-5.0); ALKALINE PHOSPHATASE 87 U/L (38-126); ASPARTATE AMINO TRANSFERASE 31 U/L (14-36); BILIRUBIN,DIRECT 0.4 mg/dL (0.0-0.4); BILIRUBIN,TOTAL 1.6 mg/dL (0.2-1.3); BLOOD UREA NITROGEN 48 mg/dL (7-20); CALCIUM 8.6 mg/dL (8.4-10.2); CHLORIDE 95 mmol/L (98-107); GLUCOSE 201 mg/dL (75-110); POTASSIUM 5.1 mmol/L (3.6-5.0); TOTAL PROTEIN 9.4 g/dL (6.3-8.2)
[2019-03-23] MEDS: NITROGLYCERIN/D5W 50 MG/250 ML RTUINJ IV PRN ×2 (10:25→10:34)
[2019-03-23 10:51] LABS: TROPONIN I 2.02 ng/mL
[2019-03-23] MEDS ORDERED: ASPIRIN 81 MG TABLET, CHEWABLE PO ONE (11:01)
[2019-03-23 11:12] LABS: ANION GAP 4 (5-19)
[2019-03-23 11:13] LABS: CARBON DIOXIDE 40 mmol/L (22-30)
[2019-03-23 11:16] LABS: APPEARANCE,URINE SLIGHTLY-CLOUDY; BILIRUBIN,URINE NEGATIVE (NEGATIVE); GLUCOSE, URINE NEGATIVE (NEGATIVE); KETONES,URINE NEGATIVE (NEGATIVE); LEUKOCYTE ESTERASE,URINE NEGATIVE (NEGATIVE); NITRITE,URINE NEGATIVE (NEGATIVE); PROTEIN,URINE 30 mg/dL (NEGATIVE); URINE SPECIFIC GRAVITY 1.017
[2019-03-23 11:18] LABS: COLOR,URINE DARK YELLOW
[2019-03-23] MEDS ORDERED: HEPARIN SODIUM,PORCINE/D5W 25,000 UNIT/250 ML RTUINJ IV PRN (11:54)
[2019-03-23] MEDS ORDERED: HEPARIN SOD (PORCINE) 1,000 UNIT/ML 10 ML VIAL IV ONE (11:54)
[2019-03-23] MEDS ORDERED: AMLODIPINE BESYLATE 10 MG TABLET PO ONE (12:20)
[2019-03-23] MEDS ORDERED: VALSARTAN 160 MG TABLET PO ONE (12:21)
[2019-03-23] MEDS ORDERED: NEBIVOLOL HCL 10 MG TABLET PO ONE (12:30)
[2019-03-23 14:06] LABS: ABSOLUTE BASOPHILS # (AUTO) 0.1 10^3/uL (0.0-0.2); ABSOLUTE EOSINOPHILS # (AUTO) 0.2 10^3/uL (0.0-0.6); ABSOLUTE LYMPHOCYTES (AUTO) 1.2 10^3/uL (0.5-4.7); ABSOLUTE NEUT (AUTO) 5.4 10^3/uL (1.7-8.2); BASOPHILS % (AUTO) 1.1 % (0-2); EOSINOPHILS % (AUTO) 2.5 % (0-6); HEMATOCRIT 35.6 % (36.0-47.0); LYMPHOCYTES % (AUTO) 15.3 % (13-45); MEAN CORPUSCULAR HEMOGLOBIN 24.5 pg (27.0-33.4); MEAN CORPUSCULAR HGB CONC 30.9 g/dL (32.0-36.0); MEAN CORPUSCULAR VOLUME 79 fl (80-97); MONOCYTES % (AUTO) 12.7 % (3-13); PLATELET COUNT 214 10^3/uL (150-450); RED BLOOD COUNT 4.48 10^6/uL (3.72-5.28); RED CELL DISTRIBUTION WIDTH 19.8 % (11.5-14.0); SEGMENTED NEUTROPHILS % (AUTO) 68.4 % (42-78); TOTAL CELLS COUNTED % (AUTO) 100 %; WHITE BLOOD COUNT 7.9 10^3/uL (4.0-10.5)
[2019-03-23 14:15] LABS: INTERNATIONAL RATION (INR) 1.31; PARTIAL THROMBOPLASTIN TIME 40.3 SEC (23.5-35.8); PROTHROMBIN TIME 16.4 SEC (11.4-15.4)
[2019-03-23 18:16] LABS: ARTERIAL BLOOD H2CO3 2.88 mmol/L (1.05-1.35); ARTERIAL BLOOD HCO3 33.2 mmol/L (20-24); ARTERIAL BLOOD O2 SATURATION 69.4 % (94-98); ARTERIAL BLOOD PO2 47.6 mmHg (80-100); ARTERIAL BLOOD TOTAL CO2 36.2 mmol/L (21-25)
[2019-03-23 18:17] LABS: ARTERIAL BLOOD FIO2 40%; ARTERIAL BLOOD PCO2 95.6 mmHg (35-45); ARTERIAL BLOOD PH 7.16 (7.35-7.45)
[2019-03-23 18:25] LABS: INTERNATIONAL RATION (INR) 1.33; PROTHROMBIN TIME 16.6 SEC (11.4-15.4)
[2019-03-23] MEDS ORDERED: NORMAL SALINE 250 ML with FUROSEMIDE 250 MG IV PRN ×2 (19:00)
--- NOTE | 2019-03-23 19:05 | PDOC CONSULTATION ---
Consultation Consult Date: 03/23/19 Attending physician:: SAULO BREWER Provider Consulted: CURTIS RAWLS Consult reason:: Elevated troponin History of Present Illness Admission Date/PCP: 03/23/19 13:09 SAULO BREWER MD Patient complains of: Unable to obtain history. Admitted with respiratory failure History of Present Illness: LAURENT MOORE is a 43 year old female With the following active problems 1. Morbid obesity 2. Systemic hypertension 3. Diastolic congestive heart failure 4. Diabetes mellitus History is difficult to obtain at this time. Patient is presently on noninvasive ventilation. Patient presented with worsening respiratory status and worsening mental status in the setting of impending respiratory failure. She appeared to be volume overloaded and had significant edema. History is per chart and per notes. At the time of my evaluation patient has been placed on BiPAP and appears to be more comfortable than reported. She had elevated troponins. However at presentation she was profoundly hypoxic. There is no prior mention of coronary artery disease. Past Medical History Cardiac Medical History: Reports: Hyperlipidema, Hypertension, Other - Diastolic heart failure Denies: Congestive Heart Failure, Myocardial Infarction Pulmonary Medical History: Reports: Asthma, Bronchitis Denies: Chronic Obstructive Pulmonary Disease (COPD), Pneumonia, Tuberculosis Neurological Medical History: Denies: Seizures Endocrine Medical History: Reports: Diabetes Mellitus Type 2 Renal/ Medical History: Denies: End Stage Renal Disease GI Medical History: Reports: Gastroesophageal Reflux Disease Denies: Cirrhosis Musculoskeltal Medical History: Reports: Arthritis Psychiatric Medical History: Reports: Depression Denies: Bipolar Disorder Hematology: Reports: Anemia Denies: Bleeding Tendencies Past Surgical History Past Surgical History: Reports: Amputation - right toes, Section - X2, Tubal Ligation Social History Lives with: Spouse/Significant other Smoking Status: Never Smoker Frequency of Alcohol Use: None Hx Recreational Drug Use: No Drugs: None Hx Prescription Drug Abuse: No Family History Family History: CVA, DM Parental Family History Reviewed: No - Unable to obtain due to respiratory status Children Family History Reviewed: No Sibling(s) Family History Reviewed.: No Medication/Allergy Home Medications: Amlodipine Besylate [Norvasc 10 mg Tablet] 10 mg PO DAILY 03/23/19 Bumetanide [Bumex 2 mg Tablet] 2 mg PO DAILY 03/23/19 Furosemide [Lasix 40 mg Tablet] 40 mg PO BID 03/23/19 Glipizide [Glucotrol 5 mg Tablet] 5 mg PO DAILY 03/23/19 Valsartan [Diovan] 320 mg PO DAILY 03/23/19 Allergies/Adverse Reactions: No Known Allergies Allergy (Verified 11/23/18 08:12) Review of Systems ROS unobtainable: Due to mental status Physical Exam Vital Signs: Temp Pulse Resp BP Pulse Ox 98.2 F 90 11 L 118/77 95 03/23/19 17:10 03/23/19 08:11 03/23/19 17:10 03/23/19 17:10 03/23/19 17:10 Intake & Output 03/22/19 03/23/19 03/24/19 06:59 06:59 06:59 Intake Total 173 Balance 173 Weight 202 kg General appearance: PRESENT: morbidly obese Head exam: PRESENT: atraumatic, normocephalic Eye exam: PRESENT: EOMI Respiratory exam: PRESENT: accessory muscle use, decreased breath sounds, prolonged expiratory phas Cardiovascular exam: PRESENT: +S1, +S2 GI/Abdominal exam: PRESENT: distended, soft Rectal exam: PRESENT: deferred Neurological exam: PRESENT: altered Results Laboratory Results: 03/23/19 13:44 03/23/19 09:33 03/23/19 03/23/19 03/23/19 09:33 09:33 11:03 WBC 7.6 RBC 4.92 Hgb 12.0 Hct 38.7 MCV 79 L MCH 24.4 L MCHC 31.0 L RDW 20.5 H Plt Count 218 Seg Neutrophils % 72.0 Carbonic Acid HCO3/H2CO3 Ratio ABG pH ABG pCO2 ABG pO2 ABG HCO3 ABG O2 Saturation ABG Base Excess FiO2 Sodium 139.1 Potassium 5.1 H Chloride 95 L Carbon Dioxide 40 H* Anion Gap 4 L BUN 48 H Creatinine 1.52 H Est GFR ( Amer) 45 L Glucose 201 H Calcium 8.6 Total Bilirubin 1.6 H AST 31 Alkaline Phosphatase 87 Total Protein 9.4 H Albumin 3.7 Urine Color DARK YELLOW Urine Appearance SLIGHTLY-CLOUDY Urine pH 5.0 Ur Specific Golden 1.017 Urine Protein 30 H Urine Glucose (UA) NEGATIVE Urine Ketones NEGATIVE Urine Blood NEGATIVE Urine Nitrite NEGATIVE Ur Leukocyte Esterase NEGATIVE Urine WBC (Auto) 1 Urine RBC (Auto) 1 03/23/19 03/23/19 13:44 18:00 WBC 7.9 RBC 4.48 Hgb 11.0 L Hct 35.6 L MCV 79 L MCH 24.5 L MCHC 30.9 L RDW 19.8 H Plt Count 214 Seg Neutrophils % 68.4 Carbonic Acid 2.88 H HCO3/H2CO3 Ratio 11:1 ABG pH 7.16 L* ABG pCO2 95.6 H* ABG pO2 47.6 L ABG HCO3 33.2 H ABG O2 Saturation 69.4 L ABG Base Excess 2.0 FiO2 40% Sodium Potassium Chloride Carbon Dioxide Anion Gap BUN Creatinine Est GFR ( Amer) Glucose Calcium Total Bilirubin AST Alkaline Phosphatase Total Protein Albumin Urine Color Urine Appearance Urine pH Ur Specific Golden Urine Protein Urine Glucose (UA) Urine Ketones Urine Blood Urine Nitrite Ur Leukocyte Esterase Urine WBC (Auto) Urine RBC (Auto) 03/23/19 03/23/19 09:33 13:44 Troponin I 2.020 0.021 NT-Pro-B Natriuret Pep 07519 H EKG Comments: Twelve-lead EKG shows sinus rhythm at 87 bpm. Normal AV conduction. Right axis deviation. No ST-T changes to suggest myocardial ischemia. QTC is within normal limits. Impressions: Chest X-Ray 03/23/19 08:15 IMPRESSION: CARDIAC ENLARGEMENT. VASCULAR CONGESTION. Status: Image reviewed by me - Pulmonary vascular congestion is evident. Assessment & Plan - Diagnosis (1) Acute on chronic diastolic (congestive) heart failure Is this a current diagnosis for this admission?: Yes Plan: Volume status is difficult to assess in this extremely obese patient. However there is significant peripheral edema and there is mention of diastolic dysfunction on a prior echocardiogram from 2017. Given the above presentation would recommend intravenous diuretic therapy. Noninvasive respiratory support has already been established with improvement in patient's mental status. Control of hypertension and avoidance of salt load is essential. (2) Elevated troponin Plan: Mild elevation of troponin. However the second troponin level is significantly lower than the first 1. Valvular is a possibility. In either case elevated troponins in the setting of likely a reflection of severe hypoxia unlikely to be acute coronary syndrome. Would not recommend treatment for acute coronary syndrome. Supportive care to stabilize respiratory status and aggressive diuresis.
--- NOTE | 2019-03-23 20:34 | CRITICAL CARE ADMISSION REPORT ---
[facility] Date:: 03/23/19 Time:: 17:55 Reason for ICU Reason:: Acute hypercarbic and Hypoxic respiratory failure, Diastolic heart failure with NSTEMI HPI: 43-year-old black female with severe morbid obesity with history of questionable diastolic CHF presenting to the emergency department in respiratory distress. Her respiratory status quickly worsened and she required NIVV on Bipap. Also severe hypertension requiring Nitroglycerine drip. She was able to tell ED staff that she was supposed to have a cardiac Doppler today ordered by her PCP ( Alfred)because of continued edema in the extremities and shortness of breath. states she has been noticeably dyspneic for more than 3 weeks. Her status worsened and breathing became more difficult this morning so she came to the emergency department instead of going to her appointments. She is now off nitroglycerine drip. She is obtunded and barely arousable. I am unable to obtain history from her. I quickly made changes to Bipap settings (20/6) while awaiting blood gas. History obtained from and ED staff. He does not disclose any history or chest pain, fever, chills, rigors, flu like symptoms. History obtained from:: , ED staff - Diagnosis/Plan (1) Acute respiratory failure with hypoxia and hypercarbia Is this a current diagnosis for this admission?: Yes (2) Obesity with alveolar hypoventilation and body mass index (BMI) of 40 or greater Is this a current diagnosis for this admission?: Yes (3) Acute metabolic encephalopathy Is this a current diagnosis for this admission?: Yes (4) Acute renal failure Qualifiers: Acute renal failure type: with other specified pathological lesion Qualified Code(s): N17.8 - Other acute kidney failure Is this a current diagnosis for this admission?: Yes (5) ROMEO (obstructive sleep apnea) Is this a current diagnosis for this admission?: Yes (6) Acute cardiac pulmonary edema Is this a current diagnosis for this admission?: Yes (7) Acute on chronic diastolic (congestive) heart failure Is this a current diagnosis for this admission?: Yes (8) BMI 60.0-69.9, adult Is this a current diagnosis for this admission?: Yes (9) Diabetes mellitus type 2 in obese Is this a current diagnosis for this admission?: Yes (10) Chronic respiratory failure with hypercapnia Is this a current diagnosis for this admission?: Yes Plan: Not using her bipap (11) Metabolic alkalosis with respiratory acidosis Is this a current diagnosis for this admission?: Yes Plan: Chronic - . Plan Summary: Patient to be admitted to ICU. I am concerned for worsening hypercarbia and have ordered ABG. Anticipate she will need Mechanical Ventilation. Seen by Cardiology and placed on Heparin drip. Will continue for now. At risk for pulmonary hypertension and/or VTE/PE Will need BiPap as outpatient. Screen for Check thyroid and HbA1c Start lasix drip NPO in anticipation for intubation Trend troponin Stop nitroglycerine Addendum: Repeat ABG shows expected hypercarbia however repeat examination shows an improvement in her neurological status. She is also able to speak and communicate which is distinctly improved from first evaluation. We will continue noninvasive ventilation. Prompted the for concerned that intubation may still be required. Follow-up labs and repeat ABG. Past Medical History Cardiac Medical History: Reports: Hyperlipidema, Hypertension, Other - Diastolic heart failure Denies: Congestive Heart Failure, Myocardial Infarction Pulmonary Medical History: Reports: Asthma, Bronchitis Denies: Chronic Obstructive Pulmonary Disease (COPD), Pneumonia, Tuberculosis Neurological Medical History: Denies: Seizures Endocrine Medical History: Reports: Diabetes Mellitus Type 2 Renal/ Medical History: Denies: End Stage Renal Disease GI Medical History: Reports: Gastroesophageal Reflux Disease Denies: Cirrhosis Musculoskeltal Medical History: Reports: Arthritis Psychiatric Medical History: Reports: Depression Denies: Bipolar Disorder Hematology: Reports: Anemia Denies: Bleeding Tendencies Past Surgical History Past Surgical History: Reports: Amputation - right toes, Section - X2, Tubal Ligation Social/Family History - Social History Lives with: Spouse/Significant other Smoking Status: Never Smoker Frequency of Alcohol Use: None Hx Recreational Drug Use: No Drugs: None Hx Prescription Drug Abuse: No - Family History Family History: CVA, DM - Medication/Allergies Home Medications: Amlodipine Besylate [Norvasc 10 mg Tablet] 10 mg PO DAILY 03/23/19 Bumetanide [Bumex 2 mg Tablet] 2 mg PO DAILY 03/23/19 Furosemide [Lasix 40 mg Tablet] 40 mg PO BID 03/23/19 Glipizide [Glucotrol 5 mg Tablet] 5 mg PO DAILY 03/23/19 Valsartan [Diovan] 320 mg PO DAILY 03/23/19 Allergies/Adverse Reactions: No Known Allergies Allergy (Verified 11/23/18 08:12) Review of Systems ROS unobtainable: Due to mental status Physical Exam Vital Signs: Temp Pulse Resp BP Pulse Ox 98.2 F 90 11 L 118/77 95 03/23/19 17:10 03/23/19 08:11 03/23/19 17:10 03/23/19 17:10 03/23/19 17:10 Intake & Output 03/22/19 03/23/19 03/24/19 06:59 06:59 06:59 Intake Total 173 Balance 173 Weight 202 kg Weight/Height Weight 202 kg Height 5 ft 8 in General appearance: PRESENT: no acute distress, morbidly obese Exam: Older appearing, obtunded, 43 yo black female, minimal response to stimulus. O btunded, NAD Head exam: PRESENT: atraumatic, normocephalic Eye exam: PRESENT: conjunctival injection, PERRLA. ABSENT: nystagmus, scleral icterus Ear exam: PRESENT: normal external ear exam Mouth exam: PRESENT: moist Neck exam: ABSENT: carotid bruit, full ROM, JVD, lymphadenopathy, thyromegaly Respiratory exam: PRESENT: decreased breath sounds, unlabored, other - Poor MVE. ABSENT: accessory muscle use, rales, rhonchi, tachypnea, wheezes Cardiovascular exam: PRESENT: RRR - Distant and difficult to hear breath sounds GI/Abdominal exam: PRESENT: normal bowel sounds, soft, other - rotund. ABSENT: distended, guarding, mass, organolmegaly, rebound, tenderness Rectal exam: PRESENT: deferred Gentrourinary exam: PRESENT: indwelling catheter Extremities exam: PRESENT: pedal edema, +2 edema - severe bilateral edema Musculoskeletal exam: ABSENT: deformity, dislocation Neurological exam: PRESENT: altered - GCS: 2-1-5 Psychiatric exam: PRESENT: unusual affect Focused psych exam: PRESENT: catatonic Skin exam: PRESENT: dry, intact, warm. ABSENT: cyanosis, petechiae, rash Tubes/Lines: PRESENT: Other - [place] Laboratory/Radiographs Laboratory Results: 03/23/19 13:44 03/23/19 09:33 03/23/19 03/23/19 03/23/19 09:33 09:33 11:03 WBC 7.6 RBC 4.92 Hgb 12.0 Hct 38.7 MCV 79 L MCH 24.4 L MCHC 31.0 L RDW 20.5 H Plt Count 218 Seg Neutrophils % 72.0 Sodium 139.1 Potassium 5.1 H Chloride 95 L Carbon Dioxide 40 H* Anion Gap 4 L BUN 48 H Creatinine 1.52 H Est GFR ( Amer) 45 L Glucose 201 H Calcium 8.6 Total Bilirubin 1.6 H AST 31 Alkaline Phosphatase 87 Total Protein 9.4 H Albumin 3.7 Urine Color DARK YELLOW Urine Appearance SLIGHTLY-CLOUDY Urine pH 5.0 Ur Specific [place] 1.017 Urine Protein 30 H Urine Glucose (UA) NEGATIVE Urine Ketones NEGATIVE Urine Blood NEGATIVE Urine Nitrite NEGATIVE Ur Leukocyte Esterase NEGATIVE Urine WBC (Auto) 1 Urine RBC (Auto) 1 03/23/19 13:44 WBC 7.9 RBC 4.48 Hgb 11.0 L Hct 35.6 L MCV 79 L MCH 24.5 L MCHC 30.9 L RDW 19.8 H Plt Count 214 Seg Neutrophils % 68.4 Sodium Potassium Chloride Carbon Dioxide Anion Gap BUN Creatinine Est GFR ( Amer) Glucose Calcium Total Bilirubin AST Alkaline Phosphatase Total Protein Albumin Urine Color Urine Appearance Urine pH Ur Specific [place] Urine Protein Urine Glucose (UA) Urine Ketones Urine Blood Urine Nitrite Ur Leukocyte Esterase Urine WBC (Auto) Urine RBC (Auto) 03/23/19 03/23/19 09:33 13:44 Troponin I 2.020 0.021 NT-Pro-B Natriuret Pep [id number] H Impressions: Chest X-Ray 03/23/19 08:15 IMPRESSION: CARDIAC ENLARGEMENT. VASCULAR CONGESTION. All labs, radiographs, diagnostic studies and EKGs were personally reviewed: Yes In addition, reports of radiographic and diagnostic studies were read: Yes Critical Time Critical Time (minutes): 70 -: The care of a critically ill patient is dynamic. This note represents a static moment in the admission process. Orders and treatments may be given simultaneously and urgently, and time is not patient intake representative of the treatment process. This patient requires Critical Care secondary to life threatening organ or limb dysfunction. Without Critical Care services, the patient is at risk for incre ased mortality and morbidity.
[2019-03-23 22:11] LABS: ARTERIAL BLOOD BASE EXCESS 9.5 mmol/L; ARTERIAL BLOOD FIO2 40%; ARTERIAL BLOOD H2CO3 3.18 mmol/L (1.05-1.35); ARTERIAL BLOOD HCO3 41.1 mmol/L (20-24); ARTERIAL BLOOD O2 SATURATION 90.3 % (94-98); ARTERIAL BLOOD PH 7.21 (7.35-7.45); ARTERIAL BLOOD PO2 74.1 mmHg (80-100); ARTERIAL BLOOD TOTAL CO2 44.3 mmol/L (21-25)
[2019-03-23 22:12] LABS: ARTERIAL BLOOD PCO2 105.5 mmHg (35-45)
[2019-03-23 22:42] LABS: URINE AMPHETAMINES SCREEN NEGATIVE; URINE BARBITURATES SCREEN NEGATIVE; URINE BENZODIAZEPINES SCREEN NEGATIVE; URINE COCAINE SCREEN NEGATIVE; URINE MARIJUANA (THC) SCREEN NEGATIVE; URINE METHADONE SCREEN NEGATIVE; URINE PHENCYCLIDINE SCREEN NEGATIVE
[2019-03-23 23:30] LABS: PHOSPHORUS 4.9 mg/dL (2.5-4.5)
[2019-03-23 23:44] LABS: FREE T3 1.79 pg/mL (2.77-5.27); FREE T4 (FREE THYROXINE) 1.71 ng/dL (0.78-2.19)
[2019-03-23 23:58] LABS: THYROID STIMULATING HORMONE 2.79 uIU/mL (0.47-4.68)
[2019-03-24 00:05] LABS: ARTERIAL BLOOD BASE EXCESS 9.1 mmol/L; ARTERIAL BLOOD H2CO3 3.02 mmol/L (1.05-1.35); ARTERIAL BLOOD HCO3 40.4 mmol/L (20-24); ARTERIAL BLOOD PH 7.22 (7.35-7.45); ARTERIAL BLOOD PO2 72.2 mmHg (80-100); ARTERIAL BLOOD TOTAL CO2 43.4 mmol/L (21-25)
[2019-03-24 00:10] LABS: ARTERIAL BLOOD FIO2 40%
[2019-03-24 00:13] LABS: ARTERIAL BLOOD PCO2 100.4 mmHg (35-45)
[2019-03-24] MEDS ORDERED: NORMAL SALINE 250 ML with FUROSEMIDE 250 MG IV PRN ×2 (00:49)
[2019-03-24] MEDS: HEPARIN SODIUM,PORCINE/D5W 25,000 UNIT/250 ML RTUINJ IV PRN ×2 (01:41→07:00)
[2019-03-24] MEDS ORDERED: HEPARIN SOD (PORCINE) 1,000 UNIT/ML 10 ML VIAL IV PRN (02:00)
[2019-03-24 03:27] LABS: ARTERIAL BLOOD BASE EXCESS 7.2 mmol/L; ARTERIAL BLOOD H2CO3 2.96 mmol/L (1.05-1.35); ARTERIAL BLOOD HCO3 38.3 mmol/L (20-24); ARTERIAL BLOOD O2 SATURATION 73.2 % (94-98); ARTERIAL BLOOD PH 7.21 (7.35-7.45); ARTERIAL BLOOD PO2 48.9 mmHg (80-100); ARTERIAL BLOOD TOTAL CO2 41.3 mmol/L (21-25)
[2019-03-24 03:31] LABS: ARTERIAL BLOOD FIO2 40%; ARTERIAL BLOOD PCO2 98.4 mmHg (35-45)
[2019-03-24] MEDS ORDERED: INFLUENZA QUAD (6MOS+) 2019-20 VAC 0.5 ML SYR IM ONE (04:37)
[2019-03-24 06:32] LABS: HEMATOCRIT 37.8 % (36.0-47.0); HEMOGLOBIN 11.5 g/dL (12.0-15.5); MEAN CORPUSCULAR HEMOGLOBIN 24.3 pg (27.0-33.4); MEAN CORPUSCULAR HGB CONC 30.5 g/dL (32.0-36.0); MEAN CORPUSCULAR VOLUME 79 fl (80-97); PLATELET COUNT 197 10^3/uL (150-450); RED BLOOD COUNT 4.75 10^6/uL (3.72-5.28); RED CELL DISTRIBUTION WIDTH 20.3 % (11.5-14.0); WHITE BLOOD COUNT 8.8 10^3/uL (4.0-10.5)
[2019-03-24] MEDS ORDERED: HALOPERIDOL LACTATE INJ 5 MG/1 ML VIAL IV ONE (06:44)
[2019-03-24 06:53] LABS: ARTERIAL BLOOD BASE EXCESS 7.6 mmol/L; ARTERIAL BLOOD H2CO3 2.86 mmol/L (1.05-1.35); ARTERIAL BLOOD HCO3 38.6 mmol/L (20-24); ARTERIAL BLOOD O2 SATURATION 93.6 % (94-98); ARTERIAL BLOOD PH 7.23 (7.35-7.45); ARTERIAL BLOOD TOTAL CO2 41.5 mmol/L (21-25)
[2019-03-24 06:57] LABS: APPEARANCE,URINE SLIGHTLY-CLOUDY; ARTERIAL BLOOD FIO2 40%; BILIRUBIN,URINE NEGATIVE (NEGATIVE); COLOR,URINE YELLOW; GLUCOSE, URINE NEGATIVE (NEGATIVE); KETONES,URINE NEGATIVE (NEGATIVE); LEUKOCYTE ESTERASE,URINE NEGATIVE (NEGATIVE); NITRITE,URINE NEGATIVE (NEGATIVE); PROTEIN,URINE NEGATIVE (NEGATIVE); URINE SPECIFIC GRAVITY 1.009
[2019-03-24 06:58] LABS: ARTERIAL BLOOD PCO2 95.1 mmHg (35-45)
[2019-03-24 07:13] LABS: ABSOLUTE LYMPHOCYTES# (MANUAL) 1.9 10^3/uL (0.5-4.7); ABSOLUTE MONOCYTES # (MANUAL) 1.1 10^3/uL (0.1-1.4); BASOPHILS % (MANUAL) 0 % (0-2); EOSINOPHILS % (MANUAL) 1 % (0-6); LYMPHOCYTES % (MANUAL) 22 % (13-45); MONOCYTES % (MANUAL) 13 % (3-13); SEGMENTED NEUTROPHILS % (MAN) 64 % (42-78); TOTAL CELLS COUNTED 100
[2019-03-24 07:15] LABS: ANISOCYTOSIS 2+; PLATELET COMMENT ADEQUATE; TARGET CELLS SLIGHT; TOXIC VACUOLATION PRESENT
--- NOTE | 2019-03-24 07:40 | Progress Note ---
Provider Note Provider Note: Spoke with pts overnight while he came to drop off pts belongings regarding pts respiratory status and the possibility of intubation if there is no improvement. Updated him on plan to continue to closely monitor vital signs, mental status and trend blood gasses to guide decision making. He stated that he understands and all questions were answered. He states that if he is not available to answer his phone that pts sister is listed as secondary contact.
--- NOTE | 2019-03-24 08:34 | RADIOLOGY REPORT (SQ) ---
EXAM DESCRIPTION: CHEST SINGLE VIEW COMPLETED DATE/TIME: 03/24/2019 7:13 am REASON FOR STUDY: heart failure COMPARISON: AP view of the chest from 03/23/2019. EXAM PARAMETERS: NUMBER OF VIEWS: One view. TECHNIQUE: An AP view of the chest was obtained. RADIATION DOSE: NA LIMITATIONS: None. FINDINGS: LUNGS AND PLEURA: Low inspiratory lung volumes. No consolidation, sizeable pleural effusi on, or pneumothorax. MEDIASTINUM AND HILAR STRUCTURES: Stable mediastinal and hilar contours. HEART AND VASCULAR STRUCTURES: Stable cardiomegaly. The pulmonary vasculature is indistinct. BONES: No acute findings. HARDWARE: None in the chest. OTHER: No other finding. IMPRESSION: Cardiomegaly and low inspiratory lung volumes without definite pulmonary edema. TECHNICAL DOCUMENTATION: JOB ID: [id number] [employer]- All Rights Reserved Reading location - IP/workstation name: [email or web address]
[2019-03-24 08:57] LABS: ALBUMIN 3.3 g/dL (3.5-5.0); ALKALINE PHOSPHATASE 77 U/L (38-126); ASPARTATE AMINO TRANSFERASE 24 U/L (14-36); BILIRUBIN,DIRECT 0.4 mg/dL (0.0-0.4); BILIRUBIN,TOTAL 1.4 mg/dL (0.2-1.3); BLOOD UREA NITROGEN 46 mg/dL (7-20); CALCIUM 8.7 mg/dL (8.4-10.2); GLUCOSE 163 mg/dL (75-110); PHOSPHORUS 4.7 mg/dL (2.5-4.5); TOTAL PROTEIN 8.7 g/dL (6.3-8.2)
[2019-03-24 09:39] LABS: ANION GAP 6 (5-19); CARBON DIOXIDE 35 mmol/L (22-30); CHLORIDE 98 mmol/L (98-107)
[2019-03-24] MEDS ORDERED: METHYLPREDNISOLONE INJ 125 MG/2 ML SDV IV ONE (10:16)
--- NOTE | 2019-03-24 12:28 | PDOC CRITICAL CARE PROG REPORT ---
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 When taken off BiPAP she quickly becomes more somnolent. She has had some darkening of her stools which appears to be somewhat bloody no active melena or hematochezia. Heparin has been discontinued. She has been on a Lasix drip. There has not been significant urine output. No hemodynamic stability nor hypotension has occurred. Review of systems relevant to events:: 03.24.2019: Patient denies chest pain this morning. Her only concern is that she has not eaten and wishes to eat. She does not have any shortness of breath. She feels improved. Reason for ICU Addmission:: Acute hypercarbic and Hypoxic respiratory failure, Diastolic heart failure with NSTEMI - Medications: Medications reviewed and adjusted accordingly: Yes Vasopressors:: None Sedation:: None Physical Exam Vital Signs: Temp Pulse Resp BP Pulse Ox 97.9 F 70 0 L 141/84 H 100 03/24/19 10:00 03/24/19 10:00 03/24/19 11:00 03/24/19 10:23 03/24/19 11:00 Intake & Output 03/23/19 03/24/19 03/25/19 06:59 06:59 06:59 Intake Total 174 121 Output Total 775 550 Balance -601 -429 Weight 258.5 kg Weight/Height Weight 258.5 kg Height 5 ft 8 in General appearance: PRESENT: no acute distress, morbidly obese Exam: Severely morbidly obese black female appears older than stated age no active distress not intubated appears ill. She is responsive and can verbalize. BMI 86.7 total weight 258.5 kg Head exam: PRESENT: atraumatic, normocephalic Eye exam: PRESENT: conjunctiva pink, EOMI, PERRLA. ABSENT: nystagmus, scleral icterus Mouth exam: PRESENT: moist Neck exam: ABSENT: carotid bruit, full ROM, JVD, lymphadenopathy, thyromegaly, tracheal deviation Respiratory exam: PRESENT: decreased breath sounds, rhonchi, unlabored. ABSENT: accessory muscle use, rales, tachypnea Cardiovascular exam: PRESENT: RRR. ABSENT: diastolic murmur, rubs, systolic murmur Pulses: PRESENT: +1 pedal pulses bilateral Vascular exam: PRESENT: normal capillary refill. ABSENT: pallor GI/Abdominal exam: PRESENT: normal bowel sounds, soft. ABSENT: distended, guard ing, mass, organolmegaly, rebound, tenderness Rectal exam: PRESENT: deferred Gentrourinary exam: PRESENT: indwelling catheter Extremities exam: PRESENT: pedal edema Musculoskeletal exam: ABSENT: deformity, dislocation Neurological exam: PRESENT: awake, oriented to person, oriented to place, oriented to time, oriented to situation, CN II-XII grossly intact. ABSENT: motor sensory deficit Psychiatric exam: PRESENT: flat affect Skin exam: PRESENT: dry, intact, warm. ABSENT: cyanosis, rash Tubes/Lines: PRESENT: Other - [place] Laboratory/Radiographs Laboratory Results: 03/24/19 06:08 03/24/19 07:58 03/23/19 03/23/19 03/23/19 13:44 18:00 21:10 WBC 7.9 RBC 4.48 Hgb 11.0 L Hct 35.6 L MCV 79 L MCH 24.5 L MCHC 30.9 L RDW 19.8 H Plt Count 214 Seg Neutrophils % 68.4 Carbonic Acid 2.88 H 3.18 H HCO3/H2CO3 Ratio 11:1 12:1 ABG pH 7.16 L* 7.21 L ABG pCO2 95.6 H* 105.5 H* ABG pO2 47.6 L 74.1 L ABG HCO3 33.2 H 41.1 H ABG O2 Saturation 69.4 L 90.3 L ABG Base Excess 2.0 9.5 FiO2 40% 40% Sodium Potassium Chloride Carbon Dioxide Anion Gap BUN Creatinine Est GFR ( Amer) Est GFR (Non-Af Amer) Glucose Calcium Phosphorus Magnesium Total Bilirubin AST Alkaline Phosphatase Ammonia Total Protein Albumin TSH Free T4 Free T3 pg/mL Serum HCG, Qual Urine Color Urine Appearance Urine pH Ur Specific [place] Urine Protein Urine Glucose (UA) Urine Ketones Urine Blood Urine Nitrite Ur Leukocyte Esterase Urine WBC (Auto) Urine RBC (Auto) 03/23/19 03/23/19 03/23/19 22:50 22:50 22:50 WBC RBC Hgb Hct MCV MCH MCHC RDW Plt Count Seg Neutrophils % Carbonic Acid HCO3/H2CO3 Ratio ABG pH ABG pCO2 ABG pO2 ABG HCO3 ABG O2 Saturation ABG Base Excess FiO2 Sodium Potassium Chloride Carbon Dioxide Anion Gap BUN Creatinine Est GFR ( Amer) Est GFR (Non-Af Amer) Glucose Calcium Phosphorus 4.9 H Magnesium 2.1 Total Bilirubin AST Alkaline Phosphatase Ammonia Total Protein Albumin TSH 2.79 Free T4 1.71 Free T3 pg/mL 1.79 L Serum HCG, Qual NEGATIVE Urine Color Urine Appearance Urine pH Ur Specific [place] Urine Protein Urine Glucose (UA) Urine Ketones Urine Blood Urine Nitrite Ur Leukocyte Esterase Urine WBC (Auto) Urine RBC (Auto) 03/23/19 03/23/19 03/24/19 22:50 23:45 03:15 WBC RBC Hgb Hct MCV MCH MCHC RDW Plt Count Seg Neutrophils % Carbonic Acid 3.02 H 2.96 H HCO3/H2CO3 Ratio 13:1 12:1 ABG pH 7.22 L 7.21 L ABG pCO2 100.4 H* 98.4 H* ABG pO2 72.2 L 48.9 L ABG HCO3 40.4 H 38.3 H ABG O2 Saturation 90.0 L 73.2 L ABG Base Excess 9.1 7.2 FiO2 40% 40% Sodium Potassium Chloride Carbon Dioxide Anion Gap BUN Creatinine Est GFR ( Amer) Est GFR (Non-Af Amer) Glucose Calcium Phosphorus Magnesium Total Bilirubin AST Alkaline Phosphatase Ammonia 75.6 H Total Protein Albumin TSH Free T4 Free T3 pg/mL Serum HCG, Qual Urine Color Urine Appearance Urine pH Ur Specific [place] Urine Protein Urine Glucose (UA) Urine Ketones Urine Blood Urine Nitrite Ur Leukocyte Esterase Urine WBC (Auto) Urine RBC (Auto) 03/24/19 03/24/19 03/24/19 06:00 06:00 06:00 WBC RBC Hgb Hct MCV MCH MCHC RDW Plt Count Seg Neutrophils % Carbonic Acid 2.86 H HCO3/H2CO3 Ratio 13:1 ABG pH 7.23 L ABG pCO2 95.1 H* ABG pO2 84.0 ABG HCO3 38.6 H ABG O2 Saturation 93.6 L ABG Base Excess 7.6 FiO2 40% Sodium Cancelled Potassium Cancelled Chloride Cancelled Carbon Dioxide Cancelled Anion Gap Cancelled BUN Cancelled Creatinine Cancelled Est GFR ( Amer) Cancelled Est GFR (Non-Af Amer) Cancelled Glucose Cancelled Calcium Cancelled Phosphorus Cancelled Magnesium Cancelled Total Bilirubin Cancelled AST Cancelled Alkaline Phosphatase Cancelled Ammonia Total Protein Cancelled Albumin Cancelled TSH Free T4 Free T3 pg/mL Serum HCG, Qual Urine Color YELLOW Urine Appearance SLIGHTLY-CLOUDY Urine pH 5.0 Ur Specific [place] 1.009 Urine Protein NEGATIVE Urine Glucose (UA) NEGATIVE Urine Ketones NEGATIVE Urine Blood MODERATE H Urine Nitrite NEGATIVE Ur Leukocyte Esterase NEGATIVE Urine WBC (Auto) 1 Urine RBC (Auto) 15 03/24/19 03/24/19 03/24/19 06:08 06:08 07:58 WBC 8.8 RBC 4.75 Hgb 11.5 L Hct 37.8 MCV 79 L MCH 24.3 L MCHC 30.5 L RDW 20.3 H Plt Count 197 Seg Neutrophils % Not Reportable Carbonic Acid HCO3/H2CO3 Ratio ABG pH ABG pCO2 ABG pO2 ABG HCO3 ABG O2 Saturation ABG Base Excess FiO2 Sodium Cancelled 139.2 Potassium Cancelled 5.0 Chloride Cancelled 98 Carbon Dioxide Cancelled 35 H Anion Gap Cancelled 6 BUN Cancelled 46 H Creatinine Cancelled 1.50 H Est GFR ( Amer) Cancelled 45 L Est GFR (Non-Af Amer) Cancelled Glucose Cancelled 163 H Calcium Cancelled 8.7 Phosphorus Cancelled 4.7 H Magnesium Cancelled 2.0 Total Bilirubin Cancelled 1.4 H AST Cancelled 24 Alkaline Phosphatase Cancelled 77 Ammonia Total Protein Cancelled 8.7 H Albumin Cancelled 3.3 L TSH Free T4 Free T3 pg/mL Serum HCG, Qual Urine Color Urine Appearance Urine pH Ur Specific [place] Urine Protein Urine Glucose (UA) Urine Ketones Urine Blood Urine Nitrite Ur Leukocyte Esterase Urine WBC (Auto) Urine RBC (Auto) 03/23/19 03/23/19 03/23/19 09:33 13:44 22:50 Creatine Kinase 60 CK-MB (CK-2) Troponin I 2.020 0.021 NT-Pro-B Natriuret Pep [id number] H 03/23/19 03/23/19 03/24/19 22:50 22:50 06:08 Creatine Kinase CK-MB (CK-2) 1.59 Troponin I 0.020 Cancelled NT-Pro-B Natriuret Pep 03/24/19 07:58 Creatine Kinase CK-MB (CK-2) Troponin I 0.025 NT-Pro-B Natriuret Pep Impressions: Chest X-Ray 03/24/19 06:00 IMPRESSION: Cardiomegaly and low inspiratory lung volumes without definite pulm onary edema. All labs, radiographs, diagnostic studies and EKGs were personally reviewed: Yes In addition, reports of radiographic and diagnostic studies were read: Yes Assessment and Plan - Diagnosis (1) Acute respiratory failure with hypoxia and hypercarbia Is this a current diagnosis for this admission?: Yes (2) Obesity with alveolar hypoventilation and body mass index (BMI) of 40 or greater Is this a current diagnosis for this admission?: Yes (3) Acute metabolic encephalopathy Is this a current diagnosis for this admission?: Yes (4) Acute renal failure Qualifiers: Acute renal failure type: with other specified pathological lesion Qualified Code(s): N17.8 - Other acute kidney failure Is this a current diagnosis for this admission?: Yes (5) ROMEO (obstructive sleep apnea) Is this a current diagnosis for this admission?: Yes (6) Acute cardiac pulmonary edema Is this a current diagnosis for this admission?: Yes (7) Acute on chronic diastolic (congestive) heart failure Is this a current diagnosis for this admission?: Yes (8) BMI 60.0-69.9, adult Is this a current diagnosis for this admission?: Yes (9) Diabetes mellitus type 2 in obese Is this a current diagnosis for this admission?: Yes (10) Chronic respiratory failure with hypercapnia Is this a current diagnosis for this admission?: Yes (11) Metabolic alkalosis with respiratory acidosis Is this a current diagnosis for this admission?: Yes Plan Summary: 03.24.2019: Patient has significant hypercarbia and most likely has obesity related obstructive airway disease. Also, she has a history of reactive airway disease and have added steroids in hopes to improve airway compliance. She is of course severely and morbidly obese which is contributing to her worsening respiratory failure. Strictly speaking the restrictive nature of her obesity can cause significant pulmonary disease. I am also suspicious that she is developing pulmonary hypertension because of these above processes. Overall the patient needs to lose weight. She will need referral for gastric bypass surgery because the prognosis for her is poor if her respiratory status does not improve. She may be a candidate for tracheostomy precluded by intubation if she does not improve. We have stopped the heparin for now. She will receive a PICC line today to assist with medications. She was on a diuretic drip however bicarbonate levels have increased and we will discontinue this. Peripheral edema is most likely lymph and pulmonary hypertension related and we do not want to have left ventricular underfilling complicating her process. She does have acute kidney dysfunction and will hold any ANDREA or ARB medications until improved. We will continue to provide supportive care. I have ordered echo for pulmonary hypertension evaluation. Appreciate the consult by Dr. Guillermo Critical Time Critical Time (minutes): 45 Level of Care: ICU -: 1. The care of a critical patient is a dynamic process. This note is a technical support representative synopsis but static in nature. The timeframe for treatments given in order is not necessarily the actual time these treatments may have been done. 2. This patient requires critical care secondary to ongoing requirements for therapy not offered or safe outside the critical care environment. Transfer to a lower level of care will result in altered life or limb morbidity and mortality. 3. Multidisciplinary rounds completed. 4. ABCDE bundle addressed.
[2019-03-24] MEDS ORDERED: VALSARTAN 160 MG TABLET PO SCH (12:45)
--- NOTE | 2019-03-24 13:10 | RADIOLOGY REPORT (SQ) ---
EXAM DESCRIPTION: PICC INSERTION; CHEST SINGLE VIEW; GUIDANCE ULTRASOUND; ADDITIONAL CHARGE COMPLETED DATE/TIME: 03/24/2019 12:42 pm; 03/24/2019 12:39 pm; 03/24/2019 12:37 pm REASON FOR STUDY: NEED FOR VASCULAR ACCESS; PICC PLACEMENT; SUPPLIES FOR PICC COMPARISON: None. FLUOROSCOPY TIME: None. TECHNIQUE: Refer to the Procedure. LIMITATIONS: None. PROCEDURE: The procedure, risks, benefits, and alternatives were discussed with the patient in the p reprocedural area, and all questions were answered. Informed consent was obtained verbally and in wri ting. The patient was then positioned supine on the ICU bed with the right upper extremity abducted and a t guido-out was performed. At first the right upper extremity was evaluated with ultrasound and the brachial vein was found to b e patent and compressible. The right upper extremity was then prepped and draped with 2% chlorhexidin e utilizing standard sterile technique. After the skin over the brachial vein was anesthetized with 1 % lidocaine, ultrasound guidance was used to access the vessel with a 21-gauge needle - a sonographic image was stored for documentation. A 0.018 inch guidewire was then inserted through the needle and advanced under fluoroscopic guidance into the SVC. After that, the needle was exchanged over the guid ewire for a peel-away sheath. A 5 Uzbek double -lumen PICC was then cut to the appropriate length of 37 cm, inserted through the sheath and advanced under fluoroscopic guidance into the right brachioce phalic vein. After that, the peel-away sheath was removed and AP radiographs of the chest were obtain ed to confirm position of the catheter tip within right brachiocephalic vein. The lumens of the PICC were then aspirated, flushed with sterile saline and heparinized. At the end of the procedure the PICC was secured in place and a sterile dressing applied over it. The patient tolerated the procedure well without immediate complication. At the end of the procedure the patient's condition was unchanged from the preprocedural baseline. No IV conscious sedation was administered. Physiologic monitoring was provided before, during, and after the procedure. Documentation of [id number] time performing proceduralist spent monitoring the patient: 15 minutes. IMPRESSION: Successful placement of a 5 Uzbek double lumen PICC via the right brachial vein utilizi ng fluoroscopic and sonographic guidance. COMMENT: Patient medication list reviewed: Yes- Quality ID# [id number]:Eligible professional attests to doc umenting in the medical record they obtained, updated, or reviewed the patient's current medications. Quality ID 145: Final reports for procedures using fluoroscopy that document radiation exposure rico hannah, or exposure time and number of fluorographic images (if radiation exposure indices are not avail able) Quality ID #[id number]: The patient was prepped and draped using maximum sterile barrier technique including cap, mask, sterile gown, sterile gloves, a large sterile sheet, hand hygiene, and 2% Chlorhexidine fo r cutaneous antisepsis. When ultrasound is used, sterile ultrasound techniques are followed requiring sterile gel and sterile probes. TECHNICAL DOCUMENTATION: JOB ID: [id number] [employer]- All Rights Reserved rev-07/30 Reading location - IP/workstation name: [email or web address]
[2019-03-24] MEDS ORDERED: METHYLPREDNISOLONE INJ 125 MG/2 ML SDV ONE (14:42)
[2019-03-24 15:22] LABS: ARTERIAL BLOOD BASE EXCESS -0.1 mmol/L; ARTERIAL BLOOD H2CO3 2.16 mmol/L (1.05-1.35); ARTERIAL BLOOD HCO3 28.6 mmol/L (20-24); ARTERIAL BLOOD O2 SATURATION 59.9 % (94-98); ARTERIAL BLOOD PH 7.22 (7.35-7.45); ARTERIAL BLOOD TOTAL CO2 30.8 mmol/L (21-25)
[2019-03-24 15:23] LABS: ARTERIAL BLOOD FIO2 35%
[2019-03-24 15:24] LABS: ARTERIAL BLOOD PCO2 71.9 mmHg (35-45); ARTERIAL BLOOD PO2 38.2 mmHg (80-100)
[2019-03-24] MEDS: AMLODIPINE BESYLATE 10 MG TABLET PO SCH (17:03)
[2019-03-24] MEDS: BUMETANIDE 1 MG TABLET PO SCH (17:03)
[2019-03-24 18:38] LABS: ARTERIAL BLOOD BASE EXCESS 6.9 mmol/L; ARTERIAL BLOOD HCO3 35.6 mmol/L (20-24); ARTERIAL BLOOD PH 7.31 (7.35-7.45); ARTERIAL BLOOD PO2 63.1 mmHg (80-100); ARTERIAL BLOOD TOTAL CO2 37.9 mmol/L (21-25)
[2019-03-24 19:09] LABS: ARTERIAL BLOOD FIO2 30%
[2019-03-24 19:10] LABS: ARTERIAL BLOOD PCO2 73.2 mmHg (35-45)
[2019-03-24] MEDS ORDERED: DEXTROSE 40% GEL 15 GM TUBE PO PRN ×2 (21:12)
[2019-03-24] MEDS ORDERED: GLUCAGON,HUMAN RECOMB 1 MG INJ IM PRN (21:12)
[2019-03-24] MEDS ORDERED: DEXTROSE 50%-WATER 25 GM/50 ML DISP.SYRIN IV PRN ×2 (21:12)
[2019-03-24] MEDS: METHYLPREDNISOLONE INJ 40 MG/1 ML SDV IV SCH (21:22)
[2019-03-25] MEDS: INSULIN REG, HUMAN 100 UNIT/ML 3 ML VIAL (PYX) SUBCUT SCH ×4 (02:36→18:08)
[2019-03-25] MEDS ORDERED: NORMAL SALINE INJ/PF 0.9% 10 ML SDV IV PRN (04:49)
[2019-03-25 06:41] LABS: ABSOLUTE LYMPHOCYTES (AUTO) 0.5 10^3/uL (0.5-4.7); ABSOLUTE MONOCYTES (AUTO) 0.2 10^3/uL (0.1-1.4); ABSOLUTE NEUT (AUTO) 6.7 10^3/uL (1.7-8.2); BASOPHILS % (AUTO) 0.2 % (0-2); HEMATOCRIT 34.9 % (36.0-47.0); HEMOGLOBIN 10.9 g/dL (12.0-15.5); LYMPHOCYTES % (AUTO) 6.6 % (13-45); MEAN CORPUSCULAR HEMOGLOBIN 24.6 pg (27.0-33.4); MEAN CORPUSCULAR HGB CONC 31.4 g/dL (32.0-36.0); MEAN CORPUSCULAR VOLUME 78 fl (80-97); MONOCYTES % (AUTO) 3.1 % (3-13); PLATELET COUNT 195 10^3/uL (150-450); RED BLOOD COUNT 4.45 10^6/uL (3.72-5.28); SEGMENTED NEUTROPHILS % (AUTO) 90.1 % (42-78); TOTAL CELLS COUNTED % (AUTO) 100 %; WHITE BLOOD COUNT 7.5 10^3/uL (4.0-10.5)
[2019-03-25 06:42] LABS: ARTERIAL BLOOD BASE EXCESS 10.4 mmol/L; ARTERIAL BLOOD FIO2 30%; ARTERIAL BLOOD H2CO3 2.26 mmol/L (1.05-1.35); ARTERIAL BLOOD O2 SATURATION 95.2 % (94-98); ARTERIAL BLOOD PH 7.33 (7.35-7.45); ARTERIAL BLOOD PO2 84.4 mmHg (80-100); ARTERIAL BLOOD TOTAL CO2 41.3 mmol/L (21-25)
[2019-03-25 06:44] LABS: ARTERIAL BLOOD PCO2 75.1 mmHg (35-45)
[2019-03-25 07:00] LABS: ANION GAP 6 (5-19); BLOOD UREA NITROGEN 46 mg/dL (7-20); CALCIUM 8.8 mg/dL (8.4-10.2); CARBON DIOXIDE 38 mmol/L (22-30); CHLORIDE 97 mmol/L (98-107); GLUCOSE 160 mg/dL (75-110); PHOSPHORUS 4.3 mg/dL (2.5-4.5); POTASSIUM 4.9 mmol/L (3.6-5.0)
--- NOTE | 2019-03-25 08:04 | RADIOLOGY REPORT (SQ) ---
EXAM DESCRIPTION: CHEST SINGLE VIEW COMPLETED DATE/TIME: 03/25/2019 6:13 am REASON FOR STUDY: heart failure COMPARISON: 03/24/2019 FINDINGS: Single-view AP portable upright. Stable chest with cardiomegaly and low lung volumes and limiting overlying soft tissues. TECHNICAL DOCUMENTATION: JOB ID: [id number] Reading location - IP/workstation name: [email or web address]
[2019-03-25] MEDS: HEPARIN SOD (PORCINE) 5,000 UNIT/ML 1 ML VIAL SUBCUT SCH ×3 (10:29→21:56)
[2019-03-25] MEDS: METFORMIN HCL 500 MG TABLET PO SCH ×2 (10:29→16:44)
[2019-03-25] MEDS: NORMAL SALINE INJ/PF 0.9% 10 ML SDV IV SCH ×2 (10:29→21:57)
[2019-03-25] MEDS: MAGNESIUM SULFATE/D5W 1 GM/100 ML RTUPB IV SCH ×2 (10:29→16:44)
[2019-03-25] MEDS: AMLODIPINE BESYLATE 10 MG TABLET PO SCH (10:29)
[2019-03-25] MEDS: METHYLPREDNISOLONE INJ 40 MG/1 ML SDV IV SCH ×2 (10:29→21:57)
--- NOTE | 2019-03-25 10:57 | PDOC CRITICAL CARE PROG REPORT ---
General Date:: 03/25/19 ICU Day:: 3 Ventilator Day:: 3 - Note: NIVV: BiPap Hospital Day:: 3 Resuscitation Status: Full Code Medical Power of Manager Android: : Events in the past 12 to 24 Hours:: 03.25.2019: Patient's pH and PCO2 have improved. She is awake, alert and communicative. Wishes to eat. Reviewed echocardiogram. No official report but review of images shows enlarged RV, somewhat dysfunctional. Has closure of LV cavity on multiple views while patient on lasix drip. Diuretics have been discontinued. She has no chest pain; not dyspneic on BiPap 03.24.2019: Patient's neurological status has improved as well as her pH. When taken off BiPAP she quickly becomes more somnolent. She has had some darkening of her stools which appears to be somewhat bloody no active melena or hematoch ezia. Heparin has been discontinued. She has been on a Lasix drip. There has not been significant urine output. No hemodynamic stability nor hypotension has occurred. Review of systems relevant to events:: 03.25.2019: No bleeding off heparin 03.24.2019: Patient denies chest pain this morning. Her only concern is that she has not eaten and wishes to eat. She does not have any shortness of breath. She feels improved. Her Oxygen saturation is improved. Reason for ICU Addmission:: Acute hypercarbic and Hypoxic respiratory failure, Diastolic heart failure with NSTEMI - Medications: Vasopressors:: None Sedation:: None Physical Exam Vital Signs: Temp Pulse Resp BP Pulse Ox 99.1 F 85 18 165/95 H 94 03/25/19 08:00 03/25/19 08:00 03/25/19 08:00 03/25/19 08:00 03/25/19 08:00 Intake & Output 03/24/19 03/25/19 03/26/19 06:59 06:59 06:59 Intake Total 174 1010 Output Total 525 4205 310 Balance -601 -3195 -310 Weight 258.5 kg 250.3 kg 250.3 kg Weight/Height Weight 250.3 kg Height 5 ft 8 in General appearance: PRESENT: no acute distress, morbidly obese Exam: Nontoxic awake 43-year-old black female severe morbid obesity no acute distress awake alert and aware x4 Head exam: PRESENT: atraumatic, normocephalic Eye exam: PRESENT: conjunctiva pink, EOMI, PERRLA. ABSENT: conjunctival injection, nystagmus, scleral icterus Respiratory exam: PRESENT: clear to auscultation trina, unlabored. ABSENT: rales, rhonchi, tachypnea, wheezes Cardiovascular exam: PRESENT: RRR, other - Very distant heart sounds Pulses: PRESENT: +1 pedal pulses bilateral GI/Abdominal exam: PRESENT: normal bowel sounds, soft. ABSENT: ascites, distended, guarding, mass, organolmegaly, rebound, tenderness Rectal exam: PRESENT: deferred Gentrourinary exam: PRESENT: indwelling catheter Musculoskeletal exam: PRESENT: deformity - Loss of digits 2-5, left foot. ABSENT: dislocation, tenderness Neurological exam: PRESENT: alert, awake, oriented to person, oriented to place, oriented to time, oriented to situation, CN II-XII grossly intact. ABSENT: motor sensory deficit Psychiatric exam: PRESENT: appropriate affect, normal mood Focused psych exam: ABSENT: pressured speech, psychomotor agitation, restlessness Skin exam: PRESENT: dry, intact, warm, other - Furrowed skin.. ABSENT: cyanosis, rash Tubes/Lines: PRESENT: Other - Oreilly catheter Laboratory/Radiographs Laboratory Results: 03/25/19 06:30 03/25/19 06:30 03/24/19 03/24/19 03/25/19 15:06 18:18 06:30 WBC RBC Hgb Hct MCV MCH MCHC RDW Plt Count Seg Neutrophils % Carbonic Acid 2.16 H 2.20 H HCO3/H2CO3 Ratio 13:1 16:1 ABG pH 7.22 L 7.31 L ABG pCO2 71.9 H* 73.2 H* ABG pO2 38.2 L* 63.1 L ABG HCO3 28.6 H 35.6 H ABG O2 Saturation 59.9 L 89.0 L ABG Base Excess -0.1 6.9 FiO2 35% 30% Sodium Potassium Chloride Carbon Dioxide Anion Gap BUN Creatinine Est GFR ( Amer) Glucose Calcium Phosphorus Magnesium Ammonia < 8.7 L 03/25/19 03/25/19 03/25/19 06:30 06:30 06:30 WBC 7.5 RBC 4.45 Hgb 10.9 L Hct 34.9 L MCV 78 L MCH 24.6 L MCHC 31.4 L RDW 20.0 H Plt Count 195 Seg Neutrophils % 90.1 H Carbonic Acid 2.26 H HCO3/H2CO3 Ratio 17:1 ABG pH 7.33 L ABG pCO2 75.1 H* ABG pO2 84.4 ABG HCO3 39.0 H ABG O2 Saturation 95.2 ABG Base Excess 10.4 FiO2 30% Sodium 141.0 Potassium 4.9 Chloride 97 L Carbon Dioxide 38 H Anion Gap 6 BUN 46 H Creatinine 1.32 H Est GFR ( Amer) 53 L Glucose 160 H Calcium 8.8 Phosphorus 4.3 Magnesium 1.8 Ammonia 03/23/19 03/23/19 03/23/19 09:33 13:44 22:50 Creatine Kinase 60 CK-MB (CK-2) Troponin I 2.020 0.021 NT-Pro-B Natriuret Pep 91524 H 03/23/19 03/23/19 03/24/19 22:50 22:50 06:08 Creatine Kinase CK-MB (CK-2) 1.59 Troponin I 0.020 Cancelled NT-Pro-B Natriuret Pep 03/24/19 03/24/19 07:58 12:35 Creatine Kinase CK-MB (CK-2) Troponin I 0.025 0.017 NT-Pro-B Natriuret Pep Impressions: Guidance Ultrasound 03/24/19 00:00 IMPRESSION: Successful placement of a 5 Congolese double lumen PICC via the right brachial vein utilizing fluoroscopic and sonographic guidance. PICC Line Insertion 03/24/19 00:00 IMPRESSION: Successful placement of a 5 Congolese double lumen PICC via the right brachial vein utilizing fluoroscopic and sonographic guidance. All labs, radiographs, diagnostic studies and EKGs were personally reviewed: Yes In addition, reports of radiographic and diagnostic studies were read: Yes Assessment and Plan - Diagnosis (1) Acute respiratory failure with hypoxia and hypercarbia Is this a current diagnosis for this admission?: Yes (2) Obesity with alveolar hypoventilation and body mass index (BMI) of 40 or greater Is this a current diagnosis for this admission?: Yes (3) Acute metabolic encephalopathy Is this a current diagnosis for this admission?: Yes (4) Acute renal failure Qualifiers: Acute renal failure type: with other specified pathological lesion Qualified Code(s): N17.8 - Other acute kidney failure Is this a current diagnosis for this admission?: Yes (5) ROMEO (obstructive sleep apnea) Is this a current diagnosis for this admission?: Yes (6) Acute cardiac pulmonary edema Is this a current diagnosis for this admission?: Yes (7) Acute on chronic diastolic (congestive) heart failure Is this a current diagnosis for this admission?: Yes (8) BMI 60.0-69.9, adult Is this a current diagnosis for this admission?: Yes (9) Diabetes mellitus type 2 in obese Is this a current diagnosis for this admission?: Yes (10) Chronic respiratory failure with hypercapnia Is this a current diagnosis for this admission?: Yes (11) Metabolic alkalosis with respiratory acidosis Is this a current diagnosis for this admission?: Yes (12) Pulmonary hypertension associated with unclear multi-factorial mechanisms Is this a current diagnosis for this admission?: Yes Plan Summary: 03.25.2019: Patient has improved with accommodation of steroids and noninvasive ventilation. Oxygenation status is stable. She was transitioned from BiPAP to nasal cannula this morning. Patient presented with evidence of chronic hypercarbia I had the opportunity to speak to pulmonary vascular disease specialist at [place]. The reason for this is that the patient has significant RV dilation and given her obesity, reactive airway disease and hypercarbia discussed the possibility of a sildenafil titration regimen. In most situations we would prefer to place a pulmonary artery catheter however given the patient's size and RV dilation this may be quite difficult and the x-ray may be difficult to view given her size limitations. It is not an uncommon practice to start a titration based on clinical symptoms while evaluating oxygen saturation in a monitored environment. We will begin the process of a sildenafil titration. Her LV appears to be underfilled however we will not give any more fluids so that we can determine if RV offloading is followed by LV filling. Her skin is for road secondary to contraction from diuresis. Her creatinine has improved as well. Her LV function appears to be moderately intact and there not appear to be LV dilation to suggest that the pulmonary hypertension is related to LV dysfunction. We will continue her on a calcium channel agustin which is also helpful for pulmonary hypertension. Plan is to place her on BiPAP whenever she is sleeping and every 4 hours between meals. He does not appear at risk any further for the need for invasive ventilation. Her blood sugars have been elevated and her hemoglobin A1c is above 10. Given her obesity I have elected to place her on Glucophage to help with blood sugar control and with possible weight loss mechanisms. I had a lengthy discussion with the patient regarding her calorie count, carbohydrate count and diet habits. We had a long lengthy discussion about how bad her lung disease has become as well as her obesity. Had a andrey discussion about the prognosis and mortality and morbidity associated with severe obesity now followed with pulmonary hypertension. Although she has improved, she will need to be maintained in the ICU under very close monitored setting while sildenafil is titrated. Typically we will evaluate for hypoxia as a negative side effect related to p ulmonary shunting. Patient will need follow-up at a pulmonary hypertension specialty center and we discussed the case with [facility]. Have discussed this with the patient and will need referral when she is able to be discharged. Patient will require home BiPAP. Given her weight from severe morbid obesity she has restrictive lung disease and both clinical and chemical evidence of hypercapnic respiratory failure. She has rapidly changing respiratory status requiring noninvasive ventilation and she will need a guaranteed volume ventilation. Due to this I have recommended a ventilator that will be able to respond rapidly to the changing status of her lung condition requiring multiple ventilation settings including a mouthpiece ventilation to complete ADLs. Of necessity of battery will also be required for 24-hour access to this not amenable ventilation as she transitions to multiple environments. It should be noted that this level of support cannot be achieved with a bilevel type therapy device. Of utmost importance without this therapy, the patient will experience a decline in their health status. This reason I have recommended a Trilogy noninvasive respiratory apparatus. Family will need to be trained if this equipment can be obtained while patient is an inpatient. Current hospital policy dictates that respiratory staff is unable to monitor and manage the Tril ogy noninvasive ventilation system. 03.24.2019: Patient has significant hypercarbia and most likely has obesity related obstructive airway disease. Also, she has a history of reactive airway disease and have added steroids in hopes to improve airway compliance. She is of course severely and morbidly obese which is contributing to her worsening respiratory failure. Strictly speaking the restrictive nature of her obesity can cause significant pulmonary disease. I am also suspicious that she is developing pulmonary hypertension because of these above processes. Overall the patient needs to lose weight. She will need referral for gastric bypass surgery because the prognosis for her is poor if her respiratory status does not improve. She may be a candidate for tracheostomy precluded by i ntubation if she does not improve. We have stopped the heparin for now. She will receive a PICC line today to assist with medications. She was on a diuretic drip however bicarbonate levels have increased and we will discontinue this. Peripheral edema is most likely lymph and pulmonary hypertension related and we do not want to have left ventricular underfilling complicating her process. She does have acute kidney dysfunction and will hold any ANDREA or ARB medications until improved. We will continue to provide supportive care. I have ordered echo for pulmonary hypertension evaluation. Appreciate the consult by Dr. Guillermo Critical Time Critical Time (minutes): 60 - includes discussion with consultants (Dr. Apolinar Molina, [facility]; Discussion with patient and family Level of Care: ICU Anticipated discharge: Acute Rehab Within: within 48 hours -: 1. The care of a critical patient is a dynamic process. This note is a customer development representative synopsis but static in nature. The timeframe for treatments given in order is not necessarily the actual time these treatments may have been done. 2. This patient requires critical care secondary to ongoing requirements for therapy not offered or safe outside the critical care environment. Transfer to a lower level of care will result in altered life or limb morbidity and mortality. 3. Multidisciplinary rounds completed. 4. ABCDE bundle addressed.
[2019-03-25] MEDS ORDERED: MAGNESIUM SULFATE/D5W 1 GM/100 ML RTUPB IV ONE (16:37)
[2019-03-25] MEDS ORDERED: SILDENAFIL CITRATE 20 MG TABLET PO SCH (19:30)
[2019-03-25] MEDS: SILDENAFIL CITRATE 20 MG TABLET PO SCH (21:56)
[2019-03-25] MEDS: ATORVASTATIN CALCIUM 40 MG TABLET PO SCH (21:57)
[2019-03-26] MEDS: INSULIN REG, HUMAN 100 UNIT/ML 3 ML VIAL (PYX) SUBCUT SCH ×6 (00:45→22:35)
[2019-03-26] MEDS: HEPARIN SOD (PORCINE) 5,000 UNIT/ML 1 ML VIAL SUBCUT SCH ×3 (05:40→22:34)
[2019-03-26 05:50] LABS: ABSOLUTE LYMPHOCYTES (AUTO) 0.4 10^3/uL (0.5-4.7); ABSOLUTE MONOCYTES (AUTO) 0.2 10^3/uL (0.1-1.4); ABSOLUTE NEUT (AUTO) 5.9 10^3/uL (1.7-8.2); HEMATOCRIT 34.4 % (36.0-47.0); HEMOGLOBIN 10.5 g/dL (12.0-15.5); LYMPHOCYTES % (AUTO) 5.7 % (13-45); MEAN CORPUSCULAR HGB CONC 30.5 g/dL (32.0-36.0); MEAN CORPUSCULAR VOLUME 79 fl (80-97); MONOCYTES % (AUTO) 2.9 % (3-13); PLATELET COUNT 188 10^3/uL (150-450); RED BLOOD COUNT 4.37 10^6/uL (3.72-5.28); RED CELL DISTRIBUTION WIDTH 19.8 % (11.5-14.0); SEGMENTED NEUTROPHILS % (AUTO) 91.4 % (42-78); TOTAL CELLS COUNTED % (AUTO) 100 %; WHITE BLOOD COUNT 6.5 10^3/uL (4.0-10.5)
[2019-03-26 06:12] LABS: ARTERIAL BLOOD BASE EXCESS 11.9 mmol/L; ARTERIAL BLOOD H2CO3 2.23 mmol/L (1.05-1.35); ARTERIAL BLOOD HCO3 40.2 mmol/L (20-24); ARTERIAL BLOOD O2 SATURATION 91.7 % (94-98); ARTERIAL BLOOD PH 7.35 (7.35-7.45); ARTERIAL BLOOD PO2 67.3 mmHg (80-100); ARTERIAL BLOOD TOTAL CO2 42.5 mmol/L (21-25)
[2019-03-26 06:12] LABS: BLOOD UREA NITROGEN 44 mg/dL (7-20); CALCIUM 8.8 mg/dL (8.4-10.2); CHLORIDE 95 mmol/L (98-107); GLUCOSE 226 mg/dL (75-110); PHOSPHORUS 3.8 mg/dL (2.5-4.5); POTASSIUM 5.1 mmol/L (3.6-5.0)
[2019-03-26 06:26] LABS: ANION GAP 8 (5-19)
[2019-03-26 06:27] LABS: CARBON DIOXIDE 38 mmol/L (22-30)
[2019-03-26 06:28] LABS: ARTERIAL BLOOD FIO2 2.5L
[2019-03-26 06:29] LABS: ARTERIAL BLOOD PCO2 74.2 mmHg (35-45)
[2019-03-26] MEDS: METHYLPREDNISOLONE INJ 40 MG/1 ML SDV IV SCH ×2 (09:24→22:36)
[2019-03-26] MEDS: METFORMIN HCL 500 MG TABLET PO SCH ×2 (09:24→18:35)
[2019-03-26] MEDS: AMLODIPINE BESYLATE 10 MG TABLET PO SCH (09:24)
[2019-03-26] MEDS: NORMAL SALINE INJ/PF 0.9% 10 ML SDV IV SCH ×2 (09:24→22:39)
[2019-03-26] MEDS: SILDENAFIL CITRATE 20 MG TABLET PO SCH ×3 (09:27→18:35)
[2019-03-26] MEDS ORDERED: ONDANSETRON HCL INJ/PF 4 MG/2 ML SDV ONE (14:39)
[2019-03-26] MEDS ORDERED: ONDANSETRON HCL INJ/PF 4 MG/2 ML SDV IV ONE (15:00)
--- NOTE | 2019-03-26 16:27 | PDOC CRITICAL CARE PROG REPORT ---
General Date:: 03/26/19 ICU Day:: 4 Hospital Day:: 4 Resuscitation Status: Full Code Medical Power of [place]: : Tip Events in the past 12 to 24 Hours:: 03.26.2019: Patient was weaned off BiPAP and has been using it only in the evening last night. He is now on nasal cannula. Oxygenation was At 2 L however oxygen saturation has hovered around 93%. She denies headache, respiratory distress, visual changes, dyspnea nor chest pain. 03.25.2019: Patient's pH and PCO2 have improved. She is awake, alert and communicative. Wishes to eat. Reviewed echocardiogram. No official report but review of images shows enlarged RV, somewhat dysfunctional. Has closure of LV cavity on multiple views while patient on lasix drip. Diuretics have been discontinued. She has no chest pain; not dyspneic on BiPap 03.24.2019: Patient's neurological status has improved as well as her pH. When taken off BiPAP she quickly becomes more somnolent. She has had some darkening of her stools which appears to be somewhat bloody no active melena or hematochezia. Heparin has been discontinued. She has been on a Lasix drip. Th ere has not been significant urine output. No hemodynamic stability nor hypotension has occurred. Review of systems relevant to events:: 03.26.2019: Patient started on sildenafil 20 mg every 8. She is also started on dose appropriate DVT chemoprophylaxis without bleeding. Tolerating a diet and only his use BiPAP at night. 03.25.2019: No bleeding; off heparin 03.24.2019: Patient denies chest pain this morning. Her only concern is that she has not eaten and wishes to eat. She does not have any shortness of breath. She feels improved. Her Oxygen saturation is improved. Reason for ICU Addmission:: Acute hypercarbic and Hypoxic respiratory failure, Diastolic heart failure with NSTEMI - Medications: Vasopressors:: None Sedation:: None Physical Exam Vital Signs: Temp Pulse Resp BP Pulse Ox 98.7 F 82 20 137/80 H 97 03/26/19 14:00 03/26/19 14:00 03/26/19 15:00 03/26/19 14:21 03/26/19 15:00 Intake & Output 03/25/19 03/26/1903/27/20 06:59 06:59 06:59 Intake Total 1010 100 240 Output Total 4205 2196 760 Balance -3195 -2096 -520 Weight 250.3 kg 255.8 kg Weight/Height Weight 255.8 kg Height 5 ft 8 in General appearance: PRESENT: no acute distress, morbidly obese, well-nourished Exam: Pleasant nontoxic older appearing 43-year-old black female no acute distress. Morbidly obese awake aware x4 Head exam: PRESENT: atraumatic, normocephalic. ABSENT: other Eye exam: PRESENT: conjunctiva pink, EOMI, PERRLA. ABSENT: conjunctival injection, nystagmus, scleral icterus Mouth exam: PRESENT: moist, neck supple Teeth exam: ABSENT: poor dentation Neck exam: ABSENT: carotid bruit, JVD, lymphadenopathy, thyromegaly Respiratory exam: PRESENT: clear to auscultation trina, unlabored. ABSENT: accessory muscle use, rales, rhonchi, tachypnea, wheezes Cardiovascular exam: PRESENT: RRR, other - Distant heart sounds Pulses: PRESENT: +2 pedal pulses bilateral Vascular exam: PRESENT: normal capillary refill. ABSENT: pallor GI/Abdominal exam: PRESENT: normal bowel sounds, soft. ABSENT: ascites, distended, guarding, mass, organolmegaly, rebound, tenderness Rectal exam: PRESENT: deferred Gentrourinary exam: PRESENT: indwelling catheter Extremities exam: PRESENT: +1 edema - Of lower legs. Non-pitting. ABSENT: calf tenderness Musculoskeletal exam: ABSENT: deformity, dislocation Neurological exam: PRESENT: alert, awake, oriented to person, oriented to place, oriented to time, oriented to situation, CN II-XII grossly intact. ABSENT: motor sensory deficit Psychiatric exam: PRESENT: appropriate affect, normal mood Focused psych exam: ABSENT: pressured speech, psychomotor agitation, restlessness Skin exam: PRESENT: dry, intact, warm. ABSENT: cyanosis, rash Tubes/Lines: PRESENT: Other - [place]. ABSENT: Endotracheal Tube, Chest Tube, Central Line, Arterial Catheter, Dialysis catheter, Peg Tube, Nasogastic Tube Laboratory/Radiographs Laboratory Results: 03/26/19 05:25 03/26/19 05:25 03/26/19 03/26/19 03/26/19 05:25 05:25 05:55 WBC 6.5 RBC 4.37 Hgb 10.5 L Hct 34.4 L MCV 79 L MCH 24.0 L MCHC 30.5 L RDW 19.8 H Plt Count 188 Seg Neutrophils % 91.4 H Carbonic Acid 2.23 H HCO3/H2CO3 Ratio 18:1 ABG pH 7.35 ABG pCO2 74.2 H* ABG pO2 67.3 L ABG HCO3 40.2 H ABG O2 Saturation 91.7 L ABG Base Excess 11.9 FiO2 2.5L Sodium 140.8 Potassium 5.1 H Chloride 95 L Carbon Dioxide 38 H Anion Gap 8 BUN 44 H Creatinine 1.35 H Est GFR ( Amer) 51 L Glucose 226 H Calcium 8.8 Phosphorus 3.8 Magnesium 1.9 03/23/19 03/23/19 03/23/19 09:33 13:44 22:50 Creatine Kinase 60 CK-MB (CK-2) Troponin I 2.020 0.021 NT-Pro-B Natriuret Pep 16736 H 03/23/19 03/23/19 03/24/19 22:50 22:50 06:08 Creatine Kinase CK-MB (CK-2) 1.59 Troponin I 0.020 Cancelled NT-Pro-B Natriuret Pep 03/24/19 03/24/19 07:58 12:35 Creatine Kinase CK-MB (CK-2) Troponin I 0.025 0.017 NT-Pro-B Natriuret Pep Impressions: Guidance Ultrasound 03/24/19 00:00 IMPRESSION: Successful placement of a 5 Greek double lumen PICC via the right brachial vein utilizing fluoroscopic and sonographic guidance. PICC Line Insertion 03/24/19 00:00 IMPRESSION: Successful placement of a 5 Greek double lumen PICC via the right brachial vein utilizing fluoroscopic and sonographic guidance. All labs, radiographs, diagnostic studies and EKGs were personally reviewed: Yes In addition, reports of radiographic and diagnostic studies were read: Yes Assessment and Plan - Diagnosis (1) Acute respiratory failure with hypoxia and hypercarbia Is this a current diagnosis for this admission?: Yes (2) Obesity with alveolar hypoventilation and body mass index (BMI) of 40 or greater Is this a current diagnosis for this admission?: Yes (3) Acute metabolic encephalopathy Is this a current diagnosis for this admission?: Yes (4) Acute renal failure Qualifiers: Acute renal failure type: with other specified pathological lesion Qualified Code(s): N17.8 - Other acute kidney failure Is this a current diagnosis for this admission?: Yes (5) ROMEO (obstructive sleep apnea) Is this a current diagnosis for this admission?: Yes (6) Acute cardiac pulmonary edema Is this a current diagnosis for this admission?: Yes (7) Acute on chronic diastolic (congestive) heart failure Is this a current diagnosis for this admission?: Yes (8) BMI 60.0-69.9, adult Is this a current diagnosis for this admission?: Yes (9) Diabetes mellitus type 2 in obese Is this a current diagnosis for this admission?: Yes (10) Chronic respiratory failure with hypercapnia Is this a current diagnosis for this admission?: Yes (11) Metabolic alkalosis with respiratory acidosis Is this a current diagnosis for this admission?: Yes (12) Pulmonary hypertension associated with unclear multi-factorial mechanisms Is this a current diagnosis for this admission?: Yes Plan Summary: 03.26.2019: Patient appears to be tolerating sildenafil therapy and will maintain her at 20 mg every 8 for the time being. We will continue to be vigilant to watch for hypoxia indicative of shunt physiology. Does not appear to be the case. I have maintained her oxygen at 5 L in order to prevent pulmonary vasoconstriction related to hypoxia. We will continue to monitor her hemodynamic status. I have ordered a CMP in the morning to evaluate for liver congestion. We will need to be vigilant to watch for hemodynamic side effects and any visual changes. Patient will need to be referred for gastric bypass and pulmonary hypertension. Continue Norvasc as well for pulmonary hypertension and systemic hypertension. Echocardiogram official results are still pending. Patient needs to be maintained on BiPAP at night nasal cannula during the day. Art physical and Occupational Therapy. She has been started on Glucophage for its glycemic effect and also for weight loss effect. She has been maintained in the ICU to evaluate for hypoxia related to shunt events on phosphodiesterase inhibitor inhibitor therapy. It is paramount that she be under supervised vigilant monitoring during this time. 03.25.2019: Patient has improved with accommodation of steroids and noninvasive ventilation. Oxygenation status is stable. She was transitioned from BiPAP to nasal cannula this morning. Patient presented with evidence of chronic hypercarbia I had the opportunity to speak to pulmonary vascular disease specialist at [facility]. The reason for this is that the patient has significant RV dilation and given her obesity, reactive airway disease and hypercarbia discussed the possibility of a sildenafil titration regimen. In most situations we would prefer to place a pulmonary artery catheter however given the patient's size and RV dilation this may be quite difficult and the x-ray may be difficult to view given her size limitations. It is not an uncommon practice to start a titration based on clinical symptoms while evaluating oxygen saturation in a monitored environment. We will begin the process of a sildenafil titration. Her LV appears to be underfilled however we will not give any more fluids so that we can determine if RV offloading is followed by LV filling. Her skin is for road secondary to contraction from diuresis. Her creatinine has improved as well. Her LV function appears to be moderately intact and there not appear to be LV dilation to suggest that the pulmonary hypertension is related to LV dysfunction. We will continue her on a calcium channel agustin which is also helpful for pulmonary hypertension. Plan is to place her on BiPAP whenever she is sleeping and every 4 hours between meals. He does not appear at risk any further for the need for invasive ventil ation. Her blood sugars have been elevated and her hemoglobin A1c is above 10. Given her obesity I have elected to place her on Glucophage to help with blood sugar control and with possible weight loss mechanisms. I had a lengthy discussion with the patient regarding her calorie count, carbohydrate count and diet habits. We had a long lengthy discussion about how bad her lung disease has become as well as her obesity. Had a andrey discussion about the prognosis and mortality and morbidity associated with severe obesity now followed with pulmonary hypertension. Although she has improved, she will need to be maintained in the ICU under very close monitored setting while sildenafil is titrated. Typically we will evaluate for hypoxia as a negative side effect related to pulmonary shunting. Patient will need follow-up at a pulmonary hypertension specialty center and we discussed the case with [facility]. Have discussed this with the patient and will need referral when she is able to be discharged. Patient will require home BiPAP. Given her weight from severe morbid obesity catie hernandez has restrictive lung disease and both clinical and chemical evidence of hypercapnic respiratory failure. She has rapidly changing respiratory status requiring noninvasive ventilation and she will need a guaranteed volume ventilation. Due to this I have recommended a ventilator that will be able to respond rapidly to the changing status of her lung condition requiring multiple ventilation settings including a mouthpiece ventilation to complete ADLs. Of necessity of battery will also be required for 24-hour access to this not amenable ventilation as she transitions to multiple environments. It should be noted that this level of support cannot be achieved with a bilevel type therapy device. Of utmost importance without this therapy, the patient will experience a decline in their health status. This reason I have recommended a Trilogy noninvasive respiratory apparatus. Family will need to be trained if this equipment can be obtained while patient is an inpatient. Current hospital policy dictates that respiratory staff is unable to monitor and manage the Trilogy noninvasive ventilation system. 03.24.2019: Patient has significant hypercarbia and most likely has obesity related obstructive airway disease. Also, she has a history of reactive airway disease and have added steroids in hopes to improve airway compliance. She is of course severely and morbidly obese which is contributing to her worsening respiratory failure. Strictly speaking the restrictive nature of her obesity can cause significant pulmonary disease. I am also suspicious that she is developing pulmonary hypertension because of these above processes. Overall the patient needs to lose weight. She will need referral for gastric bypass surgery because the prognosis for her is poor if her respiratory status does not improve. She may be a candidate for tracheostomy precluded by intubation if she does not improve. We have stopped the heparin for now. She will receive a PICC line today to assist with medications. She was on a diuretic drip however bicarbonate levels have increased and we will discontinue this. Peripheral edema is most likely lymph and pulmonary hypertension related and we do not want to have left ventricular underfilling complicating her process. She does have acute kidney dysfunction and will hold any ANDREA or ARB medications until improved. We will continue to provide supportive care. I have ordered echo for pulmonary hypertension evaluation. Appreciate the consult by Dr. Guillermo Critical Time Critical Time (minutes): 40 Level of Care: ICU -: 1. The care of a critical patient is a dynamic process. This note is a credit resolution representative synopsis but static in nature. The timeframe for treatments given in order is not necessarily the actual time these treatments may have been done. 2. This patient requires critical care secondary to ongoing requirements for therapy not offered or safe outside the critical care environment. Transfer to a lower level of care will result in altered life or limb morbidity and mortality. 3. Multidisciplinary rounds completed. 4. ABCDE bundle addressed.
[2019-03-26] MEDS ORDERED: SILDENAFIL CITRATE 20 MG TABLET PO SCH (19:30)
[2019-03-26] MEDS: ATORVASTATIN CALCIUM 40 MG TABLET PO SCH (22:36)
[2019-03-26] MEDS ORDERED: DIPHENHYDRAMINE HCL 50 MG/ML VIAL IV ONE (23:30)
[2019-03-27] MEDS: HEPARIN SOD (PORCINE) 5,000 UNIT/ML 1 ML VIAL SUBCUT SCH ×3 (06:16→22:26)
[2019-03-27] MEDS ORDERED: ONDANSETRON HCL INJ/PF 4 MG/2 ML SDV ONE (06:26)
[2019-03-27] MEDS ORDERED: ONDANSETRON HCL INJ/PF 4 MG/2 ML SDV IV ONE (06:28)
[2019-03-27 06:45] LABS: HEMOGLOBIN 10.9 g/dL (12.0-15.5); MEAN CORPUSCULAR HEMOGLOBIN 24.3 pg (27.0-33.4); MEAN CORPUSCULAR HGB CONC 30.4 g/dL (32.0-36.0); MEAN CORPUSCULAR VOLUME 80 fl (80-97); PLATELET COUNT 186 10^3/uL (150-450); RED BLOOD COUNT 4.51 10^6/uL (3.72-5.28); WHITE BLOOD COUNT 5.4 10^3/uL (4.0-10.5)
[2019-03-27 06:54] LABS: APPEARANCE,URINE CLOUDY; BILIRUBIN,URINE NEGATIVE (NEGATIVE); CALCIUM OXALATE CRYSTALS,URINE FEW /HPF; COLOR,URINE YELLOW; GLUCOSE, URINE 50 mg/dL (NEGATIVE); KETONES,URINE NEGATIVE (NEGATIVE); LEUKOCYTE ESTERASE,URINE SMALL (NEGATIVE); NITRITE,URINE POSITIVE (NEGATIVE); PROTEIN,URINE 30 mg/dL (NEGATIVE); URINE SPECIFIC GRAVITY 1.016
[2019-03-27 07:01] LABS: ALBUMIN 3.6 g/dL (3.5-5.0); ALKALINE PHOSPHATASE 68 U/L (38-126); ASPARTATE AMINO TRANSFERASE 19 U/L (14-36); BILIRUBIN,DIRECT 0.4 mg/dL (0.0-0.4); BILIRUBIN,TOTAL 1.2 mg/dL (0.2-1.3); BLOOD UREA NITROGEN 42 mg/dL (7-20); CHLORIDE 96 mmol/L (98-107); GLUCOSE 285 mg/dL (75-110); PHOSPHORUS 3.9 mg/dL (2.5-4.5); POTASSIUM 5.4 mmol/L (3.6-5.0); TOTAL PROTEIN 9.1 g/dL (6.3-8.2)
[2019-03-27 07:07] LABS: ARTERIAL BLOOD BASE EXCESS 14.2 mmol/L; ARTERIAL BLOOD H2CO3 2.79 mmol/L (1.05-1.35); ARTERIAL BLOOD HCO3 44.4 mmol/L (20-24); ARTERIAL BLOOD O2 SATURATION 87.5 % (94-98); ARTERIAL BLOOD PO2 61.8 mmHg (80-100); ARTERIAL BLOOD TOTAL CO2 47.3 mmol/L (21-25)
[2019-03-27 07:07] LABS: ANION GAP 7 (5-19); CARBON DIOXIDE 38 mmol/L (22-30)
[2019-03-27 07:13] LABS: ARTERIAL BLOOD FIO2 30%
[2019-03-27 07:16] LABS: ARTERIAL BLOOD PCO2 92.8 mmHg (35-45)
[2019-03-27] MEDS: INSULIN REG, HUMAN 100 UNIT/ML 3 ML VIAL (PYX) SUBCUT SCH ×4 (07:48→22:27)
[2019-03-27] MEDS: METFORMIN HCL 500 MG TABLET PO SCH ×2 (07:49→16:30)
[2019-03-27] MEDS: SILDENAFIL CITRATE 20 MG TABLET PO SCH ×3 (07:50→17:06)
--- NOTE | 2019-03-27 08:27 | RADIOLOGY REPORT (SQ) ---
EXAM DESCRIPTION: CHEST SINGLE VIEW COMPLETED DATE/TIME: 03/27/2019 7:52 am REASON FOR STUDY: vomiting COMPARISON: 03/25/2019 NUMBER OF VIEWS: One view. TECHNIQUE: Single frontal radiographic image of the chest acquired. LIMITATIONS: None. FINDINGS: LUNGS AND PLEURA: Stable appearance. MEDIASTINUM AND HILAR STRUCTURES: Stable heart size and mediastinal structures. HEART AND VASCULAR STRUCTURES: Stable appearance. BONES: No acute findings. HARDWARE: None in the chest. OTHER: No other significant finding. IMPRESSION: STABLE APPEARANCE OF THE CHEST. TECHNICAL DOCUMENTATION: JOB ID: [id number] [employer]- All Rights Reserved Reading location - IP/workstation name: [email or web address]
--- NOTE | 2019-03-27 09:42 | RADIOLOGY REPORT (SQ) ---
EXAM DESCRIPTION: KUB/ABDOMEN (SINGLE VIEW) COMPLETED DATE/TIME: 03/27/2019 9:09 am REASON FOR STUDY: multiple bouts of emesis; r/o ileus COMPARISON: None. NUMBER OF VIEWS: One view. TECHNIQUE: Supine radiographic image of the abdomen acquired. LIMITATIONS: Body habitus FINDINGS: BOWEL GAS PATTERN: Normal bowel gas pattern. No dilated loops. CALCIFICATIONS: No suspicious calcifications. SOFT TISSUES: No gross mass or suggestion of organomegaly. HARDWARE: None in the abdomen. BONES: No acute fracture. No worrisome bone lesions. OTHER: Probable left basilar atelectasis. IMPRESSION: Limited study due to body habitus. Gas pattern is nonobstructive. TECHNICAL DOCUMENTATION: JOB ID: [id number] [email or web address]- All Rights Reserved Reading location - IP/workstation name: [email or web address]
[2019-03-27] MEDS: BUMETANIDE 1 MG TABLET PO SCH ×2 (10:19→17:05)
[2019-03-27] MEDS: METHYLPREDNISOLONE INJ 40 MG/1 ML SDV IV SCH ×2 (10:20→22:27)
[2019-03-27] MEDS: FUROSEMIDE 40 MG TABLET PO SCH ×2 (10:20→17:06)
[2019-03-27] MEDS: AMLODIPINE BESYLATE 10 MG TABLET PO SCH (10:20)
[2019-03-27] MEDS: NORMAL SALINE INJ/PF 0.9% 10 ML SDV IV SCH ×2 (11:00→22:27)
[2019-03-27 13:50] LABS: APPEARANCE,URINE CLOUDY; BILIRUBIN,URINE NEGATIVE (NEGATIVE); COLOR,URINE AMBER; GLUCOSE, URINE 50 mg/dL (NEGATIVE); KETONES,URINE NEGATIVE (NEGATIVE); LEUKOCYTE ESTERASE,URINE MODERATE (NEGATIVE); NITRITE,URINE POSITIVE (NEGATIVE); PROTEIN,URINE NEGATIVE (NEGATIVE); URINE SPECIFIC GRAVITY 1.014; UROBILINOGEN,URINE NEGATIVE mg/dL (<2.0)
--- NOTE | 2019-03-27 14:25 | PDOC CRITICAL CARE PROG REPORT ---
General Date:: 03/27/19 Resuscitation Status: Full Code Medical Power of Ring Barker Operator: : Tip Events in the past 12 to 24 Hours:: 03.27.2019: Patient had an isolated 5 beat episode of supraventricular tachycardia this morning but remained aymptomatic. Due to her nausea overnight a KUB was performed which showed no evidence of obstruction. She is otherwise doing well with no complaints. 03.26.2019: Patient was weaned off BiPAP and has been using it only in the evening last night. She is now on nasal cannula. Oxygenation was At 2 L however oxygen saturation has hovered around 93%. She denies headache, respiratory distress, visual changes, dyspnea nor chest pain. 03.25.2019: Patient's pH and PCO2 have improved. She is awake, alert and communicative. Wishes to eat. Reviewed echocardiogram. No official report but review of images shows enlarged RV, somewhat dysfunctional. Has closure of LV cavity on multiple views while patient on lasix drip. Diuretics have been discontinued. She has no chest pain; not dyspneic on BiPap 03.24.2019: Patient's neurological status has improved as well as her pH. When taken off BiPAP she quickly becomes more somnolent. She has had some darkening of her stools which appears to be somewhat bloody no active melena or hematochezia. Heparin has been discontinued. She has been on a Lasix drip. There has not been significant urine output. No hemodynamic stability nor hypotension has occurred. Review of systems relevant to events:: 03.27.2019: Diet held overnight due to nausea/emesis. Patient reports there was a pineapple on her tray which touched her other food--she has a history of vomiting after eating anything exposed to pineapple. IMaging was performed for safe measure which showed no evidence of obstruction and a gas filled stomach with no air fluid levels. 03.26.2019: Patient started on sildenafil 20 mg every 8. She is also started on dose appropriate DVT chemoprophylaxis without bleeding. Tolerating a diet and only his use BiPAP at night. 03.25.2019: No bleeding; off heparin 03.24.2019: Patient denies chest pain this morning. Her only concern is that she has not eaten and wishes to eat. She does not have any shortness of breath. She feels improved. Her Oxygen saturation is improved. Reason for ICU Addmission:: Acute hypercarbic and Hypoxic respiratory failure, Diastolic heart failure with NSTEMI - Medications: Medications reviewed and adjusted accordingly: Yes Vasopressors:: None Physical Exam Vital Signs: Temp Pulse Resp BP Pulse Ox 98.8 F 88 16 170/107 H 98 03/27/19 12:00 03/27/19 12:00 03/27/19 12:00 03/27/19 12:00 03/27/19 12:13 Intake & Output 03/26/19 03/27/19 03/28/19 06:59 06:59 06:59 Intake Total 100 240 Output Total 2196 1760 0 Balance -2096 -1520 0 Weight 255.8 kg 254.6 kg Weight/Height Weight 254.6 kg Height 5 ft 8 in General appearance: PRESENT: no acute distress, morbidly obese Head exam: PRESENT: atraumatic, normocephalic Eye exam: PRESENT: conjunctiva pink, EOMI, PERRLA. ABSENT: scleral icterus Ear exam: PRESENT: normal external ear exam Mouth exam: PRESENT: moist, tongue midline Neck exam: ABSENT: carotid bruit, JVD, lymphadenopathy, thyromegaly Respiratory exam: PRESENT: clear to auscultation trina. ABSENT: rales, rhonchi, wheezes Pulses: PRESENT: normal dorsalis pedis pul Vascular exam: PRESENT: normal capillary refill GI/Abdominal exam: PRESENT: normal bowel sounds, soft. ABSENT: distended, guarding, rebound, tenderness Rectal exam: PRESENT: deferred Extremities exam: PRESENT: full ROM. ABSENT: calf tenderness, clubbing, pedal edema Neurological exam: PRESENT: alert, awake, oriented to person, oriented to place, oriented to time, oriented to situation, CN II-XII grossly intact. ABSENT: motor sensory deficit Psychiatric exam: PRESENT: appropriate affect. ABSENT: agitated, anxious Skin exam: PRESENT: dry, intact, warm. ABSENT: cyanosis, rash Laboratory/Radiographs Laboratory Results: 03/27/19 06:30 03/27/19 06:30 03/27/19 03/27/19 03/27/19 06:30 06:30 06:30 WBC 5.4 RBC 4.51 Hgb 10.9 L Hct 36.0 MCV 80 MCH 24.3 L MCHC 30.4 L RDW 20.0 H Plt Count 186 Carbonic Acid HCO3/H2CO3 Ratio ABG pH ABG pCO2 ABG pO2 ABG HCO3 ABG O2 Saturation ABG Base Excess FiO2 Sodium 141.0 Potassium 5.4 H Chloride 96 L Carbon Dioxide 38 H Anion Gap 7 BUN 42 H Creatinine 1.09 Est GFR ( Amer) > 60 Glucose 285 H Calcium 9.0 Phosphorus 3.9 Magnesium 1.9 Total Bilirubin 1.2 AST 19 Alkaline Phosphatase 68 Total Protein 9.1 H Albumin 3.6 Urine Color YELLOW Urine Appearance CLOUDY Urine pH 5.0 Ur Specific [place] 1.016 Urine Protein 30 H Urine Glucose (UA) 50 H Urine Ketones NEGATIVE Urine Blood LARGE H Urine Nitrite POSITIVE H Ur Leukocyte Esterase SMALL H Urine WBC (Auto) 20 Urine RBC (Auto) 81 03/27/19 03/27/19 06:45 13:00 WBC RBC Hgb Hct MCV MCH MCHC RDW Plt Count Carbonic Acid 2.79 H HCO3/H2CO3 Ratio 15:1 ABG pH 7.30 L ABG pCO2 92.8 H* ABG pO2 61.8 L ABG HCO3 44.4 H ABG O2 Saturation 87.5 L ABG Base Excess 14.2 FiO2 30% Sodium Potassium Chloride Carbon Dioxide Anion Gap BUN Creatinine Est GFR ( Amer) Glucose Calcium Phosphorus Magnesium Total Bilirubin AST Alkaline Phosphatase Total Protein Albumin Urine Color BERNABE Urine Appearance CLOUDY Urine pH 5.0 Ur Specific [place] 1.014 Urine Protein NEGATIVE Urine Glucose (UA) 50 H Urine Ketones NEGATIVE Urine Blood LARGE H Urine Nitrite POSITIVE H Ur Leukocyte Esterase MODERATE H Urine WBC (Auto) 8 Urine RBC (Auto) 10 03/23/19 03/23/19 03/23/19 09:33 13:44 22:50 Creatine Kinase 60 CK-MB (CK-2) Troponin I 2.020 0.021 NT-Pro-B Natriuret Pep [id number] H 03/23/19 03/23/19 03/24/19 22:50 22:50 06:08 Creatine Kinase CK-MB (CK-2) 1.59 Troponin I 0.020 Cancelled NT-Pro-B Natriuret Pep 03/24/19 03/24/19 07:58 12:35 Creatine Kinase CK-MB (CK-2) Troponin I 0.025 0.017 NT-Pro-B Natriuret Pep Impressions: Guidance Ultrasound 03/24/19 00:00 IMPRESSION: Successful placement of a 5 [place] double lumen PICC via the right brachial vein utilizing fluoroscopic and sonographic guidance. PICC Line Insertion 03/24/19 00:00 IMPRESSION: Successful placement of a 5 [place] double lumen PICC via the right brachial vein utilizing fluoroscopic and sonographic guidance. Chest X-Ray 03/27/19 00:00 IMPRESSION: STABLE APPEARANCE OF THE CHEST. KUB X-Ray 03/27/19 00:00 IMPRESSION: Limited study due to body habitus. Gas pattern is nonobstructive. All labs, radiographs, diagnostic studies and EKGs were personally reviewed: Yes In addition, reports of radiographic and diagnostic studies were read: Yes Assessment and Plan - Diagnosis (1) Acute cardiac pulmonary edema Is this a current diagnosis for this admission?: Yes (2) Acute on chronic diastolic (congestive) heart failure Is this a current diagnosis for this admission?: Yes (3) Chronic respiratory failure with hypercapnia Is this a current diagnosis for this admission?: Yes (4) Obesity with alveolar hypoventilation and body mass index (BMI) of 40 or greater Is this a current diagnosis for this admission?: Yes (5) BMI 60.0-69.9, adult Is this a current diagnosis for this admission?: Yes (6) Diabetes mellitus type 2 in obese Is this a current diagnosis for this admission?: Yes (7) HLD (hyperlipidemia) Qualifiers: Hyperlipidemia type: unspecified Qualified Code(s): E78.5 - Hyperlipidemia, unspecified Is this a current diagnosis for this admission?: Yes (8) HTN (hypertension) Qualifiers: Hypertension type: essential hypertension Qualified Code(s): I10 - Essential (primary) hypertension Is this a current diagnosis for this admission?: Yes Plan Summary: 03.26.2019: Patient appears to be tolerating sildenafil therapy and will maintain her at 20 mg every 8 for the time being. We will continue to be vigilant to watch for hypoxia indicative of shunt physiology. Does not appear to be the case. I have maintained her oxygen at 5 L in order to prevent pulmonary vasoconstriction related to hypoxia. We will continue to monitor her hemodynamic status. I have ordered a CMP in the morning to evaluate for liver congestion. We will need to be vigilant to watch for hemodynamic side effects and any visual changes. Patient will need to be referred for gastric bypass and pulmonary hypertension. Continue Norvasc as well for pulmonary hypertension and systemic hypertension. Echocardiogram official results are still pending. Patient needs to be maintained on BiPAP at night nasal cannula during the day. Art physical and Occupational Therapy. She has been started on Glucophage for its glycemic effect and also for weight loss effect. She has been maintained in the ICU to evaluate for hypoxia related to shunt events on phosphodiesterase inhibitor inhibitor therapy. It is paramount that she be under supervised vigilant monitoring during this time. 03.27.2019: Despite slightly increased PCO2 this morning patient is asymptomatic and pH did not drop significantly. Patient appears very comfortable and is hungry again today. As there is no mechanical cause for her nausea/vomiting yesterday will restart diet. Additionally, will restart home Bumex and Lasix. Lasix should hopefully help to decrease her potassium as it is trending upward. She did have a very brief run of SVT this morning and should she develop another arrhythmia, will treat her hyperkalemia (although at 5.4 it is an unlikely source of an arrhythmia). Anticipate ability to transition to IMCU soon. Still awaiting CPAP machine and investigation into whether or not her insurance will cover sildenafil. 03.25.2019: Patient has improved with accommodation of steroids and noninvasive ventilation. Oxygenation status is stable. She was transitioned from BiPAP to nasal cannula this morning. Patient presented with evidence of chronic hypercarbia I had the opportunity to speak to pulmonary vascular disease specialist at [facility]. The reason for this is that the patient has significant RV dilation and given her obesity, reactive airway disease and hypercarbia discussed the possibility of a sildenafil titration regimen. In most situations we would prefer to place a pulmonary artery catheter however given the patient's size and RV dilation this may be quite difficult and the x-ray may be difficult to view given her size limitations. It is not an uncommon practice to start a titration based on clinical symptoms while evaluating oxygen saturation in a monitored environment. We will begin the process of a sildenafil titration. Her LV appears to be underfilled however we will not give any more fluids so that we can determine if RV offloading is followed by LV filling. Her skin is for road secondary to contraction from diuresis. Her creatinine has improved as well. Her LV function appears to be moderately intact and there not appear to be LV dilation to suggest that the pulmonary hypertension is related to LV dysfunction. We will continue her on a calcium channel agustin which is also helpful for pulmonary hypertension. Plan is to place her on BiPAP whenever she is sleeping and every 4 hours between meals. He does not appear at risk any further for the need for invasive ventilation. Her blood sugars have been elevated and her hemoglobin A1c is above 10. Given her obesity I have elected to place her on Glucophage to help with blood sugar control and with possible weight loss mechanisms. I had a lengthy discussion with the patient regarding her calorie count, carbohydrate count and diet habits. We had a long lengthy discussion about how bad her lung disease has become as well as her obesity. Had a andrey discussion about the prognosis and mortality and morbidity associated with severe obesity now followed with pulmonary hypertension. Although she has improved, she will need to be maintained in the ICU under very close monitored setting while sildenafil is titrated. Typically we will evaluate for hypoxia as a negative side effect related to pulmonary shunting. Patient will need follow-up at a pulmonary hypertension specialty center and we discussed the case with [facility]. Have discussed this with the patient and will need referral when she is able to be discharged. Patient will require home BiPAP. Given her weight from severe morbid obesity she has restrictive lung disease and both clinical and chemical evidence of hypercapnic respiratory failure. She has rapidly changing respiratory status requiring noninvasive ventilation and she will need a guaranteed volume ventilation. Due to this I have recommended a ventilator that will be able to respond rapidly to the changing status of her lung condition requiring multiple ventilation settings including a mouthpiece ventilation to complete ADLs. Of necessity of battery will also be required for 24-hour access to this not jagdish nable ventilation as she transitions to multiple environments. It should be noted that this level of support cannot be achieved with a bilevel type therapy device. Of utmost importance without this therapy, the patient will experience a decline in their health status. This reason I have recommended a Trilogy noninvasive respiratory apparatus. Family will need to be trained if this equipment can be obtained while patient is an inpatient. Current hospital policy dictates that respiratory staff is unable to monitor and manage the Trilogy noninvasive ventilation system. 03.24.2019: Patient has significant hypercarbia and most likely has obesity related obstructive airway disease. Also, she has a history of reactive airway disease and have added steroids in hopes to improve airway compliance. She is of course severely and morbidly obese which is contributing to her worsening respiratory failure. Strictly speaking the restrictive nature of her obesity can cause significant pulmonary disease. I am also suspicious that she is developing pulmonary hypertension because of these above processes. Overall the patient needs to lose weight. She will need referral for gastric bypass surgery because the prognosis for her is poor if her respiratory status does not improve. She may be a candidate for tracheostomy precluded by intubation if she does not improve. We have stopped the heparin for now. She will receive a PICC line today to assist with medications. She was on a diuretic drip however bicarbonate levels have increased and we will discontinue this. Peripheral edema is most likely lymph and pulmonary hypertension related and we do not want to have left ventricular underfilling complicating her process. She does have acute kidney dysfunction and will hold any ANDREA or ARB medications until improved. We will continue to provide supportive care. I have ordered echo for pulmonary hypertension evaluation. Appreciate the consult by Dr. Guillermo Critical Time Critical Time (minutes): 60 Level of Care: ICU -: 1. The care of a critical patient is a dynamic process. This note is a videotape sales representative synopsis but static in nature. The timeframe for treatments given in order is not necessarily the actual time these treatments may have been done. 2. This patient requires critical care secondary to ongoing requirements for therapy not offered or safe outside the critical care environment. Transfer to a lower level of care will result in altered life or limb morbidity and mortal ity. 3. Multidisciplinary rounds completed. 4. ABCDE bundle addressed.
--- NOTE | 2019-03-27 19:06 | PDOC PROGRESS REPORT ---
Subjective Progress Note for:: 03/27/19 Subjective:: Patient seen and examined. Discussed with surgery. S/p percutaneoues tube placement for cholecystitis, Had atrial fibrillation RVR required IV Metoprolol and IV Amiodarone. Now resting in bed. Family at bedside. No complaints Reason For Visit: ACUTE HYPERCARBIC RESPIRATORY FAILURE,DIASTOLIC Physical Exam Vital Signs: Temp Pulse Resp BP Pulse Ox 98.1 F 85 13 164/90 H 100 03/27/19 16:00 03/27/19 16:00 03/27/19 18:22 03/27/19 18:22 03/27/19 18:22 Intake & Output 03/26/19 03/27/19 03/28/19 06:59 06:59 06:59 Intake Total 100 240 Output Total 2196 1760 1000 Balance -2096 -1520 -1000 Weight 255.8 kg 254.6 kg 254.6 kg General appearance: PRESENT: no acute distress, cooperative, obese Head exam: PRESENT: atraumatic, normocephalic Eye exam: PRESENT: EOMI Mouth exam: PRESENT: moist Cardiovascular exam: PRESENT: irregular rhythm, +S1, +S2, systolic murmur Pulses: PRESENT: normal radial pulses GI/Abdominal exam: PRESENT: soft Rectal exam: PRESENT: deferred Neurological exam: PRESENT: awake, oriented to person, oriented to place Skin exam: PRESENT: dry, intact Results Laboratory Results: 03/27/19 06:30 03/27/19 06:30 03/27/19 03/27/19 03/27/19 06:30 06:30 06:30 WBC 5.4 RBC 4.51 Hgb 10.9 L Hct 36.0 MCV 80 MCH 24.3 L MCHC 30.4 L RDW 20.0 H Plt Count 186 Carbonic Acid HCO3/H2CO3 Ratio ABG pH ABG pCO2 ABG pO2 ABG HCO3 ABG O2 Saturation ABG Base Excess FiO2 Sodium 141.0 Potassium 5.4 H Chloride 96 L Carbon Dioxide 38 H Anion Gap 7 BUN 42 H Creatinine 1.09 Est GFR ( Amer) > 60 Glucose 285 H Calcium 9.0 Phosphorus 3.9 Magnesium 1.9 Total Bilirubin 1.2 AST 19 Alkaline Phosphatase 68 Total Protein 9.1 H Albumin 3.6 Urine Color YELLOW Urine Appearance CLOUDY Urine pH 5.0 Ur Specific [place] 1.016 Urine Protein 30 H Urine Glucose (UA) 50 H Urine Ketones NEGATIVE Urine Blood LARGE H Urine Nitrite POSITIVE H Ur Leukocyte Esterase SMALL H Urine WBC (Auto) 20 Urine RBC (Auto) 81 03/27/19 03/27/19 06:45 13:00 WBC RBC Hgb Hct MCV MCH MCHC RDW Plt Count Carbonic Acid 2.79 H HCO3/H2CO3 Ratio 15:1 ABG pH 7.30 L ABG pCO2 92.8 H* ABG pO2 61.8 L ABG HCO3 44.4 H ABG O2 Saturation 87.5 L ABG Base Excess 14.2 FiO2 30% Sodium Potassium Chloride Carbon Dioxide Anion Gap BUN Creatinine Est GFR ( Amer) Glucose Calcium Phosphorus Magnesium Total Bilirubin AST Alkaline Phosphatase Total Protein Albumin Urine Color BERNABE Urine Appearance CLOUDY Urine pH 5.0 Ur Specific [place] 1.014 Urine Protein NEGATIVE Urine Glucose (UA) 50 H Urine Ketones NEGATIVE Urine Blood LARGE H Urine Nitrite POSITIVE H Ur Leukocyte Esterase MODERATE H Urine WBC (Auto) 8 Urine RBC (Auto) 10 03/23/19 03/23/19 03/23/19 09:33 13:44 22:50 Creatine Kinase 60 CK-MB (CK-2) Troponin I 2.020 0.021 NT-Pro-B Natriuret Pep [id number] H 03/23/19 03/23/19 03/24/19 22:50 22:50 06:08 Creatine Kinase CK-MB (CK-2) 1.59 Troponin I 0.020 Cancelled NT-Pro-B Natriuret Pep 03/24/19 03/24/19 07:58 12:35 Creatine Kinase CK-MB (CK-2) Troponin I 0.025 0.017 NT-Pro-B Natriuret Pep Impressions: Guidance Ultrasound 03/24/19 00:00 IMPRESSION: Successful placement of a 5 [place] double lumen PICC via the right brachial vein utilizing fluoroscopic and sonographic guidance. PICC Line Insertion 03/24/19 00:00 IMPRESSION: Successful placement of a 5 [place] double lumen PICC via the right brachial vein utilizing fluoroscopic and sonographic guidance. Chest X-Ray 03/27/19 00:00 IMPRESSION: STABLE APPEARANCE OF THE CHEST. KUB X-Ray 03/27/19 00:00 IMPRESSION: Limited study due to body habitus. Gas pattern is nonobstructive. Assessment & Plan - Diagnosis (1) Acute on chronic diastolic (congestive) heart failure Is this a current diagnosis for this admission?: Yes Plan: Watch fluid status. On oral diuretics Continues to improve (2) Elevated troponin Plan: Likely secondary to severe hypoxia and volume overload and unlikely ACS
--- NOTE | 2019-03-27 19:57 | XCELERA REPORT ---
[address] [address] Transthoracic Echocardiogram Report Name: LAURENT MOORE Age: 43 yrs Gender: Female : 1975 Patient Status: Inpatient Patient Location: ICU^609^A Study Date: 03/24/2019 01:16 PM History: CHF Height: 68 in Weight: 569 lb BSA: 3.2 m2 Procedure: A complete two-dimensional transthoracic echocardiogram was performed (2D, M-mode, spectral and color flow Doppler). The study was technically difficult with many images being suboptimal in quality. Reason For Study: pulmonary hypertension History: CHF. Shortness of breath. Ordering Physician: SANDRA BOSS Performed By: Stewart Bella Interpretation Summary The study was technically difficult with many images being suboptimal in quality. Left ventricular systolic function is normal. The Ejection Fraction estimate is 60-65% The right ventricle is moderately dilated. The right ventricular systolic function is borderline reduced. There is a trace amount of mitral regurgitation There is no aortic valve stenosis There is a moderate amount of tricuspid regurgitation There is moderate to severe pulmonary hypertension by echo There is no pericardial effusion. MMode/2D Measurements & Calculations RVDd: 4.6 cm LVIDd: 5.1 cm FS: 43.3 % Ao root diam: 2.9 cm IVSd: 0.98 cm LVIDs: 2.9 cm EDV(Teich): 124.1 ml Ao root area: 6.5 cm2 LVPWd: 0.96 cm ESV(Teich): 32.1 ml LA dimension: 3.6 cm EF(Teich): 74.1 % Doppler Measurements & Calculations MV E max bob: MV P1/2t max bob: Ao V2 max: LV V1 max P.6 cm/sec 104.8 cm/sec 173.7 cm/sec 8.7 mmHg MV A max bob: MV P1/2t: 73.2 msec Ao max PG: LV V1 max: 94.8 cm/sec MVA(P1/2t): 3.0 cm2 12.1 mmHg 147.1 cm/sec MV E/A: 1.1 MV dec slope: 419.2 cm/sec2 MV dec time: 0.28 sec PA V2 max: PI end-d bob: TR max bob: MV P1/2t-pr_phl: 93.8 cm/sec 122.2 cm/sec 308.3 cm/sec 73.2 msec PA max P.5 mmHg TR max P.0 mmHg Left Ventricle The left ventricle is grossly normal size. There is severe concentric left ventricular hypertrophy. Left ventricular systolic function is normal. The Ejection Fraction estimate is 60-65%. Doppler measurements suggest pseudonormalized left ventricular relaxation, which is associated with grade II/IV or mild to moderate diastolic dysfunction. Right Ventricle The right ventricle is moderately dilated. The right ventricular systolic function is borderline reduced. Atria The right atrium is moderately dilated. The left atrium is mildly dilated. Mitral Valve The mitral valve is grossly normal. There is no mitral valve stenosis. There is a trace amount of mitral regurgitation. Aortic Valve The aortic valve is normal in structure and function. The aortic valve is trileaflet. The aortic valve opens well. There is no aortic valve stenosis. No aortic regurgitation is present. Tricuspid Valve The tricuspid valve is not well visualized, but is grossly normal. There is a moderate amount of tricuspid regurgitation. There is moderate to severe pulmonary hypertension by echo. Pulmonic Valve The pulmonic valve is not well seen, but is grossly normal. There is a trace or physiologic amount of pulmonic regurgitation. Great Vessels The aortic root is normal size. The inferior vena cava appeared dilated and decreased < 50% with respiration (RAP 15-20 mmHg). Effusions There is no pericardial effusion. : SANDRA BOSS Anil
[2019-03-27 23:28] LABS: ARTERIAL BLOOD BASE EXCESS 16.9 mmol/L; ARTERIAL BLOOD H2CO3 2.87 mmol/L (1.05-1.35); ARTERIAL BLOOD HCO3 47.2 mmol/L (20-24); ARTERIAL BLOOD O2 SATURATION 88.5 % (94-98); ARTERIAL BLOOD PH 7.31 (7.35-7.45); ARTERIAL BLOOD PO2 63.3 mmHg (80-100); ARTERIAL BLOOD TOTAL CO2 50.2 mmol/L (21-25)
[2019-03-27 23:29] LABS: ARTERIAL BLOOD FIO2 35%
[2019-03-27 23:31] LABS: ARTERIAL BLOOD PCO2 95.5 mmHg (35-45)
[2019-03-28] MEDS: ATORVASTATIN CALCIUM 40 MG TABLET PO SCH ×2 (02:29→21:57)
--- NOTE | 2019-03-28 03:15 | Progress Note ---
Provider Note Provider Note: Pt noted to be difficult to arouse and having episodes of hypoxia while on BiPAP down to mid-80s that would take a prolonged amount of time to recover while patient appeared to be asleep. Pt did not appear to be in respiratory distress, BP and HR remained stable Blood gas was drawn noting change from AM ABG. BiPAP c hanges made and repeat ABG ordered. When RN unable to obtain follow up ABG, this FIELD SUPPORT ENGINEER in to pt room to attempt ABG, pt was awake, alert, oriented and had no complaints. Decision was made to hold on repeat ABG as pt had improvement after BiPAP changes. Will continue to monitor and obtain AM ABG with routine labs for monitoring.
[2019-03-28] MEDS: HEPARIN SOD (PORCINE) 5,000 UNIT/ML 1 ML VIAL SUBCUT SCH ×3 (05:20→21:57)
[2019-03-28 06:07] LABS: ARTERIAL BLOOD H2CO3 2.63 mmol/L (1.05-1.35); ARTERIAL BLOOD HCO3 45.6 mmol/L (20-24); ARTERIAL BLOOD O2 SATURATION 82.7 % (94-98); ARTERIAL BLOOD PH 7.34 (7.35-7.45); ARTERIAL BLOOD PO2 52.6 mmHg (80-100); ARTERIAL BLOOD TOTAL CO2 48.3 mmol/L (21-25)
[2019-03-28 06:09] LABS: ARTERIAL BLOOD FIO2 35%
[2019-03-28 06:10] LABS: ARTERIAL BLOOD PCO2 87.3 mmHg (35-45)
[2019-03-28 06:14] LABS: ALBUMIN 3.5 g/dL (3.5-5.0); ALKALINE PHOSPHATASE 64 U/L (38-126); ASPARTATE AMINO TRANSFERASE 19 U/L (14-36); BILIRUBIN,DIRECT 0.3 mg/dL (0.0-0.4); BILIRUBIN,TOTAL 1.1 mg/dL (0.2-1.3); BLOOD UREA NITROGEN 34 mg/dL (7-20); CALCIUM 8.9 mg/dL (8.4-10.2); CHLORIDE 94 mmol/L (98-107); GLUCOSE 237 mg/dL (75-110); TOTAL PROTEIN 8.7 g/dL (6.3-8.2)
[2019-03-28 06:27] LABS: ANION GAP 8 (5-19)
[2019-03-28 06:29] LABS: CARBON DIOXIDE 41 mmol/L (22-30)
[2019-03-28] MEDS: SILDENAFIL CITRATE 20 MG TABLET PO SCH ×3 (08:37→17:05)
[2019-03-28] MEDS: INSULIN REG, HUMAN 100 UNIT/ML 3 ML VIAL (PYX) SUBCUT SCH ×4 (08:37→22:00)
[2019-03-28] MEDS: METFORMIN HCL 500 MG TABLET PO SCH ×2 (08:37→15:29)
[2019-03-28] MEDS: FUROSEMIDE 40 MG TABLET PO SCH ×2 (09:35→17:05)
[2019-03-28] MEDS: AMLODIPINE BESYLATE 10 MG TABLET PO SCH (09:35)
[2019-03-28] MEDS: BUMETANIDE 1 MG TABLET PO SCH ×2 (09:36→17:06)
[2019-03-28] MEDS: METHYLPREDNISOLONE INJ 40 MG/1 ML SDV IV SCH ×2 (09:36→21:57)
[2019-03-28] MEDS: NORMAL SALINE INJ/PF 0.9% 10 ML SDV IV SCH ×2 (11:00→22:01)
--- NOTE | 2019-03-28 12:21 | PDOC CRITICAL CARE PROG REPORT ---
General Date:: 03/28/19 Resuscitation Status: Full Code Medical Power of Store Mgr: : Tip Events in the past 12 to 24 Hours:: Patient had episode of desaturation last night and what was thought to be decreased awareness, however, patient normal upon provider exam. ABG this morning confirmed that she is at her baseline pulmonary status and doing well. Patient is hungry, feels better and has been downgraded to IMCU since yesterday, pending bed placement. Reason for ICU Addmission:: Acute hypercarbic and Hypoxic respiratory failure, Diastolic heart failure with NSTEMI - Medications: Medications reviewed and adjusted accordingly: Yes Physical Exam Vital Signs: Temp Pulse Resp BP Pulse Ox 98.3 F 89 15 185/104 H 94 03/28/19 07:14 03/28/19 08:00 03/28/19 10:00 03/28/19 07:22 03/28/19 10:00 Intake & Output 03/27/19 03/28/19 03/29/19 06:59 06:59 06:59 Intake Total 240 Output Total 1760 1800 Balance -1520 -1800 Weight 254.6 kg 249.1 kg Weight/Height Weight 249.1 kg Height 5 ft 8 in General appearance: PRESENT: no acute distress, well-developed, well-nourished Head exam: PRESENT: atraumatic, normocephalic Eye exam: PRESENT: conjunctiva pink, EOMI, PERRLA. ABSENT: scleral icterus Ear exam: PRESENT: normal external ear exam Mouth exam: PRESENT: moist, tongue midline Neck exam: ABSENT: carotid bruit, JVD, lymphadenopathy Respiratory exam: PRESENT: clear to auscultation trina. ABSENT: rales, rhonchi, wheezes Cardiovascular exam: PRESENT: RRR Pulses: PRESENT: normal radial pulses Vascular exam: PRESENT: normal capillary refill GI/Abdominal exam: PRESENT: normal bowel sounds, soft. ABSENT: distended, firm, guarding, rebound, tenderness Rectal exam: PRESENT: deferred Extremities exam: ABSENT: calf tenderness, pedal edema Musculoskeletal exam: PRESENT: full ROM Neurological exam: PRESENT: alert, awake, oriented to person, oriented to place, oriented to time, oriented to situation, CN II-XII grossly intact. ABSENT: motor sensory deficit Psychiatric exam: PRESENT: appropriate affect Skin exam: PRESENT: dry. ABSENT: erythema, rash Laboratory/Radiographs Laboratory Results: 03/27/19 06:30 03/28/19 05:30 03/27/19 03/27/19 03/28/19 13:00 23:15 05:30 Carbonic Acid 2.87 H 2.63 H HCO3/H2CO3 Ratio 16:1 17:1 ABG pH 7.31 L 7.34 L ABG pCO2 95.5 H* 87.3 H* ABG pO2 63.3 L 52.6 L ABG HCO3 47.2 H 45.6 H ABG O2 Saturation 88.5 L 82.7 L ABG Base Excess 16.9 16.0 FiO2 35% 35% Sodium Potassium Chloride Carbon Dioxide Anion Gap BUN Creatinine Est GFR ( Amer) Glucose Calcium Total Bilirubin AST Alkaline Phosphatase Total Protein Albumin Urine Color BER[place]BE Urine Appearance CLOUDY Urine pH 5.0 Ur Specific [place] 1.014 Urine Protein NEGATIVE Urine Glucose (UA) 50 H Urine Ketones NEGATIVE Urine Blood LARGE H Urine Nitrite POSITIVE H Ur Leukocyte Esterase MODERATE H Urine WBC (Auto) 8 Urine RBC (Auto) 10 03/28/19 05:30 Carbonic Acid HCO3/H2CO3 Ratio ABG pH ABG pCO2 ABG pO2 ABG HCO3 ABG O2 Saturation ABG Base Excess FiO2 Sodium 142.5 Potassium 5.0 Chloride 94 L Carbon Dioxide 41 H* Anion Gap 8 BUN 34 H Creatinine 1.09 Est GFR ( Amer) > 60 Glucose 237 H Calcium 8.9 Total Bilirubin 1.1 AST 19 Alkaline Phosphatase 64 Total Protein 8.7 H Albumin 3.5 Urine Color Urine Appearance Urine pH Ur Specific [place] Urine Protein Urine Glucose (UA) Urine Ketones Urine Blood Urine Nitrite Ur Leukocyte Esterase Urine WBC (Auto) Urine RBC (Auto) 03/23/19 03/23/19 03/23/19 09:33 13:44 22:50 Creatine Kinase 60 CK-MB (CK-2) Troponin I 2.020 0.021 NT-Pro-B Natriuret Pep [id number] H 03/23/19 03/23/19 03/24/19 22:50 22:50 06:08 Creatine Kinase CK-MB (CK-2) 1.59 Troponin I 0.020 Cancelled NT-Pro-B Natriuret Pep 03/24/19 03/24/19 07:58 12:35 Creatine Kinase CK-MB (CK-2) Troponin I 0.025 0.017 NT-Pro-B Natriuret Pep Impressions: Guidance Ultrasound 03/24/19 00:00 IMPRESSION: Successful placement of a 5 [place] double lumen PICC via the right brachial vein utilizing fluoroscopic and sonographic guidance. PICC Line Insertion 03/24/19 00:00 IMPRESSION: Successful placement of a 5 [place] double lumen PICC via the right brachial vein utilizing fluoroscopic and sonographic guidance. Chest X-Ray 03/27/19 00:00 IMPRESSION: STABLE APPEARANCE OF THE CHEST. KUB X-Ray 03/27/19 00:00 IMPRESSION: Limited study due to body habitus. Gas pattern is nonobstructive. All labs, radiographs, diagnostic studies and EKGs were personally reviewed: Yes In addition, reports of radiographic and diagnostic studies were read: Yes Assessment and Plan - Diagnosis (1) Acute cardiac pulmonary edema Is this a current diagnosis for this admission?: Yes (2) Acute on chronic diastolic (congestive) heart failure Is this a current diagnosis for this admission?: Yes (3) Chronic respiratory failure with hypercapnia Is this a current diagnosis for this admission?: Yes (4) Obesity with alveolar hypoventilation and body mass index (BMI) of 40 or greater Is this a current diagnosis for this admission?: Yes (5) BMI 60.0-69.9, adult Is this a current diagnosis for this admission?: Yes (6) Diabetes mellitus type 2 in obese Is this a current diagnosis for this admission?: Yes (7) HLD (hyperlipidemia) Qualifiers: Hyperlipidemia type: unspecified Qualified Code(s): E78.5 - Hyperlipidemia, unspecified Is this a current diagnosis for this admission?: Yes (8) HTN (hypertension) Qualifiers: Hypertension type: essential hypertension Qualified Code(s): I10 - Essential (primary) hypertension Is this a current diagnosis for this admission?: Yes Plan Summary: Patient remains clinically stable and has been doing well overall. DC planning team working on sildenafil outpatient prescription and home CPAP machine ordered. Patient and family to receive dietary counseling upon floor transfer and will also need to know how to operate her CPAP prior to discharge home. PT to help get out of bed today. Remains IMCU status pending bed availability. Critical Time Critical Time (minutes): 30 Level of Care: ICU -: 1. The care of a critical patient is a dynamic process. This note is a b2b sales representative synopsis but static in nature. The timeframe for treatments given in order is not necessarily the actual time these treatments may have been done. 2. This patient requires critical care secondary to ongoing requirements for therapy not offered or safe outside the critical care environment. Transfer to a lower level of care will result in altered life or limb morbidity and mortality. 3. Multidisciplinary rounds completed. 4. ABCDE bundle addressed.
[2019-03-28] MEDS: VALSARTAN 160 MG TABLET PO SCH (12:23)
--- NOTE | 2019-03-28 21:59 | PDOC PROGRESS REPORT ---
Subjective Progress Note for:: 03/28/19 Subjective:: Patient resting in bed. Family at bedside. No complaints voiced. Breathing much better. Oxygen by nasal cannula. Off BiPAP Reason For Visit: ACUTE HYPERCARBIC RESPIRATORY FAILURE,DIASTOLIC Physical Exam Vital Signs: Temp Pulse Resp BP Pulse Ox 98.6 F 83 11 L 167/97 H 95 03/28/19 20:00 03/28/19 20:00 03/28/19 18:00 03/28/19 17:34 03/28/19 18:00 Intake & Output 03/27/19 03/28/19 03/29/19 06:59 06:59 06:59 Intake Total 240 Output Total 1760 1800 1200 Balance -1520 -1800 -1200 Weight 254.6 kg 249.1 kg General appearance: PRESENT: no acute distress, morbidly obese Head exam: PRESENT: atraumatic, normocephalic Eye exam: PRESENT: EOMI Respiratory exam: PRESENT: clear to auscultation trina, symmetrical, unlabored Cardiovascular exam: PRESENT: RRR, +S1, +S2 GI/Abdominal exam: PRESENT: soft Neurological exam: PRESENT: awake Results Laboratory Results: 03/27/19 06:30 03/28/19 05:30 03/27/19 03/28/19 03/28/19 23:15 05:30 05:30 Carbonic Acid 2.87 H 2.63 H HCO3/H2CO3 Ratio 16:1 17:1 ABG pH 7.31 L 7.34 L ABG pCO2 95.5 H* 87.3 H* ABG pO2 63.3 L 52.6 L ABG HCO3 47.2 H 45.6 H ABG O2 Saturation 88.5 L 82.7 L ABG Base Excess 16.9 16.0 FiO2 35% 35% Sodium 142.5 Potassium 5.0 Chloride 94 L Carbon Dioxide 41 H* Anion Gap 8 BUN 34 H Creatinine 1.09 Est GFR ( Amer) > 60 Glucose 237 H Calcium 8.9 Total Bilirubin 1.1 AST 19 Alkaline Phosphatase 64 Total Protein 8.7 H Albumin 3.5 03/23/19 03/23/19 03/23/19 09:33 13:44 22:50 Creatine Kinase 60 CK-MB (CK-2) Troponin I 2.020 0.021 NT-Pro-B Natriuret Pep [id number] H 03/23/19 03/23/19 03/24/19 22:50 22:50 06:08 Creatine Kinase CK-MB (CK-2) 1.59 Troponin I 0.020 Cancelled NT-Pro-B Natriuret Pep 03/24/19 03/24/19 07:58 12:35 Creatine Kinase CK-MB (CK-2) Troponin I 0.025 0.017 NT-Pro-B Natriuret Pep Impressions: Guidance Ultrasound 03/24/19 00:00 IMPRESSION: Successful placement of a 5 Lao double lumen PICC via the right brachial vein utilizing fluoroscopic and sonographic guidance. PICC Line Insertion 03/24/19 00:00 IMPRESSION: Successful placement of a 5 Lao double lumen PICC via the right brachial vein utilizing fluoroscopic and sonographic guidance. Chest X-Ray 03/27/19 00:00 IMPRESSION: STABLE APPEARANCE OF THE CHEST. KUB X-Ray 03/27/19 00:00 IMPRESSION: Limited study due to body habitus. Gas pattern is nonobstructive. Assessment & Plan - Diagnosis (1) Acute on chronic diastolic (congestive) heart failure Is this a current diagnosis for this admission?: Yes Plan: Much improved in terms of heart failure. Volume status is difficult to ascertain. However she appears to be moving in the right direction as indicated by diminishing oxygen requirements and improved work of breathing and respiratory distress She probably will merit from maintenance diuretic on board. (2) Elevated troponin Plan: Likely secondary to severe hypoxia and volume overload and unlikely ACS
[2019-03-29 03:50] LABS: APPEARANCE,URINE SLIGHTLY-CLOUDY; BILIRUBIN,URINE NEGATIVE (NEGATIVE); COLOR,URINE YELLOW; GLUCOSE, URINE NEGATIVE (NEGATIVE); KETONES,URINE NEGATIVE (NEGATIVE); LEUKOCYTE ESTERASE,URINE MODERATE (NEGATIVE); NITRITE,URINE NEGATIVE (NEGATIVE); PROTEIN,URINE NEGATIVE (NEGATIVE); URINE SPECIFIC GRAVITY 1.006; UROBILINOGEN,URINE NEGATIVE mg/dL (<2.0)
[2019-03-29 03:55] LABS: HEMATOCRIT 35.6 % (36.0-47.0); MEAN CORPUSCULAR HEMOGLOBIN 24.2 pg (27.0-33.4); MEAN CORPUSCULAR HGB CONC 30.8 g/dL (32.0-36.0); MEAN CORPUSCULAR VOLUME 79 fl (80-97); PLATELET COUNT 140 10^3/uL (150-450); RED BLOOD COUNT 4.53 10^6/uL (3.72-5.28); RED CELL DISTRIBUTION WIDTH 19.6 % (11.5-14.0); WHITE BLOOD COUNT 4.6 10^3/uL (4.0-10.5)
[2019-03-29 04:05] LABS: ALBUMIN 3.5 g/dL (3.5-5.0); ALKALINE PHOSPHATASE 68 U/L (38-126); ASPARTATE AMINO TRANSFERASE 24 U/L (14-36); BILIRUBIN,DIRECT 0.3 mg/dL (0.0-0.4); BILIRUBIN,TOTAL 1.2 mg/dL (0.2-1.3); BLOOD UREA NITROGEN 32 mg/dL (7-20); CALCIUM 8.9 mg/dL (8.4-10.2); CHLORIDE 91 mmol/L (98-107); GLUCOSE 232 mg/dL (75-110); POTASSIUM 4.8 mmol/L (3.6-5.0); TOTAL PROTEIN 8.8 g/dL (6.3-8.2)
[2019-03-29 04:13] LABS: ANION GAP 11 (5-19); CARBON DIOXIDE 39 mmol/L (22-30)
[2019-03-29] MEDS: HEPARIN SOD (PORCINE) 5,000 UNIT/ML 1 ML VIAL SUBCUT SCH ×3 (05:50→22:25)
[2019-03-29] MEDS: METFORMIN HCL 500 MG TABLET PO SCH ×2 (08:14→16:26)
[2019-03-29] MEDS: SILDENAFIL CITRATE 20 MG TABLET PO SCH ×3 (08:14→16:26)
[2019-03-29] MEDS: INSULIN REG, HUMAN 100 UNIT/ML 3 ML VIAL (PYX) SUBCUT SCH ×4 (08:15→22:24)
[2019-03-29] MEDS: VALSARTAN 160 MG TABLET PO SCH (10:58)
[2019-03-29] MEDS: AMLODIPINE BESYLATE 10 MG TABLET PO SCH (10:59)
[2019-03-29] MEDS: METHYLPREDNISOLONE INJ 40 MG/1 ML SDV IV SCH ×2 (10:59→22:24)
[2019-03-29] MEDS: FUROSEMIDE 40 MG TABLET PO SCH (10:59)
[2019-03-29] MEDS: BUMETANIDE 1 MG TABLET PO SCH (11:00)
[2019-03-29] MEDS: NORMAL SALINE INJ/PF 0.9% 10 ML SDV IV SCH ×2 (11:21→22:24)
[2019-03-29 11:49] LABS: APPEARANCE,URINE CLEAR; BILIRUBIN,URINE NEGATIVE (NEGATIVE); COLOR,URINE YELLOW; GLUCOSE, URINE NEGATIVE (NEGATIVE); KETONES,URINE NEGATIVE (NEGATIVE); LEUKOCYTE ESTERASE,URINE LARGE (NEGATIVE); NITRITE,URINE NEGATIVE (NEGATIVE); PROTEIN,URINE NEGATIVE (NEGATIVE); URINE SPECIFIC GRAVITY 1.006; UROBILINOGEN,URINE NEGATIVE mg/dL (<2.0)
--- NOTE | 2019-03-29 15:05 | PDOC CRITICAL CARE PROG REPORT ---
General Resuscitation Status: Full Code Medical Power of Fulling Mill Operator: : Tip Events in the past 12 to 24 Hours:: Patient has been floor status for numerous days with no bed available. No complaints today. Blood pressure much better controlled on home regimen. Still awaiting home CPAP and clearance for outpatient sildenafil. Reason for ICU Addmission:: Acute hypercarbic and Hypoxic respiratory failure, Diastolic heart failure with NSTEMI - Medications: Vasopressors:: None Physical Exam Vital Signs: Temp Pulse Resp BP Pulse Ox 98.6 F 94 14 167/100 H 96 03/29/19 12:00 03/29/19 12:00 03/29/19 14:01 03/29/19 14:01 03/29/19 14:01 Intake & Output 03/28/19 03/29/19 03/30/19 06:59 06:59 06:59 Intake Total 620 Output Total 1800 4600 Balance -1800 -4600 620 Weight 249.1 kg 244.3 kg Weight/Height Weight 244.3 kg Height 5 ft 8 in General appearance: PRESENT: no acute distress, well-developed, well-nourished Head exam: PRESENT: atraumatic Eye exam: PRESENT: conjunctiva pink, EOMI, PERRLA. ABSENT: scleral icterus Ear exam: PRESENT: normal external ear exam Mouth exam: PRESENT: moist, tongue midline Neck exam: ABSENT: carotid bruit, JVD, lymphadenopathy, thyromegaly Respiratory exam: PRESENT: clear to auscultation trina. ABSENT: rales, rhonchi, wheezes Cardiovascular exam: PRESENT: RRR. ABSENT: diastolic murmur, rubs, systolic murmur Vascular exam: PRESENT: normal capillary refill GI/Abdominal exam: PRESENT: soft. ABSENT: distended, tenderness Rectal exam: PRESENT: deferred Extremities exam: ABSENT: tenderness Neurological exam: PRESENT: alert, awake, oriented to person, oriented to place, oriented to time, oriented to situation, CN II-XII grossly intact. ABSENT: motor sensory deficit Skin exam: PRESENT: dry, intact, warm. ABSENT: cyanosis, rash Laboratory/Radiographs Laboratory Results: 03/29/19 03:35 03/29/19 03:35 03/29/19 03/29/19 03/29/19 03:35 03:35 03:35 WBC 4.6 RBC 4.53 Hgb 11.0 L Hct 35.6 L MCV 79 L MCH 24.2 L MCHC 30.8 L RDW 19.6 H Plt Count 140 L Sodium 140.8 Potassium 4.8 Chloride 91 L Carbon Dioxide 39 H Anion Gap 11 BUN 32 H Creatinine 1.05 Est GFR ( Amer) > 60 Glucose 232 H Calcium 8.9 Total Bilirubin 1.2 AST 24 Alkaline Phosphatase 68 Total Protein 8.8 H Albumin 3.5 Urine Color YELLOW Urine Appearance SLIGHTLY-CLOUDY Urine pH 6.0 Ur Specific [place] 1.006 Urine Protein NEGATIVE Urine Glucose (UA) NEGATIVE Urine Ketones NEGATIVE Urine Blood LARGE H Urine Nitrite NEGATIVE Ur Leukocyte Esterase MODERATE H Urine WBC (Auto) 5 Urine RBC (Auto) 3 03/29/19 11:10 WBC RBC Hgb Hct MCV MCH MCHC RDW Plt Count Sodium Potassium Chloride Carbon Dioxide Anion Gap BUN Creatinine Est GFR ( Amer) Glucose Calcium Total Bilirubin AST Alkaline Phosphatase Total Protein Albumin Urine Color YELLOW Urine Appearance CLEAR Urine pH 6.0 Ur Specific [place] 1.006 Urine Protein NEGATIVE Urine Glucose (UA) NEGATIVE Urine Ketones NEGATIVE Urine Blood LARGE H Urine Nitrite NEGATIVE Ur Leukocyte Esterase LARGE H Urine WBC (Auto) 17 Urine RBC (Auto) 8 03/23/19 22:13 Blood Blood Culture - Final NO GROWTH IN 5 DAYS 03/23/19 21:47 Blood Blood Culture - Final NO GROWTH IN 5 DAYS 03/23/19 03/23/19 03/23/19 09:33 13:44 22:50 Creatine Kinase 60 CK-MB (CK-2) Troponin I 2.020 0.021 NT-Pro-B Natriuret Pep [id number] H 03/23/19 03/23/19 03/24/19 22:50 22:50 06:08 Creatine Kinase CK-MB (CK-2) 1.59 Troponin I 0.020 Cancelled NT-Pro-B Natriuret Pep 03/24/19 03/24/19 07:58 12:35 Creatine Kinase CK-MB (CK-2) Troponin I 0.025 0.017 NT-Pro-B Natriuret Pep Impressions: Guidance Ultrasound 03/24/19 00:00 IMPRESSION: Successful placement of a 5 Bahamian double lumen PICC via the right brachial vein utilizing fluoroscopic and sonographic guidance. PICC Line Insertion 03/24/19 00:00 IMPRESSION: Successful placement of a 5 [place]ian double lumen PICC via the right brachial vein utilizing fluoroscopic and sonographic guidance. Chest X-Ray 03/27/19 00:00 IMPRESSION: STABLE APPEARANCE OF THE CHEST. KUB X-Ray 03/27/19 00:00 IMPRESSION: Limited study due to body habitus. Gas pattern is nonobstructive. All labs, radiographs, diagnostic studies and EKGs were personally reviewed: Yes In addition, reports of radiographic and diagnostic studies were read: Yes Assessment and Plan - Diagnosis (1) Acute cardiac pulmonary edema Is this a current diagnosis for this admission?: Yes (2) Acute on chronic diastolic (congestive) heart failure Is this a current diagnosis for this admission?: Yes (3) Chronic respiratory failure with hypercapnia Is this a current diagnosis for this admission?: Yes (4) Obesity with alveolar hypoventilation and body mass index (BMI) of 40 or greater Is this a current diagnosis for this admission?: Yes (5) BMI 60.0-69.9, adult Is this a current diagnosis for this admission?: Yes (6) Diabetes mellitus type 2 in obese Is this a current diagnosis for this admission?: Yes (7) HLD (hyperlipidemia) Qualifiers: Hyperlipidemia type: unspecified Qualified Code(s): E78.5 - Hyperlipidemia, unspecified Is this a current diagnosis for this admission?: Yes (8) HTN (hypertension) Qualifiers: Hypertension type: essential hypertension Qualified Code(s): I10 - Essential (primary) hypertension Is this a current diagnosis for this admission?: Yes Plan Summary: Patient remains clinically stable and has been doing well overall. Urinalysis from days ago not discontinued and was sent this morning. Patient producing copious urine, is asymptomatic and the specimen was colleted via a purewick pad laying on her perineum. Due to the comtamination of the area and her lack of symptoms, I doubt the presence of a few bacteria is due to a UTI. Will not treat at this time but will watch closely and should symptoms develop will treat. DC planning team working on sildenafil outpatient prescription and home CPAP machine ordered. Patient and family to receive dietary counseling upon fl oor transfer and will also need to know how to operate her CPAP prior to discharge home. PT to help get out of bed today. Remains IMCU status pending bed availability. Critical Time Critical Time (minutes): 30 Level of Care: IMCU -: 1. The care of a critical patient is a dynamic process. This note is a r epresentative synopsis but static in nature. The timeframe for treatments given in order is not necessarily the actual time these treatments may have been done. 2. This patient requires critical care secondary to ongoing requirements for therapy not offered or safe outside the critical care environment. Transfer to a lower level of care will result in altered life or limb morbidity and mortali ty. 3. Multidisciplinary rounds completed. 4. ABCDE bundle addressed.
--- NOTE | 2019-03-29 15:50 | Pulmonary Function Test ---
Pulmonary Function Test Date of Procedure:: 03/28/19 INDICATION:: Dyspnea Referring Provider: Dr. Jorge L Giraldo Xerox Machine Assembler: Yvrose Garcia, SPECIALTY SALES REPRESENTATIVE, MARINE EQUIPMENT DESIGN ENGINEER - Report Spirometry: Spirometry: pre-FVC:[1.38 L 34%] pre-FEV:1 0.75 L 23% pre-FEV1/FVC %: 54 predicted: 81 [id number]%: 0.17 L 5% Impression: Severe obstructive ventilatory defect. Restrictive defect is implied by the decreased flow the FVC. Restrictive defect cannot be diagnosed on the basis of spirometry alone. (Restrictive defect may mask the degree of obstruction.)
--- NOTE | 2019-03-29 16:02 | PDOC PROGRESS REPORT ---
Subjective Progress Note for:: 03/29/19 Subjective:: Patient was seen and examined. She was more awake and talkative today. Reports tremendous improvement in symptoms. No longer admits to any dyspnea. Reason For Visit: ACUTE HYPERCARBIC RESPIRATORY FAILURE,DIASTOLIC Physical Exam Vital Signs: Temp Pulse Resp BP Pulse Ox 98.6 F 94 14 167/100 H 96 03/29/19 12:00 03/29/19 12:00 03/29/19 14:01 03/29/19 14:01 03/29/19 14:01 Intake & Output 03/28/19 03/29/19 03/30/19 06:59 06:59 06:59 Intake Total 620 Output Total 1800 4600 Balance -1800 -4600 620 Weight 249.1 kg 244.3 kg General appearance: PRESENT: no acute distress, cooperative, morbidly obese Head exam: PRESENT: atraumatic, normocephalic Eye exam: PRESENT: EOMI Mouth exam: PRESENT: moist Respiratory exam: PRESENT: clear to auscultation trina, other - Respiratory exam is quite difficult on account of extremely obese body habitus. Respiratory excursions are bilaterally symmetrical. Not using accessory muscles of respiration. Cardiovascular exam: PRESENT: RRR, +S1, +S2 GI/Abdominal exam: PRESENT: soft Rectal exam: PRESENT: deferred Musculoskeletal exam: PRESENT: normal inspection Neurological exam: PRESENT: alert, awake, oriented to person, oriented to place, oriented to time, oriented to situation Results Laboratory Results: 03/29/19 03:35 03/29/19 03:35 03/29/19 03/29/19 03/29/19 03:35 03:35 03:35 WBC 4.6 RBC 4.53 Hgb 11.0 L Hct 35.6 L MCV 79 L MCH 24.2 L MCHC 30.8 L RDW 19.6 H Plt Count 140 L Sodium 140.8 Potassium 4.8 Chloride 91 L Carbon Dioxide 39 H Anion Gap 11 BUN 32 H Creatinine 1.05 Est GFR ( Amer) > 60 Glucose 232 H Calcium 8.9 Total Bilirubin 1.2 AST 24 Alkaline Phosphatase 68 Total Protein 8.8 H Albumin 3.5 Urine Color YELLOW Urine Appearance SLIGHTLY-CLOUDY Urine pH 6.0 Ur Specific [place] 1.006 Urine Protein NEGATIVE Urine Glucose (UA) NEGATIVE Urine Ketones NEGATIVE Urine Blood LARGE H Urine Nitrite NEGATIVE Ur Leukocyte Esterase MODERATE H Urine WBC (Auto) 5 Urine RBC (Auto) 3 03/29/19 11:10 WBC RBC Hgb Hct MCV MCH MCHC RDW Plt Count Sodium Potassium Chloride Carbon Dioxide Anion Gap BUN Creatinine Est GFR ( Amer) Glucose Calcium Total Bilirubin AST Alkaline Phosphatase Total Protein Albumin Urine Color YELLOW Urine Appearance CLEAR Urine pH 6.0 Ur Specific [place] 1.006 Urine Protein NEGATIVE Urine Glucose (UA) NEGATIVE Urine Ketones NEGATIVE Urine Blood LARGE H Urine Nitrite NEGATIVE Ur Leukocyte Esterase LARGE H Urine WBC (Auto) 17 Urine RBC (Auto) 8 03/23/19 22:13 Blood Blood Culture - Final NO GROWTH IN 5 DAYS 03/23/19 21:47 Blood Blood Culture - Final NO GROWTH IN 5 DAYS 03/23/19 03/23/19 03/23/19 09:33 13:44 22:50 Creatine Kinase 60 CK-MB (CK-2) Troponin I 2.020 0.021 NT-Pro-B Natriuret Pep [id number] H 03/23/19 03/23/19 03/24/19 22:50 22:50 06:08 Creatine Kinase CK-MB (CK-2) 1.59 Troponin I 0.020 Cancelled NT-Pro-B Natriuret Pep 03/24/19 03/24/19 07:58 12:35 Creatine Kinase CK-MB (CK-2) Troponin I 0.025 0.017 NT-Pro-B Natriuret Pep Impressions: Guidance Ultrasound 03/24/19 00:00 IMPRESSION: Successful placement of a 5 [place]ian double lumen PICC via the right brachial vein utilizing fluoroscopic and sonographic guidance. PICC Line Insertion 03/24/19 00:00 IMPRESSION: Successful placement of a 5 [place]ian double lumen PICC via the right brachial vein utilizing fluoroscopic and sonographic guidance. Chest X-Ray 03/27/19 00:00 IMPRESSION: STABLE APPEARANCE OF THE CHEST. KUB X-Ray 03/27/19 00:00 IMPRESSION: Limited study due to body habitus. Gas pattern is nonobstructive. Assessment & Plan - Diagnosis (1) Acute on chronic diastolic (congestive) heart failure Is this a current diagnosis for this admission?: Yes Plan: Acute on chronic diastolic congestive heart failure. Continue oral diuretic therapy Creatinine is stable Volume status is difficult to assess clinically However based on improvement in respiratory status and overall functioning she appears to be moving in the right direction Emphasized adherence to a salt free diet to prevent exacerbations Echocardiogram showed preserved left ventricular systolic function with pul monary hypertension likely secondary to obesity hypoventilation (2) Elevated troponin Plan: Likely secondary to severe hypoxia and volume overload and unlikely ACS (3) HLD (hyperlipidemia) Qualifiers: Hyperlipidemia type: unspecified Qualified Code(s): E78.5 - Hyperlipidemia, unspecified Is this a current diagnosis for this admission?: Yes Plan: Continue statin therapy (4) HTN (hypertension) Qualifiers: Hypertension type: essential hypertension Qualified Code(s): I10 - Essential (primary) hypertension Is this a current diagnosis for this admission?: Yes Plan: No added salt in the diet Continue valsartan Continue amlodipine Continue diuretics
[2019-03-29] MEDS: ATORVASTATIN CALCIUM 40 MG TABLET PO SCH (22:23)
[2019-03-30] MEDS: HEPARIN SOD (PORCINE) 5,000 UNIT/ML 1 ML VIAL SUBCUT SCH ×3 (06:41→22:00)
[2019-03-30] MEDS: LOPERAMIDE HCL 2 MG CAPSULE PO PRN ×2 (07:03→18:11)
--- NOTE | 2019-03-30 08:33 | PDOC PROGRESS REPORT ---
Subjective Progress Note for:: 03/30/19 Subjective:: This is a 43-year-old patient with a fairly new patients to the see me only one time came to the office couple of weeks back came to the emergency department because of the increasing the leg swelling and short of breath and patient was found to be heart failure chronic respiratory failure with hypercapnia and patient was admitting in the ICU Patient's was put on a BiPAP does not require intubations patient also see a pulmonary and ordered the trilogy machine at home Patient also have echocardiogram done which suggest the severe pulmonary hypertension's which patient's most contribute for the chronic lymphedema and the swelling start on the Viagra and is seen by the country sales manager Patient's transport ICU to the telemetry bed yesterday last night Last night patient was complaining of a loose stools since C. difficile today Patient's denied any abdominal pain no nausea no vomiting No chest pain no short of breath According to the sales planner not to trilogy machine is already order Patient is very Severe obesity's but according to the patient she walk Home by herself Reason For Visit: ACUTE HYPERCARBIC RESPIRATORY FAILURE,DIASTOLIC Physical Exam Vital Signs: Temp Pulse Resp BP Pulse Ox 98.5 F 96 20 171/86 H 97 03/30/19 00:00 03/30/19 08:00 03/30/19 03:59 03/30/19 04:00 03/30/19 04:00 Intake & Output 03/29/19 03/30/19 03/31/19 06:59 06:59 06:59 Intake Total 620 Output Total 4600 1000 Balance -4600 -380 Weight 244.3 kg 232.8 kg General appearance: PRESENT: no acute distress, well-developed, well-nourished Head exam: PRESENT: atraumatic, normocephalic Eye exam: PRESENT: conjunctiva pink, EOMI, PERRLA. ABSENT: scleral icterus Ear exam: PRESENT: normal external ear exam Mouth exam: PRESENT: moist, tongue midline Neck exam: PRESENT: full ROM. ABSENT: carotid bruit, JVD, lymphadenopathy, thyromegaly Respiratory exam: PRESENT: clear to auscultation trina Cardiovascular exam: PRESENT: RRR. ABSENT: diastolic murmur, rubs, systolic murmur Vascular exam: PRESENT: normal capillary refill GI/Abdominal exam: PRESENT: normal bowel sounds, soft. ABSENT: distended, guarding, mass, organolmegaly, rebound, tenderness Rectal exam: PRESENT: deferred Extremities exam: PRESENT: pedal edema Neurological exam: PRESENT: alert, awake, oriented to person, oriented to place, oriented to time, oriented to situation, CN II-XII grossly intact. ABSENT: motor sensory deficit Psychiatric exam: PRESENT: appropriate affect, normal mood. ABSENT: homicidal ideation, suicidal ideation Skin exam: PRESENT: dry, intact, warm. ABSENT: cyanosis, rash Results Laboratory Results: 03/29/19 03:35 03/29/19 03:35 03/29/19 11:10 Urine Color YELLOW Urine Appearance CLEAR Urine pH 6.0 Ur Specific [place] 1.006 Urine Protein NEGATIVE Urine Glucose (UA) NEGATIVE Urine Ketones NEGATIVE Urine Blood LARGE H Urine Nitrite NEGATIVE Ur Leukocyte Esterase LARGE H Urine WBC (Auto) 17 Urine RBC (Auto) 8 03/23/19 03/23/19 03/23/19 09:33 13:44 22:50 Creatine Kinase 60 CK-MB (CK-2) Troponin I 2.020 0.021 NT-Pro-B Natriuret Pep [id number] H 03/23/19 03/23/19 03/24/19 22:50 22:50 06:08 Creatine Kinase CK-MB (CK-2) 1.59 Troponin I 0.020 Cancelled NT-Pro-B Natriuret Pep 03/24/19 03/24/19 07:58 12:35 Creatine Kinase CK-MB (CK-2) Troponin I 0.025 0.017 NT-Pro-B Natriuret Pep Impressions: Guidance Ultrasound 03/24/19 00:00 IMPRESSION: Successful placement of a 5 Greenlandic double lumen PICC via the right brachial vein utilizing fluoroscopic and sonographic guidance. PICC Line Insertion 03/24/19 00:00 IMPRESSION: Successful placement of a 5 [place]ic double lumen PICC via the right brachial vein utilizing fluoroscopic and sonographic guidance. Chest X-Ray 03/27/19 00:00 IMPRESSION: STABLE APPEARANCE OF THE CHEST. KUB X-Ray 03/27/19 00:00 IMPRESSION: Limited study due to body habitus. Gas pattern is nonobstructive. Assessment & Plan - Diagnosis (1) Acute cardiac pulmonary edema Is this a current diagnosis for this admission?: Yes (2) Acute on chronic diastolic (congestive) heart failure Is this a current diagnosis for this admission?: Yes (3) Acute respiratory failure with hypoxia and hypercarbia Is this a current diagnosis for this admission?: Yes (4) Chronic respiratory failure with hypercapnia Is this a current diagnosis for this admission?: Yes (5) Elevated troponin Is this a current diagnosis for this admission?: Yes (6) ROMEO (obstructive sleep apnea) Is this a current diagnosis for this admission?: Yes (7) Obesity with alveolar hypoventilation and body mass index (BMI) of 40 or greater Is this a current diagnosis for this admission?: Yes (9) HLD (hyperlipidemia) Qualifiers: Hyperlipidemia type: unspecified Qualified Code(s): E78.5 - Hyperlipidemia, unspecified Is this a current diagnosis for this admission?: Yes (10) HTN (hypertension) Qualifiers: Hypertension type: essential hypertension Qualified Code(s): I10 - Essential (primary) hypertension Is this a current diagnosis for this admission?: Yes - Time Time Spent with patient: 35 or more minutes Level of Care: TELE Medications reviewed and adjusted accordingly: Yes Anticipated discharge: Home with Homehealth Within: Other - Plan Summary Plan Summary: Continues to current medical management Continues use the BiPAP we are waiting for the trilogy machines to come in educate the patient's before go home We will consult the pulmonary to follow outpatients trilogy machines and other chronic respiratory failure Patient's continues to follow with the cardiology may need a right-sided cardiac cath as outpatient We will get the stool for the C. difficile
[2019-03-30] MEDS: INSULIN REG, HUMAN 100 UNIT/ML 3 ML VIAL (PYX) SUBCUT SCH ×4 (09:30→22:50)
[2019-03-30] MEDS: SILDENAFIL CITRATE 20 MG TABLET PO SCH ×3 (11:29→18:12)
[2019-03-30] MEDS: NORMAL SALINE INJ/PF 0.9% 10 ML SDV IV SCH ×2 (11:30→22:00)
[2019-03-30] MEDS: METFORMIN HCL 500 MG TABLET PO SCH ×2 (12:14→18:09)
[2019-03-30] MEDS: VALSARTAN 160 MG TABLET PO SCH (12:14)
[2019-03-30] MEDS: FUROSEMIDE 40 MG TABLET PO SCH ×3 (12:15→18:10)
[2019-03-30] MEDS: AMLODIPINE BESYLATE 10 MG TABLET PO SCH (12:15)
[2019-03-30] MEDS: LACTOBACILLUS ACIDOPHILUS 250 MG TAB PO SCH ×2 (12:15→18:09)
[2019-03-30] MEDS: BUMETANIDE 1 MG TABLET PO SCH ×2 (12:16→18:11)
[2019-03-30] MEDS: CIPROFLOXACIN HCL 500 MG TABLET PO SCH ×2 (12:20→22:50)
--- NOTE | 2019-03-30 13:49 | PDOC PROGRESS REPORT ---
Subjective Progress Note for:: 03/30/19 Subjective:: Overall due to continued improvement patient was transferred out of the intensive care unit. She is more awake and comfortable. No respiratory distress at this point. Reason For Visit: ACUTE HYPERCARBIC RESPIRATORY FAILURE,DIASTOLIC Physical Exam Vital Signs: Temp Pulse Resp BP Pulse Ox 98.3 F 96 12 163/81 H 91 L 03/30/19 07:39 03/30/19 08:00 03/30/19 07:39 03/30/19 07:39 03/30/19 07:39 Intake & Output 03/29/19 03/30/19 03/31/19 06:59 06:59 06:59 Intake Total 620 Output Total 4600 1000 Balance -4600 -380 Weight 244.3 kg 232.8 kg General appearance: PRESENT: no acute distress, cooperative, morbidly obese Head exam: PRESENT: atraumatic, normocephalic Eye exam: PRESENT: conjunctiva pink, EOMI Mouth exam: PRESENT: moist Respiratory exam: PRESENT: unlabored Cardiovascular exam: PRESENT: +S1, +S2 Skin exam: PRESENT: dry Results Laboratory Results: 03/29/19 03:35 03/29/19 03:35 03/23/19 03/23/19 03/23/19 09:33 13:44 22:50 Creatine Kinase 60 CK-MB (CK-2) Troponin I 2.020 0.021 NT-Pro-B Natriuret Pep [id number] H 03/23/19 03/23/19 03/24/19 22:50 22:50 06:08 Creatine Kinase CK-MB (CK-2) 1.59 Troponin I 0.020 Cancelled NT-Pro-B Natriuret Pep 03/24/19 03/24/19 07:58 12:35 Creatine Kinase CK-MB (CK-2) Troponin I 0.025 0.017 NT-Pro-B Natriuret Pep Impressions: Guidance Ultrasound 03/24/19 00:00 IMPRESSION: Successful placement of a 5 Afghan double lumen PICC via the right brachial vein utilizing fluoroscopic and sonographic guidance. PICC Line Insertion 03/24/19 00:00 IMPRESSION: Successful placement of a 5 Afghan double lumen PICC via the right brachial vein utilizing fluoroscopic and sonographic guidance. Chest X-Ray 03/27/19 00:00 IMPRESSION: STABLE APPEARANCE OF THE CHEST. KUB X-Ray 03/27/19 00:00 IMPRESSION: Limited study due to body habitus. Gas pattern is nonobstructive. Assessment & Plan - Diagnosis (1) Acute on chronic diastolic (congestive) heart failure Is this a current diagnosis for this admission?: Yes Plan: Acute on chronic diastolic congestive heart failure. Continue oral diuretic therapy Echocardiogram showed preserved left ventricular systolic function with pulmonary hypertension likely secondary to obesity hypoventilation (2) Elevated troponin Is this a current diagnosis for this admission?: Yes Plan: Likely secondary to severe hypoxia and volume overload and unlikely ACS (3) HLD (hyperlipidemia) Qualifiers: Hyperlipidemia type: unspecified Qualified Code(s): E78.5 - Hyperlipidemia, unspecified Is this a current diagnosis for this admission?: Yes Plan: Continue statin therapy (4) HTN (hypertension) Qualifiers: Hypertension type: essential hypertension Qualified Code(s): I10 - Es sential (primary) hypertension Is this a current diagnosis for this admission?: Yes Plan: No added salt in the diet Continue valsartan Continue amlodipine Continue diuretics - Notes Notes: Overall clinical condition is much improved. Patient is awaiting arrangements for BiPAP and our discharge planning requirements. Continue treatment for systemic hypertension. Her pulmonary hypertension is likely secondary to severe obesity hypoventilation and is unlikely to improve in the absence of significant weight loss. Should attempt to keep volume status within normal range. Can consider repeating echocardiogram once volume status has improved. This can be pursued as an outpatient.
--- NOTE | 2019-03-30 16:55 | PDOC CONSULTATION ---
Consultation Consult Date: 03/30/19 Attending physician:: SAULO BREWER Provider Consulted: CECY PELAEZ Consult reason:: Acute on chronic respiratory failure History of Present Illness Admission Date/PCP: 03/23/19 13:09 SAULO BREWER MD History of Present Illness: LAURENT MOORE is a 43 year old female, to the emergency room with increasing shortness of breath of 2 weeks prior she is found to be hypercapnic and hypoxic improved somewhat on noninvasive positive pressure ventilation. She spent time in the ICU. she subsequently was transferred upstairs echocardiogram as would be expected showed severe pulmonary hypertension she was treated with a phosphodiesterase inhibitor with noticeable improvement however due to insurance reasons the patient will need a right heart cath to be able to obtain these medicines as an outpatient. Consulted with outpatient Crusher Supervisor due to patient's body habitus unable to proceed with right heart cath at this venue. Discussed r ight heart cath with ICU they also said that it was not due to be a feasible undertaking at that venue therefore I suggest that the patient be taken to nearby institution that can safely do a right heart catheterization and send her back to this institution. Past Medical History Cardiac Medical History: Reports: Hyperlipidema, Hypertension, Other - Diastolic heart failure Denies: Congestive Heart Failure, Myocardial Infarction Pulmonary Medical History: Reports: Asthma, Bronchitis Denies: Chronic Obstructive Pulmonary Disease (COPD), Pneumonia, Tuberculosis Neurological Medical History: Denies: Seizures Endocrine Medical History: Reports: Diabetes Mellitus Type 2 Renal/ Medical History: Denies: End Stage Renal Disease GI Medical History: Reports: Gastroesophageal Reflux Disease Denies: Cirrhosis Musculoskeltal Medical History: Reports: Arthritis Psychiatric Medical History: Reports: Depression Denies: Bipolar Disorder Hematology: Reports: Anemia Denies: Bleeding Tendencies Past Surgical History Past Surgical History: Reports: Amputation - right toes, Section - X2, Tubal Ligation Social History Information Source: [facility] Records Lives with: Spouse/Significant other Smoking Status: Never Smoker Frequency of Alcohol Use: None Hx Recreational Drug Use: No Drugs: None Hx Prescription Drug Abuse: No Do you have pets?: No Have you had any respiratory illnesses as a child?: No Have you been exposed to any sick contacts recently?: No Have you had any recent respiratory illnesses?: Yes Have you travelled outside of [place] in the past 12 months?: No - Advance Directive Resuscitation Status: Full Code Family History Family History: CVA, DM Parental Family History Reviewed: No Children Family History Reviewed: No Sibling(s) Family History Reviewed.: No Medication/Allergy Home Medications: Amlodipine Besylate [Norvasc 10 mg Tablet] 10 mg PO DAILY 03/23/19 Bumetanide [Bumex 2 mg Tablet] 2 mg PO DAILY 03/23/19 Furosemide [Lasix 40 mg Tablet] 40 mg PO BID 03/23/19 Glipizide [Glucotrol 5 mg Tablet] 5 mg PO DAILY 03/23/19 Valsartan [Diovan] 320 mg PO DAILY 03/23/19 Allergies/Adverse Reactions: pineapple Adverse Reaction (Verified 03/26/19 23:00) VOMITING Review of Systems ROS unobtainable: Due to mental status Physical Exam Vital Signs: Temp Pulse Resp BP Pulse Ox 98.3 F 96 12 163/81 H 91 L 03/30/19 07:39 03/30/19 08:00 03/30/19 07:39 03/30/19 07:39 03/30/19 07:39 Intake & Output 03/29/19 03/30/19 03/31/19 06:59 06:59 06:59 Intake Total 620 Output Total 4600 1000 Balance -4600 -380 Weight 244.3 kg 232.8 kg General appearance: PRESENT: disheveled, morbidly obese, well-developed, well- nourished. ABSENT: cooperative Head exam: PRESENT: atraumatic, normocephalic Eye exam: PRESENT: conjunctiva pale. ABSENT: nystagmus, periorbital swelling, scleral icterus Mouth exam: PRESENT: dry mucosa, neck supple, tongue midline Neck exam: ABSENT: carotid bruit, full ROM, JVD, lymphadenopathy, meningismus, tenderness, thyromegaly, tracheal deviation, tracheostomy, other Respiratory exam: PRESENT: decreased breath sounds, prolonged expiratory phas, rales, rhonchi, symmetrical, unlabored. ABSENT: retraction, stridor, tachypnea Cardiovascular exam: PRESENT: RRR, +S1, +S2 Pulses: PRESENT: normal radial pulses GI/Abdominal exam: PRESENT: soft. ABSENT: guarding, mass, rebound, tenderness Extremities exam: ABSENT: calf tenderness, clubbing, joint swelling, tenderness Musculoskeletal exam: ABSENT: deformity, dislocation Neurological exam: PRESENT: altered Psychiatric exam: PRESENT: depressed, flat affect Focused psych exam: PRESENT: internal stimuli Skin exam: PRESENT: dry, warm Results Laboratory Results: 03/29/19 03:35 03/29/19 03:35 03/29/19 11:10 Urine Color YELLOW Urine Appearance CLEAR Urine pH 6.0 Ur Specific [place] 1.006 Urine Protein NEGATIVE Urine Glucose (UA) NEGATIVE Urine Ketones NEGATIVE Urine Blood LARGE H Urine Nitrite NEGATIVE Ur Leukocyte Esterase LARGE H Urine WBC (Auto) 17 Urine RBC (Auto) 8 03/23/19 03/23/19 03/23/19 09:33 13:44 22:50 Creatine Kinase 60 CK-MB (CK-2) Troponin I 2.020 0.021 NT-Pro-B Natriuret Pep [id number] H 03/23/19 03/23/19 03/24/19 22:50 22:50 06:08 Creatine Kinase CK-MB (CK-2) 1.59 Troponin I 0.020 Cancelled NT-Pro-B Natriuret Pep 03/24/19 03/24/19 07:58 12:35 Creatine Kinase CK-MB (CK-2) Troponin I 0.025 0.017 NT-Pro-B Natriuret Pep Impressions: Guidance Ultrasound 03/24/19 00:00 IMPRESSION: Successful placement of a 5 Lebanese double lumen PICC via the right brachial vein utilizing fluoroscopic and sonographic guidance. PICC Line Insertion 03/24/19 00:00 IMPRESSION: Successful placement of a 5 Lebanese double lumen PICC via the right brachial vein utilizing fluoroscopic and sonographic guidance. Chest X-Ray 03/27/19 00:00 IMPRESSION: STABLE APPEARANCE OF THE CHEST. KUB X-Ray 03/27/19 00:00 IMPRESSION: Limited study due to body habitus. Gas pattern is nonobstructive. Assessment & Plan - Diagnosis (1) Acute respiratory failure with hypoxia and hypercarbia Is this a current diagnosis for this admission?: Yes Plan: Continue noninvasive positive pressure ventilation as you have done (2) Chronic respiratory failure with hypercapnia Is this a current diagnosis for this admission?: Yes (3) ROMEO (obstructive sleep apnea) Is this a current diagnosis for this admission?: Yes Plan: Normal polysomnogram (4) Obesity with alveolar hypoventilation and body mass index (BMI) of 40 or greater Is this a current diagnosis for this admission?: Yes Plan: Noninvasive positive pressure ventilation (5) Pulmonary hypertension associated with unclear multi-factorial mechanisms Is this a current diagnosis for this admission?: Yes Plan: Right heart catheterization Consulted with outpatient Crusher Supervisor due to patient's body habitus unable to proceed with right heart cath at this venue. Discussed right heart cath with ICU they also said that it was not due to be a feasible undertaking at that venue therefore I suggest that the patient be taken to nearby institution that can safely do a right heart catheterization and send her back to this institution. (6) BMI 60.0-69.9, adult Is this a current diagnosis for this admission?: Yes Plan: Stable consider nutritional consult and/or bariatric surgery - Time Time Spent with patient: 55 - Plan Summary Plan Summary: Consulted with outpatient Crusher Supervisor due to patient's body habitus unable to proceed with right heart cath at this venue. Discussed right heart cath with ICU they also said that it was not be a feasible undertaking at that venue therefore I suggest that the patient be taken to nearby institution that can safely do a right heart catheterization and send her back to this institution with the appropriate data to present to the insurance company
[2019-03-30] MEDS ORDERED: PREDNISONE 20 MG TABLET PO SCH (18:00)
[2019-03-30] MEDS: ATORVASTATIN CALCIUM 40 MG TABLET PO SCH (22:51)
[2019-03-31] MEDS: HEPARIN SOD (PORCINE) 5,000 UNIT/ML 1 ML VIAL SUBCUT SCH ×3 (06:27→21:47)
[2019-03-31 06:59] LABS: HEMATOCRIT 35.5 % (36.0-47.0); HEMOGLOBIN 10.8 g/dL (12.0-15.5); MEAN CORPUSCULAR HEMOGLOBIN 24.1 pg (27.0-33.4); MEAN CORPUSCULAR HGB CONC 30.5 g/dL (32.0-36.0); MEAN CORPUSCULAR VOLUME 79 fl (80-97); PLATELET COUNT 106 10^3/uL (150-450); RED BLOOD COUNT 4.48 10^6/uL (3.72-5.28); RED CELL DISTRIBUTION WIDTH 19.9 % (11.5-14.0); WHITE BLOOD COUNT 4.5 10^3/uL (4.0-10.5)
[2019-03-31 07:17] LABS: ABSOLUTE LYMPHOCYTES# (MANUAL) 0.5 10^3/uL (0.5-4.7); ABSOLUTE MONOCYTES # (MANUAL) 0.4 10^3/uL (0.1-1.4); BASOPHILS % (MANUAL) 0 % (0-2); EOSINOPHILS % (MANUAL) 0 % (0-6); LYMPHOCYTES % (MANUAL) 11 % (13-45); MONOCYTES % (MANUAL) 8 % (3-13); SEGMENTED NEUTROPHILS % (MAN) 81 % (42-78); TOTAL CELLS COUNTED 100
[2019-03-31 07:18] LABS: ANISOCYTOSIS 2+; HYPOCHROMASIA SLIGHT; OVALOCYTES SLIGHT; POIKILOCYTOSIS 1+; TARGET CELLS SLIGHT
[2019-03-31 07:19] LABS: PLATELET CLUMPS PRESENT; PLATELET COMMENT DECREASED; PLATELET LARGE PRESENT
[2019-03-31] MEDS: METFORMIN HCL 500 MG TABLET PO SCH ×2 (07:51→15:21)
[2019-03-31] MEDS: SILDENAFIL CITRATE 20 MG TABLET PO SCH ×3 (07:51→17:46)
[2019-03-31] MEDS: INSULIN REG, HUMAN 100 UNIT/ML 3 ML VIAL (PYX) SUBCUT SCH ×4 (08:06→21:46)
[2019-03-31 08:07] LABS: BLOOD UREA NITROGEN 26 mg/dL (7-20); CALCIUM 8.4 mg/dL (8.4-10.2); CHLORIDE 85 mmol/L (98-107); GLUCOSE 234 mg/dL (75-110); POTASSIUM 3.9 mmol/L (3.6-5.0)
--- NOTE | 2019-03-31 08:12 | PDOC PROGRESS REPORT ---
Subjective Progress Note for:: 03/31/19 Subjective:: Patient is currently doing well And any chest pain denied any shortness of the breath to physical therapy is only seen in the age of the bed discuss with the cardiology Dr. Guillermo about the cardiac cath andHe suggested no need to transfer the patient to the different facilities patients probably needs to do as outpatients because of the patient's pulmonary hypertension is most likely obesity induced hypoventilation's related he does not think too much benefit for the cath but he will schedule as an outpatient Reason For Visit: ACUTE HYPERCARBIC RESPIRATORY FAILURE,DIASTOLIC Physical Exam Vital Signs: Temp Pulse Resp BP Pulse Ox 98.9 F 84 18 147/77 H 96 03/31/19 01:21 03/31/19 01:21 03/31/19 04:00 03/31/19 01:21 03/31/19 04:00 Intake & Output 03/30/19 03/31/19 04/01/19 06:59 06:59 06:59 Intake Total 620 Output Total 1000 Balance -380 Weight 232.8 kg 232.9 kg General appearance: PRESENT: no acute distress, well-developed, well-nourished Head exam: PRESENT: atraumatic, normocephalic Eye exam: PRESENT: conjunctiva pink, EOMI, PERRLA. ABSENT: scleral icterus Ear exam: PRESENT: normal external ear exam Mouth exam: PRESENT: moist, tongue midline Neck exam: PRESENT: full ROM. ABSENT: carotid bruit, JVD, lymphadenopathy, thyromegaly Respiratory exam: PRESENT: clear to auscultation trina Cardiovascular exam: PRESENT: RRR. ABSENT: diastolic murmur, rubs, systolic murmur Pulses: PRESENT: normal dorsalis pedis pul, +2 pedal pulses bilateral Vascular exam: PRESENT: normal capillary refill GI/Abdominal exam: PRESENT: normal bowel sounds, soft. ABSENT: distended, guarding, mass, organolmegaly, rebound, tenderness Rectal exam: PRESENT: deferred Extremities exam: PRESENT: pedal edema Neurological exam: PRESENT: alert, awake, oriented to person, oriented to place, oriented to time, oriented to situation, CN II-XII grossly intact. ABSENT: motor sensory deficit Psychiatric exam: PRESENT: appropriate affect, normal mood. ABSENT: homicidal ideation, suicidal ideation Skin exam: PRESENT: dry, intact, warm. ABSENT: cyanosis, rash Results Laboratory Results: 03/31/19 06:30 03/31/19 06:30 WBC 4.5 RBC 4.48 Hgb 10.8 L Hct 35.5 L MCV 79 L MCH 24.1 L MCHC 30.5 L RDW 19.9 H Plt Count 106 L Seg Neutrophils % Not Reportable 03/29/19 11:10 Clean Catch Midstream Urine Culture - Final Escherichia Coli 03/23/19 03/23/19 03/23/19 09:33 13:44 22:50 Creatine Kinase 60 CK-MB (CK-2) Troponin I 2.020 0.021 NT-Pro-B Natriuret Pep [id number] H 03/23/19 03/23/19 03/24/19 22:50 22:50 06:08 Creatine Kinase CK-MB (CK-2) 1.59 Troponin I 0.020 Cancelled NT-Pro-B Natriuret Pep 03/24/19 03/24/19 07:58 12:35 Creatine Kinase CK-MB (CK-2) Troponin I 0.025 0.017 NT-Pro-B Natriuret Pep Impressions: Guidance Ultrasound 03/24/19 00:00 IMPRESSION: Successful placement of a 5 [place]an double lumen PICC via the right brachial vein utilizing fluoroscopic and sonographic guidance. PICC Line Insertion 03/24/19 00:00 IMPRESSION: Successful placement of a 5 [place] double lumen PICC via the right brachial vein utilizing fluoroscopic and sonographic guidance. Chest X-Ray 03/27/19 00:00 IMPRESSION: STABLE APPEARANCE OF THE CHEST. KUB X-Ray 03/27/19 00:00 IMPRESSION: Limited study due to body habitus. Gas pattern is nonobstructive. Assessment & Plan - Diagnosis (1) Acute cardiac pulmonary edema Is this a current diagnosis for this admission?: Yes Plan: Currently all resolved continues the Lasix 40 mg twice a day follow-up with the cardiology (2) Acute on chronic diastolic (congestive) heart failure Is this a current diagnosis for this admission?: Yes Plan: Continues to Lasix (3) Acute respiratory failure with hypoxia and hypercarbia Is this a current diagnosis for this admission?: Yes Plan: Continues the BiPAP and have a waiting for the trilogy machines (4) Chronic respiratory failure with hypercapnia Is this a current diagnosis for this admission?: Yes Plan: Currently follow with the Dr. Casas's and continues to trilogy machines when patients go home currently on a BiPAP here (5) Elevated troponin Is this a current diagnosis for this admission?: Yes (6) ROMEO (obstructive sleep apnea) Is this a current diagnosis for this admission?: Yes (7) Obesity with alveolar hypoventilation and body mass index (BMI) of 40 or greater Is this a current diagnosis for this admission?: Yes (8) Diabetes mellitus type 2 in obese Is this a current diagnosis for this admission?: Yes (9) HLD (hyperlipidemia) Qualifiers: Hyperlipidemia type: unspecified Qualified Code(s): E78.5 - Hyperlipidemia, unspecified Is this a current diagnosis for this admission?: Yes (10) HTN (hypertension) Qualifiers: Hypertension type: essential hypertension Qualified Code(s): I10 - Essential (primary) hypertension Is this a current diagnosis for this admission?: Yes - Time Time Spent with patient: 25-34 minutes Level of Care: TELE Medications reviewed and adjusted accordingly: Yes Within: Other - Plan Summary Plan Summary: Again discussed with the patient about to compliance of the all the medications discussed with the patient's cardiology and suggest no need for patients to transfer for cardiac cath continues to use her trilogy vent patients will get probably this weekend Discussed with the patient that Dr. Camarena will be see the patient in this weekend patient understand very well patient needs to see Dr. Camarena in the past
[2019-03-31 08:26] LABS: ANION GAP 7 (5-19)
[2019-03-31 08:30] LABS: CARBON DIOXIDE 47 mmol/L (22-30)
--- NOTE | 2019-03-31 11:01 | PDOC PROGRESS REPORT ---
Subjective Progress Note for:: 03/31/19 Subjective:: Overall due to continued improvement patient was transferred out of the intensive care unit. No respiratory distress at this point. Reason For Visit: ACUTE HYPERCARBIC RESPIRATORY FAILURE,DIASTOLIC Physical Exam Vital Signs: Temp Pulse Resp BP Pulse Ox 98.0 F 87 16 110/56 L 87 L 03/31/19 08:48 03/31/19 08:48 03/31/19 08:48 03/31/19 08:48 03/31/19 08:48 Intake & Output 03/30/19 03/31/19 04/01/19 06:59 06:59 06:59 Intake Total 620 0 Output Total 1000 Balance -380 0 Weight 232.8 kg 235 kg General appearance: PRESENT: morbidly obese Head exam: PRESENT: atraumatic, normocephalic Eye exam: PRESENT: conjunctiva pink, EOMI Mouth exam: PRESENT: moist Respiratory exam: PRESENT: decreased breath sounds, unlabored Cardiovascular exam: PRESENT: RRR, +S1, +S2 GI/Abdominal exam: PRESENT: soft Rectal exam: PRESENT: deferred Neurological exam: PRESENT: alert, oriented to person, oriented to place, oriented to time, oriented to situation Psychiatric exam: PRESENT: appropriate affect Skin exam: PRESENT: dry Results Laboratory Results: 03/31/19 06:30 03/31/19 06:50 03/31/19 03/31/19 06:30 06:50 WBC 4.5 RBC 4.48 Hgb 10.8 L Hct 35.5 L MCV 79 L MCH 24.1 L MCHC 30.5 L RDW 19.9 H Plt Count 106 L Seg Neutrophils % Not Reportable Sodium 139.2 Potassium 3.9 Chloride 85 L Carbon Dioxide 47 H* Anion Gap 7 BUN 26 H Creatinine 0.97 Est GFR ( Amer) > 60 Glucose 234 H Calcium 8.4 03/29/19 11:10 Clean Catch Midstream Urine Culture - Final Escherichia Coli 03/23/19 03/23/19 03/23/19 09:33 13:44 22:50 Creatine Kinase 60 CK-MB (CK-2) Troponin I 2.020 0.021 NT-Pro-B Natriuret Pep 13745 H 03/23/19 03/23/19 03/24/19 22:50 22:50 06:08 Creatine Kinase CK-MB (CK-2) 1.59 Troponin I 0.020 Cancelled NT-Pro-B Natriuret Pep 03/24/19 03/24/19 07:58 12:35 Creatine Kinase CK-MB (CK-2) Troponin I 0.025 0.017 NT-Pro-B Natriuret Pep Impressions: Guidance Ultrasound 03/24/19 00:00 IMPRESSION: Successful placement of a 5 [place] double lumen PICC via the right brachial vein utilizing fluoroscopic and sonographic guidance. PICC Line Insertion 03/24/19 00:00 IMPRESSION: Successful placement of a 5 [place] double lumen PICC via the right brachial vein utilizing fluoroscopic and sonographic guidance. Chest X-Ray 03/27/19 00:00 IMPRESSION: STABLE APPEARANCE OF THE CHEST. KUB X-Ray 03/27/19 00: IMPRESSION: Limited study due to body habitus. Gas pattern is nonobstructive. Assessment & Plan - Diagnosis (1) Acute on chronic diastolic (congestive) heart failure Is this a current diagnosis for this admission?: Yes Plan: Acute on chronic diastolic congestive heart failure. Continue oral diuretic therapy Echocardiogram showed preserved left ventricular systolic function with pulmonary hypertension likely secondary to obesity hypoventilation (2) Elevated troponin Is this a current diagnosis for this admission?: Yes Plan: Likely secondary to severe hypoxia and volume overload and unlikely ACS (3) HLD (hyperlipidemia) Qualifiers: Hyperlipidemia type: unspecified Qualified Code(s): E78.5 - Hyperlipidemia, unspecified Is this a current diagnosis for this admission?: Yes Plan: Continue statin therapy (4) HTN (hypertension) Qualifiers: Hypertension type: essential hypertension Qualified Code(s): I10 - Essential (primary) hypertension Is this a current diagnosis for this admission?: Yes Plan: No added salt in the diet Continue valsartan Continue amlodipine Continue diuretics
[2019-03-31] MEDS: VALSARTAN 160 MG TABLET PO SCH (15:21)
[2019-03-31] MEDS: AMLODIPINE BESYLATE 10 MG TABLET PO SCH (15:21)
[2019-03-31] MEDS: PREDNISONE 20 MG TABLET PO SCH (15:22)
[2019-03-31] MEDS: NORMAL SALINE INJ/PF 0.9% 10 ML SDV IV SCH ×2 (15:24→21:46)
[2019-03-31] MEDS: BUMETANIDE 1 MG TABLET PO SCH ×3 (15:27→17:50)
[2019-03-31] MEDS: LACTOBACILLUS ACIDOPHILUS 250 MG TAB PO SCH ×2 (15:27→17:51)
[2019-03-31] MEDS: FUROSEMIDE 40 MG TABLET PO SCH ×2 (15:28→17:46)
[2019-03-31] MEDS: CIPROFLOXACIN HCL 500 MG TABLET PO SCH ×2 (15:30→21:47)
[2019-03-31] MEDS: ATORVASTATIN CALCIUM 40 MG TABLET PO SCH (21:46)
[2019-04-01] MEDS: HEPARIN SOD (PORCINE) 5,000 UNIT/ML 1 ML VIAL SUBCUT SCH ×3 (05:23→21:14)
[2019-04-01 07:08] LABS: BLOOD UREA NITROGEN 22 mg/dL (7-20); CALCIUM 8.2 mg/dL (8.4-10.2); CHLORIDE 81 mmol/L (98-107); GLUCOSE 271 mg/dL (75-110); POTASSIUM 3.4 mmol/L (3.6-5.0)
[2019-04-01 07:17] LABS: ANION GAP 6 (5-19)
[2019-04-01 07:35] LABS: CARBON DIOXIDE 51 mmol/L (22-30)
[2019-04-01] MEDS: SILDENAFIL CITRATE 20 MG TABLET PO SCH ×3 (08:53→17:41)
[2019-04-01] MEDS: INSULIN REG, HUMAN 100 UNIT/ML 3 ML VIAL (PYX) SUBCUT SCH ×4 (08:53→21:54)
[2019-04-01] MEDS: METFORMIN HCL 500 MG TABLET PO SCH ×2 (08:53→17:40)
[2019-04-01] MEDS: AMLODIPINE BESYLATE 10 MG TABLET PO SCH (11:01)
[2019-04-01] MEDS: PREDNISONE 20 MG TABLET PO SCH (11:01)
[2019-04-01] MEDS: FUROSEMIDE 40 MG TABLET PO SCH ×2 (11:01→17:42)
[2019-04-01] MEDS: BUMETANIDE 1 MG TABLET PO SCH ×2 (11:02→17:41)
[2019-04-01] MEDS: LACTOBACILLUS ACIDOPHILUS 250 MG TAB PO SCH ×2 (11:02→17:41)
[2019-04-01] MEDS: CIPROFLOXACIN HCL 500 MG TABLET PO SCH ×2 (11:02→21:53)
[2019-04-01] MEDS: VALSARTAN 160 MG TABLET PO SCH (11:02)
[2019-04-01] MEDS: NORMAL SALINE INJ/PF 0.9% 10 ML SDV IV SCH ×2 (11:02→22:32)
[2019-04-01 11:58] LABS: ARTERIAL BLOOD BASE EXCESS 23.7 mmol/L; ARTERIAL BLOOD FIO2 5L; ARTERIAL BLOOD H2CO3 2.94 mmol/L (1.05-1.35); ARTERIAL BLOOD HCO3 54.5 mmol/L (20-24); ARTERIAL BLOOD O2 SATURATION 96.1 % (94-98); ARTERIAL BLOOD PH 7.37 (7.35-7.45); ARTERIAL BLOOD PO2 91.9 mmHg (80-100); ARTERIAL BLOOD TOTAL CO2 57.5 mmol/L (21-25)
[2019-04-01 11:59] LABS: ARTERIAL BLOOD PCO2 97.6 mmHg (35-45)
--- NOTE | 2019-04-01 14:20 | PDOC PROGRESS REPORT ---
Subjective Progress Note for:: 04/01/19 Subjective:: Patient is noncompliant with use of CPAP machine. No chest pain. Remain on supplemental oxygen via nasal cannula at 5L/min. No fever or chills. No nausea, vomiting, or abdominal pain. Reason For Visit: ACUTE HYPERCARBIC RESPIRATORY FAILURE,DIASTOLIC Physical Exam Vital Signs: Temp Pulse Resp BP Pulse Ox 97.5 F 95 15 152/98 H 91 L 04/01/19 07:40 04/01/19 07:40 04/01/19 07:40 04/01/19 07:40 04/01/19 07:40 Intake & Output 03/31/19 04/01/19 04/02/19 06:59 06:59 06:59 Intake Total 0 2500 Balance 0 2500 Weight 235 kg 235 kg 235 kg General appearance: PRESENT: morbidly obese Head exam: PRESENT: atraumatic, normocephalic Eye exam: PRESENT: conjunctiva pink. ABSENT: scleral icterus Ear exam: PRESENT: normal external ear exam Mouth exam: PRESENT: moist Respiratory exam: PRESENT: clear to auscultation trina, decreased breath sounds - at lung bases Cardiovascular exam: PRESENT: RRR, +S1, +S2. ABSENT: diastolic murmur, rubs, systolic murmur Vascular exam: ABSENT: pallor GI/Abdominal exam: PRESENT: normal bowel sounds, soft. ABSENT: distended, guarding, mass, organolmegaly, rebound, tenderness Extremities exam: ABSENT: pedal edema Neurological exam: PRESENT: alert, awake, oriented to person, oriented to place, oriented to time, oriented to situation, CN II-XII grossly intact. ABSENT: motor sensory deficit Psychiatric exam: PRESENT: appropriate affect, normal mood. ABSENT: homicidal ideation, suicidal ideation Skin exam: PRESENT: dry, warm Results Laboratory Results: 03/31/19 06:30 04/01/19 05:15 04/01/19 04/01/19 05:15 11:09 Carbonic Acid 2.94 H HCO3/H2CO3 Ratio 18:1 ABG pH 7.37 ABG pCO2 97.6 H* ABG pO2 91.9 ABG HCO3 54.5 H ABG O2 Saturation 96.1 ABG Base Excess 23.7 FiO2 5L Sodium 137.8 Potassium 3.4 L Chloride 81 L Carbon Dioxide 51 H* Anion Gap 6 BUN 22 H Creatinine 1.03 Est GFR ( Amer) > 60 Glucose 271 H Calcium 8.2 L 03/23/19 03/23/19 03/23/19 09:33 13:44 22:50 Creatine Kinase 60 CK-MB (CK-2) Troponin I 2.020 0.021 NT-Pro-B Natriuret Pep [id number] H 03/23/19 03/23/19 03/24/19 22:50 22:50 06:08 Creatine Kinase CK-MB (CK-2) 1.59 Troponin I 0.020 Cancelled NT-Pro-B Natriuret Pep 03/24/19 03/24/19 07:58 12:35 Creatine Kinase CK-MB (CK-2) Troponin I 0.025 0.017 NT-Pro-B Natriuret Pep Impressions: Guidance Ultrasound 03/24/19 00:00 IMPRESSION: Successful placement of a 5 [place] double lumen PICC via the right brachial vein utilizing fluoroscopic and sonographic guidance. PICC Line Insertion 03/24/19 00:00 IMPRESSION: Successful placement of a 5 [place] double lumen PICC via the right brachial vein utilizing fluoroscopic and sonographic guidance. Chest X-Ray 03/27/19 00:00 IMPRESSION: STABLE APPEARANCE OF THE CHEST. KUB X-Ray 03/27/19 00:00 IMPRESSION: Limited study due to body habitus. Gas pattern is nonobstructive. Assessment & Plan - Diagnosis (1) Acute on chronic respiratory failure with hypoxia and hypercapnia Is this a current diagnosis for this admission?: Yes Plan: Emphasized need for compliance with CPAP machine usage. (2) Pulmonary hypertension associated with unclear multi-factorial mechanisms Is this a current diagnosis for this admission?: Yes Plan: Continue supplemental oxygen therapy and Revatio therapy.. (3) Diabetes mellitus type 2 in obese Is this a current diagnosis for this admission?: Yes Plan: Maintain on current medication and dietary recommendation for management. (4) HTN (hypertension) Qualifiers: Hypertension type: essential hypertension Qualified Code(s): I10 - Essential (primary) hypertension Is this a current diagnosis for this admission?: Yes Plan: Continue current medication management. (5) Morbid obesity Is this a current diagnosis for this admission?: Yes Plan: Continue current medication management. 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 - Time Time Spent with patient: 35 or more minutes Level of Care: TELE Medications reviewed and adjusted accordingly: Yes Anticipated discharge: Home with Homehealth Within: Other - Inpatient Certification Based on my medical assessment, after consideration of the patient's comorbidities, presenting symptoms, or acuity I expect that the services needed warrant INPATIENT care.: Yes I certify that my determination is in accordance with my understanding of Medicare's requirements for reasonable and necessary INPATIENT services [42 CFR 412.3e].: Yes Medical Necessity: Significant Comorbidiites Make Outpatient Treatment Too Risky, Need Close Monitoring Due to Risk of Patient Decompensation, Need For Continuous Telemetry Monitoring, Risk of Complication if Not Cared For in Hospital, Risk of Diagnosis Which Will Require Inpatient Eval/Care/Monitoring Post Hospital Care: D/C Companion Documentation - Plan Summary Plan Summary: See covering attending physician orders for details about care plan.
[2019-04-01] MEDS: POTASSIUM CHLORIDE 10 MEQ TABLET.ER PO SCH ×2 (14:30→17:42)
[2019-04-01] MEDS: LOPERAMIDE HCL 2 MG CAPSULE PO PRN (15:40)
[2019-04-01] MEDS: MAGNESIUM SULFATE/D5W 1 GM/100 ML RTUPB IV SCH ×2 (17:41→18:24)
[2019-04-01] MEDS: ATORVASTATIN CALCIUM 40 MG TABLET PO SCH (21:53)
--- NOTE | 2019-04-01 22:05 | PDOC PROGRESS REPORT ---
Subjective Progress Note for:: 04/01/19 Subjective:: Overall patient has done better. She continues to be on BiPAP. Reason For Visit: ACUTE HYPERCARBIC RESPIRATORY FAILURE,DIASTOLIC Physical Exam Vital Signs: Temp Pulse Resp BP Pulse Ox 98.6 F 83 17 120/59 L 98 04/01/19 19:57 04/01/19 19:57 04/01/19 19:57 04/01/19 19:57 04/01/19 19:57 Intake & Output 03/31/19 04/01/19 04/02/19 06:59 06:59 06:59 Intake Total 0 2500 652 Balance 0 2500 652 Weight 235 kg 235 kg 235 kg General appearance: PRESENT: morbidly obese Head exam: PRESENT: atraumatic, normocephalic Eye exam: PRESENT: other - BiPAP being used Respiratory exam: PRESENT: other - BiPAP elicited breath sounds. Difficult to auscultation. Cardiovascular exam: PRESENT: +S1, +S2 GI/Abdominal exam: PRESENT: soft Rectal exam: PRESENT: deferred Skin exam: PRESENT: dry, intact Results Laboratory Results: 03/31/19 06:30 04/01/19 05:15 04/01/19 04/01/19 04/01/19 05:15 05:15 11:09 Carbonic Acid 2.94 H HCO3/H2CO3 Ratio 18:1 ABG pH 7.37 ABG pCO2 97.6 H* ABG pO2 91.9 ABG HCO3 54.5 H ABG O2 Saturation 96.1 ABG Base Excess 23.7 FiO2 5L Sodium 137.8 Potassium 3.4 L Chloride 81 L Carbon Dioxide 51 H* Anion Gap 6 BUN 22 H Creatinine 1.03 Est GFR ( Amer) > 60 Glucose 271 H Calcium 8.2 L Magnesium 1.2 L* 03/23/19 03/23/19 03/23/19 09:33 13:44 22:50 Creatine Kinase 60 CK-MB (CK-2) Troponin I 2.020 0.021 NT-Pro-B Natriuret Pep [id number] H 03/23/19 03/23/19 03/24/19 22:50 22:50 06:08 Creatine Kinase CK-MB (CK-2) 1.59 Troponin I 0.020 Cancelled NT-Pro-B Natriuret Pep 03/24/19 03/24/19 07:58 12:35 Creatine Kinase CK-MB (CK-2) Troponin I 0.025 0.017 NT-Pro-B Natriuret Pep Impressions: Guidance Ultrasound 03/24/19 00:00 IMPRESSION: Successful placement of a 5 [place] double lumen PICC via the right brachial vein utilizing fluoroscopic and sonographic guidance. PICC Line Insertion 03/24/19 00:00 IMPRESSION: Successful placement of a 5 [place] double lumen PICC via the right brachial vein utilizing fluoroscopic and sonographic guidance. Chest X-Ray 03/27/19 00:00 IMPRESSION: STABLE APPEARANCE OF THE CHEST. KUB X-Ray 03/27/19 00:00 IMPRESSION: Limited study due to body habitus. Gas pattern is nonobstructive. Assessment & Plan - Diagnosis (1) Acute on chronic diastolic (congestive) heart failure Is this a current diagnosis for this admission?: Yes Plan: Acute on chronic diastolic congestive heart failure. Continue oral diuretic therapy Echocardiogram showed preserved left ventricular systolic function with pulmonary hypertension likely secondary to obesity hypoventilation (2) Elevated troponin Is this a current diagnosis for this admission?: Yes Plan: Likely secondary to severe hypoxia and volume overload and unlikely ACS (3) HLD (hyperlipidemia) Qualifiers: Hyperlipidemia type: unspecified Qualified Code(s): E78.5 - Hyperlipidemia, unspecified Is this a current diagnosis for this admission?: Yes Plan: Continue statin therapy (4) HTN (hypertension) Qualifiers: Hypertension type: essential hypertension Qualified Code(s): I10 - Essential (primary) hypertension Is this a current diagnosis for this admission?: Yes Plan: No added salt in the diet Continue valsartan Continue amlodipine Continue diuretics
[2019-04-02] MEDS: HEPARIN SOD (PORCINE) 5,000 UNIT/ML 1 ML VIAL SUBCUT SCH ×3 (06:25→22:10)
[2019-04-02 06:50] LABS: BLOOD UREA NITROGEN 16 mg/dL (7-20); CALCIUM 8.2 mg/dL (8.4-10.2); CHLORIDE 82 mmol/L (98-107); GLUCOSE 173 mg/dL (75-110); POTASSIUM 3.9 mmol/L (3.6-5.0)
[2019-04-02 07:17] LABS: ANION GAP 2 (5-19)
[2019-04-02 07:19] LABS: CARBON DIOXIDE 54 mmol/L (22-30)
[2019-04-02] MEDS: BUMETANIDE 1 MG TABLET PO SCH ×2 (10:12→17:39)
[2019-04-02] MEDS: LACTOBACILLUS ACIDOPHILUS 250 MG TAB PO SCH ×2 (10:12→17:39)
[2019-04-02] MEDS: AMLODIPINE BESYLATE 10 MG TABLET PO SCH (10:13)
[2019-04-02] MEDS: SILDENAFIL CITRATE 20 MG TABLET PO SCH ×3 (10:13→17:40)
[2019-04-02] MEDS: PREDNISONE 20 MG TABLET PO SCH (10:13)
[2019-04-02] MEDS: FUROSEMIDE 40 MG TABLET PO SCH ×2 (10:13→17:39)
[2019-04-02] MEDS: VALSARTAN 160 MG TABLET PO SCH (10:13)
[2019-04-02] MEDS: CIPROFLOXACIN HCL 500 MG TABLET PO SCH ×2 (10:13→22:16)
[2019-04-02] MEDS: METFORMIN HCL 500 MG TABLET PO SCH ×2 (10:14→17:39)
[2019-04-02] MEDS: INSULIN REG, HUMAN 100 UNIT/ML 3 ML VIAL (PYX) SUBCUT SCH ×4 (10:14→22:16)
[2019-04-02] MEDS: NORMAL SALINE INJ/PF 0.9% 10 ML SDV IV SCH ×2 (10:23→22:23)
[2019-04-02] MEDS: LOPERAMIDE HCL 2 MG CAPSULE PO PRN ×2 (10:27→22:16)
--- NOTE | 2019-04-02 12:04 | PDOC PROGRESS REPORT ---
Subjective Progress Note for:: 04/02/19 Subjective:: Overall patient has done better. No overnight events.. Reason For Visit: ACUTE HYPERCARBIC RESPIRATORY FAILURE,DIASTOLIC Physical Exam Vital Signs: Temp Pulse Resp BP Pulse Ox 98.4 F 80 16 161/83 H 98 04/02/19 07:42 04/02/19 07:42 04/02/19 07:42 04/02/19 07:42 04/02/19 07:42 Intake & Output 04/01/19 04/02/19 04/03/19 06:59 06:59 06:59 Intake Total 2500 652 Output Total 1050 Balance 2500 -398 Weight 235 kg 247.3 kg General appearance: PRESENT: morbidly obese Head exam: PRESENT: atraumatic, normocephalic Eye exam: PRESENT: EOMI Mouth exam: PRESENT: moist Respiratory exam: PRESENT: other - Difficult respiratory exam. Breath sounds appear to be normal. Not using accessory muscles of respiration. Cardiovascular exam: PRESENT: RRR, +S1, +S2 GI/Abdominal exam: PRESENT: soft Rectal exam: PRESENT: deferred Neurological exam: PRESENT: alert, awake, oriented to person, oriented to place, oriented to time Psychiatric exam: PRESENT: appropriate affect Skin exam: PRESENT: dry, intact Results Laboratory Results: 03/31/19 06:30 04/02/19 06:05 04/01/19 04/01/19 04/02/19 05:15 11:09 06:05 Carbonic Acid 2.94 H HCO3/H2CO3 Ratio 18:1 ABG pH 7.37 ABG pCO2 97.6 H* ABG pO2 91.9 ABG HCO3 54.5 H ABG O2 Saturation 96.1 ABG Base Excess 23.7 FiO2 5L Sodium 137.7 Potassium 3.9 Chloride 82 L Carbon Dioxide 54 H* Anion Gap 2 L BUN 16 Creatinine 0.94 Est GFR ( Amer) > 60 Glucose 173 H Calcium 8.2 L Magnesium 1.2 L* 03/23/19 03/23/19 03/23/19 09:33 13:44 22:50 Creatine Kinase 60 CK-MB (CK-2) Troponin I 2.020 0.021 NT-Pro-B Natriuret Pep [id number] H 03/23/19 03/23/19 03/24/19 22:50 22:50 06:08 Creatine Kinase CK-MB (CK-2) 1.59 Troponin I 0.020 Cancelled NT-Pro-B Natriuret Pep 03/24/19 03/24/19 07:58 12:35 Creatine Kinase CK-MB (CK-2) Troponin I 0.025 0.017 NT-Pro-B Natriuret Pep Impressions: Guidance Ultrasound 03/24/19 00:00 IMPRESSION: Successful placement of a 5 [place] double lumen PICC via the right brachial vein utilizing fluoroscopic and sonographic guidance. PICC Line Insertion 03/24/19 00:00 IMPRESSION: Successful placement of a 5 [place] double lumen PICC via the right brachial vein utilizing fluoroscopic and sonographic guidance. Chest X-Ray 03/27/19 00:00 IMPRESSION: STABLE APPEARANCE OF THE CHEST. KUB X-Ray 03/27/19 00:00 IMPRESSION: Limited study due to body habitus. Gas pattern is nonobstructive. Assessment & Plan - Diagnosis (1) Acute on chronic diastolic (congestive) heart failure Is this a current diagnosis for this admission?: Yes Plan: Acute on chronic diastolic congestive heart failure. Continue oral diuretic therapy Echocardiogram showed preserved left ventricular systolic function with pulmonary hypertension likely secondary to obesity hypoventilation With better control of volume status filling pressures as well as PA pressures are to decrease. We will repeat echocardiogram as an outpatient. (2) Elevated troponin Is this a current diagnosis for this admission?: Yes Plan: Likely secondary to severe hypoxia and volume overload and unlikely ACS (3) HLD (hyperlipidemia) Qualifiers: Hyperlipidemia type: unspecified Qualified Code(s): E78.5 - Hyperlipidemia, unspecified Is this a current diagnosis for this admission?: Yes Plan: Continue statin therapy (4) HTN (hypertension) Qualifiers: Hypertension type: essential hypertension Qualified Code(s): I10 - Essential (primary) hypertension Is this a current diagnosis for this admission?: Yes Plan: No added salt in the diet Continue valsartan Continue amlodipine Continue diuretics
--- NOTE | 2019-04-02 13:14 | PDOC PROGRESS REPORT ---
Subjective Progress Note for:: 04/02/19 Subjective:: No chest pain or difficulty with breathing. Remain on supplemental oxygen via nasal cannula. No fever or chills. No nausea, vomiting, or abdominal pain. Reason For Visit: ACUTE HYPERCARBIC RESPIRATORY FAILURE,DIASTOLIC Physical Exam Vital Signs: Temp Pulse Resp BP Pulse Ox 98.4 F 80 16 161/83 H 98 04/02/19 07:42 04/02/19 07:42 04/02/19 07:42 04/02/19 07:42 04/02/19 07:42 Intake & Output 04/01/19 04/02/19 04/03/19 06:59 06:59 06:59 Intake Total 2500 652 Output Total 1050 Balance 2500 -398 Weight 235 kg 247.3 kg Physical Exam: General appearance: PRESENT: morbidly obese Head exam: PRESENT: atraumatic, normocephalic Eye exam: PRESENT: conjunctiva pink. ABSENT: pallor, scleral icterus Ear exam: PRESENT: normal external ear exam Mouth exam: PRESENT: moist Respiratory exam: PRESENT: clear to auscultation trina, decreased breath sounds - at lung bases Cardiovascular exam: PRESENT: RRR, +S1, +S2. ABSENT: diastolic murmur, rubs, systolic murmur GI/Abdominal exam: PRESENT: normal bowel sounds, soft. ABSENT: distended, guarding, mass, organomegaly, rebound, tenderness Extremities exam: ABSENT: pedal edema Neurological exam: PRESENT: alert, awake, oriented to person, oriented to place, oriented to time, oriented to situation, CN II-XII grossly intact. ABSENT: motor sensory deficit Psychiatric exam: PRESENT: appropriate affect, normal mood. ABSENT: homicidal ideation, suicidal ideation Skin exam: PRESENT: dry, warm Results Laboratory Results: 03/31/19 06:30 04/02/19 06:05 04/01/19 04/02/19 05:15 06:05 Sodium 137.7 Potassium 3.9 Chloride 82 L Carbon Dioxide 54 H* Anion Gap 2 L BUN 16 Creatinine 0.94 Est GFR ( Amer) > 60 Glucose 173 H Calcium 8.2 L Magnesium 1.2 L* 03/23/19 03/23/19 03/23/19 09:33 13:44 22:50 Creatine Kinase 60 CK-MB (CK-2) Troponin I 2.020 0.021 NT-Pro-B Natriuret Pep [id number] H 03/23/19 03/23/19 03/24/19 22:50 22:50 06:08 Creatine Kinase CK-MB (CK-2) 1.59 Troponin I 0.020 Cancelled NT-Pro-B Natriuret Pep 03/24/19 03/24/19 07:58 12:35 Creatine Kinase CK-MB (CK-2) Troponin I 0.025 0.017 NT-Pro-B Natriuret Pep Impressions: Guidance Ultrasound 03/24/19 00:00 IMPRESSION: Successful placement of a 5 [place] double lumen PICC via the right brachial vein utilizing fluoroscopic and sonographic guidance. PICC Line Insertion 03/24/19 00:00 IMPRESSION: Successful placement of a 5 [place] double lumen PICC via the right brachial vein utilizing fluoroscopic and sonographic guidance. Chest X-Ray 03/27/19 00:00 IMPRESSION: STABLE APPEARANCE OF THE CHEST. KUB X-Ray 03/27/19 00:00 IMPRESSION: Limited study due to body habitus. Gas pattern is nonobstructive. Assessment & Plan - Diagnosis (1) Acute on chronic respiratory failure with hypoxia and hypercapnia Is this a current diagnosis for this admission?: Yes (2) Pulmonary hypertension associated with unclear multi-factorial mechanisms Is this a current diagnosis for this admission?: Yes (3) Diabetes mellitus type 2 in obese Is this a current diagnosis for this admission?: Yes (4) HTN (hypertension) Qualifiers: Hypertension type: essential hypertension Qualified Code(s): I10 - Essential (primary) hypertension Is this a current diagnosis for this admission?: Yes (5) Morbid obesity Is this a current diagnosis for this admission?: Yes (6) Obesity with alveolar hypoventilation and body mass index (BMI) of 40 or greater Is this a current diagnosis for this admission?: Yes - Time Time Spent with patient: 25-34 minutes Level of Care: TELE Medications reviewed and adjusted accordingly: Yes Anticipated discharge: Home with Homehealth Within: Other - Inpatient Certification Based on my medical assessment, after consideration of the patient's comorbidities, presenting symptoms, or acuity I expect that the services needed warrant INPATIENT care.: Yes I certify that my determination is in accordance with my understanding of Medicare's requirements for reasonable and necessary INPATIENT services [42 CFR 412.3e].: Yes Medical Necessity: Significant Comorbidiites Make Outpatient Treatment Too R isky, Need Close Monitoring Due to Risk of Patient Decompensation, Need For Continuous Telemetry Monitoring, Risk of Complication if Not Cared For in Hospital, Risk of Diagnosis Which Will Require Inpatient Eval/Care/Monitoring Post Hospital Care: D/C Cathead Operator Documentation - Plan Summary Plan Summary: Start on Acetazolamide 500 mg p.o tid and encouraged use of CPAP machine even during daytime due to worsening CO2 retention. Maintain on all other current medication management.
[2019-04-02] MEDS: ACETAZOLAMIDE 500 MG CAPSULE.SA PO SCH ×2 (15:05→22:16)
[2019-04-02] MEDS: ATORVASTATIN CALCIUM 40 MG TABLET PO SCH (22:16)
[2019-04-03] MEDS: HEPARIN SOD (PORCINE) 5,000 UNIT/ML 1 ML VIAL SUBCUT SCH ×2 (05:28→13:19)
[2019-04-03] MEDS: ACETAZOLAMIDE 500 MG CAPSULE.SA PO SCH ×2 (05:30→13:19)
[2019-04-03] MEDS: METFORMIN HCL 500 MG TABLET PO SCH ×2 (08:04→15:37)
[2019-04-03] MEDS: INSULIN REG, HUMAN 100 UNIT/ML 3 ML VIAL (PYX) SUBCUT SCH ×3 (08:04→17:46)
[2019-04-03] MEDS: CIPROFLOXACIN HCL 500 MG TABLET PO SCH (09:40)
[2019-04-03] MEDS: BUMETANIDE 1 MG TABLET PO SCH ×2 (09:40→17:47)
[2019-04-03] MEDS: LACTOBACILLUS ACIDOPHILUS 250 MG TAB PO SCH ×2 (09:40→17:47)
[2019-04-03] MEDS: SILDENAFIL CITRATE 20 MG TABLET PO SCH ×3 (09:40→17:46)
[2019-04-03] MEDS: FUROSEMIDE 40 MG TABLET PO SCH ×2 (09:41→17:47)
[2019-04-03] MEDS: PREDNISONE 20 MG TABLET PO SCH (09:41)
[2019-04-03] MEDS: NORMAL SALINE INJ/PF 0.9% 10 ML SDV IV SCH (09:41)
[2019-04-03] MEDS: AMLODIPINE BESYLATE 10 MG TABLET PO SCH (09:41)
[2019-04-03] MEDS: VALSARTAN 160 MG TABLET PO SCH (09:41)
--- NOTE | 2019-04-03 11:16 | PDOC DISCHARGE SUMMARY ---
Impression - Admit/DC Date/PCP Admission Date/Primary Care Provider: 03/23/19 13:09 SAULO BREWER MD Discharge Date: 04/03/19 - Discharge Diagnosis (1) Acute cardiac pulmonary edema Is this a current diagnosis for this admission?: Yes (2) Acute on chronic diastolic (congestive) heart failure Is this a current diagnosis for this admission?: Yes (3) Acute respiratory failure with hypoxia and hypercarbia Is this a current diagnosis for this admission?: Yes (4) Chronic respiratory failure with hypercapnia Is this a current diagnosis for this admission?: Yes (5) Elevated troponin Is this a current diagnosis for this admission?: Yes (6) ROMEO (obstructive sleep apnea) Is this a current diagnosis for this admission?: Yes (7) Obesity with alveolar hypoventilation and body mass index (BMI) of 40 or greater Is this a current diagnosis for this admission?: Yes (8) Diabetes mellitus type 2 in obese Is this a current diagnosis for this admission?: Yes (9) HLD (hyperlipidemia) Is this a current diagnosis for this admission?: Yes (10) HTN (hypertension) Is this a current diagnosis for this admission?: Yes - Additional Information Resuscitation Status: Full Code Discharge Diet: Cardiac, Diabetic Discharge Activity: Activity As Tolerated, Balance Activity w/Rest, Weigh Daily Referrals: SAULO BREWER MD [Primary Care Provider] - 04/07/19 12:00 pm (f/u with dr gibbons f/u with dr casas ) Prescriptions: Ciprofloxacin HCl [Cipro 500 mg Tablet] 500 mg PO Q12 #10 tablet Acetazolamide [Diamox Sequel 500 mg] 500 mg PO Q8 #90 capsule. Valsartan [Diovan 160 mg Tablet] 320 mg PO DAILY #30 tablet Metformin HCl [Glucophage 500 mg Tablet] 1,000 mg PO BIDACBS #60 tablet Furosemide [Lasix 40 mg Tablet] 40 mg PO BID #60 tablet Sildenafil Citrate [Revatio 20 mg Tablet] 20 mg PO MEALS #30 tablet Home Medications: Amlodipine Besylate [Norvasc 10 mg Tablet] 10 mg PO DAILY 03/23/19 Furosemide [Lasix 40 mg Tablet] 40 mg PO BID 03/23/19 Valsartan [Diovan] 320 mg PO DAILY 03/23/19 Acetazolamide [Diamox Sequel 500 mg] 500 mg PO Q8 #90 capsule.sa 04/03/19 Ciprofloxacin HCl [Cipro 500 mg Tablet] 500 mg PO Q12 #10 tablet 04/03/19 Furosemide [Lasix 40 mg Tablet] 40 mg PO BID #60 tablet 04/03/19 Metformin HCl [Glucophage 500 mg Tablet] 1,000 mg PO BIDACBS #60 tablet 04/03/19 Sildenafil Citrate [Revatio 20 mg Tablet] 20 mg PO MEALS #30 tablet 04/03/19 Valsartan [Diovan 160 mg Tablet] 320 mg PO DAILY #30 tablet 04/03/19 History of Present Illiness History of Present Illness: LAURENT MOORE is a 43 year old female This is a 43-year-old female's with a history of the hypertension's diabetes very severe morbid obesity's and hypoventilation syndromes chronic respiratory failure presented emergency departments with a shortness of the breath and patient admitting in the intensive care unit for further evaluations Hospital Course Hospital Course: This is a 42-year-old female's with a significant history of the morbid obesity with the diagnosed with the hypoventilation syndromes with the pulmonary hypertension's history of the chronic respiratory failure history of the congestive heart failure hypertension hyperlipidemia very noncompliance admitting in the hospital for the shortness of the breath patient was admitting in the intensive care unit for the respiratory failure put on the BiPAP and started on Lasix Patient is usually responds very well with the BiPAP does not require intubations patient also have echocardiogram done which suggest the pulmonary hypertension's due to the obesity related hypoventilation syndromes patient was put on a Viagra Patient is seen by the pulmonary Dr. Yates patient was put on a trilogy machine at home's Patient also seen by the cardiology and suggest the continues current medications and will follow outpatient for possible further right-sided cardiac cath Patient is otherwise doing well in the hospital the patient's trilogy machine was deliver in the hospitals and the patient was teach properly all the machine how to use it Discussed with the patient and the regarding the patient's current conditions with the compliance Patient is discharged with home health physical therapy still significant morbid obesity's with a noncompliance about the diet patient understand very well Physical Exam Vital Signs: Temp Pulse Resp BP Pulse Ox 97.6 F 87 19 175/89 H 99 04/03/19 07:29 04/03/19 07:29 04/03/19 08:00 04/03/19 07:29 04/03/19 08:00 Intake & Output 04/02/19 04/03/19 04/04/19 06:59 06:59 06:59 Intake Total 657 2590 Output Total 1051 4408 Balance -398 -0809 Weight 247.3 kg 247.3 kg General appearance: PRESENT: no acute distress, obese, well-developed, well-nourished Head exam: PRESENT: atraumatic, normocephalic Eye exam: PRESENT: conjunctiva pink, EOMI, PERRLA. ABSENT: scleral icterus Ear exam: PRESENT: normal external ear exam Mouth exam: PRESENT: moist, tongue midline Neck exam: ABSENT: carotid bruit, JVD, lymphadenopathy, thyromegaly Respiratory exam: PRESENT: clear to auscultation trina. ABSENT: rales, rhonchi, wheezes Cardiovascular exam: PRESENT: RRR. ABSENT: diastolic murmur, rubs, systolic murmur Pulses: PRESENT: normal dorsalis pedis pul Vascular exam: PRESENT: normal capillary refill GI/Abdominal exam: PRESENT: normal bowel sounds, soft. ABSENT: distended, guarding, mass, organolmegaly, rebound, tenderness Rectal exam: PRESENT: deferred Extremities exam: PRESENT: full ROM. ABSENT: calf tenderness, clubbing, pedal edema Neurological exam: PRESENT: alert, awake, oriented to person, oriented to place, oriented to time, oriented to situation, CN II-XII grossly intact. ABSENT: motor sensory deficit Psychiatric exam: PRESENT: appropriate affect, normal mood. ABSENT: homicidal ideation, suicidal ideation Skin exam: PRESENT: dry, intact, warm. ABSENT: cyanosis, rash Results Laboratory Results: WBC 4.5 10^3/uL (4.0-10.5) 03/31/19 06:30 RBC 4.48 10^6/uL (3.72-5.28) 03/31/19 06:30 Hgb 10.8 g/dL (12.0-15.5) L 03/31/19 06:30 Hct 35.5 % (36.0-47.0) L 03/31/19 06:30 MCV 79 fl (80-97) L 03/31/19 06:30 MCH 24.1 pg (27.0-33.4) L 03/31/19 06:30 MCHC 30.5 g/dL (32.0-36.0) L 03/31/19 06:30 RDW 19.9 % (11.5-14.0) H 03/31/19 06:30 Plt Count 106 10^3/uL (150-450) L 03/31/19 06:30 Lymph % (Auto) Not Reportable 03/31/19 06:30 [place] % (Auto) Not Reportable 03/31/19 06:30 Eos % (Auto) Not Reportable 03/31/19 06:30 Baso % (Auto) Not Reportable 03/31/19 06:30 Absolute Neuts (auto) Not Reportable 03/31/19 06:30 Absolute Lymphs (auto) Not Reportable 03/31/19 06:30 Absolute Monos (auto) Not Reportable 03/31/19 06:30 Absolute Eos (auto) Not Reportable 03/31/19 06:30 Absolute Basos (auto) Not Reportable 03/31/19 06:30 Total Counted 100 03/31/19 06:30 Seg Neutrophils % Not Reportable 03/31/19 06:30 Seg Neuts % (Manual) 81 % (42-78) H 03/31/19 06:30 Lymphocytes % (Manual) 11 % (13-45) L 03/31/19 06:30 Monocytes % (Manual) 8 % (3-13) 03/31/19 06:30 Eosinophils % (Manual) 0 % (0-6) 03/31/19 06:30 Basophils % (Manual) 0 % (0-2) 03/31/19 06:30 Abs Neuts (Manual) 3.6 10^3/uL (1.7-8.2) 03/31/19 06:30 Abs Lymphs (Manual) 0.5 10^3/uL (0.5-4.7) 03/31/19 06:30 Abs Monocytes (Manual) 0.4 10^3/uL (0.1-1.4) 03/31/19 06:30 Absolute Eos (Manual) 0.0 10^3/uL (0.0-0.6) 03/31/19 06:30 Abs Basophils (Manual) 0.0 10^3/uL (0.0-0.2) 03/31/19 06:30 Toxic Vacuolation PRESENT 03/24/19 06:08 Clumped Platelets PRESENT 03/31/19 06:30 Large Platelets PRESENT 03/31/19 06:30 Platelet Comment DECREASED 03/31/19 06:30 Hypochromasia SLIGHT 03/31/19 06:30 Poikilocytosis 1+ 03/31/19 06:30 Anisocytosis 2+ 03/31/19 06:30 Microcytosis SLIGHT 03/31/19 06:30 Target Cells SLIGHT 03/31/19 06:30 Ovalocytes SLIGHT 03/31/19 06:30 PT 16.6 SEC (11.4-15.4) H 03/23/19 18:00 INR 1.33 03/23/19 18:00 APTT Cancelled 03/24/19 08:57 Carbonic Acid 2.94 mmol/L (1.05-1.35) H 04/01/19 11:09 HCO3/H2CO3 Ratio 18:1 04/01/19 11:09 ABG pH 7.37 (7.35-7.45) 04/01/19 11:09 ABG pCO2 97.6 mmHg (35-45) H* 04/01/19 11:09 ABG pO2 91.9 mmHg (80-100) 04/01/19 11:09 ABG HCO3 54.5 mmol/L (20-24) H 04/01/19 11:09 ABG Total CO2 57.5 mmol/L (21-25) H 04/01/19 11:09 ABG O2 Saturation 96.1 % (94-98) 04/01/19 11:09 ABG Base Excess 23.7 mmol/L 04/01/19 11:09 FiO2 5L 04/01/19 11:09 Sodium 137.7 mmol/L (137-145) 04/02/19 06:05 Potassium 3.9 mmol/L (3.6-5.0) 04/02/19 06:05 Chloride 82 mmol/L (98-107) L 04/02/19 06:05 Carbon Dioxide 54 mmol/L (22-30) H* 04/02/19 06:05 Anion Gap 2 (5-19) L 04/02/19 06:05 BUN 16 mg/dL (7-20) 04/02/19 06:05 Creatinine 0.94 mg/dL (0.52-1.25) 04/02/19 06:05 Est GFR ( Amer) > 60 (>60) 04/02/19 06:05 Est GFR (Non-Af Amer) Cancelled 03/24/19 06:08 Est GFR (MDRD) Non-Af > 60 (>60) 04/02/19 06:05 Glucose 173 mg/dL (75-110) H 04/02/19 06:05 POC Glucose 153 mg/dL (70-110) H 04/03/19 07:26 Hemoglobin A1c % 10.1 % (4.7-6.0) H 03/23/19 22:50 Calcium 8.2 mg/dL (8.4-10.2) L 04/02/19 06:05 Phosphorus 3.9 mg/dL (2.5-4.5) 03/27/19 06:30 Magnesium 1.2 mg/dL (1.6-2.3) L* 04/01/19 05:15 Total Bilirubin 1.2 mg/dL (0.2-1.3) 03/29/19 03:35 Direct Bilirubin 0.3 mg/dL (0.0-0.4) 03/29/19 03:35 Neonat Total Bilirubin Not Reportable 03/29/19 03:35 Neonat Direct Bilirubin Not Reportable 03/29/19 03:35 Neonat Indirect Bili Not Reportable 03/29/19 03:35 AST 24 U/L (14-36) 03/29/19 03:35 ALT 18 U/L (<35) 03/29/19 03:35 Alkaline Phosphatase 68 U/L (38-126) 03/29/19 03:35 Ammonia < 8.7 umol/L (9-33) L 03/25/19 06:30 Creatine Kinase 60 U/L (30-135) 03/23/19 22:50 CK-MB (CK-2) 1.59 ng/mL (<4.55) 03/23/19 22:50 Troponin I 0.017 ng/mL 03/24/19 12:35 NT-Pro-B Natriuret Pep 99108 pg/mL (<125) H 03/23/19 09:33 Total Protein 8.8 g/dL (6.3-8.2) H 03/29/19 03:35 Albumin 3.5 g/dL (3.5-5.0) 03/29/19 03:35 EGFR Cancelled 03/24/19 06:08 TSH 2.79 uIU/mL (0.47-4.68) 03/23/19 22:50 Free T4 1.71 ng/dL (0.78-2.19) 03/23/19 22:50 Free T3 pg/mL 1.79 pg/mL (2.77-5.27) L 03/23/19 22:50 Serum HCG, Qual NEGATIVE (NEGATIVE) 03/23/19 22:50 Urine Color YELLOW 03/29/19 11:10 Urine Appearance CLEAR 03/29/19 11:10 Urine pH 6.0 (5.0-9.0) 03/29/19 11:10 Ur Specific [place] 1.006 03/29/19 11:10 Urine Protein NEGATIVE mg/dL (NEGATIVE) 03/29/19 11:10 Urine Glucose (UA) NEGATIVE mg/dL (NEGATIVE) 03/29/19 11:10 Urine Ketones NEGATIVE mg/dL (NEGATIVE) 03/29/19 11:10 Urine Blood LARGE (NEGATIVE) H 03/29/19 11:10 Urine Nitrite NEGATIVE (NEGATIVE) 03/29/19 11:10 Urine Bilirubin NEGATIVE (NEGATIVE) 03/29/19 11:10 Urine Urobilinogen NEGATIVE mg/dL (<2.0) 03/29/19 11:10 Ur Leukocyte Esterase LARGE (NEGATIVE) H 03/29/19 11:10 Urine WBC (Auto) 17 /HPF 03/29/19 11:10 Urine RBC (Auto) 8 /HPF 03/29/19 11:10 U Hyaline Cast (Auto) 1 /LPF 03/29/19 03:35 Urine Bacteria (Auto) 2+ /HPF 03/29/19 11:10 Squamous Epi Cells Auto <1 /HPF 03/29/19 11:10 Calcium Oxalate Cr Auto FEW /HPF 03/27/19 06:30 Urine Mucus (Auto) RARE /LPF 03/29/19 03:35 Urine Ascorbic Acid NEGATIVE (NEGATIVE) 03/29/19 11:10 Urine Opiates Screen NEGATIVE 03/23/19 22:00 Urine Methadone Screen NEGATIVE 03/23/19 22:00 Ur Barbiturates Screen NEGATIVE 03/23/19 22:00 Ur Phencyclidine Scrn NEGATIVE 03/23/19 22:00 Ur Amphetamines Screen NEGATIVE 03/23/19 22:00 U Benzodiazepines Scrn NEGATIVE 03/23/19 22:00 Urine Cocaine Screen NEGATIVE 03/23/19 22:00 U Marijuana (THC) Screen NEGATIVE 03/23/19 22:00 03/23/19 03/23/19 03/23/19 09:33 13:44 22:50 CK-MB (CK-2) 1.59 Troponin I 2.020 0.021 NT-Pro-B Natriuret Pep 29061 H 03/23/19 03/24/19 03/24/19 22:50 06:08 07:58 CK-MB (CK-2) Troponin I 0.020 Cancelled 0.025 NT-Pro-B Natriuret Pep 03/24/19 12:35 CK-MB (CK-2) Troponin I 0.017 NT-Pro-B Natriuret Pep Impressions: Chest X-Ray 03/23/19 08:15 IMPRESSION: CARDIAC ENLARGEMENT. VASCULAR CONGESTION. Chest X-Ray 03/24/19 00:00 IMPRESSION: Successful placement of a 5 [place] double lumen PICC via the right brachial vein utilizing fluoroscopic and sonographic guidance. Guidance Ultrasound 03/24/19 00:00 IMPRESSION: Successful placement of a 5 [place] double lumen PICC via the right brachial vein utilizing fluoroscopic and sonographic guidance. PICC Line Insertion 03/24/19 00:00 IMPRESSION: Successful placement of a 5 [place] double lumen PICC via the right brachial vein utilizing fluoroscopic and sonographic guidance. Chest X-Ray 03/24/19 06:00 IMPRESSION: Cardiomegaly and low inspiratory lung volumes without definite pulmonary edema. Chest X-Ray 03/27/19 00:00 IMPRESSION: STABLE APPEARANCE OF THE CHEST. KUB X-Ray 03/27/19 00:00 IMPRESSION: Limited study due to body habitus. Gas pattern is nonobstructive. Plan Time Spent: Greater than 30 Minutes - Follow outpatients Dr. Casas follow with the cardiology Stroke Is this a Stroke Patient?: No Acute Heart Failure - Is this a Heart Failure Patient?: No
[2019-04-03 13:30] VITALS: BP 129/71
== END 2019-04-03 18:50 | disposition home health service (06) | DRG 291 ==
LOC: ER 08:05 → EH 13:09 → ICU 20:10 → 5 03-29 18:44
PROVIDERS: ADMIT Family Medicine; ATTEND Family Medicine
PROC: 5A09557 Assistance with Respiratory Ventilation, Greater than 96 Consecutive Hours, Continuous Positive Airway Pressure (ICD-10-PCS; principal; 2019-03-23)
PROC: 05H933Z Insertion of Infusion Device into Right Brachial Vein, Percutaneous Approach (ICD-10-PCS; 2019-03-24)
PROC: B54MZZA Ultrasonography of Right Upper Extremity Veins, Guidance (ICD-10-PCS; 2019-03-24)
DX: I11.0 Hypertensive heart disease with heart failure (principal); J96.02 Acute respiratory failure with hypercapnia; G93.41 Metabolic encephalopathy; J96.01 Acute respiratory failure with hypoxia; E66.2 Morbid (severe) obesity with alveolar hypoventilation; Z68.45 Body mass index [BMI] 70 or greater, adult; N17.9 Acute kidney failure, unspecified; E87.4 Mixed disorder of acid-base balance; I50.33 Acute on chronic diastolic (congestive) heart failure; I27.20 Pulmonary hypertension, unspecified; R79.89 Other specified abnormal findings of blood chemistry; E11.9 Type 2 diabetes mellitus without complications; K21.9 Gastro-esophageal reflux disease without esophagitis; F32.9 Major depressive disorder, single episode, unspecified; M19.90 Unspecified osteoarthritis, unspecified site; Z89.421 Acquired absence of other right toe(s); Z83.438 Family history of other disorder of lipoprotein metabolism and other lipidemia; Z82.3 Family history of stroke; Z82.49 Family history of ischemic heart disease and other diseases of the circulatory system; Z91.19 Patient's noncompliance with other medical treatment and regimen
CPT/HCPCS: 36415; 36569; 36600; 51702; 71045; 74018; 76937; 80048; 80053; 80307; 81001; 82140; 82550; 82553; 82803; 82962; 83036; 83735; 83880; 84100; 84439; 84443; 84481; 84484; 84703; 85025; 85027; 85610; 85730; 87040; 87086; 87088; 87186; 93005; 93010; 93306; 94010; 94150; 94660; 94799; 96365; 96375; 96376; 99231; 99291; 99292; C1769; J1200; J1644; J1815; J1940; J2405; J2920; J2930; J3475; J3490; J7050; J7512

== ENCOUNTER 2019-08-31 23:19 | Emergency (ER) | payer MEDICARE, MEDICAID ==
[2019-08-31] MEDS ORDERED: MIDAZOLAM HCL 50 MG/100 ML RTUINJ IV PRN (23:37)
--- NOTE | 2019-08-31 23:39 | ER Document Report ---
ED General - General Chief Complaint: Seizure Stated Complaint: SEIZURE,UNRESPONSIVE Primary Care Provider: SAULO SIMON MD [Primary Care Provider] - Follow up as needed Information source: Relative, Emergency Med Personnel, Dr. Alberts, [facility] Records Cannot obtain history due to: Intubated Notes: 43 year old female brought in by EMS for unresponsiveness and hypoxic respiratory failure after a suspected seizure. Patient has been apparently doing well today until family members walked into her room just prior to calling EMS and found her shaking, possibly choking on some chips and completely unresponsive. When EMS arrived they stated that she was unresponsive and hypoxic to the mid 30s. They did end up giving her ketamine, rocuronium and Versed in order to sedate her and intubate her. They did not personally see any seizure activity. Oxygen saturations recovered well after being intubated and artificially bagged. I spoke with the who states she had no prodrome, her last seizure was 6 to 7 months ago, and she does not take any medications for these as her seizures are usually attributed to hypoglycemia. I did discuss the patient with Dr. Simon who is her primary care physician and he does not recall any true seizure history in this patient. TRAVEL OUTSIDE OF THE [place] IN LAST 30 DAYS: No - Related Data Allergies/Adverse Reactions: pineapple Adverse Reaction (Verified 03/26/19 23:00) VOMITING Past Medical History - General Information source: Relative Cannot obtain history due to: Intubated - Social History Smoking Status: Never Smoker Frequency of alcohol use: None Drug Abuse: None Lives with: Spouse/Significant other Family History: CVA, DM - Past Medical History Cardiac Medical History: Reports: Hx Hypercholesterolemia, Hx Hypertension Denies: Hx Congestive Heart Failure, Hx Heart Attack Pulmonary Medical History: Reports: Hx Asthma, Hx Bronchitis Denies: Hx COPD, Hx Pneumonia, Hx Tuberculosis Neurological Medical History: Denies: Hx Seizures, Hx Parkinson's Disease Endocrine Medical History: Reports: Hx Diabetes Mellitus Type 2 Renal/ Medical History: Denies: Hx End Stage Renal Disease, Hx Kidney Stones, Hx Peritoneal Dialysis GI Medical History: Reports: Hx Gastroesophageal Reflux Disease. Denies: Hx Cirrhosis, Hx Ulcer Musculoskeletal Medical History: Reports Hx Arthritis, Denies Hx Multiple Sclerosis, Reports Hx Musculoskeletal Deformity, Reports Hx Musculoskeletal Trauma Psychiatric Medical History: Reports: Hx Depression Denies: Hx Bipolar Disorder, Hx Schizophrenia Past Surgical History: Reports: Hx Section - X2, Hx Tubal Ligation - Immunizations Immunizations up to date: Yes Hx Diphtheria, Pertussis, Tetanus Vaccination: Yes Review of Systems - Review of Systems -: Yes ROS unobtainable due to patient's medical condition Physical Exam - Vital signs Vitals: Resp Pulse Ox 24 H 100 08/31/19 23:27 08/31/19 23:27 Interpretation: No: Hypotensive, Tachycardic, Hypoxic - Notes Notes: GENERAL: Intubated, completely unresponsive, recently received rocuronium, ketamine and Versed. Morbidly obese. HEAD: Normocephalic, atraumatic EYES: Pupils equal, round and reactive to light. ENT: Oral mucosa moist, ET tube at 26 cm at the. NECK: Full range of motion, supple, trachea midline. LUNGS: Clear to auscultation bilaterally, no wheezes, no spontaneous respirations, being bagged and then on the ventilator. HEART: Regular rate and rhythm, no murmurs, gallops, rubs. ABDOMEN: Soft, nondistended, bowel sounds present in all 4 quadrants. EXTREMITIES: No spontaneous movement of the extremities, again recently received paralytics and sedating medications. No edema, radial and dorsalis pedis pulses 2/4 bilaterally. No cyanosis. IO in place in the proximal tibia on the left. NEUROLOGICAL: GCS 3T SKIN: Warm, Dry. Course - Re-evaluation Re-evalutation: 09/01/19 01:00 CT scan was ordered of the brain for shortly after she got here as she has no true seizure history based off of discussions with her primary care physician as well as review of the records and she has not neurologically intact. Radiology reviewed her records and stated that she was too heavy for the CT scanner based off of a weight in March where she was well over 500 pounds. Just now reviewing her vital signs I see that the nurse at the bedside did weigh her and she currently today weighs 197.8 pounds. This is a true weight from today. Patient will now be sent to CT scan based off of the fact that her current weight today indicates that she should be able to go on the CT scan table. Discussed this with photographic reproduction technician who states that he is concerned by the patient's weight in March, discussed that as we have an actual verified weight today that we just obtained there is no reason to delay this patient's care any further. Chest x-ray showed that the ET tube was 3.8 cm too deep, it has been withdrawn 3.5 cm, repeat chest x-ray will be performed, her heart is chronically enlarged, patient has required no sedation thus far despite being in the emergency department for an hour and a half. Still does not have any gag reflex, does not withdraw from painful stimuli or suction. We have been able to titrate her oxygen saturation FiO2 to 55%. 09/01/19 01:04 Blood pressure is now markedly elevated in the 220s over 120s, nicardipine drip will be started, this is not felt to be related to pain as the patient is not reacting to any painful stimuli and she has minimal tachycardia 95-1 05. Blood work is remarkably normal, CBC shows mild anemia with hemoglobin 11.6, coags normal, CMP shows hyperglycemia with a glucose of 230, lactic acid mildly elevated at 2.6, troponin normal, proBNP mildly elevated at 525. 09/01/19 01:57 Despite the scale saying that the patient should be able to go into the CT scanner when the patient was placed on the CT scanner bed the bed would not move. We have been unable to obtain the CT scan of the head. I have spoken with the family, family requests transfer to [facility] if possible, if not possible try [facility] and if that is not possible try [facility]. Clinically there is been minimal change in this patient, she remains relatively hypertensive while on the nicardipine drip, and has actually been increased to 7.5 mg/h. Patient is still not withdrawing from any painful stimuli and still has no gag reflex. EKG is nonischemic. She is oxygenating well a FiO2 of 55%, still does not have any spontaneous respirations. Despite the fact that she does not have any indications of pain I will order half milligram of Dilaudid to see if this decreases her hypertension at all. If so we will start a Versed drip to try and ensure that she is comfortable. 09/01/19 02:25 Discussed with Balbina, the J CARLOS from the neuro ICU, she agrees to accept the patient on behalf of Dr. Osorio, will have a CT CTA performed in the ER before she comes to the neuro ICU. Recommends starting the Versed drip in case she is in status epilepticus, agrees with continuing the nicardipine drip to keep the pressures in the 150s to 160 systolic range. After receiving 1 mg of Dilaudid and having the Cardene increased to 10 mg/h the patient's blood pressure did come down to 143 systolic, we will watch this blood pressure closely and titrate the Cardene as needed to keep her blood pressure in the 150s to 160 systolic. Patient's family is aware that she will be transferred. 09/01/19 02:29 We did reweigh the patient and on a new scale that has been completely zeroed out the patient weighs 200.0 kg. I will be moved from one bed to the next 2 way her on a different weighted bed the patient did temporarily desaturate, we will repeat a chest x-ray. She was unhooked from the ventilator, bagged for approximately 30 seconds and her oxygenation improved. 09/01/19 02:46 Arterial blood gas from 2335 shows respiratory acidosis with a pH of 7.20 and a PCO2 of 75.5. Repeat ABG has been ordered. We will adjust ventilator settings based off of the repeat ABG. 09/01/19 03:24 Chest X-Ray 08/31/19 23:36 IMPRESSION: Low lung volumes with development of multifocal consolidation concerning for pneumonia. Endotracheal tube is at the jose almost within the right mainstem. This needs to be withdrawn orally by 3.8 cm. THIS REPORT CONTAINS FINDINGS THAT MAY BE CRITICAL TO PATIENT CARE: The findings were verbally discussed via telephone conference with Dr. DEVON SILVER at 11:32 PM CDT on 08/31/2019 . Chest X-Ray 09/01/19 02:30 IMPRESSION: 1. Obscured left hemithorax with "white out. " Interval worsening. Differential diagnosis includes effusion, hemorrhage/contusion, collapse, and infectious/neoplastic processes. 2. Tip of an endotracheal tube is 0.9 cm from the jose; recommend 3 cm retraction. ET tube will be pulled back another 3 cm, it is still low despite having been pulled back 3 cm before. I do not know exactly what is causing the patient's worsening opacification on the left. Doubt hemorrhage at this time particularly because there is no blood in the ET tube. Patient has not had any trauma. Patient does not require Cardene any longer. Currently with the Versed at 5 mg her blood pressure was 119/67. Patient is responding quite well to sedation. This appears to affix her hypertension. 09/01/19 03:28 ABG is improving, pH has risen to 7.28, PCO2 has decreased to 64.9, patient is now starting to breathe over the vent. Current respiratory rate is 18. Aside from pulling back the ET tube ventilator settings will not to be adjusted as the patient is breathing at a appropriately higher rate than the initial ABG. 09/01/19 03:39 Helicopter crew is at bedside, report was given, patient remains stable for transport. Blood pressure is currently 131/74, ET tube has been withdrawn by 3 cm, pulse ox is still 93%. - Vital Signs Vital signs: Temp Pulse Resp BP Pulse Ox 16 131/74 H 94 09/01/19 03:30 09/01/19 03:30 09/01/19 03:30 - Laboratory Result Diagrams: 08/31/19 23:35 08/31/19 23:35 Laboratory results interpreted by me: 08/31/19 08/31/19 08/31/19 23:35 23:35 23:35 RBC 3.69 L Hgb 11.6 L Hct 34.1 L RDW 15.5 H Carbonic Acid ABG pH ABG pCO2 ABG pO2 ABG HCO3 ABG Total CO2 ABG O2 Saturation VBG pH VBG pCO2 Glucose 230 H POC Glucose Lactic Acid 2.6 H NT-Pro-B Natriuret Pep 08/31/19 08/31/19 08/31/19 23:35 23:35 23:35 RBC Hgb Hct RDW Carbonic Acid 2.27 H ABG pH 7.20 L* ABG pCO2 75.5 H* ABG pO2 101.9 H ABG HCO3 28.9 H ABG Total CO2 31.2 H ABG O2 Saturation VBG pH 7.17 L* VBG pCO2 79.7 H* Glucose POC Glucose Lactic Acid NT-Pro-B Natriuret Pep 525 H 08/31/19 09/01/19 23:49 03:00 RBC Hgb Hct RDW Carbonic Acid 1.95 H ABG pH 7.28 L ABG pCO2 64.9 H ABG pO2 78.1 L ABG HCO3 29.8 H ABG Total CO2 31.8 H ABG O2 Saturation 93.6 L VBG pH VBG pCO2 Glucose POC Glucose 206 H Lactic Acid NT-Pro-B Natriuret Pep - EKG Interpretation by Me Additional EKG results interpreted by me: 09/01/19 01:59 EKG shows sinus tachycardia at a rate of 109, left anterior hemiblock, no ST segment elevations or depressions, T wave inversions in aVL, poor R wave progression per my interpretation. Critical Care Note - Critical Care Note Total time excluding time spent on procedures (mins): 140 Discharge - Discharge Clinical Impression: Acute respiratory failure with hypoxia, Seizure, Morbid obesity Hypertension Qualifiers: Hypertension type: unspecified Qualified Code(s): I10 - Essential (primary) hypertension Condition: Critical Disposition: [facility] Referrals: SAULO SIMON MD [Primary Care Provider] - Follow up as needed
[2019-08-31 23:53] LABS: ABSOLUTE BASOPHILS # (AUTO) 0.1 10^3/uL (0.0-0.2); ABSOLUTE EOSINOPHILS # (AUTO) 0.3 10^3/uL (0.0-0.6); ABSOLUTE LYMPHOCYTES (AUTO) 1.9 10^3/uL (0.5-4.7); ABSOLUTE MONOCYTES (AUTO) 0.7 10^3/uL (0.1-1.4); ABSOLUTE NEUT (AUTO) 7.6 10^3/uL (1.7-8.2); BASOPHILS % (AUTO) 0.6 % (0-2); EOSINOPHILS % (AUTO) 2.5 % (0-6); HEMATOCRIT 34.1 % (36.0-47.0); HEMOGLOBIN 11.6 g/dL (12.0-15.5); LYMPHOCYTES % (AUTO) 17.9 % (13-45); MEAN CORPUSCULAR HEMOGLOBIN 31.4 pg (27.0-33.4); MEAN CORPUSCULAR VOLUME 93 fl (80-97); MONOCYTES % (AUTO) 6.4 % (3-13); PLATELET COUNT 190 10^3/uL (150-450); RED BLOOD COUNT 3.69 10^6/uL (3.72-5.28); RED CELL DISTRIBUTION WIDTH 15.5 % (11.5-14.0); SEGMENTED NEUTROPHILS % (AUTO) 72.6 % (42-78); TOTAL CELLS COUNTED % (AUTO) 100 %; WHITE BLOOD COUNT 10.5 10^3/uL (4.0-10.5)
[2019-08-31 23:58] LABS: INTERNATIONAL RATION (INR) 1.04; PROTHROMBIN TIME 13.6 SEC (11.4-15.4)
[2019-09-01 00:23] LABS: ALBUMIN 3.6 g/dL (3.5-5.0); ALKALINE PHOSPHATASE 83 U/L (38-126); ANION GAP 8 (5-19); ASPARTATE AMINO TRANSFERASE 35 U/L (14-36); BILIRUBIN,TOTAL 0.8 mg/dL (0.2-1.3); BLOOD UREA NITROGEN 17 mg/dL (7-20); CALCIUM 8.6 mg/dL (8.4-10.2); CARBON DIOXIDE 28 mmol/L (22-30); CHLORIDE 102 mmol/L (98-107); GLUCOSE 230 mg/dL (75-110); POTASSIUM 3.7 mmol/L (3.6-5.0); TOTAL PROTEIN 7.8 g/dL (6.3-8.2)
[2019-09-01 00:26] LABS: ALCOHOL < 10 mg/dL (NONE DETECTED)
--- NOTE | 2019-09-01 00:34 | RADIOLOGY REPORT (SQ) ---
EXAM DESCRIPTION: X-ray, AP supine portable view of the chest CLINICAL HISTORY: 43 years Female, intubated, resp failure COMPARISON: Portable view of the chest 03/27/2019 FINDINGS: Lungs: Lung volumes are low and there is been development of multifocal opacification and volume loss. No pneumothorax. Probable left pleural effusion. Mediastinum: Heart size is enlarged. However, this is similar to the previous examination. In the interval the patient has been intubated. Endotracheal tube is at the jose and touches the jose. It needs to be withdrawn orally by 3.8 cm NG tube is in place. It extends through the esophagus and into the upper stomach. Osseous structures are stable with endplate spondylosis IMPRESSION: Low lung volumes with development of multifocal consolidation concerning for pneumonia. Endotracheal tube is at the jose almost within the right mainstem. This needs to be withdrawn orally by 3.8 cm. THIS REPORT CONTAINS FINDINGS THAT MAY BE CRITICAL TO PATIENT CARE: The findings were verbally discussed via telephone conference with Dr. DEVON SILVER at 11:32 PM CDT on 08/31/2019 .
[2019-09-01] MEDS: NICARDIPINE HCL RTU, ISO-OS 20 MG/200 ML RTUINJ IV PRN ×2 (01:36→01:43)
[2019-09-01] MEDS ORDERED: HYDROMORPHONE HCL INJ/PF 2 MG/ML AMPULE IV ONE ×2 (01:53→02:02)
[2019-09-01 02:29] LABS: VENOUS BLOOD BASE EXCESS -2.5 mmol/L; VENOUS BLOOD HCO3 28.7 mmol/L (20-32)
[2019-09-01 02:30] LABS: ARTERIAL BLOOD BASE EXCESS -1.5 mmol/L; ARTERIAL BLOOD H2CO3 2.27 mmol/L (1.05-1.35); ARTERIAL BLOOD HCO3 28.9 mmol/L (20-24); ARTERIAL BLOOD O2 SATURATION 96.1 % (94-98); ARTERIAL BLOOD PO2 101.9 mmHg (80-100); ARTERIAL BLOOD TOTAL CO2 31.2 mmol/L (21-25)
[2019-09-01 02:33] LABS: ARTERIAL BLOOD FIO2 70%; ARTERIAL BLOOD PCO2 75.5 mmHg (35-45)
[2019-09-01 02:34] LABS: VENOUS BLOOD PCO2 79.7 mmHg (35-63); VENOUS BLOOD PH 7.17 (7.30-7.42)
--- NOTE | 2019-09-01 03:20 | RADIOLOGY REPORT (SQ) ---
EXAM DESCRIPTION: XR CHEST 1 VIEW COMPLETED DATE/TME: 09/01/2019 02:30 CLINICAL HISTORY: 43 years Female, recheck tube placement COMPARISON: Same day. NUMBER OF VIEWS/TECHNIQUE: 1/AP FINDINGS: Obscured left hemithorax with "white out. " Obscured left cardiac margin. Mild patchy opacity of the medial right upper lung field. Moderate central edema pattern on the right. Tip of an endotracheal tube is 0.9 cm from the jose; recommend 3 cm retraction. Adequate appearing enteric tube partially obscured. Limitation: Leads/hardware/artifact. No pneumothorax. Stable bony thorax. IMPRESSION: 1. Obscured left hemithorax with "white out. " Interval worsening. Differential diagnosis includes effusion, hemorrhage/contusion, collapse, and infectious/neoplastic processes. 2. Tip of an endotracheal tube is 0.9 cm from the jose; recommend 3 cm retraction.
[2019-09-01 03:27] LABS: ARTERIAL BLOOD BASE EXCESS 1.7 mmol/L; ARTERIAL BLOOD FIO2 85%; ARTERIAL BLOOD H2CO3 1.95 mmol/L (1.05-1.35); ARTERIAL BLOOD HCO3 29.8 mmol/L (20-24); ARTERIAL BLOOD O2 SATURATION 93.6 % (94-98); ARTERIAL BLOOD PCO2 64.9 mmHg (35-45); ARTERIAL BLOOD PH 7.28 (7.35-7.45); ARTERIAL BLOOD PO2 78.1 mmHg (80-100); ARTERIAL BLOOD TOTAL CO2 31.8 mmol/L (21-25)
[2019-09-01 03:37] VITALS: BP 131/74
[2019-09-01 03:49] LABS: APPEARANCE,URINE CLEAR; BILIRUBIN,URINE NEGATIVE (NEGATIVE); COLOR,URINE YELLOW; GLUCOSE, URINE 50 mg/dL (NEGATIVE); KETONES,URINE NEGATIVE (NEGATIVE); PROTEIN,URINE 30 mg/dL (NEGATIVE); URINE SPECIFIC GRAVITY 1.015
[2019-09-01 04:56] LABS: URINE AMPHETAMINES SCREEN NEGATIVE; URINE BARBITURATES SCREEN NEGATIVE; URINE COCAINE SCREEN NEGATIVE; URINE MARIJUANA (THC) SCREEN NEGATIVE; URINE METHADONE SCREEN NEGATIVE; URINE PHENCYCLIDINE SCREEN NEGATIVE
[2019-09-01 04:57] LABS: URINE BENZODIAZEPINES SCREEN UNCONFIRMED POSITIVE
--- NOTE | 2019-09-01 06:53 | EKG REPORT ---
SEVERITY:- ABNORMAL ECG - SINUS TACHYCARDIA LAD, CONSIDER LEFT ANTERIOR FASCICULAR BLOCK CONSIDER ANTERIOR INFARCT : Confirmed by: Preston Carmen MD 01-Sep-2019 06:52:34
== END 2019-09-01 03:45 | disposition short-term general hospital (02) ==
LOC: ER 23:19
DX: J96.01 Acute respiratory failure with hypoxia (principal); R56.9 Unspecified convulsions; E66.01 Morbid (severe) obesity due to excess calories; I11.9 Hypertensive heart disease without heart failure; E11.65 Type 2 diabetes mellitus with hyperglycemia; D64.9 Anemia, unspecified; J45.909 Unspecified asthma, uncomplicated; R00.0 Tachycardia, unspecified
CPT/HCPCS: 93005; 99291; 99292; 96375; 96365; 96368; 36415; 87040; 82962; 80307 ×2; 82803 ×2; 83605; 84703; 85025; 85610; 87077; 80053; 81001; 84484; 87150 ×26; 83880; 71045 ×2; 94660 ×2; 93010; J1170; J2250; J3490; 87186